=== PATIENT | female | born 1935 | race Caucasian/White ===

== ENCOUNTER 2016-08-05 14:11 | Outpatient (CLI) | payer MEDICARE, OTHER ==
--- NOTE | 2016-08-06 09:53 | Mammography Report ---
DIGITAL BILATERAL SCREENING MAMMOGRAPHY: 08/05/2016 CLINICAL HISTORY: A 81-year-old female in for routine screening mammogram. Patient has no family hi story of breast cancer. Patient has had no prior breast surgeries. COMPARISON: 04/13/2008, 06/16/2009, 01/24/2015 TECHNIQUE: Craniocaudad and oblique lateral views of each breast were obtained with Hologic Full Fie ld digital mammography. Axillary exaggerated craniocaudad views were obtained to compliment the pres ent study. FINDINGS: Breast parenchyma consists of heterogeneously dense breasts. No significant clusters of calcification are seen. No significant masses are noted. No significant change is seen. IMPRESSION: BREASTS APPEAR RADIOGRAPHICALLY BENIGN. BIRADS 1 - NEGATIVE. RECOMMENDATIONS: Annual bilateral screening mammography. STANDARD QUALIFYING STATEMENTS 1. This examination was reviewed with the aid of Computer-Aided Detection (CAD). 2. A negative or benign imaging report should not delay biopsy if clinically suspicious findings are present. Consider surgical consultation if warranted. More than 5% of cancers are not identified by i maging. 3. Dense breasts may obscure an underlying neoplasm. JOB #: [id number] EXT JOB #:[id number]
== END 2016-08-05 14:12 | disposition home or self-care (01) ==
LOC: DI 14:11
PROVIDERS: ATTEND Physician Assistant
DX: Z12.31 Encounter for screening mammogram for malignant neoplasm of breast (principal)
CPT/HCPCS: 77067

== ENCOUNTER 2016-08-05 14:13 | Outpatient (CLI) | payer MEDICARE, OTHER ==
--- NOTE | 2016-08-07 14:13 | DEXA Report ---
DEXA SCAN: 08/05/2016 HISTORY: @@(not dictated) TECHNIQUE: Dual energy x-ray absorptiometry (DXA) was performed on a [place] system. Regions measured are the AP spine, femoral neck, and, if needed, forearm. COMPARISON: None. In accordance with the International Society for Clinical Densitometry (ISCD) guidelines, data from previous exams may be reanalyzed using current recommendations and techniques. This is done to allow a more accurate basis for comparison with the current study. FINDINGS: The data for the lumbar spine is as follows: REGION BMD (g/cm/cm) T-SCORE Z-SCORE L1 0.747 -3.2 -1.1 L2 0.827 -3.1 -1.1 L3 0.978 -1.8 0.2 L4 1.138 -0.5 1.5 TOTAL 0.931 -2.1 0.0 NOTE: All evaluable vertebrae are used for classification. The data for the hip is as follows: REGION BMD (g/cm/cm) T-SCORE Z-SCORE Neck 0.680 -2.6 -0.3 TOTAL 0.700 -2.4 -0.3 NOTE: The femoral neck or total proximal femur, whichever is lowest, is used for classification. * Denotes significant change at the 95% confidence level. Denotes dissimilar scan types or analysis methods. IMPRESSION: THE WHO CLASSIFICATION BASED ON THE INTERNATIONAL REFERENCE STANDARD IS OSTEOPOROSIS. THE FRACTURE RISK IS SIGNIFICANTLY INCREASED. RECOMMENDATION: Patients with diagnosis of osteoporosis or osteopenia should have regular bone mineral density assessment. For those eligible for Medicare, routine testing is allowed once every 2 years. Testing frequency can be increased for patients who have rapidly progressing disease or for those who are receiving medical therapy to restore bone mass. COMMENT: World Health Organization (WHO) definitions for osteoporosis and osteopenia: NORMAL BMD: T-score at -1.0 or higher, fracture risk is low. OSTEOPENIA BMD: T-score between -1.0 and -2.5, fracture risk is increased. OSTEOPOROSIS BMD: T-score at -2.5 or lower, fracture risk high. National Osteoporosis Foundation recommends: 1. Obtain adequate dietary calcium (at least 1200 mg per day) and vitamin D (400 -800 international units per day). 2. Participate, as appropriate, in regular weightbearing and muscle- strengthening exercise. 3. Avoid tobacco use and reduce alcohol and caffeine intake. 4. For more detailed information see the website at www.NOF.org. MTDD
== END 2016-08-05 14:14 | disposition home or self-care (01) ==
LOC: DI 14:13
PROVIDERS: ATTEND Physician Assistant
DX: M81.0 Age-related osteoporosis without current pathological fracture (principal); Z78.0 Asymptomatic menopausal state
CPT/HCPCS: 77080

== ENCOUNTER 2018-03-12 15:39 | Outpatient (CLI) | payer MEDICARE, OTHER ==
[2018-03-12 16:03] LABS: BASOPHILS # (AUTO) 0.1 10^3/uL (0.0-0.1); BASOPHILS % (AUTO) 1.2 %; EOSINOPHILS # (AUTO) 0.2 10^3/uL (0.0-0.7); EOSINOPHILS % (AUTO) 3.7 %; HGB - HEMOGLOBIN 13.7 g/dL (12.0-16.0); LYMPHOCYTES # (AUTO) 1.7 10^3/uL (1.5-3.5); LYMPHOCYTES % (AUTO) 27.7 %; MEAN CORPUSCULAR HEMOGLOBIN 30.8 pg (27.0-31.0); MEAN CORPUSCULAR HGB CONC 34.4 g/dL (32.0-36.0); MEAN CORPUSCULAR VOLUME 89.6 fL (81.0-99.0); MEAN PLATELET VOLUME 6.5 fL (7.9-10.8); MONOCYTES # (AUTO) 0.7 10^3/uL (0.0-1.0); MONOCYTES % (AUTO) 10.6 %; NEUTROPHILS # (AUTO) 3.6 10^3/uL (1.5-6.6); NEUTROPHILS % (AUTO) 56.8 %; PLT - PLATELET COUNT 439 10^3/uL (130-450); RED BLOOD COUNT 4.45 10^6/uL (4.20-5.40); RED CELL DISTRIBUTION WIDTH 14.1 % (12.0-15.0); WHITE BLOOD COUNT 6.3 x10^3/uL (4.8-10.8)
[2018-03-12 16:20] LABS: ALBUMIN/GLOBULIN RATIO 1.3 (1.0-2.2); ALKALINE PHOSPHATASE 40 IU/L (42-121); ALT ALANINE AMINOTRANSFERASE 19 IU/L (10-60); AST ASPARTATE AMINOTRANSFERASE 20 IU/L (10-42); BILIRUBIN,TOTAL 0.6 mg/dL (0.2-1.0); BUN - BLOOD UREA NITROGEN 15 mg/dL (6-20); CALCIUM 9.1 mg/dL (8.5-10.3); CARBON DIOXIDE - CO2 30 mmol/L (21-32); CHLORIDE 94 mmol/L (101-111); CHOL/HDL RATIO 4.1 (<4.4); CHOLESTEROL 247 mg/dL; CREATININE 0.8 mg/dL (0.4-1.0); GFR - MDRD 69 (>89); GLUCOSE 107 mg/dL (70-100); HDL CHOLESTEROL 60 mg/dL; LDL CHOLESTEROL,CALCULATED 171 mg/dL; LDL/HDL RATIO 2.9 (<4.4); SODIUM 133 mmol/L (135-145); TOTAL PROTEIN 7.2 g/dL (6.7-8.2); VLDL CHOLESTEROL 16 mg/dL
[2018-03-12 16:32] LABS: THYROID STIMULATING HORMONE 7.15 uIU/mL (0.34-5.60)
[2018-03-12 16:34] LABS: FREE T4 (FREE THYROXINE) 0.59 ng/dL (0.58-1.64)
== END 2018-03-12 15:40 | disposition home or self-care (01) ==
LOC: LAB 15:39
PROVIDERS: ATTEND Physician Assistant
DX: E03.9 Hypothyroidism, unspecified (principal); I10 Essential (primary) hypertension; E78.5 Hyperlipidemia, unspecified
CPT/HCPCS: 36415; 80053; 80061; 83721; 84439; 84443; 84481; 85025

== ENCOUNTER 2018-10-28 10:02 | Outpatient (CLI) | payer MEDICARE, OTHER ==
[2018-10-28 10:39] LABS: ALBUMIN 3.7 g/dL (3.2-5.5); ALBUMIN/GLOBULIN RATIO 1.2 (1.0-2.2); ALKALINE PHOSPHATASE 30 IU/L (42-121); ALT ALANINE AMINOTRANSFERASE 21 IU/L (10-60); AST ASPARTATE AMINOTRANSFERASE 20 IU/L (10-42); BILIRUBIN,TOTAL 0.4 mg/dL (0.2-1.0); BUN - BLOOD UREA NITROGEN 18 mg/dL (6-20); CALCIUM 9.5 mg/dL (8.5-10.3); CARBON DIOXIDE - CO2 27 mmol/L (21-32); CHLORIDE 98 mmol/L (101-111); CHOL/HDL RATIO 3.7 (<4.4); CHOLESTEROL 206 mg/dL; CREATININE 0.8 mg/dL (0.4-1.0); GFR - MDRD 69 (>89); GLUCOSE 119 mg/dL (70-100); HDL CHOLESTEROL 55 mg/dL; LDL CHOLESTEROL,CALCULATED 140 mg/dL; LDL/HDL RATIO 2.5 (<4.4); SODIUM 136 mmol/L (135-145); TOTAL PROTEIN 6.8 g/dL (6.7-8.2); VLDL CHOLESTEROL 11 mg/dL
[2018-10-28 11:17] LABS: THYROID STIMULATING HORMONE 6.96 uIU/mL (0.34-5.60)
[2018-10-28 11:19] LABS: FREE T4 (FREE THYROXINE) 0.64 ng/dL (0.58-1.64)
== END 2018-10-28 10:03 | disposition home or self-care (01) ==
LOC: LAB 10:02
PROVIDERS: ATTEND Physician Assistant
DX: E78.2 Mixed hyperlipidemia (principal); E03.9 Hypothyroidism, unspecified
CPT/HCPCS: 36415; 80053; 80061; 83721; 84439; 84443; 84481

== ENCOUNTER 2019-02-23 18:24 | Emergency (ER) | payer MEDICARE, OTHER ==
[2019-02-23 19:52] LABS: BASOPHILS % (AUTO) 0.6 %; EOSINOPHILS # (AUTO) 0.3 10^3/uL (0.0-0.7); EOSINOPHILS % (AUTO) 5.2 %; HGB - HEMOGLOBIN 12.7 g/dL (12.0-16.0); LYMPHOCYTES # (AUTO) 1.7 10^3/uL (1.5-3.5); LYMPHOCYTES % (AUTO) 26.9 %; MEAN PLATELET VOLUME 8.5 fL (7.9-10.8); MONOCYTES # (AUTO) 0.7 10^3/uL (0.0-1.0); MONOCYTES % (AUTO) 10.9 %; NEUTROPHILS # (AUTO) 3.5 10^3/uL (1.5-6.6); NEUTROPHILS % (AUTO) 56.2 %; PLT - PLATELET COUNT 410 10^3/uL (130-450); RED BLOOD COUNT 4.23 10^6/uL (4.20-5.40); RED CELL DISTRIBUTION WIDTH 13.5 % (12.0-15.0); WHITE BLOOD COUNT 6.2 x10^3/uL (4.8-10.8)
--- NOTE | 2019-02-23 19:57 | ED Physician Documentation ---
History of Present Illness - Stated complaint Stated Complaint: HBP - Chief complaint Chief Complaint: Cardiac - Additonal information Additional information: This is an 83-year-old female with a history of hypertension, hyperlipidemia, who presents with elevated blood pressure and lightheadedness. Patient was having a dental cleaning today, and they had her in a Trendelenburg type position. When they sat her up she felt lightheaded, and they checked her blood pressure and found to be quite high, in the 190s/100s. She denied any chest pain or shortness of breath. They checked it several times over the course of an hour, and remained elevated, so she was sent here for further evaluation. She states that she currently feels fine, she denies any lightheadedness, weakness, numbness, chest pain, shortness of breath, abdominal pain, or other symptoms. She would like to go home at this time. Medications for blood pressure in the morning, she states that she has not missed the dose of these. She did recently cut down her dose after discussion with her primary care provider. 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 : None HEENT: None Psych: Depression, Anxiety Musculoskeletal: Osteoarthritis Derm: None - Past Surgical History Past Surgical History: Yes Ortho: Spine surgery - Present Medications Home Medications: Ambulatory Orders Medication Instructions Recorded Confirmed Ascorbic Acid [Vitamin C] 0 07/20/12 04/07/14 Atenolol/Chlorthalidone 1 ea ORAL DAILY 07/20/12 04/07/14 [Atenolol-Chlorthalidone 100-25] Buspirone HCl 10 mg ORAL BID 07/20/12 04/07/14 Calcium [Calcio [place]] 0 07/20/12 04/07/14 Cholecalciferol (Vitamin D3) 0 07/20/12 04/07/14 [Vitamin D] FLUoxetine [PROzac] 20 mg ORAL DAILY 07/20/12 04/07/14 Multivitamin [Multivitamins] 0 07/20/12 04/07/14 Thyroid,Pork [[place] Thyroid] 60 mg ORAL DAILY 07/20/12 04/07/14 lamoTRIgine [LaMICtal] 100 mg ORAL DAILY 07/20/12 04/07/14 risperiDONE [RisperDAL] 0.5 mg ORAL DAILY 07/20/12 04/07/14 Azithromycin [Zithromax] 250 mg PO DAILY #4 tablet 04/07/14 Gabapentin 300 mg PO DAILY 04/07/14 04/07/14 Potassium Chloride 10 meq PO DAILY 04/07/14 04/07/14 - Allergies Allergies/Adverse Reactions: Allergies Allergy/AdvReac Type Severity Reaction Status Date / Time No Known Drug Allergies Allergy Verified 02/23/19 18:33 - Social History Does the pt smoke?: No Smoking Status: Never smoker Does the pt drink ETOH?: No Does the pt have substance abuse?: No - Immunizations Immunizations are current?: Yes - POLST Patient has POLST: No PD ED PE NORMAL - Vitals Vital signs reviewed: Yes - General General: Alert and oriented X 3, No acute distress - HEENT HEENT: PERRL - Neck Neck: Supple, no meningeal sign - Cardiac Cardiac: RRR - Respiratory Respiratory: No respiratory distress, Clear bilaterally - Abdomen Abdomen: Soft, Non tender, Non distended - Derm Derm: Warm and dry - Extremities Extremities: No deformity - Neuro Neuro: Alert and oriented X 3, 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 There is a questionable less than 0.[address] de pression in V5.) - Labs Labs: Laboratory Tests 02/23/19 02/23/19 02/23/19 19:43 19:43 19:43 WBC 6.2 RBC 4.23 Hgb 12.7 Hct 38.5 MCV 91.0 MCH 30.0 MCHC 33.0 RDW 13.5 Plt Count 410 MPV 8.5 Neut # (Auto) 3.5 Lymph # (Auto) 1.7 [place] # (Auto) 0.7 Eos # (Auto) 0.3 Baso # (Auto) 0.0 Absolute Nucleated RBC 0.00 Nucleated RBC % 0.0 Sodium 138 Potassium 3.4 L Chloride 99 L Carbon Dioxide 31 Anion Gap 8.0 BUN 16 Creatinine 0.8 Estimated GFR (MDRD) 69 L Glucose 103 H Calcium 9.3 Magnesium 1.9 Total Bilirubin 0.5 AST 20 ALT 19 Alkaline Phosphatase 31 L Troponin I High Sens 3.6 B-Natriuretic Peptide Total Protein 6.8 Albumin 3.6 Globulin 3.2 Albumin/Globulin Ratio 1.1 Lipase 24 02/23/19 19:43 WBC RBC Hgb Hct MCV MCH MCHC RDW Plt Count MPV Neut # (Auto) Lymph # (Auto) [place] # (Auto) Eos # (Auto) Baso # (Auto) Absolute Nucleated RBC Nucleated RBC % Sodium Potassium Chloride Carbon Dioxide Anion Gap BUN Creatinine Estimated GFR (MDRD) Glucose Calcium Magnesium Total Bilirubin AST ALT Alkaline Phosphatase Troponin I High Sens B-Natriuretic Peptide 56 Total Protein Albumin Globulin Albumin/Globulin Ratio Lipase PD MEDICAL DECISION MAKING - ED course Complexity details: considered differential (Hypertension, hypertensive emergency, electrolyte abnormality, anemia, medication side effect, ACS, dysrhythmia) ED course: Patient is well-appearing and asymptomatic on arrival, she is hypertensive, but her blood pressure down trended without intervention during her stay here. Her CBC is unremarkable, her CMP shows only a very slight hypokalemia at 3.4, otherwise unremarkable. Troponin is within normal limits, and BNP is negative. Her EKG Does not show any convincing signs of ischemia. Her lungs are clear, and her oxygen saturation is normal. On repeat examination patient continues to feel well. She is able to ambulate independently to the bathroom and she is asymptomatic, she has no further lightheadedness. She is neurologically intact. I discussed that I do not know the exact cause of her lightheadedness, but her labs and resolution of her symptoms are reassuring. She is very eager to go home. I discussed that if she has any recurrence of her symptoms, particularly if she has any chest pain, trouble breathing, passing out, or other concerning symptoms she should return to the emergency department. I discussed primary care follow-up. I also discussed logging her blood pressure and discussing with her primary care provider if she needs a medication adjustment. Patient agrees with this plan and was discharged home Departure - Departure Disposition: 01 Home, Self Care Clinical Impression: Lightheaded Hypertension Qualifiers: Hypertension type: unspecified Qualified Code(s): I10 - Essential (primary) hypertension Condition: Good Instructions: ED Dizziness UKO Comments: You were seen today for dizziness as well as high blood pressure. I am glad that you are now feeling better. Your labs are reassuring. If you develop worsening symptoms such as lightheadedness, passing out, chest pain, or shortness of breath, please return to the emergency department. Please continue to log your blood pressure and to follow-up with your primary care provider to determine whether further changes to your medications are needed. Be careful when you are getting up from sitting, and avoid activities that could harm you if you pass out, such as driving, climbing at heights, or swimming until you are feeling completely better. Discharge Date/Time: 02/23/19 20:46
[2019-02-23 20:04] LABS: ALBUMIN 3.6 g/dL (3.2-5.5); ALBUMIN/GLOBULIN RATIO 1.1 (1.0-2.2); BILIRUBIN,TOTAL 0.5 mg/dL (0.2-1.0); CALCIUM 9.3 mg/dL (8.5-10.3); CREATININE 0.8 mg/dL (0.4-1.0); MAGNESIUM 1.9 mg/dL (1.7-2.8); TOTAL PROTEIN 6.8 g/dL (6.7-8.2)
[2019-02-23 20:40] VITALS: BP 192/81
== END 2019-02-23 20:46 | disposition home or self-care (01) ==
LOC: ED 18:24
DX: I10 Essential (primary) hypertension (principal); R42 Dizziness and giddiness; E87.6 Hypokalemia; E78.5 Hyperlipidemia, unspecified; E03.9 Hypothyroidism, unspecified
CPT/HCPCS: 36415; 80053; 83690; 83735; 83880; 84484; 85025; 93005; 99282; 99284

== ENCOUNTER 2019-06-30 11:27 | Outpatient (CLI) | payer MEDICARE, OTHER ==
--- NOTE | 2019-06-30 12:25 | XRAY Report ---
Reason: RIGHT HIP PAIN Procedure Date: 06/30/2019 Accession Number: [id number] / [id number] Procedure: XR - Hip w/Pelvis 2-3V RT CPT Code: Final Report FULL RESULT: EXAM: RIGHT HIP RADIOGRAPHY EXAM DATE: 06/30/2019 11:52 AM. CLINICAL HISTORY: Right hip pain. COMPARISON: XR PELVIS 1 OR 2 VIEWS 12/27/2009 4:23 PM. TECHNIQUE: 2 views. FINDINGS: Severe right hip joint space narrowing with subchondral cystic and sclerotic changes of the acetabulum and femoral head, showing progression versus remote comparison. No fracture or dislocation detected at the right hip. The bony pelvis appears intact. There is moderate to severe narrowing at the left hip joint space. Progression of disk space height loss and osteophytic spurring of the image portion of the lower lumbar spine. Sacroiliac joints appear intact. IMPRESSION: Advanced degenerative changes at the right hip. RADIA
== END 2019-06-30 11:28 | disposition home or self-care (01) ==
LOC: DI 11:27
PROVIDERS: ATTEND Registered Nurse
DX: M16.11 Unilateral primary osteoarthritis, right hip (principal)

== ENCOUNTER 2019-07-04 17:15 | Outpatient (CLI) | payer MEDICARE, OTHER | END 2019-07-04 17:16 | disposition critical access hospital (66) | LOC: EMS 17:15 | PROVIDERS: ATTEND Surgery | DX: M25.551 Pain in right hip (principal); W19.XXXA Unspecified fall, initial encounter; Y92.512 Supermarket, store or market as the place of occurrence of the external cause | CPT/HCPCS: A0425; A0429 ==

== ENCOUNTER 2019-07-04 17:22 | Emergency (ER) | payer MEDICARE, OTHER ==
[2019-07-04] MEDS ORDERED: oxyCODONE 5 MG TABLET PO STA ×2 (17:29→20:27)
--- NOTE | 2019-07-04 17:31 | ED Physician Documentation ---
PD HPI LOWER EXT INJURY - Stated complaint Stated Complaint: RT HIP PX - History obtained from History obtained from: Patient, EMS - History of Present Illness PD HPI LOW EXT INJURY LOCATION: Right (83-year-old woman who 6 days ago had a fall. She twisted her hip but did not land on it. Since then she has had terrible pain over the right hip. She had x-rays out done as an outpatient 2 days ago which were negative. She is been taking ibuprofen at home without relief. She was referred here from her primary care physician's office. 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 : None HEENT: None Psych: Depression, Anxiety Musculoskeletal: Osteoarthritis Derm: None - Past Surgical History Past Surgical History: Yes Ortho: Spine surgery - Present Medications Home Medications: Ambulatory Orders Medication Instructions Recorded Confirmed Ascorbic Acid [Vitamin C] 0 07/20/12 04/07/14 Atenolol/Chlorthalidone 1 ea ORAL DAILY 07/20/12 04/07/14 [Atenolol-Chlorthalidone 100-25] Buspirone HCl 10 mg ORAL BID 07/20/12 04/07/14 Calcium [Calcio [place]av[place]] 0 07/20/12 04/07/14 Cholecalciferol (Vitamin D3) 0 07/20/12 04/07/14 [Vitamin D] FLUoxetine [PROzac] 20 mg ORAL DAILY 07/20/12 04/07/14 Multivitamin [Multivitamins] 0 07/20/12 04/07/14 Thyroid,Pork [[place] Thyroid] 60 mg ORAL DAILY 07/20/12 04/07/14 lamoTRIgine [LaMICtal] 100 mg ORAL DAILY 07/20/12 04/07/14 risperiDONE [RisperDAL] 0.5 mg ORAL DAILY 07/20/12 04/07/14 Azithromycin [Zithromax] 250 mg PO DAILY #4 tablet 04/07/14 Gabapentin 300 mg PO DAILY 04/07/14 04/07/14 Potassium Chloride 10 meq PO DAILY 04/07/14 04/07/14 - Allergies Allergies/Adverse Reactions: Allergies Allergy/AdvReac Type Severity Reaction Status Date / Time No Known Drug Allergies Allergy Verified 02/23/19 18:33 - Social History Does the pt smoke?: No Smoking Status: Never smoker Does the pt drink ETOH?: No Does the pt have substance abuse?: No - Immunizations Immunizations are current?: Yes - POLST Patient has POLST: No PD ED PE NORMAL - Vitals Vital signs reviewed: Yes - General General: Alert and oriented X 3, No acute distress - HEENT HEENT: PERRL, EOMI - Neck Neck: Supple, no meningeal sign, No bony TTP - Cardiac Cardiac: RRR, No murmur - Respiratory Respiratory: No respiratory distress, Clear bilaterally - Abdomen Abdomen: Non tender - Back Back: Other (Tender over the right hip. Unable to internally or externally rotate. Unable to reach the leg off the bed. Knee and pelvic bones are nontender.) - Derm Derm: Normal color, Warm and dry - Extremities Extremities: No edema, No calf tenderness / cord - Neuro Neuro: Alert and oriented X 3, Normal speech Results - Vitals Vitals: Vital Signs - 24 hr 07/04/19 07/04/19 17:31 18:56 Temperature 36.9 C 37.1 C Heart Rate 59 L 60 Respiratory 16 16 Rate Blood Pressure 180/77 H 149/100 H O2 Saturation 96 99 Oxygen O2 Source Room air PD MEDICAL DECISION MAKING - ED course ED course: 83-year-old woman with a fall 6 days ago twisting her hip. Now unable to walk. Outpatient x-rays have been negative but his CT shows a nondisplaced subcapital femoral neck fracture on the right. We do not have orthopedics on-call today and [facility] was called a few minutes before 7 PM for potential transfer. She was accepted by [facility] at [facility] at approximately 7:10 PM. She also requested that I talk with the hospitalist there and they were paged. Dr. Shen did asked that we perform coronavirus testing as that is there routine for preoperative patients at [facility] now. Departure - Departure Disposition: 02 Transfer Acute Care Hosp Clinical Impression: Femoral neck fracture Qualifiers: Encounter type: initial encounter Fracture type: closed Laterality: right Qualified Code(s): S72.001A - Fracture of unspecified part of neck of right femur, initial encounter for closed fracture Condition: Good Record reviewed to determine appropriate education?: Yes
--- NOTE | 2019-07-04 18:44 | CT Report ---
Reason: hip pain fall Procedure Date: 07/04/2019 Accession Number: [id number] / [id number] Procedure: CT - PELVIS WO CPT Code: Final Report FULL RESULT: EXAM: CT BONY PELVIS WITHOUT CONTRAST EXAM DATE: 07/04/2019 05:55 PM. CLINICAL HISTORY: Hip pain following a fall. COMPARISON: Right hip radiographs 06/30/2019. TECHNIQUE: Thin-section axial images were acquired of the pelvis without contrast. Post-processing: Coronal and sagittal reformats. Other: None. In accordance with CT protocol optimization, one or more of the following dose reduction techniques were utilized for this exam: automated exposure control, adjustment of mA and/or KV based on patient size, or use of iterative reconstructive technique. FINDINGS: Bones: Nondisplaced, impacted subcapital femoral neck fracture. No additional fractures. 7 mm sclerotic osseous lesion within the right iliac wing (series 6 image 93), visible on prior radiographs from 2009. No additional osseous lesions. Sacroiliac Joints: Small marginal osteophytes. No erosions or joint space widening. Symphysis Pubis: Subchondral sclerosis and small marginal osteophytes. Right Hip: Severe posterior joint space loss with subchondral sclerosis and marginal osteophyte formation. Left Hip: Severe posterior joint space loss with small marginal osteophytes. Musculature: Normal. No fatty atrophy. Pelvic Cavity: The visualized bowel, bladder, and reproductive organs are unremarkable on this noncontrast exam. Other: No lymphadenopathy. No free air or free fluid. The other visualized soft tissues are unremarkable. IMPRESSION: 1. Nondisplaced, impacted subcapital right femoral neck fracture. RADIA
[2019-07-04 18:57] VITALS: BP 149/100
[2019-07-04 19:15] LABS: BASOPHILS % (AUTO) 0.6 %; EOSINOPHILS # (AUTO) 0.2 10^3/uL (0.0-0.7); HGB - HEMOGLOBIN 13.4 g/dL (12.0-16.0); LYMPHOCYTES # (AUTO) 1.2 10^3/uL (1.5-3.5); LYMPHOCYTES % (AUTO) 18.4 %; MEAN CORPUSCULAR HEMOGLOBIN 30.8 pg (27.0-31.0); MEAN CORPUSCULAR HGB CONC 34.6 g/dL (32.0-36.0); MEAN PLATELET VOLUME 8.4 fL (7.9-10.8); MONOCYTES # (AUTO) 0.9 10^3/uL (0.0-1.0); MONOCYTES % (AUTO) 13.2 %; NEUTROPHILS # (AUTO) 4.4 10^3/uL (1.5-6.6); NEUTROPHILS % (AUTO) 64.5 %; PLT - PLATELET COUNT 418 10^3/uL (130-450); RED BLOOD COUNT 4.35 10^6/uL (4.20-5.40); RED CELL DISTRIBUTION WIDTH 13.4 % (12.0-15.0); WHITE BLOOD COUNT 6.7 x10^3/uL (4.8-10.8)
[2019-07-04 19:19] LABS: INR 1.1 (0.8-1.2); PT - PROTHROMBIN TIME 12.6 secs (9.9-12.6)
[2019-07-04 19:26] LABS: ALBUMIN 3.6 g/dL (3.2-5.5); ALBUMIN/GLOBULIN RATIO 1.1 (1.0-2.2); BILIRUBIN,TOTAL 0.5 mg/dL (0.2-1.0); CALCIUM 9.4 mg/dL (8.5-10.3); CREATININE 0.7 mg/dL (0.4-1.0); TOTAL PROTEIN 6.9 g/dL (6.7-8.2)
[2019-07-04] MEDS ORDERED: HYDROmorphone 1 MG/ML CARPUJECT IVP STA (20:10)
== END 2019-07-04 20:45 | disposition short-term general hospital (02) ==
LOC: EDUNIT# → ED 17:22
DX: S72.011A Unspecified intracapsular fracture of right femur, initial encounter for closed fracture (principal); W19.XXXA Unspecified fall, initial encounter; X50.1XXA Overexertion from prolonged static or awkward postures, initial encounter; I10 Essential (primary) hypertension
CPT/HCPCS: 36415; 72192; 80053; 83690; 85025; 85610; 87635; 99284; 99285; A9270; 81599

== ENCOUNTER 2019-07-04 20:45 | Outpatient (CLI) | payer MEDICARE, OTHER | END 2019-07-04 20:46 | disposition short-term general hospital (02) | LOC: EMS 20:45 | PROVIDERS: ATTEND Surgery | DX: S72.001A Fracture of unspecified part of neck of right femur, initial encounter for closed fracture (principal); W01.0XXA Fall on same level from slipping, tripping and stumbling without subsequent striking against object, initial encounter; Y92.512 Supermarket, store or market as the place of occurrence of the external cause | CPT/HCPCS: A0425; A0428 ==

== ENCOUNTER 2019-11-03 14:22 | Outpatient (CLI) | payer MEDICARE, OTHER ==
--- NOTE | 2019-11-03 16:48 | DEXA Report ---
PROCEDURE: Dexa Spine and/or Hip INDICATIONS: AGE-RELATED OSTEOPOROSIS TECHNIQUE: Dual energy x-ray absorptiometry (DXA) was performed on a [place] System. Regions measur ed are the AP Spine, femoral neck, and if needed forearm. COMPARISON: 08/05/2016. FINDINGS: Lumbar Spine: Bone Mineral Density 0.983 g/cm/cm,T score -1.6. Left Hip: Bone Mineral Density 0.682 g/cm/cm,T score -2.6. Left Femoral Neck: Bone Mineral Density 0.681 g/cm/cm, T score -2.6. (T score greater or equal to -1.0: NORMAL) (T score from -1.1 to -2.4: OSTEOPENIA) (T score less than or equal to -2.5 to: OSTEOPOROSIS) Impression: Osteoporosis. Patients with diagnosis of osteoporosis or osteopenia should have regular bone mineral density assess ment. For those eligible for Medicare, routine testing is allowed once every 2 years. Testing frequ ency can be increased for patients who have rapidly progressing disease or for those who are receivin g medical therapy to restore bone mass. Reviewed by: Hunter Blue MD on 11/03/2019 4:46 PM PDT Approved by: Hunter Blue MD on 11/03/2019 4:46 PM PDT Station ID: [id number]
== END 2019-11-03 14:23 | disposition home or self-care (01) ==
LOC: DI 14:22
PROVIDERS: ATTEND Registered Nurse
DX: M81.0 Age-related osteoporosis without current pathological fracture (principal)
CPT/HCPCS: 77080

== ENCOUNTER 2020-02-12 19:16 | Emergency (ER) | payer MEDICARE, OTHER ==
[2020-02-12] MEDS ORDERED: AMOX/CLAV 875 MG/125 MG TABLET PO STA (20:28)
--- NOTE | 2020-02-12 20:29 | ED Physician Documentation ---
History of Present Illness - Stated complaint Stated Complaint: MOUTH PAIN, LEFT EAR PAIN - Chief complaint Chief Complaint: Heent - History obtained from History obtained from: Patient - History of Present Illness Timing: Today Pain level max: 0 Pain level now: 0 - Additonal information Additional information: 84-year-old female presents to the emergency department stating that she was diagnosed with cold sores from a herpes outbreak in her mouth. She states that today her left ear began to hurt, she then had blood come out of her ear canal. No fevers. No chills. Nothing makes it better or worse. 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 HEENT: None Psych: Depression, Anxiety Musculoskeletal: Osteoarthritis Derm: None - Past Surgical History Past Surgical History: Yes Ortho: Spine surgery - Present Medications Home Medications: Ambulatory Orders Medication Instructions Recorded Confirmed Ascorbic Acid [Vitamin C] 0 07/20/12 04/07/14 Atenolol/Chlorthalidone 1 ea ORAL DAILY 07/20/12 04/07/14 [Atenolol-Chlorthalidone 100-25] Buspirone HCl 10 mg ORAL BID 07/20/12 04/07/14 Calcium [Calcio [place]] 0 07/20/12 04/07/14 Cholecalciferol (Vitamin D3) 0 07/20/12 04/07/14 [Vitamin D] FLUoxetine [PROzac] 20 mg ORAL DAILY 07/20/12 04/07/14 Multivitamin [Multivitamins] 0 07/20/12 04/07/14 Thyroid,Pork [[place] Thyroid] 60 mg ORAL DAILY 07/20/12 04/07/14 lamoTRIgine [LaMICtal] 100 mg ORAL DAILY 07/20/12 04/07/14 risperiDONE [RisperDAL] 0.5 mg ORAL DAILY 07/20/12 04/07/14 Azithromycin [Zithromax] 250 mg PO DAILY #4 tablet 04/07/14 Gabapentin 300 mg PO DAILY 04/07/14 04/07/14 Potassium Chloride 10 meq PO DAILY 04/07/14 04/07/14 Amox/Clav 875/125 [Augmentin] 1 tab PO Q12H #20 tablet 02/12/20 - Allergies Allergies/Adverse Reactions: Allergies Allergy/AdvReac Type Severity Reaction Status Date / Time No Known Drug Allergies Allergy Verified 02/12/20 19:22 - Social History Does the pt smoke?: No Smoking Status: Never smoker Does the pt drink ETOH?: No Does the pt have substance abuse?: No - Immunizations Immunizations are current?: Yes - POLST Patient has POLST: No PD ED PE NORMAL - Vitals Vital signs reviewed: Yes - General General: Alert and oriented X 3, No acute distress - HEENT HEENT: PERRL, Ears normal (ruptured L TM, no active bleeding.), Moist mucous membranes, Pharynx benign, Other (mild swelling to L upper lip. normal phonation, no trismus.) - Neck Neck: Supple, no meningeal sign - Cardiac Cardiac: RRR - Respiratory Respiratory: No respiratory distress, Clear bilaterally - Derm Derm: Warm and dry - Neuro Neuro: Alert and oriented X 3 - Psych Psych: Normal mood, Normal affect Results - Vitals Vitals: Vital Signs - 24 hr 02/12/20 02/12/20 19:23 20:44 Temperature 36.6 C 37.1 C Heart Rate 101 H 70 Respiratory 16 14 Rate Blood Pressure 169/84 H 170/94 H O2 Saturation 94 93 Oxygen O2 Source Room air PD MEDICAL DECISION MAKING - ED course Complexity details: considered differential, d/w patient ED course: 84 year old female with a ruptured L TM. Patient to have a mild cellulitis of the left upper lip as well. Will place on antibiotics. Patient counseled regarding signs and symptoms for which I believe and urgent re-evaluation would be necessary. Patient with good understanding of and agreement to plan and is comfortable going home at this time This document was made in part using voice recognition software. While efforts are made to proofread this document, sound alike and grammatical errors may occur. Departure - Departure Disposition: 01 Home, Self Care Clinical Impression: Herpes simplex labialis Ruptured tympanic membrane Qualifiers: Laterality: left Qualified Code(s): H72.92 - Unspecified perforation of tympanic membrane, left ear Condition: Good Instructions: ED Rupture Eardrum Infec Follow-Up: Alison Philip ARNP [Primary Care Provider] - Within 1 week Prescriptions: Amox/Clav 875/125 [Augmentin] 1 tab PO Q12H #20 tablet Comments: Continue your current medications at home. Continue the acyclovir. Follow-up with your doctor for further care. Try to avoid getting any water in the ear. You should place a cotton ball in the ear when you are showering. You do need to be reevaluated within 1 week. Return if you worsen Discharge Date/Time: 02/12/20 20:46
[2020-02-12 20:45] VITALS: BP 170/94
== END 2020-02-12 20:46 | disposition home or self-care (01) ==
LOC: ED 19:16
DX: H72.92 Unspecified perforation of tympanic membrane, left ear (principal); B00.1 Herpesviral vesicular dermatitis; K13.0 Diseases of lips; I10 Essential (primary) hypertension
CPT/HCPCS: 99282; 99284; A9270

== ENCOUNTER 2020-05-30 13:23 | Outpatient (CLI) | payer MEDICARE, OTHER ==
[2020-05-30 13:46] LABS: BASOPHILS # (AUTO) 0.1 10^3/uL (0.0-0.1); EOSINOPHILS # (AUTO) 0.1 10^3/uL (0.0-0.7); EOSINOPHILS % (AUTO) 2.3 %; HCT - HEMATOCRIT 39.5 % (37.0-47.0); HGB - HEMOGLOBIN 13.2 g/dL (12.0-16.0); LYMPHOCYTES # (AUTO) 1.2 10^3/uL (1.5-3.5); LYMPHOCYTES % (AUTO) 20.1 %; MEAN CORPUSCULAR HEMOGLOBIN 30.8 pg (27.0-31.0); MEAN CORPUSCULAR HGB CONC 33.4 g/dL (32.0-36.0); MEAN CORPUSCULAR VOLUME 92.1 fL (81.0-99.0); MEAN PLATELET VOLUME 8.5 fL (7.9-10.8); MONOCYTES # (AUTO) 0.5 10^3/uL (0.0-1.0); MONOCYTES % (AUTO) 8.7 %; NEUTROPHILS # (AUTO) 4.1 10^3/uL (1.5-6.6); NEUTROPHILS % (AUTO) 67.6 %; PLT - PLATELET COUNT 520 10^3/uL (130-450); RED BLOOD COUNT 4.29 10^6/uL (4.20-5.40); RED CELL DISTRIBUTION WIDTH 13.7 % (12.0-15.0); WHITE BLOOD COUNT 6.1 x10^3/uL (4.8-10.8)
[2020-05-30 14:00] LABS: ALBUMIN 3.6 g/dL (3.2-5.5); ALBUMIN/GLOBULIN RATIO 1.1 (1.0-2.2); BILIRUBIN,TOTAL 0.5 mg/dL (0.2-1.0); CALCIUM 9.4 mg/dL (8.5-10.3); CREATININE 0.7 mg/dL (0.4-1.0); POTASSIUM 3.1 mmol/L (3.5-5.0); TOTAL PROTEIN 6.9 g/dL (6.7-8.2)
[2020-05-30 14:18] LABS: THYROID STIMULATING HORMONE 10.95 uIU/mL (0.34-5.60)
[2020-05-30 14:20] LABS: FREE T4 (FREE THYROXINE) 0.67 ng/dL (0.58-1.64)
== END 2020-05-30 13:24 | disposition home or self-care (01) ==
LOC: LAB 13:23
PROVIDERS: ATTEND Registered Nurse
DX: E03.9 Hypothyroidism, unspecified (principal); M81.0 Age-related osteoporosis without current pathological fracture; I10 Essential (primary) hypertension
CPT/HCPCS: 36415; 80053; 82306; 84439; 84443; 85025

== ENCOUNTER 2020-08-01 14:34 | Outpatient (CLI) | payer MEDICARE, OTHER | END 2020-08-01 14:35 | disposition home or self-care (01) | LOC: LAB 14:34 | PROVIDERS: ATTEND Registered Nurse | DX: E03.9 Hypothyroidism, unspecified (principal) | CPT/HCPCS: 36415; 84443 ==

== ENCOUNTER 2020-08-15 13:16 | Outpatient (CLI) | payer MEDICARE, OTHER ==
[2020-08-15 13:46] LABS: BASOPHILS % (AUTO) 0.7 %; EOSINOPHILS % (AUTO) 2.6 %; HCT - HEMATOCRIT 38.1 % (37.0-47.0); HGB - HEMOGLOBIN 12.6 g/dL (12.0-16.0); LYMPHOCYTES % (AUTO) 23.6 %; MEAN CORPUSCULAR HEMOGLOBIN 30.4 pg (27.0-31.0); MEAN CORPUSCULAR HGB CONC 33.1 g/dL (32.0-36.0); MEAN CORPUSCULAR VOLUME 91.8 fL (81.0-99.0); MEAN PLATELET VOLUME 8.7 fL (7.9-10.8); MONOCYTES % (AUTO) 8.2 %; NEUTROPHILS % (AUTO) 64.5 %; PLT - PLATELET COUNT 495 10^3/uL (130-450); RED BLOOD COUNT 4.15 10^6/uL (4.20-5.40); RED CELL DISTRIBUTION WIDTH 14.1 % (12.0-15.0); WHITE BLOOD COUNT 6.9 x10^3/uL (4.8-10.8)
[2020-08-15 13:52] LABS: ABNORMAL LYMPHS % (MANUAL) 0 %
[2020-08-15 14:06] LABS: % IRON SATURATION 19 % (20-50); BUN - BLOOD UREA NITROGEN 15 mg/dL (6-20); CALCIUM 9.1 mg/dL (8.5-10.3); CARBON DIOXIDE - CO2 29 mmol/L (21-32); CHLORIDE 100 mmol/L (101-111); CREATININE 0.7 mg/dL (0.4-1.0); GFR - MDRD 80 (>89); GLUCOSE 105 mg/dL (70-100); IRON 63 ug/dL (28-170); SODIUM 138 mmol/L (135-145); TOTAL IRON BINDING CAPACITY 337 ug/dL (250-450); TRANSFERRIN 241 mg/dL (192-382)
[2020-08-15 14:08] LABS: CRP - C-REACTIVE PROTEIN < 1.0 mg/dL (0-1.0)
[2020-08-15 14:09] LABS: BAND NEUTROPHILS % (MANUAL) 1 %; BASOPHILS # (MANUAL) 0.1 10^3/uL (0-0.1); BASOPHILS % (MANUAL) 1 %; DIFFERENTIAL COMMENT MANUAL DIFFERENTIAL; EOSINOPHILS # (MANUAL) 0.2 10^3/uL (0-0.7); LYMPHOCYTES # (MANUAL) 2.1 10^3/uL (1.5-3.5); LYMPHOCYTES % (MANUAL) 28 %; MONOCYTES # (MANUAL) 0.3 10^3/uL (0.0-1.0); NEUTROPHILS # (MANUAL) 4.2 10^3/uL (1.5-6.6); REACTIVE LYMPHS % (MANUAL) 3 %
[2020-08-15 14:10] LABS: PLATELET ESTIMATE, MANUAL INCREASED (>450,000) (NORMAL); PLATELET MORPHOLOGY NORMAL APPEARANCE (NORMAL); RBC MORPHOLOGY (MULTIPLE) NORMAL APPEARANCE (NORMAL); WBC MORPHOLOGY (MULTIPLE) 1+ REACTIVE LYMPHS (NORMAL)
== END 2020-08-15 13:17 | disposition home or self-care (01) ==
LOC: LAB 13:16
PROVIDERS: ATTEND Registered Nurse
DX: I10 Essential (primary) hypertension (principal); D47.3 Essential (hemorrhagic) thrombocythemia
CPT/HCPCS: 36415; 80048; 82728; 83540; 84466; 85025; 85651; 86140

== ENCOUNTER 2020-08-29 13:04 | Outpatient (CLI) | payer MEDICARE, OTHER ==
--- NOTE | 2020-08-29 17:37 | XRAY Report ---
PROCEDURE: Foot 3 View LT INDICATIONS: INJURY TO LEFT FOOT TECHNIQUE: 3 views of the foot were acquired. COMPARISON: None FINDINGS: Bones: No acute fractures or dislocations. Moderate degenerative changes of the left first metatarso phalangeal joint with bunion formation and overlying soft tissue prominence. There are also degenerat jose manuel changes of the left great toe interphalangeal joint. No suspicious bony lesions. Soft tissues: No tibiotalar joint effusion. Achilles tendon appears normal. IMPRESSION: Left foot without acute fracture or dislocation. Moderate osteoarthritic changes of the left first metatarsophalangeal joint with prominent overlying soft tissue. This may represent sequela of bunion formation. Consider further evaluation with weightb earing views of the left foot. Reviewed by: Wesley Morris MD on 08/29/2020 5:36 PM PDT Approved by: Wesley Morris MD on 08/29/2020 5:36 PM PDT Station ID: [id number]
== END 2020-08-29 13:05 | disposition home or self-care (01) ==
LOC: DI 13:04
PROVIDERS: ATTEND Podiatrist
DX: M19.072 Primary osteoarthritis, left ankle and foot (principal)

== ENCOUNTER 2021-01-17 13:11 | Outpatient (CLI) | payer MEDICARE, OTHER ==
[2021-01-17 13:26] LABS: BASOPHILS # (AUTO) 0.1 10^3/uL (0.0-0.1); BASOPHILS % (AUTO) 1.1 %; EOSINOPHILS # (AUTO) 0.3 10^3/uL (0.0-0.7); EOSINOPHILS % (AUTO) 4.3 %; HCT - HEMATOCRIT 39.9 % (37.0-47.0); HGB - HEMOGLOBIN 13.2 g/dL (12.0-16.0); LYMPHOCYTES % (AUTO) 27.7 %; MEAN CORPUSCULAR HEMOGLOBIN 30.3 pg (27.0-31.0); MEAN CORPUSCULAR HGB CONC 33.1 g/dL (32.0-36.0); MEAN CORPUSCULAR VOLUME 91.7 fL (81.0-99.0); MEAN PLATELET VOLUME 8.8 fL (7.9-10.8); MONOCYTES # (AUTO) 0.7 10^3/uL (0.0-1.0); NEUTROPHILS # (AUTO) 4.2 10^3/uL (1.5-6.6); NEUTROPHILS % (AUTO) 57.6 %; PLT - PLATELET COUNT 563 10^3/uL (130-450); RED BLOOD COUNT 4.35 10^6/uL (4.20-5.40); RED CELL DISTRIBUTION WIDTH 14.8 % (12.0-15.0); WHITE BLOOD COUNT 7.2 x10^3/uL (4.8-10.8)
[2021-01-17 13:45] LABS: ALBUMIN 3.6 g/dL (3.2-5.5); ALBUMIN/GLOBULIN RATIO 1.1 (1.0-2.2); BILIRUBIN,TOTAL 0.6 mg/dL (0.2-1.0); CALCIUM 8.9 mg/dL (8.5-10.3); CREATININE 0.7 mg/dL (0.4-1.0); POTASSIUM 4.1 mmol/L (3.5-5.0)
[2021-01-17 13:55] LABS: THYROID STIMULATING HORMONE 4.36 uIU/mL (0.34-5.60)
[2021-01-17 14:00] LABS: FERRITIN 28.7 ng/mL (11.0-306.8)
== END 2021-01-17 13:12 | disposition home or self-care (01) ==
LOC: LAB 13:11
PROVIDERS: ATTEND Registered Nurse
DX: R53.83 Other fatigue (principal); I10 Essential (primary) hypertension; D47.3 Essential (hemorrhagic) thrombocythemia
CPT/HCPCS: 36415; 80053; 82728; 83540; 84443; 84466; 85025

== ENCOUNTER 2021-03-07 14:30 | Outpatient (CLI) | payer MEDICARE, OTHER ==
[2021-03-07 14:49] LABS: BASOPHILS # (AUTO) 0.1 10^3/uL (0.0-0.1); EOSINOPHILS # (AUTO) 0.3 10^3/uL (0.0-0.7); EOSINOPHILS % (AUTO) 4.2 %; HCT - HEMATOCRIT 41.5 % (37.0-47.0); HGB - HEMOGLOBIN 13.7 g/dL (12.0-16.0); LYMPHOCYTES # (AUTO) 2.1 10^3/uL (1.5-3.5); LYMPHOCYTES % (AUTO) 26.9 %; MEAN CORPUSCULAR HEMOGLOBIN 30.4 pg (27.0-31.0); MEAN PLATELET VOLUME 8.8 fL (7.9-10.8); MONOCYTES # (AUTO) 0.7 10^3/uL (0.0-1.0); MONOCYTES % (AUTO) 9.5 %; NEUTROPHILS # (AUTO) 4.5 10^3/uL (1.5-6.6); NEUTROPHILS % (AUTO) 58.3 %; PLT - PLATELET COUNT 588 10^3/uL (130-450); RED BLOOD COUNT 4.51 10^6/uL (4.20-5.40); RED CELL DISTRIBUTION WIDTH 14.6 % (12.0-15.0); WHITE BLOOD COUNT 7.8 x10^3/uL (4.8-10.8)
[2021-03-07 15:06] LABS: ALBUMIN 3.9 g/dL (3.2-5.5); ALBUMIN/GLOBULIN RATIO 1.1 (1.0-2.2); BILIRUBIN,TOTAL 0.5 mg/dL (0.2-1.0); CALCIUM 9.1 mg/dL (8.5-10.3); CREATININE 0.8 mg/dL (0.4-1.0); POTASSIUM 4.1 mmol/L (3.5-5.0); TOTAL PROTEIN 7.3 g/dL (6.7-8.2)
[2021-03-07 15:16] LABS: THYROID STIMULATING HORMONE 4.73 uIU/mL (0.34-5.60)
[2021-03-07 15:21] LABS: FERRITIN 39.6 ng/mL (11.0-306.8)
== END 2021-03-07 14:31 | disposition home or self-care (01) ==
LOC: LAB 14:30
PROVIDERS: ATTEND Registered Nurse
DX: R53.83 Other fatigue (principal); I10 Essential (primary) hypertension; D75.839 Thrombocytosis, unspecified
CPT/HCPCS: 36415; 80053; 82728; 83540; 84443; 84466; 85025

== ENCOUNTER 2021-05-02 13:17 | Outpatient (CLI) | payer MEDICARE, OTHER ==
[2021-05-02 13:27] LABS: BASOPHILS # (AUTO) 0.1 10^3/uL (0.0-0.1); BASOPHILS % (AUTO) 0.7 %; EOSINOPHILS # (AUTO) 0.2 10^3/uL (0.0-0.7); EOSINOPHILS % (AUTO) 2.1 %; HCT - HEMATOCRIT 40.7 % (37.0-47.0); HGB - HEMOGLOBIN 13.8 g/dL (12.0-16.0); LYMPHOCYTES # (AUTO) 2.1 10^3/uL (1.5-3.5); LYMPHOCYTES % (AUTO) 24.6 %; MEAN CORPUSCULAR HEMOGLOBIN 30.9 pg (27.0-31.0); MEAN CORPUSCULAR HGB CONC 33.9 g/dL (32.0-36.0); MEAN CORPUSCULAR VOLUME 91.1 fL (81.0-99.0); MEAN PLATELET VOLUME 8.7 fL (7.9-10.8); MONOCYTES # (AUTO) 0.8 10^3/uL (0.0-1.0); MONOCYTES % (AUTO) 9.4 %; NEUTROPHILS # (AUTO) 5.3 10^3/uL (1.5-6.6); NEUTROPHILS % (AUTO) 62.8 %; PLT - PLATELET COUNT 581 10^3/uL (130-450); RED BLOOD COUNT 4.47 10^6/uL (4.20-5.40); RED CELL DISTRIBUTION WIDTH 14.8 % (12.0-15.0); WHITE BLOOD COUNT 8.4 x10^3/uL (4.8-10.8)
== END 2021-05-02 13:18 | disposition home or self-care (01) ==
LOC: LAB 13:17
PROVIDERS: ATTEND Registered Nurse
DX: D75.839 Thrombocytosis, unspecified (principal)
CPT/HCPCS: 36415; 85025

== ENCOUNTER 2021-11-13 08:00 | Outpatient (CLI) | payer MEDICARE, OTHER ==
[2021-11-13 17:40] LABS: HCT - HEMATOCRIT 42.1 % (37.0-47.0); MEAN CORPUSCULAR HEMOGLOBIN 30.7 pg (27.0-31.0); MEAN CORPUSCULAR HGB CONC 33.3 g/dL (32.0-36.0); MEAN CORPUSCULAR VOLUME 92.3 fL (81.0-99.0); MEAN PLATELET VOLUME 9.2 fL (7.9-10.8); RED BLOOD COUNT 4.56 10^6/uL (4.20-5.40); RED CELL DISTRIBUTION WIDTH 15.4 % (12.0-15.0); WHITE BLOOD COUNT 6.7 x10^3/uL (4.8-10.8)
[2021-11-13 17:48] LABS: CALCIUM 9.4 mg/dL (8.5-10.3); CREATININE 0.7 mg/dL (0.4-1.0); POTASSIUM 3.9 mmol/L (3.5-5.0)
== END 2021-11-13 23:59 | disposition home or self-care (01) ==
LOC: LAB.N 08:00
PROVIDERS: ATTEND Nurse Practitioner
DX: R06.09 Other forms of dyspnea (principal)
CPT/HCPCS: 36415; 80048; 83880; 85027

== ENCOUNTER 2021-11-13 08:00 | Outpatient (CLI) | payer MEDICARE, OTHER ==
--- NOTE | 2021-11-13 14:41 | XRAY Report ---
PROCEDURE: Chest 2 View X-Ray INDICATIONS: SOB ON EXERTION TECHNIQUE: 2 view(s) of the chest. COMPARISON: CT chest 06/11/2014. FINDINGS: Surgical changes and devices: None. Lungs and pleura: No pleural effusions or pneumothorax. Streaky opacity in the mid lung neil bilat erally. This was seen back in 2014. The small pulmonary nodule seen in 2015 are not well appreciated on plain film. No consolidative opacity identified. Prominent lung volumes. Mediastinum: Mediastinal contours are normal. Heart size is normal. Bones and chest wall: No suspicious bony abnormalities. Small left shoulder loose bodies or rice michel dies. Soft tissues appear unremarkable. IMPRESSION: Suspect bilateral scarring or interstitial lung disease. Consider further evaluation with CT of the chest to follow up the remotely seen pulmonary nodules. Reviewed by: Jorge Negrete MD on 11/13/2021 2:39 PM PDT Approved by: Jorge Negrete MD on 11/13/2021 2:39 PM PDT Station ID: [id number]
== END 2021-11-13 23:59 | disposition home or self-care (01) ==
LOC: DI.N 08:00
PROVIDERS: ATTEND Nurse Practitioner
DX: R06.09 Other forms of dyspnea (principal)

== ENCOUNTER 2021-11-20 15:51 | Outpatient (CLI) | payer MEDICARE, OTHER ==
--- NOTE | 2021-11-21 11:14 | CT Report ---
PROCEDURE: CHEST WO INDICATIONS: DYSPNEA ON EXERTION TECHNIQUE: Noncontrast 1mm axial images were acquired from the pulmonary apices to the posterior costophrenic an gles. Axial 5 mm soft tissue kernel reconstructions were performed as well as 8 mm axial MIP and cor onal and sagittal 5 mm reformations. For radiation dose reduction, the following was used: automate d exposure control, adjustment of mA and/or kV according to patient size. COMPARISON: Chest CT with, 08/02/2014. FINDINGS: Image quality: Excellent. Lungs and pleura: There are multiple lung nodules bilaterally, more numerous in the right lung than left lung. Many nodules are clustered. Compared to the prior examination on 08/11/2014, nodules are in creased in number. Some nodules are decreased in size. There are multiple calcified granulomas, predo minantly in the right lung. Reference nodules are listed in following: Nodule 1: 1.3 cm; right upper lobe perihilar; series 5 image 119. Multiple pulmonary nodules are pres ent Nodule 2: 0.8 cm; right upper lobe posterior; series 5 image 118. Nodule 3: 0.7 x 1.1 cm; right lower lobe; series 5 image 233. Nodule 4: 0.6 x 1.0 cm; left lower lobe posterior medial; series 5 image 202. There are bronchiectasis in right upper lobe, right lower lobe, left lower lobe. No pleural effusions or pneumothorax. Central and peripheral airways are patent and normal in calibe r. Mediastinum: Heart size is normal. No pericardial effusion. Borderline sized mediastinal lymph node s are most likely reactive. Thoracic aorta and central pulmonary arteries are normal in size. Esoph alberto is normal in caliber. No hiatal hernia. Bones and chest wall: No suspicious bony lesions. No vertebral body compression fractures. Degener ative changes in thoracic and upper lumbar spine. No axillary or supraclavicular adenopathy by size c riteria. The thyroid is normal in size and there are no incidental findings. Abdomen: There is a 4 mm cyst in the superior pole of the right kidney. Visualized upper abdominal s olid organs and bowel loops appear normal in the absence of contrast. Extensive atherosclerotic calc ifications. IMPRESSION: 1. Multiple pulmonary nodules are present bilaterally, increased in number when compared to last exam . Some nodules are, however, decreased in size. Differential diagnoses are infectious etiology, such as granulomatous infections, and inflammatory process, such as sarcoidosis. Superimposed neoplasm is felt less likely but not entirely excluded. 2. Bronchiectasis bilaterally, most pronounced in the right upper lobe and right lower lobe, but also involving the left lower lobe. Reviewed by: Nathan Christina MD on 11/21/2021 11:13 AM PDT Approved by: Nathan Christina MD on 11/21/2021 11:13 AM PDT Station ID: [id number]
== END 2021-11-20 15:52 | disposition home or self-care (01) ==
LOC: DI 15:51
PROVIDERS: ATTEND Nurse Practitioner Family
DX: R91.8 Other nonspecific abnormal finding of lung field (principal); J47.9 Bronchiectasis, uncomplicated

== ENCOUNTER 2022-01-24 12:48 | Outpatient (CLI) | payer MEDICARE, OTHER ==
[2022-01-24 13:37] LABS: BASOPHILS # (AUTO) 0.1 10^3/uL (0.0-0.1); BASOPHILS % (AUTO) 1.1 %; EOSINOPHILS # (AUTO) 0.1 10^3/uL (0.0-0.7); EOSINOPHILS % (AUTO) 2.1 %; HCT - HEMATOCRIT 39.7 % (37.0-47.0); HGB - HEMOGLOBIN 13.3 g/dL (12.0-16.0); LYMPHOCYTES # (AUTO) 1.6 10^3/uL (1.5-3.5); LYMPHOCYTES % (AUTO) 25.1 %; MEAN CORPUSCULAR HEMOGLOBIN 32.4 pg (27.0-31.0); MEAN CORPUSCULAR HGB CONC 33.5 g/dL (32.0-36.0); MEAN CORPUSCULAR VOLUME 96.6 fL (81.0-99.0); MEAN PLATELET VOLUME 8.7 fL (7.9-10.8); MONOCYTES # (AUTO) 0.6 10^3/uL (0.0-1.0); MONOCYTES % (AUTO) 9.3 %; NEUTROPHILS # (AUTO) 3.9 10^3/uL (1.5-6.6); NEUTROPHILS % (AUTO) 62.1 %; PLT - PLATELET COUNT 358 10^3/uL (130-450); RED BLOOD COUNT 4.11 10^6/uL (4.20-5.40); RED CELL DISTRIBUTION WIDTH 19.9 % (12.0-15.0); WHITE BLOOD COUNT 6.2 x10^3/uL (4.8-10.8)
[2022-01-24 13:49] LABS: ALBUMIN 3.7 g/dL (3.2-5.5); BILIRUBIN,TOTAL 0.3 mg/dL (0.2-1.0); CALCIUM 9.3 mg/dL (8.5-10.3); CREATININE 0.7 mg/dL (0.4-1.0); POTASSIUM 4.2 mmol/L (3.5-5.0); TOTAL PROTEIN 7.5 g/dL (6.7-8.2)
[2022-01-24 14:03] LABS: THYROID STIMULATING HORMONE 5.08 uIU/mL (0.34-5.60)
== END 2022-01-24 12:49 | disposition home or self-care (01) ==
LOC: LAB 12:48
PROVIDERS: ATTEND Registered Nurse
DX: R06.09 Other forms of dyspnea (principal); E03.9 Hypothyroidism, unspecified
CPT/HCPCS: 36415; 80053; 84443; 85025

== ENCOUNTER 2022-02-21 20:34 | Outpatient (CLI) | payer MEDICARE, OTHER | END 2022-02-21 23:59 | disposition critical access hospital (66) | LOC: EMS 20:34 | DX: S49.92XA Unspecified injury of left shoulder and upper arm, initial encounter (principal); W08.XXXA Fall from other furniture, initial encounter; Y92.009 Unspecified place in unspecified non-institutional (private) residence as the place of occurrence of the external cause | CPT/HCPCS: A0425; A0429 ==

== ENCOUNTER 2022-02-21 20:40 | Emergency (ER) | payer MEDICARE, OTHER ==
[2022-02-21] MEDS ORDERED: HYDROmorphone 1 MG/ML CARPUJECT IM STA (20:57)
[2022-02-21] MEDS ORDERED: TETANUS/DIPHTHERIA/PERTUSSIS 0.5 ML SYRINGE IM ONE (20:58)
--- NOTE | 2022-02-21 21:00 | ED Physician Documentation ---
History of Present Illness - Stated complaint Stated Complaint: FELL, RT SHOULDER PAIN - Additonal information Additional information: 86-year-old female presents emergency department for evaluation of acute left shoulder and elbow pain. She was reportedly sitting on a stool from a height of about 2 feet when she fell off of it onto her left shoulder. She presents with pain and swelling at the anterior shoulder joint as well as a laceration of her left elbow. Has difficulty moving the shoulder in any plane secondary to pain. She is left arm dominant. 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 : None HEENT: None Psych: Depression, Anxiety Musculoskeletal: Osteoarthritis Derm: None - Past Surgical History Past Surgical History: Yes Ortho: Hip replacement, Spine surgery - Present Medications Home Medications: Ambulatory Orders Medication Instructions Recorded Confirmed Ascorbic Acid [Vitamin C] 0 PO DAILY 07/20/12 04/07/14 Atenolol/Chlorthalidone 1 ea ORAL DAILY 07/20/12 02/21/22 [Atenolol-Chlorthalidone 100-25] Buspirone HCl 10 mg ORAL BID 07/20/12 02/21/22 FLUoxetine [PROzac] 20 mg ORAL DAILY 07/20/12 02/21/22 Thyroid,Pork [[place] Thyroid] 60 mg ORAL DAILY 07/20/12 02/21/22 lamoTRIgine [LaMICtal] 25 mg ORAL DAILY 07/20/12 02/21/22 risperiDONE [RisperDAL] 0.25 mg ORAL DAILY 07/20/12 02/21/22 Gabapentin 300 mg PO DAILY 04/07/14 02/21/22 Loperamide HCl [Loperamide] 1 mg PO DAILY 05/24/21 02/21/22 amLODIPine [Norvasc] 10 mg PO DAILY 05/24/21 02/21/22 clonazePAM [Clonazepam] 1 mg PO DAILY 05/24/21 02/21/22 Hydroxyurea [Hydrea] 500 mg PO DAILY 12/02/21 02/21/22 HYDROcod/ACETAM 5/325 [[place] 5/325] 1 tablet PO BID PRN #20 tablet 02/21/22 - Allergies Allergies/Adverse Reactions: Allergies Allergy/AdvReac Type Severity Reaction Status Date / Time No Known Drug Allergies Allergy Verified 02/21/22 21:02 - Social History Does the pt smoke?: No Smoking Status: Never smoker Does the pt drink ETOH?: No Does the pt have substance abuse?: No - Immunizations Immunizations are current?: Yes - POLST Patient has POLST: No PD ED PE EXPANDED - General General: Alert, No acute distress, Other (geriatric appearance) - Extremities Extremities: Left shoulder (Pain swelling and ecchymosis at the anterior joint. Limited range of motion secondary to pain. Distal radial pulse 2+), Left elbow (Ecchymosis of the left elbow. Patient is able to flex and extend but painful to pronate. 3 cm skin tear/laceration just over the olecranon) Results - Vitals Vitals: Vital Signs - 24 hr 02/21/22 21:06 Temperature 36.9 C Heart Rate 81 Respiratory 20 Rate Blood Pressure 187/93 H O2 Saturation 95 Oxygen O2 Source Room air - Rads (name of study) left shoulder Radiology: EMP read indepedently (Closed proximal left humeral fracture. No dislocation) left elbow Radiology: EMP read indepedently (No acute fracture) Procedures - Laceration (location) left elbow Length in cm: 4 Wound type: Curved, Superficial Wound preparation: Chlorhexadine, Irrigated copiously NS Other: Patient tolerated well, Neurovascular intact, Tetanus booster given, Other (Wound was closed with a combination of Steri-Strips and Mepilex dressing. I did offer the patient sutures but she declined.) PD MEDICAL DECISION MAKING - ED course Complexity details: reviewed results, re-evaluated patient, considered differential, d/w patient ED course: 86-year-old female presents emergency department for evaluation of acute left shoulder injury after falling off a stool when reaching for something at home. She presents with some swelling and ecchymosis to the anterior shoulder joint. X-ray reveals proximal humeral fracture and for this she was placed in a sling. She did have a laceration of her left elbow and a negative x-ray to suggest fracture. I did suggest suturing the elbow laceration but the patient preferred it to be closed with Steri-Strips and Mepilex which we acquiesced to. She was given a pretty limited prescription for hydrocodone for analgesia advised close follow-up with PCP. She will likely need referral to orthopedics as well as physical therapy. Otherwise emergent return precautions discussed. I am prescribing a short course of short-acting opioid pain medication for this patient. I have reviewed the patients [employer] and no concerning findings were noted. I have discussed that the opioids are for short term therapy only, and will not be refilled from the ED. Departure - Departure Disposition: 01 Home, Self Care Clinical Impression: Closed left humeral fracture Qualifiers: Encounter type: initial encounter Humerus Location: proximal Fracture alignment: nondisplaced Laceration of left elbow Qualifiers: Encounter type: initial encounter Qualified Code(s): S51.012A - Laceration without foreign body of left elbow, initial encounter Fall Qualifiers: Encounter type: initial encounter Qualified Code(s): W19.XXXA - Unspecified fall, initial encounter Condition: Stable Record reviewed to determine appropriate education?: Yes Instructions: ED Fx Upper Extr Ch Follow-Up: Carmine Curtis MD [Provider Admit Priv/Credential] - Prescriptions: HYDROcod/ACETAM 5/325 [[place] 5/325] 1 tablet PO BID PRN #20 tablet PRN Reason: Pain Comments: Samantha unfortunately after your fall today you did break the proximal humerus in your left arm. We have placed you in a sling for this. Please call your primary care doctor on Thursday to request an emergent referral to be seen by orthopedics. In general these types of fractures are not managed surgically and they are simply allowed to heal with time but you will most likely need a referral to physical therapy as you get better. In order to help with the pain I have sent a prescription for a limited amount of hydrocodone to the [facility] in [place]. You did have a laceration of your left elbow. We did place a dressing on this that should be removed in 1 week. Return to the ER if you have worsening pain fevers arm swelling or any difficulty breathing. I am prescribing a short course of narcotic pain medication for you. These are potentially dangerous and addictive medications that should be used carefully. These medications may constipate you. Take an jpua-yve-gcrxkql stool softener (docusate) twice daily with plenty of water while taking these medications. If you go 24 hours without a bowel movement, take ytks-geh-nhlhjyi miralax, per package instructions. Do not drink or drive while taking these medications. If you received narcotic or sedating medications while in the emergency department, do not drive for 24 hours. Store this medication in a safe, secure place and out of reach of children. It is a violation of federal law to give or sell this medication to another person or to use in a manner other than prescribed. The ED will not refill narcotic prescriptions, including prescriptions lost or stolen. To dispose of unwanted medications: 1. [facility] [address] in [place] has a medication drop box. They accept prescription medications (in pill form) Thursday through Thursday 9:00 a.m. to 5:00 p.m. 2. The [facility] [employer] accepts prescription medications (in pill form only) for disposal year round. Call for more information. 3. Contact the [facility] for the next [facility] sponsored prescription drug collection event. , [phone], or [phone]; Note that many narcotic pain relievers also contain Tylenol/acetaminophen. Please ensure that your total dose of acetaminophen from all sources does not exceed 3 g (3000 mg) per day.
[2022-02-21] MEDS ORDERED: HYDROcod/ACET 5/325 Prepack 4 PO STA (22:15)
--- NOTE | 2022-02-21 22:53 | XRAY Report ---
PROCEDURE: Elbow 3 View LT INDICATIONS: fall fromstool TECHNIQUE: 5 views of the elbow were acquired. COMPARISON: None. FINDINGS: Bones: No definite fractures or dislocations. No suspicious bony lesions. Soft tissues: No elbow joint effusion. No suspicious soft tissue calcifications. IMPRESSION: 1. No definite fracture or dislocation. Reviewed by: Cedric Redmond MD on 02/21/2022 10:51 PM [facility] [[email or web address]] Approved by: Cedric Redmond MD on 02/21/2022 10:51 PM [facility] [[email or web address]] Station ID: [id number]
--- NOTE | 2022-02-21 22:54 | XRAY Report ---
PROCEDURE: Shoulder 3 View LT INDICATIONS: fall from stool TECHNIQUE: 3 views of the shoulder were acquired. COMPARISON: None. FINDINGS: Bones: There is a mildly impacted fracture of the humeral neck. No suspicious bony lesions. Visualiz ed ribs appear intact. Soft tissues: There are a few calcifications in the region of the axillary pouch and subcoracoid rece ss compatible with joint bodies, with the largest measuring up to 1.7 cm. There are also a few small calcifications along the distal rotator cuff suggestive of calcific tendinitis. IMPRESSION: 1. Mildly impacted fracture of the humeral neck. 2. Multiple calcified joint bodies. 3. Probable calcific tendinitis of the distal rotator cuff. Reviewed by: Cedric Redmond MD on 02/21/2022 10:53 PM [facility] Approved by: Cedric Redmond MD on 02/21/2022 10:53 PM [facility] Station ID: [id number]
[2022-02-21] MEDS ORDERED: ONDANSETRON ODT 4 MG TABLET TL STA (23:32)
[2022-02-21 23:38] VITALS: BP 156/90
== END 2022-02-21 23:37 | disposition home or self-care (01) ==
LOC: EDUNIT# → ED 20:40
DX: S42.402A Unspecified fracture of lower end of left humerus, initial encounter for closed fracture (principal); S51.012A Laceration without foreign body of left elbow, initial encounter; W08.XXXA Fall from other furniture, initial encounter; Y93.89 Activity, other specified
CPT/HCPCS: 73030; 73080; 90471; 90715; 96372; 99282; 99284; J1170; Q0162

== ENCOUNTER 2022-04-21 14:46 | Outpatient (CLI) | payer OTHER, MEDICARE ==
--- NOTE | 2022-04-21 17:17 | CT Report ---
PROCEDURE: CHEST WO INDICATIONS: LUNG NODULE TECHNIQUE: Noncontrast 1mm axial images were acquired from the pulmonary apices to the posterior costophrenic an gles. Axial 5 mm soft tissue kernel reconstructions were performed as well as 8 mm axial MIP and cor onal and sagittal 5 mm reformations. For radiation dose reduction, the following was used: automate d exposure control, adjustment of mA and/or kV according to patient size. COMPARISON: CT chest 11/20/2021, 08/11/2014. FINDINGS: Image quality: Excellent. Lungs and pleura: There is new patchy airspace opacity bilaterally, right greater than left. There is cylindrical bronchiectasis most pronounced in the right lung. There is tree-in-bud nodular opacity. There is a distal mucus airway plugging. The central airways are clear. There are calcified granuloma s in the right lower lobe. There are several other pulmonary nodules or nodular opacities. For exampl e: -Right lower lobe 0.8 cm, (4/168), previously 0.8 cm. -Right lower lobes subpleural 0.7 cm, (4/196), not confirmed on prior exam. No pleural effusions or pneumothorax. Mediastinum: Heart size is prominent. Mild coronary artery calcifications. No pericardial effusion. No mediastinal adenopathy by size criteria. Thoracic aorta and central pulmonary arteries are norm al in size. Esophagus is normal in caliber. No hiatal hernia. Bones and chest wall: Prior sternal fracture, new in the interval compared to November 2021. No susp icious bony lesions. No vertebral body compression fractures. Multilevel DDD. No axillary or suprac lavicular adenopathy by size criteria. The thyroid is normal in size and there are no incidental fin dings. Abdomen: Visualized upper abdominal solid organs and bowel loops appear normal in the absence of con trast. Low-density right and left renal cysts. IMPRESSION: 1. New airspace opacity most pronounced in the right lung. Suspect infectious/inflammatory etiology. There is a tree-in-bud nodular opacity and distal mucus airway plugging which could be due to bronchi tis. 2. Similar moderate bronchiectasis. 3. Scattered nodular opacities or pulmonary nodules. These are difficult to evaluate given the new goldberg perimposed airspace opacity. However, there is at least one new nodule in the right lower lobe measur ing 0.7 cm. Recommend clinical correlation. Similar nodular opacities were present in 2015. Short-term follow-up CT would be helpful. PET/CT could also be considered for further evaluation. Reviewed by: Jorge Negrete MD on 04/21/2022 5:16 PM PST Approved by: Jorge Negrete MD on 04/21/2022 5:16 PM PST Station ID: [id number]
== END 2022-04-21 14:47 | disposition home or self-care (01) ==
LOC: DI 14:46
PROVIDERS: ATTEND Internal Medicine Critical Care Medicine
DX: R91.8 Other nonspecific abnormal finding of lung field (principal)

== ENCOUNTER 2022-05-16 13:46 | Outpatient (CLI) | payer MEDICARE, OTHER ==
--- NOTE | 2022-05-16 17:02 | CT Report ---
PROCEDURE: CHEST WO INDICATIONS: BRONCHIECTASIS WITHOUT ACUTE EXACERBATION TECHNIQUE: Noncontrast 1mm axial images were acquired from the pulmonary apices to the posterior costophrenic an gles. Axial 5 mm soft tissue kernel reconstructions were performed as well as 8 mm axial MIP and cor onal and sagittal 5 mm reformations. For radiation dose reduction, the following was used: automate d exposure control, adjustment of mA and/or kV according to patient size. COMPARISON: CT 04/21/2022, 11/20/2021 FINDINGS: Image quality: Excellent. Lungs and pleura: Bronchiectasis, right greater than left. Associated tree-in-bud nodules and centril obular nodules. Mosaic attenuation of the lungs. Largest pulmonary nodules as follows: -Stable 0.8 cm right lower lobe solid nodule (4/183). -Stable 0.8 cm right lower lobe solid nodule (4/158). -1.4 cm right upper lobe nodule with irregular margins, previously 1.7 cm (4/92). Mediastinum: Heart size is enlarged. No pericardial effusion. No mediastinal adenopathy by size cr iteria. Dilated pulmonary artery. Esophagus is normal in caliber. No hiatal hernia. Bones and chest wall: No suspicious bony lesions. No vertebral body compression fractures. No axil aidee or supraclavicular adenopathy by size criteria. The thyroid is normal in size and there are no incidental findings. Abdomen: Fluid attenuating right renal cyst. IMPRESSION: Similar pulmonary nodules compared with 04/21/2022, some of which were new since 2021. Stable findings of bronchiectasis and volume loss, with superimposed tree-in-bud nodules. Findings are favored to rep resent infection, specifically nontuberculosis mycobacteria infection. Additional short-term follow-u p in 3 months should be considered given the extensive nodularity. Alternatively, pulmonology referra l could be considered. Mosaic attenuation of the lungs, suggestive of air trapping in the setting of small airways disease. Dilated main pulmonary artery, suggestive of pulmonary hypertension. Reviewed by: Matthias Sheehan on 05/16/2022 5:00 PM PST Approved by: Matthias Sheehan on 05/16/2022 5:00 PM PST Station ID: [id number]
== END 2022-05-16 13:47 | disposition home or self-care (01) ==
LOC: DI 13:46
PROVIDERS: ATTEND Internal Medicine Critical Care Medicine
DX: J47.9 Bronchiectasis, uncomplicated (principal); J18.9 Pneumonia, unspecified organism; R91.8 Other nonspecific abnormal finding of lung field; I28.8 Other diseases of pulmonary vessels

== ENCOUNTER 2022-07-16 09:44 | Outpatient (CLI) | payer MEDICARE, OTHER ==
--- NOTE | 2022-07-16 16:30 | DEXA Report ---
PROCEDURE: Dexa Spine and/or Hip INDICATIONS: OSTEOPOROSIS TECHNIQUE: Dual energy x-ray absorptiometry (DXA) was performed on a [employer] System. Regions measur ed are the AP Spine, femoral neck, and if needed forearm. COMPARISON: None. FINDINGS: Lumbar Spine: Bone Mineral Density 1.0 g/cm/cm,T score -1.7, osteopenia Left Femoral Neck: Bone Mineral Density 0.7 g/cm/cm, T score -2.6, osteoporosis Impression: 1. Lumbar spine osteopenia. 2. Left femoral neck osteoporosis. Patients with diagnosis of osteoporosis or osteopenia should have regular bone mineral density assess ment. For those eligible for Medicare, routine testing is allowed once every 2 years. Testing frequ ency can be increased for patients who have rapidly progressing disease or for those who are receivin g medical therapy to restore bone mass. Reviewed by: Keshawn Juarez MD on 07/16/2022 4:29 PM PDT Approved by: Keshawn Juarez MD on 07/16/2022 4:29 PM PDT Station ID: [id number]
== END 2022-07-16 09:45 | disposition home or self-care (01) ==
LOC: DI 09:44
PROVIDERS: ATTEND Registered Nurse
DX: M81.0 Age-related osteoporosis without current pathological fracture (principal)

== ENCOUNTER 2022-08-20 11:38 | Outpatient (CLI) | payer MEDICARE, OTHER ==
--- NOTE | 2022-08-20 13:12 | XRAY Report ---
PROCEDURE: Chest 2 View X-Ray INDICATIONS: DYSPNEA TECHNIQUE: 2 views of the chest were acquired. COMPARISON: 11/13/2021 2 FINDINGS: Surgical changes and devices: None. Lungs and pleura: No pleural effusions or pneumothorax. Moderate diffuse chronic appearing reticulon odular pulmonary opacity is present, as before. There is superimposed increased, mild reticular nodul ar pulmonary opacity. Mediastinum: Mediastinal contours appear normal. Heart size is normal. Bones and chest wall: No suspicious bony lesions. Multiple well-corticated high density foci projec ting over the left glenohumeral joint. Overlying soft tissues appear unremarkable. IMPRESSION: 1. Chronic interstitial lung disease with superimposed atypical pneumonia. 2. Findings suggestive of left glenohumeral joint intra-articular loose bodies. Reviewed by: Keshawn Juarez MD on 08/20/2022 1:11 PM PDT Approved by: Keshawn Juarez MD on 08/20/2022 1:11 PM PDT Station ID: [id number]
== END 2022-08-20 11:39 | disposition home or self-care (01) ==
LOC: DI 11:38
PROVIDERS: ATTEND Internal Medicine Critical Care Medicine
DX: I27.20 Pulmonary hypertension, unspecified (principal); J18.9 Pneumonia, unspecified organism; E03.9 Hypothyroidism, unspecified; M81.0 Age-related osteoporosis without current pathological fracture
CPT/HCPCS: 36415; 80053; 82306; 84443

== ENCOUNTER 2022-08-20 11:39 | Outpatient (CLI) | payer MEDICARE, OTHER ==
[2022-08-20 12:14] LABS: ALBUMIN 3.6 g/dL (3.2-5.5); ALBUMIN/GLOBULIN RATIO 0.9 (1.0-2.2); BILIRUBIN,TOTAL 0.8 mg/dL (0.2-1.0); CALCIUM 8.9 mg/dL (8.5-10.3); CREATININE 0.8 mg/dL (0.4-1.0); TOTAL PROTEIN 7.7 g/dL (6.7-8.2)
[2022-08-20 12:31] LABS: THYROID STIMULATING HORMONE 2.51 uIU/mL (0.34-5.60)
== END 2022-08-20 11:40 | disposition home or self-care (01) ==
LOC: LAB 11:39
PROVIDERS: ATTEND Registered Nurse
DX: E03.9 Hypothyroidism, unspecified (principal); M81.0 Age-related osteoporosis without current pathological fracture
CPT/HCPCS: 36415; 80053; 82306; 84443

== ENCOUNTER 2022-11-18 10:39 | Outpatient (CLI) | payer MEDICARE, OTHER | END 2022-11-18 23:59 | disposition critical access hospital (66) | LOC: EMS 10:39 | DX: R53.1 Weakness (principal); R06.02 Shortness of breath; Z99.81 Dependence on supplemental oxygen | CPT/HCPCS: A0425; A0427 ==

== ENCOUNTER 2022-11-18 10:45 | Emergency (ER) | payer MEDICARE, OTHER ==
[2022-11-18 11:27] LABS: BASOPHILS % (AUTO) 0.5 %; EOSINOPHILS % (AUTO) 0.5 %; HCT - HEMATOCRIT 36.6 % (37.0-47.0); HGB - HEMOGLOBIN 12.6 g/dL (12.0-16.0); LYMPHOCYTES # (AUTO) 0.6 10^3/uL (1.5-3.5); LYMPHOCYTES % (AUTO) 7.1 %; MEAN CORPUSCULAR HEMOGLOBIN 36.3 pg (27.0-31.0); MEAN CORPUSCULAR HGB CONC 34.4 g/dL (32.0-36.0); MEAN CORPUSCULAR VOLUME 105.5 fL (81.0-99.0); MEAN PLATELET VOLUME 8.7 fL (7.9-10.8); MONOCYTES # (AUTO) 0.6 10^3/uL (0.0-1.0); MONOCYTES % (AUTO) 6.8 %; NEUTROPHILS # (AUTO) 7.2 10^3/uL (1.5-6.6); NEUTROPHILS % (AUTO) 84.5 %; PLT - PLATELET COUNT 240 10^3/uL (130-450); RED BLOOD COUNT 3.47 10^6/uL (4.20-5.40); RED CELL DISTRIBUTION WIDTH 14.5 % (12.0-15.0); WHITE BLOOD COUNT 8.5 x10^3/uL (4.8-10.8)
--- NOTE | 2022-11-18 11:39 | ED Physician Documentation ---
PD HPI DYSPNEA - Stated complaint Stated Complaint: FALL/GEN WEAKNESS - Chief complaint Chief Complaint: Resp - History obtained from History obtained from: Patient - Additional information Additional information: 87-year-old woman with history of ILD with MAC. She was treated with triple antibiotic therapy for a couple weeks starting approximately 6 weeks ago. She did not tolerate the antibiotics with side effect of depression and stopped after about 2 weeks, so has been off of antibiotics for approximately 4 weeks. She had been weak over the last few days and fell twice without injury including this morning and she could not get off the ground. She is on oxygen as needed at home. 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 : None HEENT: None Psych: Depression, Anxiety Musculoskeletal: Osteoarthritis Derm: None - Past Surgical History Past Surgical History: Yes Ortho: Hip replacement, Spine surgery - Present Medications Home Medications: Ambulatory Orders Medication Instructions Recorded Confirmed Ascorbic Acid [Vitamin C] 0 mg PO DAILY 07/20/12 11/07/22 Atenolol/Chlorthalidone 1 ea ORAL DAILY 07/20/12 11/07/22 [Atenolol-Chlorthalidone 100-25] Buspirone HCl 10 mg ORAL BID 07/20/12 11/07/22 FLUoxetine [PROzac] 20 mg ORAL DAILY 07/20/12 11/07/22 Thyroid,Pork [[place] Thyroid] 60 mg ORAL DAILY 07/20/12 11/07/22 lamoTRIgine [LaMICtal] 25 mg ORAL DAILY 07/20/12 11/07/22 risperiDONE [RisperDAL] 0.25 mg ORAL DAILY 07/20/12 11/07/22 Gabapentin 300 mg PO DAILY 04/07/14 11/07/22 Loperamide HCl [Loperamide] 1 mg PO DAILY 05/24/21 11/07/22 amLODIPine [Norvasc] 10 mg PO DAILY 05/24/21 11/07/22 clonazePAM [Clonazepam] 1 mg PO DAILY 05/24/21 11/07/22 Hydroxyurea [Hydrea] 500 mg PO DAILY 12/02/21 11/07/22 HYDROcod/ACETAM 5/325 [[place] 5/325] 1 tablet PO BID PRN #20 tablet 02/21/22 11/07/22 - Allergies Allergies/Adverse Reactions: Allergies Allergy/AdvReac Type Severity Reaction Status Date / Time No Known Drug Allergies Allergy Verified 11/18/22 11:03 - Social History Does the pt smoke?: No Smoking Status: Never smoker Does the pt drink ETOH?: No Does the pt have substance abuse?: No - Immunizations Immunizations are current?: Yes - POLST Patient has POLST: No PD ED PE NORMAL - Vitals Vital signs reviewed: Yes (Hypoxic in the high 80s at rest despite being on 3 L nasal cannula) - General General: Alert and oriented X 3, No acute distress - Neck Neck: Supple, no meningeal sign, No bony TTP - Cardiac Cardiac: RRR, No murmur - Respiratory Respiratory: Other (Rhonchorous especially at the right base; Mildly labored breathing, speaking in short sentences.) - Abdomen Abdomen: Non tender - Extremities Extremities: No edema, No calf tenderness / cord - Neuro Neuro: Alert and oriented X 3, Normal speech Results - Vitals Vitals: Vital Signs - 24 hr 11/18/22 11/18/22 11/18/22 10:59 11:03 13:45 Temperature 37.0 C Heart Rate 68 Respiratory 20 Rate Blood Pressure 131/73 H O2 Saturation 82 L 85 L 84 L If not protocol 2 4 : Oxygen Flow, liters/minute 11/18/22 11/18/22 11/18/22 13:53 16:00 20:56 Temperature Heart Rate 71 78 75 Respiratory 21 23 15 Rate Blood Pressure 111/95 H 143/90 H 165/90 H O2 Saturation 92 92 90 L If not protocol 6 6 6 : Oxygen Flow, liters/minute Oxygen O2 Source Nasal cannula Oxygen Flow Rate 4 - EKG (time done) 1119 EKG releavant findings:: EKG personally interpreted by author of this note. Relevant findings are: Rate: Rate (enter#) (66) Rhythm: NSR Hortense: LAD QRS: LVH Ischemia: Normal ST segments - Labs Labs: Laboratory Tests 11/18/22 11/18/22 11/18/22 11:23 11:23 11:56 WBC 8.5 RBC 3.47 L Hgb 12.6 Hct 36.6 L MCV 105.5 H MCH 36.3 H MCHC 34.4 RDW 14.5 Plt Count 240 MPV 8.7 Neut # (Auto) 7.2 H Lymph # (Auto) 0.6 L [place] # (Auto) 0.6 Eos # (Auto) 0.0 Baso # (Auto) 0.0 Absolute Nucleated RBC 0.00 Nucleated RBC % 0.0 Sodium 135 Potassium 3.7 Chloride 102 Carbon Dioxide 27 Anion Gap 6.0 BUN 24 H Creatinine 0.8 Estimated GFR (MDRD) 68 L Glucose 111 H Lactic Acid 1.0 Calcium 8.9 Total Bilirubin 1.0 AST 14 ALT 11 Alkaline Phosphatase 61 Troponin I High Sens 13.1 Total Protein 6.3 L Albumin 3.4 Globulin 2.9 Albumin/Globulin Ratio 1.2 Lipase < 10 L Nasal Adenovirus (PCR) Nasal B. parapertussis DNA (PCR) Nasal Coronavir 229E PCR Nasal Coronavir HKU1 PCR Nasal Coronavir NL63 PCR Nasal Coronavir OC43 PCR Nasal Enterovir/Rhinovir PCR Nasal Influenza B PCR Nasal Influenza A PCR Nasal Parainfluen 1 PCR Nasal Parainfluen 2 PCR Nasal Parainfluen 3 PCR Nasal Parainfluen 4 PCR Nasal RSV (PCR) Nasal B.pertussis DNA PCR Nasal C.pneumoniae (PCR) Keith Human Metapneumo PCR Nasal M.pneumoniae (PCR) Nasal SARS-CoV-2 (PCR) 11/18/22 13:44 WBC RBC Hgb Hct MCV MCH MCHC RDW Plt Count MPV Neut # (Auto) Lymph # (Auto) [place] # (Auto) Eos # (Auto) Baso # (Auto) Absolute Nucleated RBC Nucleated RBC % Sodium Potassium Chloride Carbon Dioxide Anion Gap BUN Creatinine Estimated GFR (MDRD) Glucose Lactic Acid Calcium Total Bilirubin AST ALT Alkaline Phosphatase Troponin I High Sens Total Protein Albumin Globulin Albumin/Globulin Ratio Lipase Nasal Adenovirus (PCR) NOT DETECTED Nasal B. parapertussis DNA (PCR) NOT DETECTED Nasal Coronavir 229E PCR NOT DETECTED Nasal Coronavir HKU1 PCR NOT DETECTED Nasal Coronavir NL63 PCR NOT DETECTED Nasal Coronavir OC43 PCR NOT DETECTED Nasal Enterovir/Rhinovir PCR NOT DETECTED Nasal Influenza B PCR NOT DETECTED Nasal Influenza A PCR NOT DETECTED Nasal Parainfluen 1 PCR NOT DETECTED Nasal Parainfluen 2 PCR NOT DETECTED Nasal Parainfluen 3 PCR NOT DETECTED Nasal Parainfluen 4 PCR NOT DETECTED Nasal RSV (PCR) NOT DETECTED Nasal B.pertussis DNA PCR NOT DETECTED Nasal C.pneumoniae (PCR) NOT DETECTED Keith Human Metapneumo PCR NOT DETECTED Nasal M.pneumoniae (PCR) NOT DETECTED Nasal SARS-CoV-2 (PCR) NOT DETECTED - Rads (name of study) CT chest showing unchanged scattered nodules, bronchiectasis, and findings consistent with MAC Relevant Findings:: Final report received, EMP independent interpretation of test PD Medical Decision Making - ED course ED course: 87-year-old woman with ILD and MAC presents with worsening weakness, oxygen requirement. She looks frail. CBC showing macrocytosis without significant an emia and normal white count, CMP with elevated BUN, viral respiratory panel negative. Spoke with Dr. Corral after some delays at 1448, her ID absence management consultant. She was aware of the treatment noncompliance, she had been on azithromycin, ethambutol, and rifampin. She does feel that the patient should go somewhere for admission that has ID and pulmonary. Patient did not want to go back to [facility] and see Dr. Corral and after much vacillating in conversation, and discussion with her son by phone, we are calling the [facility]. [facility] reviewed her chart and got back to me if you minutes before 5 PM and they do not have capacity for her and recommend calling around. She was subsequently graciously excepted to [facility] by Dr. Cabral and cobras are completed. She is stable for transport. Departure - Departure Disposition: 02 Transfer Acute Care Hosp Clinical Impression: Respiratory failure, Interstitial lung disease, Mycobacterium avium complex Condition: Serious Forms: PCP List
[2022-11-18 11:41] LABS: ALBUMIN 3.4 g/dL (3.2-5.5); ALBUMIN/GLOBULIN RATIO 1.2 (1.0-2.2); ALKALINE PHOSPHATASE 61 IU/L (42-121); ALT ALANINE AMINOTRANSFERASE 11 IU/L (10-60); AST ASPARTATE AMINOTRANSFERASE 14 IU/L (10-42); BUN - BLOOD UREA NITROGEN 24 mg/dL (6-20); CALCIUM 8.9 mg/dL (8.5-10.3); CARBON DIOXIDE - CO2 27 mmol/L (21-32); CHLORIDE 102 mmol/L (101-111); CREATININE 0.8 mg/dL (0.6-1.3); GFR - MDRD 68 (>89); GLUCOSE 111 mg/dL (74-104); LIPASE < 10 U/L (11-82); POTASSIUM 3.7 mmol/L (3.5-4.5); SODIUM 135 mmol/L (135-145); TOTAL PROTEIN 6.3 g/dL (6.4-8.9)
[2022-11-18 11:47] LABS: TROPONIN I HIGH SENSITIVITY 13.1 ng/L (2.3-14.8)
--- NOTE | 2022-11-18 12:07 | XRAY Report ---
PROCEDURE: Chest 1 View X-Ray INDICATIONS: Chest pain TECHNIQUE: One view of the chest was acquired. COMPARISON: None. FINDINGS: Surgical changes and devices: None. Lungs and pleura: No pleural effusions or pneumothorax. Diffuse chronic appearing reticulonodular pu lmonary opacities are present as before, unchanged. Bronchiectasis is seen. The aorta is tortuous. Mediastinum: Mediastinal contours appear normal. Heart size is normal. Bones and chest wall: No suspicious bony lesions. Overlying soft tissues appear unremarkable. IMPRESSION: 1. No acute abnormality. 2. Bronchiectasis. Reviewed by: Graham Colon on 11/18/2022 12:06 PM PDT Approved by: Graham Colon on 11/18/2022 12:06 PM PDT Station ID: [id number]
--- NOTE | 2022-11-18 13:29 | CT Report ---
PROCEDURE: CHEST WO INDICATIONS: ILD with MAC worse TECHNIQUE: Noncontrast 1mm axial images were acquired from the pulmonary apices to the posterior costophrenic an gles. Axial 5 mm soft tissue kernel reconstructions were performed as well as 8 mm axial MIP and cor onal and sagittal 5 mm reformations. For radiation dose reduction, the following was used: automate d exposure control, adjustment of mA and/or kV according to patient size. COMPARISON: 05/16/2022 FINDINGS: Image quality: Excellent. Lungs and pleura: Cylindrical bronchiectasis bilaterally, greater in the right middle lobe and upper right lower lobe. No pleural effusions. No pneumothorax. No suspicious pulmonary nodules which requi re follow up. Mediastinum: Heart size is normal. No pericardial effusion. No large vessel abnormality. No mediastin al adenopathy by size criteria. Chest wall and lower neck: Thyroid is unremarkable. No axillary or supraclavicular adenopathy by size . Bones: No aggressive osseous abnormality. Upper Abdomen: Unremarkable. IMPRESSION: 1. Scattered pulmonary nodules, the largest in the superior right lower lobe and right middle lobe ar e unchanged compared to 05/16/2022 2. Cylindrical bronchiectasis, unchanged. 3. Findings are compatible with patient history of MAC. 4. No significant interval change. Reviewed by: Graham Colon on 11/18/2022 1:28 PM PDT Approved by: Graham Colon on 11/18/2022 1:28 PM PDT Station ID: [id number]
[2022-11-18 14:41] LABS: B. PARAPERTUSSIS- RESP PCR PAN NOT DETECTED; B. PERTUSSIS- RESP PCR PANEL NOT DETECTED; C. PNEUMONIAE- RESP PCR PANEL NOT DETECTED; CORONAVIRUS 229E-RESP PCR NOT DETECTED; CORONAVIRUS HKU1-RESP PCR NOT DETECTED; CORONAVIRUS NL63-RESP PCR NOT DETECTED; CORONAVIRUS OC43-RESP PCR NOT DETECTED; HUMAN METAPNEUMOVIRUS NOT DETECTED; INFLUENZA A- RESP PCR PANEL NOT DETECTED; INFLUENZA B - RESP PCR PANEL NOT DETECTED; M. PNEUMONIAE- RESP PCR PANEL NOT DETECTED; PARAINFLUENZA VIRUS 1 NOT DETECTED; PARAINFLUENZA VIRUS 2 NOT DETECTED; PARAINFLUENZA VIRUS 3 NOT DETECTED; PARAINFLUENZA VIRUS 4 NOT DETECTED; RHINOVIRUS/ENTEROVIRUS NOT DETECTED; RSV- RESP PCR PANEL NOT DETECTED; SARS-CoV-2 -RESP PCR PANEL NOT DETECTED
[2022-11-18] MEDS ORDERED: ONDANSETRON 4 MG/2 ML VIAL IVP PRN (16:57)
[2022-11-18] MEDS ORDERED: ACETAMINOPHEN 500 MG TABLET PO PRN (16:57)
[2022-11-18] MEDS ORDERED: clonazePAM 0.5 MG TABLET PO STA (20:27)
[2022-11-18] MEDS ORDERED: busPIRone 5 MG TABLET PO SCH (21:00)
[2022-11-18] MEDS ORDERED: risperiDONE 0.25 MG TABLET PO SCH (21:00)
[2022-11-18 21:02] VITALS: BP 165/90; O2SAT 90
[2022-11-19] MEDS ORDERED: PANTOPRAZOLE 40 MG TABLET PO SCH (07:00)
[2022-11-19] MEDS ORDERED: amLODIPine 5 MG TABLET PO SCH (09:00)
[2022-11-19] MEDS ORDERED: ENOXAPARIN 40 MG/0.4 ML SYRINGE SUBQ SCH (09:00)
[2022-11-19] MEDS ORDERED: FLUoxetine 10 MG CAPSULE PO SCH (09:00)
[2022-11-19] MEDS ORDERED: GABAPENTIN 100 MG CAPSULE PO SCH (09:00)
[2022-11-19] MEDS ORDERED: atenoloL 25 MG TABLET PO SCH (09:00)
[2022-11-19] MEDS ORDERED: hydroCHLOROthiazide 25 MG TABLET PO SCH (09:00)
[2022-11-19] MEDS ORDERED: HYDROXYUREA 500 MG CAPSULE PO SCH (09:00)
[2022-11-19] MEDS ORDERED: lamoTRIgine 25 MG TABLET PO SCH (09:00)
== END 2022-11-18 21:49 | disposition short-term general hospital (02) ==
LOC: EDUNIT# → ED 10:45
DX: J96.90 Respiratory failure, unspecified, unspecified whether with hypoxia or hypercapnia (principal); A31.0 Pulmonary mycobacterial infection; Z20.822 Contact with and (suspected) exposure to COVID-19
CPT/HCPCS: 36415; 71045; 71250; 80053; 83605; 83690; 84484; 85025; 87040; 87633; 93005; 99285; A9270

== ENCOUNTER 2022-11-18 21:50 | Outpatient (CLI) | payer MEDICARE, OTHER | END 2022-11-18 23:59 | disposition short-term general hospital (02) | LOC: EMS 21:50 | PROVIDERS: ATTEND Emergency Medicine | DX: J84.9 Interstitial pulmonary disease, unspecified (principal); J96.90 Respiratory failure, unspecified, unspecified whether with hypoxia or hypercapnia; A31.0 Pulmonary mycobacterial infection | CPT/HCPCS: A0425; A0428 ==

== ENCOUNTER 2022-11-28 11:22 | Outpatient (CLI) | payer MEDICARE, OTHER ==
--- NOTE | 2022-11-28 15:39 | XRAY Report ---
PROCEDURE: Chest 2 View X-Ray INDICATIONS: RULE OUT PNEUMONIA TECHNIQUE: 2 views of the chest were acquired. COMPARISON: CT chest 11/18/2022. CXR 11/18/2022, 08/20/2022. FINDINGS: Surgical changes and devices: None. Lungs and pleura: No pleural effusions or pneumothorax. Bilateral patchy airspace opacity, increased . Prominent lung volumes. Bronchiectasis seen on prior CT. Mediastinum: Mediastinal contours appear unchanged. Heart size is normal. Bones and chest wall: No suspicious bony lesions. Left shoulder loose bodies. Overlying soft tissue s appear unremarkable. IMPRESSION: Bilateral patchy airspace opacity is increased. Concern for pneumonia. Superimposed pulmonary edema is possible. Bronchiectasis better seen on prior CT. Reviewed by: Jorge Negrete MD on 11/28/2022 3:38 PM PDT Approved by: Jorge Negrete MD on 11/28/2022 3:38 PM PDT Station ID: [id number]
== END 2022-11-28 11:23 | disposition home or self-care (01) ==
LOC: DI 11:22
PROVIDERS: ATTEND Registered Nurse
DX: R06.89 Other abnormalities of breathing (principal); R91.8 Other nonspecific abnormal finding of lung field

== ENCOUNTER 2022-12-01 15:50 | Outpatient (CLI) | payer MEDICARE, OTHER | END 2022-12-01 15:51 | disposition left against medical advice (07) | LOC: EMS 15:50 | DX: U07.1 COVID-19 (principal); R09.89 Other specified symptoms and signs involving the circulatory and respiratory systems ==

== ENCOUNTER 2022-12-01 18:33 | Outpatient (CLI) | payer MEDICARE, OTHER | END 2022-12-01 18:34 | disposition critical access hospital (66) | LOC: EMS 18:33 | DX: U07.1 COVID-19 (principal); R09.89 Other specified symptoms and signs involving the circulatory and respiratory systems; Z99.81 Dependence on supplemental oxygen | CPT/HCPCS: A0425; A0429 ==

== ENCOUNTER 2022-12-01 18:42 | Inpatient (IN) | payer MEDICARE, OTHER ==
[2022-12-01] MEDS ORDERED: PSEUDOEPHEDRINE 30 MG TABLET PO STA (18:46)
[2022-12-01] MEDS ORDERED: IPRATROPIUM/ALBUTEROL 3 ML NEB INH STA (18:46)
--- NOTE | 2022-12-01 18:55 | ED Physician Documentation ---
History of Present Illness - Stated complaint Stated Complaint: C+/SOA - Chief complaint Chief Complaint: Resp - History obtained from History obtained from: Patient, EMS - History of Present Illness Timing: Today Pain level max: 0 Pain level now: 0 - Additonal information Additional information: 87-year-old female, DNR, comfort care, chronic respiratory failure on 5 L of oxygen at home. She lives at [facility] in [place]. Tested positive for COVID 2 days ago. Noticed decreased oxygen saturations today. Patient has no complaints. No fevers. No chills. Has a dry cough per patient. She was recently admitted to [facility] for pneumonia. 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 HEENT: None Psych: Depression, Anxiety Musculoskeletal: Osteoarthritis Derm: None - Past Surgical History Past Surgical History: Yes Ortho: Hip replacement, Spine surgery - Present Medications Home Medications: Ambulatory Orders Medication Instructions Recorded Confirmed FLUoxetine [PROzac] 40 mg ORAL DAILY 07/20/12 12/01/22 lamoTRIgine [LaMICtal] 25 mg ORAL DAILY 07/20/12 12/01/22 risperiDONE [RisperDAL] 0.25 mg ORAL DAILY 07/20/12 12/01/22 Gabapentin 300 mg PO DAILY 04/07/14 12/01/22 amLODIPine [Norvasc] 10 mg PO DAILY 05/24/21 12/01/22 clonazePAM [Clonazepam] 1 mg PO DAILY PRN 05/24/21 12/01/22 Hydroxyurea [Hydrea] 500 mg PO DAILY 12/02/21 12/01/22 Acetaminophen [Tylenol] 650 mg PO Q4HR PRN 12/01/22 12/01/22 Albuterol Sulf [Ventolin Hfa 1 - 2 puffs INH Q4HR PRN 12/01/22 12/01/22 Inhaler] Atenolol [Tenormin] 50 mg PO DAILY 12/01/22 12/01/22 Bisacodyl Supp [Dulcolax Supp] 10 mg AK DAILY PRN 12/01/22 12/01/22 Buspirone HCl 20 mg PO DAILY 12/01/22 12/01/22 Levothyroxine [Synthroid] 100 mcg PO QDAC 12/01/22 12/01/22 Mineral Oil [Mineral Oil Enema] 1 ea RC DAILY PRN 12/01/22 12/01/22 Mirtazapine 7.5 mg PO HS 12/01/22 12/01/22 ONDANSETRON ODT Prepack 2 [ZOFRAN 4 mg TL Q8HR PRN 12/01/22 12/01/22 ODT Prepack 2] [place]-3/Dha/Epa/Fish Oil [Fish Oil 1 each PO DAILY 12/01/22 12/01/22 1,000 mg Softgel] Pantoprazole [Protonix] 40 mg PO DAILY 12/01/22 12/01/22 No122/Iron/Folic Acid 1 each PO DAILY 12/01/22 12/01/22 [ Multi Tablet] Senna [Senokot] 17.2 mg PO DAILY PRN 12/01/22 12/01/22 levoFLOXacin [Levofloxacin] 750 mg PO DAILY 12/01/22 12/01/22 polyethylene glycoL 3350 [Miralax] 17 gm PO DAILY PRN 12/01/22 12/01/22 - Allergies Allergies/Adverse Reactions: Allergies Allergy/AdvReac Type Severity Reaction Status Date / Time No Known Drug Allergies Allergy Verified 11/18/22 11:03 - Social History Does the pt smoke?: No Smoking Status: Never smoker Does the pt drink ETOH?: No Does the pt have substance abuse?: No - Immunizations Immunizations are current?: Yes - POLST Patient has POLST: No PD ED PE NORMAL - Vitals Vital signs reviewed: Yes - General General: Alert and oriented X 3, No acute distress - HEENT HEENT: Moist mucous membranes - Neck Neck: Supple, no meningeal sign - Cardiac Cardiac: RRR - Respiratory Respiratory: No respiratory distress, Other (Diminished breath sounds and wheezing bilaterally) - Abdomen Abdomen: Soft, Non tender, Non distended - Derm Derm: Warm and dry - Extremities Extremities: No edema - Neuro Neuro: Alert and oriented X 3 Results - Vitals Vitals: Vital Signs - 24 hr 12/01/22 12/01/22 12/01/22 18:46 19:10 21:07 Temperature 36 C L Heart Rate 86 84 89 Respiratory 30 H 28 H 22 Rate Blood Pressure 109/85 H 136/86 H O2 Saturation 83 L 91 L If not protocol 4 6 : Oxygen Flow, liters/minute Oxygen O2 Source Non-rebreather mask Oxygen Flow Rate 5 - Labs Labs: Laboratory Tests 12/01/22 12/01/22 12/01/22 19:01 19:01 19:01 WBC 7.9 RBC 3.36 L Hgb 11.9 L Hct 35.9 L MCV 106.8 H MCH 35.4 H MCHC 33.1 RDW 14.0 Plt Count 356 MPV 9.3 Neut # (Auto) 6.5 Lymph # (Auto) 0.7 L [place] # (Auto) 0.5 Eos # (Auto) 0.1 Baso # (Auto) 0.0 Absolute Nucleated RBC 0.00 Nucleated RBC % 0.0 Sodium 136 Potassium 4.3 Chloride 102 Carbon Dioxide 26 Anion Gap 8.0 BUN 22 H Creatinine 0.7 Estimated GFR (MDRD) 80 L Glucose 143 H Lactic Acid Calcium 8.5 Total Bilirubin 0.4 AST 29 ALT 47 Alkaline Phosphatase 85 B-Natriuretic Peptide Total Protein 6.8 Albumin 3.2 Globulin 3.6 Albumin/Globulin Ratio 0.9 L Lipase < 10 L Nasal Adenovirus (PCR) NOT DETECTED Nasal B. parapertussis DNA (PCR) NOT DETECTED Nasal Coronavir 229E PCR NOT DETECTED Nasal Coronavir HKU1 PCR NOT DETECTED Nasal Coronavir NL63 PCR NOT DETECTED Nasal Coronavir OC43 PCR NOT DETECTED Nasal Enterovir/Rhinovir PCR NOT DETECTED Nasal Influenza B PCR NOT DETECTED Nasal Influenza A PCR NOT DETECTED Nasal Parainfluen 1 PCR NOT DETECTED Nasal Parainfluen 2 PCR NOT DETECTED Nasal Parainfluen 3 PCR NOT DETECTED Nasal Parainfluen 4 PCR NOT DETECTED Nasal RSV (PCR) NOT DETECTED Nasal B.pertussis DNA PCR NOT DETECTED Nasal C.pneumoniae (PCR) NOT DETECTED Keith Human Metapneumo PCR NOT DETECTED Nasal M.pneumoniae (PCR) NOT DETECTED Nasal SARS-CoV-2 (PCR) DETECTED A 12/01/22 12/01/22 19:01 20:59 WBC RBC Hgb Hct MCV MCH MCHC RDW Plt Count MPV Neut # (Auto) Lymph # (Auto) [place] # (Auto) Eos # (Auto) Baso # (Auto) Absolute Nucleated RBC Nucleated RBC % Sodium Potassium Chloride Carbon Dioxide Anion Gap BUN Creatinine Estimated GFR (MDRD) Glucose Lactic Acid 1.7 Calcium Total Bilirubin AST ALT Alkaline Phosphatase B-Natriuretic Peptide 220 H Total Protein Albumin Globulin Albumin/Globulin Ratio Lipase Nasal Adenovirus (PCR) Nasal B. parapertussis DNA (PCR) Nasal Coronavir 229E PCR Nasal Coronavir HKU1 PCR Nasal Coronavir NL63 PCR Nasal Coronavir OC43 PCR Nasal Enterovir/Rhinovir PCR Nasal Influenza B PCR Nasal Influenza A PCR Nasal Parainfluen 1 PCR Nasal Parainfluen 2 PCR Nasal Parainfluen 3 PCR Nasal Parainfluen 4 PCR Nasal RSV (PCR) Nasal B.pertussis DNA PCR Nasal C.pneumoniae (PCR) Keith Human Metapneumo PCR Nasal M.pneumoniae (PCR) Nasal SARS-CoV-2 (PCR) - Rads (name of study) cxr Relevant Findings:: Final report received, See rad report PD Medical Decision Making - ED course Complexity details: reviewed results, re-evaluated patient, considered differential, d/w patient, d/w internal control consultant ED course: 87-year-old female, DNR, comfort care presents with increasing oxygen requirements at home. She is usually on 5 L of oxygen. Today she was found to be in the upper 70s/low 80s on 5 L of oxygen at her skilled nursing. She tested positive for COVID 2 days ago. She is positive here. Chest x-ray appears to be complicated by recurrent pneumonia as well. Patient does not want to be intubated, placed on pressors or have central lines. She is okay with supplemental oxygen, BiPAP "as long as it does not make me cold" and IV fluids. We will admit the patient for hypoxia, pneumonia and COVID. Discussed the case with the nighttime hospitalist who accepts. The patient's son did call the emergency department and stated that the patient wants to be full code and have CPR. I went back with the nurse and we had another conversation with the patient, she is alert and oriented x3, she is lucid and appropriate. She states she adamantly does not want CPR and does not want to be intubated or placed on a ventilator. She does not want to change her POLST form. IMPRESSION: 1. Increased pulmonary edema. 2. Confluent peripheral opacities in the left upper lung zone suggestive of consolidation. Departure - Departure Disposition: 66 [facility] DC/Xfer Clinical Impression: Hypoxia, Pneumonia, COVID Condition: Serious Forms: PCP List
[2022-12-01 19:07] LABS: BASOPHILS % (AUTO) 0.3 %; EOSINOPHILS # (AUTO) 0.1 10^3/uL (0.0-0.7); EOSINOPHILS % (AUTO) 1.1 %; HCT - HEMATOCRIT 35.9 % (37.0-47.0); HGB - HEMOGLOBIN 11.9 g/dL (12.0-16.0); LYMPHOCYTES # (AUTO) 0.7 10^3/uL (1.5-3.5); LYMPHOCYTES % (AUTO) 8.8 %; MEAN CORPUSCULAR HEMOGLOBIN 35.4 pg (27.0-31.0); MEAN CORPUSCULAR HGB CONC 33.1 g/dL (32.0-36.0); MEAN CORPUSCULAR VOLUME 106.8 fL (81.0-99.0); MEAN PLATELET VOLUME 9.3 fL (7.9-10.8); MONOCYTES # (AUTO) 0.5 10^3/uL (0.0-1.0); MONOCYTES % (AUTO) 6.5 %; NEUTROPHILS # (AUTO) 6.5 10^3/uL (1.5-6.6); NEUTROPHILS % (AUTO) 82.5 %; PLT - PLATELET COUNT 356 10^3/uL (130-450); RED BLOOD COUNT 3.36 10^6/uL (4.20-5.40); WHITE BLOOD COUNT 7.9 x10^3/uL (4.8-10.8)
[2022-12-01 19:45] LABS: ALBUMIN 3.2 g/dL (3.2-5.5); ALBUMIN/GLOBULIN RATIO 0.9 (1.0-2.2); ALKALINE PHOSPHATASE 85 IU/L (42-121); ALT ALANINE AMINOTRANSFERASE 47 IU/L (10-60); AST ASPARTATE AMINOTRANSFERASE 29 IU/L (10-42); BILIRUBIN,TOTAL 0.4 mg/dL (0.2-1.0); BUN - BLOOD UREA NITROGEN 22 mg/dL (6-20); CALCIUM 8.5 mg/dL (8.5-10.3); CARBON DIOXIDE - CO2 26 mmol/L (21-32); CHLORIDE 102 mmol/L (101-111); CREATININE 0.7 mg/dL (0.6-1.3); GFR - MDRD 80 (>89); GLUCOSE 143 mg/dL (74-104); LIPASE < 10 U/L (11-82); POTASSIUM 4.3 mmol/L (3.5-4.5); SODIUM 136 mmol/L (135-145); TOTAL PROTEIN 6.8 g/dL (6.4-8.9)
--- NOTE | 2022-12-01 20:06 | XRAY Report ---
PROCEDURE: Chest 1 View X-Ray INDICATIONS: cough, covid TECHNIQUE: One view of the chest was acquired. COMPARISON: 11/28/2022. FINDINGS: Surgical changes and devices: None. Lungs and pleura: There is hyperinflation of the lungs with flattening of the hemidiaphragms compati ble with COPD. There is increased pulmonary vascular prominence consistent with increased pulmonary e amaris. There are confluent peripheral opacities in the left upper lung zone. No pleural effusions or p neumothorax. Mediastinum: Mediastinal contours appear unchanged. Heart size is enlarged. Bones and chest wall: No suspicious bony lesions. Overlying soft tissues appear unremarkable. IMPRESSION: 1. Increased pulmonary edema. 2. Confluent peripheral opacities in the left upper lung zone suggestive of consolidation. Reviewed by: Cedric Redmond MD on 12/01/2022 8:04 PM PDT Approved by: Cedric Redmond MD on 12/01/2022 8:04 PM PDT Station ID: [id number]
[2022-12-01 20:08] LABS: CORONAVIRUS 229E-RESP PCR NOT DETECTED; CORONAVIRUS HKU1-RESP PCR NOT DETECTED; CORONAVIRUS NL63-RESP PCR NOT DETECTED; CORONAVIRUS OC43-RESP PCR NOT DETECTED
[2022-12-01 20:09] LABS: B. PARAPERTUSSIS- RESP PCR PAN NOT DETECTED; B. PERTUSSIS- RESP PCR PANEL NOT DETECTED; C. PNEUMONIAE- RESP PCR PANEL NOT DETECTED; HUMAN METAPNEUMOVIRUS NOT DETECTED; INFLUENZA A- RESP PCR PANEL NOT DETECTED; INFLUENZA B - RESP PCR PANEL NOT DETECTED; M. PNEUMONIAE- RESP PCR PANEL NOT DETECTED; PARAINFLUENZA VIRUS 1 NOT DETECTED; PARAINFLUENZA VIRUS 2 NOT DETECTED; PARAINFLUENZA VIRUS 3 NOT DETECTED; PARAINFLUENZA VIRUS 4 NOT DETECTED; RHINOVIRUS/ENTEROVIRUS NOT DETECTED; RSV- RESP PCR PANEL NOT DETECTED; SARS-CoV-2 -RESP PCR PANEL DETECTED
[2022-12-01] MEDS ORDERED: levoFLOXacin 500 MG/100 ML 500 MG/100 ML BAG IV STA (20:36)
[2022-12-01] MEDS ORDERED: SODIUM CHLORIDE 0.9% 1,000 ML IV STA (20:38)
[2022-12-01] MEDS ORDERED: FUROSEMIDE 20 MG/2 ML VIAL IVP STA (21:25)
[2022-12-01] MEDS ORDERED: BUMETANIDE 1 MG/4 ML VIAL IVP STA (21:26)
[2022-12-01] MEDS ORDERED: BISACODYL 10 MG SUPP PR PRN (21:26)
[2022-12-01] MEDS ORDERED: HYDROcod/ACETAM 10 MG/325 MG TABLET PO PRN (21:46)
[2022-12-01] MEDS ORDERED: ONDANSETRON 4 MG/2 ML VIAL IVP PRN (21:46)
[2022-12-01] MEDS ORDERED: ACETAMINOPHEN 325 MG TABLET PO PRN (21:46)
[2022-12-01] MEDS ORDERED: SODIUM CHLORIDE FLUSH 0.9% 10 ML SYRINGE IVP PRN (21:46)
[2022-12-01] MEDS ORDERED: CHERRY SYRUP 10 ML UDC PO ONE (21:49)
[2022-12-01] MEDS ORDERED: clonazePAM 0.5 MG TABLET PO STA (21:50)
--- NOTE | 2022-12-01 21:59 | HISTORY & PHYSICAL EXAMINATION ---
Chief Complaint - Chief Complaint Chief Complaint: SOB History of Present Illness - Admitted From Admitted From:: [facility] - History Obtained From Records Reviewed: Yes History obtained from: Pateint and ER MD Exam Limitations: None - History of Present Illness HPI Comment/Other: 87-year-old female, DNR, comfort care, chronic respiratory failure on 5 L of oxygen at home. She lives at [facility] in [place]. Tested positive for COVID 2 days ago. Noticed decreased oxygen saturations today. Patient has no complaints. No fevers. No chills. Has a dry cough per patient. She was recently admitted to [facility] for pneumonia. 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 : reports: None HEENT: reports: None Psych: reports: Depression, Anxiety Musculoskeletal: reports: Osteoarthritis Derm: reports: None MRSA Hx?: No - Past Surgical History Ortho: reports: Hip replacement, Spine surgery - POLST Patient has POLST: No Meds/Allgy - Home Medications Home Medications: Ambulatory Orders Medication Instructions Recorded Confirmed FLUoxetine [PROzac] 40 mg ORAL DAILY 07/20/12 12/01/22 lamoTRIgine [LaMICtal] 25 mg ORAL DAILY 07/20/12 12/01/22 risperiDONE [RisperDAL] 0.25 mg ORAL DAILY 07/20/12 12/01/22 Gabapentin 300 mg PO DAILY 04/07/14 12/01/22 amLODIPine [Norvasc] 10 mg PO DAILY 05/24/21 12/01/22 clonazePAM [Clonazepam] 1 mg PO DAILY PRN 05/24/21 12/01/22 Hydroxyurea [Hydrea] 500 mg PO DAILY 12/02/21 12/01/22 Acetaminophen [Tylenol] 650 mg PO Q4HR PRN 12/01/22 12/01/22 Albuterol Sulf [Ventolin Hfa 1 - 2 puffs INH Q4HR PRN 12/01/22 12/01/22 Inhaler] Atenolol [Tenormin] 50 mg PO DAILY 12/01/22 12/01/22 Bisacodyl Supp [Dulcolax Supp] 10 mg [place] DAILY PRN 12/01/22 12/01/22 Buspirone HCl 20 mg PO DAILY 12/01/22 12/01/22 Levothyroxine [Synthroid] 100 mcg PO QDAC 12/01/22 12/01/22 Mineral Oil [Mineral Oil Enema] 1 ea RC DAILY PRN 12/01/22 12/01/22 Mirtazapine 7.5 mg PO HS 12/01/22 12/01/22 ONDANSETRON ODT Prepack 2 [ZOFRAN 4 mg TL Q8HR PRN 12/01/22 12/01/22 ODT Prepack 2] [place]-3/Dha/Epa/Fish Oil [Fish Oil 1 each PO DAILY 12/01/22 12/01/22 1,000 mg Softgel] Pantoprazole [Protonix] 40 mg PO DAILY 12/01/22 12/01/22 No122/Iron/Folic Acid 1 each PO DAILY 12/01/22 12/01/22 [ Multi Tablet] Senna [Senokot] 17.2 mg PO DAILY PRN 12/01/22 12/01/22 levoFLOXacin [Levofloxacin] 750 mg PO DAILY 12/01/22 12/01/22 polyethylene glycoL 3350 [Miralax] 17 gm PO DAILY PRN 12/01/22 12/01/22 - Allergies Allergies/Adverse Reactions: Allergies Allergy/AdvReac Type Severity Reaction Status Date / Time No Known Drug Allergies Allergy Verified 11/18/22 11:03 Review of Systems - Respiratory Respiratory: reports: Cough, Sputum production, SOB at rest Prior Level of Functionality: Independent with ADL Exam - Vital Signs Vital Signs: Vital Signs x48h Temp Pulse Resp BP Pulse Ox O2 Flow Rate 12/01/22 21:07 89 22 136/86 H 91 L 6 12/01/22 19:10 84 28 H 4 12/01/22 18:46 36 C L 86 30 H 109/85 H 83 L - Physical Exam General Appearance: positive: No acute distress Eyes Bilateral: positive: Normal inspection, PERRL Neck: positive: Nml inspection Respiratory: positive: Rales Cardiovascular: positive: Regular rate & rhythm Abdomen: positive: Nml bowel sounds Back: positive: Nml inspection Skin: positive: Color nml Neurologic/Psychiatric: positive: Oriented x3, CN's nml (2-12) Sepsis Event Note (H) - Evaluation Current Stage of Sepsis: Ruled out Conclusion/Plan - Problem List (1) COVID Conclusion/Plan: Contact and droplet isolation Decadron 6 mg daily Remedesevir if available in am Empiric abx (2) Hypoxia Conclusion/Plan: Supplemental oxygen to be continjues Bumex 2 mg ivp x one dose given in ER Monitor Bipap/CPAP if needed (4) Hypertension Conclusion/Plan: Continue home meds Insomnia On kleonopen Also will need to confirm and resume home meds in am DNR.DNI DVT prophyalxis Empiric Levaquin for possible PNA dose will need to be adjusted based on creatinine clearance Qualifiers: Hypertension type: unspecified Qualified Code(s): I10 - Essential (primary) hypertension - Lab Results Fish Bones: 12/01/22 19:01 12/01/22 19:01
[2022-12-02] MEDS: SODIUM CHLORIDE FLUSH 0.9% 10 ML SYRINGE IVP SCH ×3 (05:15→16:15)
[2022-12-02] MEDS: LEVOTHYROXINE 100 MCG TABLET PO SCH (06:01)
[2022-12-02] MEDS ORDERED: DEXAMETHASONE 10 MG/ML VIAL PO SCH (09:00)
[2022-12-02] MEDS ORDERED: amLODIPine 5 MG TABLET PO SCH (09:00)
[2022-12-02] MEDS ORDERED: LEVOFLOXACIN 750 MG PO SCH (09:00)
[2022-12-02 09:47] LABS: BASOPHILS % (AUTO) 0.4 %; EOSINOPHILS # (AUTO) 0.1 10^3/uL (0.0-0.7); EOSINOPHILS % (AUTO) 1.2 %; HCT - HEMATOCRIT 32.2 % (37.0-47.0); HGB - HEMOGLOBIN 10.9 g/dL (12.0-16.0); LYMPHOCYTES # (AUTO) 0.6 10^3/uL (1.5-3.5); LYMPHOCYTES % (AUTO) 12.5 %; MEAN CORPUSCULAR HEMOGLOBIN 35.7 pg (27.0-31.0); MEAN CORPUSCULAR HGB CONC 33.9 g/dL (32.0-36.0); MEAN CORPUSCULAR VOLUME 105.6 fL (81.0-99.0); MEAN PLATELET VOLUME 9.1 fL (7.9-10.8); MONOCYTES # (AUTO) 0.4 10^3/uL (0.0-1.0); NEUTROPHILS # (AUTO) 3.8 10^3/uL (1.5-6.6); NEUTROPHILS % (AUTO) 77.3 %; PLT - PLATELET COUNT 319 10^3/uL (130-450); RED BLOOD COUNT 3.05 10^6/uL (4.20-5.40); RED CELL DISTRIBUTION WIDTH 13.8 % (12.0-15.0)
[2022-12-02 09:58] LABS: ALBUMIN 2.7 g/dL (3.2-5.5); ALBUMIN/GLOBULIN RATIO 0.8 (1.0-2.2); BILIRUBIN,TOTAL 0.5 mg/dL (0.2-1.0); CALCIUM 8.3 mg/dL (8.5-10.3); CREATININE 0.7 mg/dL (0.6-1.3); TOTAL PROTEIN 5.9 g/dL (6.4-8.9)
[2022-12-02] MEDS: PANTOPRAZOLE 40 MG TABLET PO SCH (11:13)
[2022-12-02] MEDS: atenoloL 25 MG TABLET PO SCH (11:17)
[2022-12-02] MEDS: busPIRone 5 MG TABLET PO SCH (11:18)
[2022-12-02] MEDS: guaiFENesin 600 MG TABLET PO SCH (11:25)
--- NOTE | 2022-12-02 12:09 | PHARMACY PROGRESS NOTE ---
- Best Possible Medication History Admit Date and Time: 12/02/22 0556 Processed by: Pharmacy Medication History completed: Yes Patient Interview: Pt unable to participate Secondary Source(s): Written medication list, Insurance records, Facility MAR as ONLY source As the person ultimately responsible for medication therapy, providers are able to order a medication from an existing home medication list in [facility] via the "Reconcile Routine" prior to Confirmation of that medication by community support professional. Such practice is discouraged except when the physician, in their clinical judgment, deems that a medical need exists for a medication without regard to previous use.
[2022-12-02] MEDS: dexAMETHasone 4 MG TABLET PO SCH (13:45)
--- NOTE | 2022-12-02 17:24 | PROVIDER PROGRESS NOTE ---
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 Unable to tolerate the full course of abx. Came to [facility] with fall at home and found to have pneumonia. Shipped to for treatment. From there she went to [facility] for rehab. She was Covid (+) on arrival to [facility] and received 5 days of Paxlovid. Recently saw Child And Adolescent Psychologist and diagnosed with pulmonary Hypertension from assisted pulmonary issues. She also sees a business operations specialist and ID at [facility]. 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 Today able to come down on Fi02 for Bipap. PS 12/18. maintaining 97% 02 sat. Current Medications - Current Medications Current Medications: Active Medications Acetaminophen (Acetaminophen 325 Mg Tablet) 650 mg PO Q4HR PRN PRN Reason: Pain 1 to 4, or Fever Last Admin: 12/02/22 11:41 Dose: 650 mg Hydrocodone Bitart/Acetaminophen (Hydrocod/Acetam 10 Mg/325 Mg Tablet) 1 tab PO Q4HR PRN PRN Reason: Pain 8 to 10 Amlodipine Besylate (Amlodipine 5 Mg Tablet) 10 mg PO DAILY [facility] Last Admin: 12/02/22 11:10 Dose: 10 mg Atenolol (Atenolol 25 Mg Tablet) 50 mg PO DAILY [facility] Last Admin: 12/02/22 11:17 Dose: 50 mg Bisacodyl (Bisacodyl 10 Mg Supp) 10 mg [place] DAILY PRN PRN Reason: Constipation Buspirone HCl (Buspirone 5 Mg Tablet) 20 mg PO DAILY [facility] Last Admin: 12/02/22 11:18 Dose: 20 mg Clonazepam (Clonazepam 0.5 Mg Tablet) 1 mg PO DAILY PRN PRN Reason: Insomnia Dexamethasone (Dexamethasone 4 Mg Tablet) 6 mg PO DAILY [facility] Last Admin: 12/02/22 13:45 Dose: 6 mg Guaifenesin (Guaifenesin 600 Mg Tablet) 600 mg PO DAILY [facility] Last Admin: 12/02/22 11:25 Dose: 600 mg Levofloxacin (Levaquin 500 Mg/100 Ml) 500 mg in 100 mls @ 100 mls/hr IV Q24H [facility] Levothyroxine Sodium (Levothyroxine 100 Mcg Tablet) 100 mcg PO QDAC [facility] Last Admin: 12/02/22 06:01 Dose: Not Given Mirtazapine (Mirtazapine 15 Mg Tablet) 7.5 mg PO HS [facility] Ondansetron HCl (Ondansetron 4 Mg/2 Ml Vial) 4 mg IVP Q6HR PRN PRN Reason: Nausea / Vomiting Pantoprazole Sodium (Pantoprazole 40 Mg Tablet) 40 mg PO DAILY [facility] Last Admin: 12/02/22 11:13 Dose: 40 mg Sodium Chloride (Sodium Chloride Flush 0.9% 10 Ml Syringe) 10 ml IVP PRN PRN PRN Reason: NEEDED PER PROVIDER ORDERS Sodium Chloride (Sodium Chloride Flush 0.9% 10 Ml Syringe) 10 ml IVP 0100,0900,1700 [facility] Last Admin: 12/02/22 16:15 Dose: 10 ml FLUoxetine [PROzac] 40 mg ORAL DAILY 07/20/12 lamoTRIgine [LaMICtal] 25 mg ORAL DAILY 07/20/12 risperiDONE [RisperDAL] 0.25 mg ORAL DAILY 07/20/12 Gabapentin 300 mg PO DAILY 04/07/14 amLODIPine [Norvasc] 10 mg PO DAILY 05/24/21 clonazePAM [Clonazepam] 1 mg PO DAILY PRN 05/24/21 Hydroxyurea [Hydrea] 500 mg PO DAILY 12/02/21 Acetaminophen [Tylenol] 650 mg PO Q4HR PRN 12/01/22 Albuterol Sulf [Ventolin Hfa Inhaler] 1 - 2 puffs INH Q4HR PRN 12/01/22 Atenolol [Tenormin] 50 mg PO DAILY 12/01/22 Bisacodyl Supp [Dulcolax Supp] 10 mg [place] DAILY PRN 12/01/22 Buspirone HCl 20 mg PO DAILY 12/01/22 Levothyroxine [Synthroid] 100 mcg PO QDAC 12/01/22 Mineral Oil [Mineral Oil Enema] 1 ea RC DAILY PRN 12/01/22 Mirtazapine 7.5 mg PO HS 12/01/22 ONDANSETRON ODT Prepack 2 [ZOFRAN ODT Prepack 2] 4 mg TL Q8HR PRN 12/01/22 Berkley-3/Dha/Epa/Fish Oil [Fish Oil 1,000 mg Softgel] 1 each PO DAILY 12/01/22 Pantoprazole [Protonix] 40 mg PO DAILY 12/01/22 No122/Iron/Folic Acid [ Multi Tablet] 1 each PO DAILY 12/01/22 Senna [Senokot] 17.2 mg PO DAILY PRN 12/01/22 levoFLOXacin [Levofloxacin] 750 mg PO DAILY 12/01/22 polyethylene glycoL 3350 [Miralax] 17 gm PO DAILY PRN 12/01/22 Albuterol Oral Soln [Ventolin] 2 mg PO Q6H 12/02/22 Objective - Vital Signs/Intake & Output Reviewed Vital Signs: Yes Vital Signs: Vital Signs Temp Pulse Resp BP Pulse Ox 12/02/22 17:00 66 19 97/65 95 12/02/22 16:00 69 19 101/58 L 94 12/02/22 15:00 37.1 C 83 20 97/66 96 12/02/22 14:00 80 23 109/70 96 Intake & Output: Intake & Output 11/29/22 11/30/22 12/01/22 12/02/22 23:59 23:59 23:59 23:59 Intake Total 500 475 Output Total 350 Balance 500 125 - Objective General Appearance: positive: No acute distress, Alert, Other (frail elderly female.) Eyes Bilateral: positive: PERRL, EOMI ENT: positive: No signs of dehydration Neck: positive: No JVD. negative: Stiff neck Respiratory: positive: No respiratory distress, Rales (diffusely, w short shallow respirations). negative: Wheezes, Rhonchi Cardiovascular: positive: Regular rate & rhythm Abdomen: positive: Non-tender, No organomegaly, Nml bowel sounds, No distention Skin: positive: Warm, Dry. negative: Pallor Extremities: positive: Full ROM. negative: No pedal edema Neurologic/Psychiatric: positive: Oriented x3, CN's nml (2-12), Motor nml - Lab Results Fish Bones: 12/02/22 09:20 12/02/22 09:20 Other Labs: Lab Results x24hrs 12/02/22 12/02/22 12/02/22 Range/Units 11:35 09:20 09:20 WBC (4.8-10.8) x10^3/uL RBC (4.20-5.40) 10^6/uL Hgb (12.0-16.0) g/dL Hct (37.0-47.0) % MCV (81.0-99.0) fL MCH (27.0-31.0) pg MCHC (32.0-36.0) g/dL RDW (12.0-15.0) % Plt Count (130-450) 10^3/uL MPV (7.9-10.8) fL Neut # (Auto) (1.5-6.6) 10^3/uL Lymph # (Auto) (1.5-3.5) 10^3/uL [place] # (Auto) (0.0-1.0) 10^3/uL Eos # (Auto) (0.0-0.7) 10^3/uL Baso # (Auto) (0.0-0.1) 10^3/uL Absolute Nucleated RBC x10^3/uL Nucleated RBC % /100WBC Sodium 136 (135-145) mmol/L Potassium 4.0 (3.5-4.5) mmol/L Chloride 101 (101-111) mmol/L Carbon Dioxide 30 (21-32) mmol/L Anion Gap 5.0 L (6-13) BUN 16 (6-20) mg/dL Creatinine 0.7 (0.6-1.3) mg/dL Estimated GFR (MDRD) 80 L (>89) Glucose 95 (74-104) mg/dL Lactic Acid (0.5-2.2) mmol/L Calcium 8.3 L (8.5-10.3) mg/dL Total Bilirubin 0.5 (0.2-1.0) mg/dL AST 18 (10-42) IU/L ALT 33 (10-60) IU/L Alkaline Phosphatase 68 (42-121) IU/L B-Natriuretic Peptide 347 H (5-100) pg/mL Total Protein 5.9 L (6.4-8.9) g/dL Albumin 2.7 L (3.2-5.5) g/dL Globulin 3.2 (2.1-4.2) g/dL Albumin/Globulin Ratio 0.8 L (1.0-2.2) Lipase (11-82) U/L Nasal Adenovirus (PCR) Nasal B. parapertussis DNA (PCR) Nasal Coronavir 229E PCR Nasal Coronavir HKU1 PCR Nasal Coronavir NL63 PCR Nasal Coronavir OC43 PCR Nasal Enterovir/Rhinovir PCR Nasal Influenza B PCR Nasal Influenza A PCR Nasal Parainfluen 1 PCR Nasal Parainfluen 2 PCR Nasal Parainfluen 3 PCR Nasal Parainfluen 4 PCR Nasal RSV (PCR) Nasal Screen MRSA (PCR) NEGATIVE (NEGATIVE) Nasal B.pertussis DNA PCR Nasal C.pneumoniae (PCR) Keith Human Metapneumo PCR Nasal M.pneumoniae (PCR) Nasal SARS-CoV-2 (PCR) 12/02/22 12/01/22 12/01/22 Range/Units 09:20 20:59 19:01 WBC 5.0 (4.8-10.8) x10^3/uL RBC 3.05 L (4.20-5.40) 10^6/uL Hgb 10.9 L (12.0-16.0) g/dL Hct 32.2 L (37.0-47.0) % MCV 105.6 H (81.0-99.0) fL MCH 35.7 H (27.0-31.0) pg MCHC 33.9 (32.0-36.0) g/dL RDW 13.8 (12.0-15.0) % Plt Count 319 (130-450) 10^3/uL MPV 9.1 (7.9-10.8) fL Neut # (Auto) 3.8 (1.5-6.6) 10^3/uL Lymph # (Auto) 0.6 L (1.5-3.5) 10^3/uL [place] # (Auto) 0.4 (0.0-1.0) 10^3/uL Eos # (Auto) 0.1 (0.0-0.7) 10^3/uL Baso # (Auto) 0.0 (0.0-0.1) 10^3/uL Absolute Nucleated RBC 0.00 x10^3/uL Nucleated RBC % 0.0 /100WBC Sodium (135-145) mmol/L Potassium (3.5-4.5) mmol/L Chloride (101-111) mmol/L Carbon Dioxide (21-32) mmol/L Anion Gap (6-13) BUN (6-20) mg/dL Creatinine (0.6-1.3) mg/dL Estimated GFR (MDRD) (>89) Glucose (74-104) mg/dL Lactic Acid 1.7 (0.5-2.2) mmol/L Calcium (8.5-10.3) mg/dL Total Bilirubin (0.2-1.0) mg/dL AST (10-42) IU/L ALT (10-60) IU/L Alkaline Phosphatase (42-121) IU/L B-Natriuretic Peptide 220 H (5-100) pg/mL Total Protein (6.4-8.9) g/dL Albumin (3.2-5.5) g/dL Globulin (2.1-4.2) g/dL Albumin/Globulin Ratio (1.0-2.2) Lipase (11-82) U/L Nasal Adenovirus (PCR) Nasal B. parapertussis DNA (PCR) Nasal Coronavir 229E PCR Nasal Coronavir HKU1 PCR Nasal Coronavir NL63 PCR Nasal Coronavir OC43 PCR Nasal Enterovir/Rhinovir PCR Nasal Influenza B PCR Nasal Influenza A PCR Nasal Parainfluen 1 PCR Nasal Parainfluen 2 PCR Nasal Parainfluen 3 PCR Nasal Parainfluen 4 PCR Nasal RSV (PCR) Nasal Screen MRSA (PCR) (NEGATIVE) Nasal B.pertussis DNA PCR Nasal C.pneumoniae (PCR) Keith Human Metapneumo PCR Nasal M.pneumoniae (PCR) Nasal SARS-CoV-2 (PCR) 12/01/22 12/01/22 12/01/22 Range/Units 19:01 19:01 19:01 WBC 7.9 (4.8-10.8) x10^3/uL RBC 3.36 L (4.20-5.40) 10^6/uL Hgb 11.9 L (12.0-16.0) g/dL Hct 35.9 L (37.0-47.0) % MCV 106.8 H (81.0-99.0) fL MCH 35.4 H (27.0-31.0) pg MCHC 33.1 (32.0-36.0) g/dL RDW 14.0 (12.0-15.0) % Plt Count 356 (130-450) 10^3/uL MPV 9.3 (7.9-10.8) fL Neut # (Auto) 6.5 (1.5-6.6) 10^3/uL Lymph # (Auto) 0.7 L (1.5-3.5) 10^3/uL [place] # (Auto) 0.5 (0.0-1.0) 10^3/uL Eos # (Auto) 0.1 (0.0-0.7) 10^3/uL Baso # (Auto) 0.0 (0.0-0.1) 10^3/uL Absolute Nucleated RBC 0.00 x10^3/uL Nucleated RBC % 0.0 /100WBC Sodium 136 (135-145) mmol/L Potassium 4.3 (3.5-4.5) mmol/L Chloride 102 (101-111) mmol/L Carbon Dioxide 26 (21-32) mmol/L Anion Gap 8.0 (6-13) BUN 22 H (6-20) mg/dL Creatinine 0.7 (0.6-1.3) mg/dL Estimated GFR (MDRD) 80 L (>89) Glucose 143 H (74-104) mg/dL Lactic Acid (0.5-2.2) mmol/L Calcium 8.5 (8.5-10.3) mg/dL Total Bilirubin 0.4 (0.2-1.0) mg/dL AST 29 (10-42) IU/L ALT 47 (10-60) IU/L Alkaline Phosphatase 85 (42-121) IU/L B-Natriuretic Peptide (5-100) pg/mL Total Protein 6.8 (6.4-8.9) g/dL Albumin 3.2 (3.2-5.5) g/dL Globulin 3.6 (2.1-4.2) g/dL Albumin/Globulin Ratio 0.9 L (1.0-2.2) Lipase < 10 L (11-82) U/L Nasal Adenovirus (PCR) NOT DETECTED Nasal B. parapertussis DNA (PCR) NOT DETECTED Nasal Coronavir 229E PCR NOT DETECTED Nasal Coronavir HKU1 PCR NOT DETECTED Nasal Coronavir NL63 PCR NOT DETECTED Nasal Coronavir OC43 PCR NOT DETECTED Nasal Enterovir/Rhinovir PCR NOT DETECTED Nasal Influenza B PCR NOT DETECTED Nasal Influenza A PCR NOT DETECTED Nasal Parainfluen 1 PCR NOT DETECTED Nasal Parainfluen 2 PCR NOT DETECTED Nasal Parainfluen 3 PCR NOT DETECTED Nasal Parainfluen 4 PCR NOT DETECTED Nasal RSV (PCR) NOT DETECTED Nasal Screen MRSA (PCR) (NEGATIVE) Nasal B.pertussis DNA PCR NOT DETECTED Nasal C.pneumoniae (PCR) NOT DETECTED Keith Human Metapneumo PCR NOT DETECTED Nasal M.pneumoniae (PCR) NOT DETECTED Nasal SARS-CoV-2 (PCR) DETECTED A Sepsis Event Note (H) - Evaluation Current Stage of Sepsis: Ruled out Assessment/Plan - Problem List (1) COVID Impression: Was already present before admission and had already received Paxlovid. At this time we are giving steroids. Giving her oxygen support. And empiric antibiotic therapy. Refocusing on pulmonary hygiene. Encouraging her to do incentive spirometry. (2) Hypoxia Impression: Due to COVID-pneumonia. Treatment consisted of the above plus as needed oxygen to get her O2 sats above 88% (3) Hypertension Impression: Selected Entries 12/02/22 12/02/22 12/02/22 15:00 16:00 17:00 Blood Pressure 97/66 101/58 L 97/65 [Right Brachial artery] currently not a problem. home meds amlodipine and atenolol. She is on both. Plan: I will stop norvasc for now. Qualifiers: Hypertension type: unspecified Qualified Code(s): I10 - Essential (primary) hypertension (4) Interstitial lung disease Impression: By history. At 87 it is remarkable that she is still with this considering she may have severe lung disease. I do not think there is any active intervention such as a Mab or phosphodiesterase inhibitor.
[2022-12-02] MEDS: clonazePAM 0.5 MG TABLET PO PRN (20:16)
[2022-12-02] MEDS: MIRTAZAPINE 15 MG TABLET PO SCH (20:16)
[2022-12-02] MEDS: levoFLOXacin 500 MG/100 ML 500 MG/100 ML BAG IV SCH (22:00)
[2022-12-03] MEDS: SODIUM CHLORIDE FLUSH 0.9% 10 ML SYRINGE IVP SCH ×4 (00:52→23:33)
[2022-12-03] MEDS: LEVOTHYROXINE 100 MCG TABLET PO SCH (06:02)
[2022-12-03] MEDS: PANTOPRAZOLE 40 MG TABLET PO SCH (08:07)
[2022-12-03] MEDS: busPIRone 5 MG TABLET PO SCH (08:08)
[2022-12-03] MEDS: atenoloL 25 MG TABLET PO SCH (08:08)
[2022-12-03] MEDS: dexAMETHasone 4 MG TABLET PO SCH (08:08)
[2022-12-03] MEDS: guaiFENesin 600 MG TABLET PO SCH (08:24)
--- NOTE | 2022-12-03 18:54 | PROVIDER PROGRESS NOTE ---
Progress Note December 03, 2022 6:30 PM She is markedly improved today. Even she says that she feels like she is almost normal today. Our plan was to discharge her to a long term facility. She was going back to [facility] where she is therefore rehab after already having an acute care stay at [facility]. But she surprises this aft flakito, after social work saw her, by stating she refuses to go back to that facility. She would prefer to go home. She uses a front wheel walker. Has a shower and bath chair. She lives on 1 level. But has 10 steps. She lives alone but has many friends, neighbors. Her twin sister lives nearby. Her baseline O2 is 5 L nasal cannula. She was evaluated by physical therapy and they found that she needed contact- guard assist. She is very easily fatigued and has safety concerns because of retropulsion. They are recommending discharge to long term facility for further strengthening, improve mobility. They also feel that she should have some grab bars and to do her shower chair and bath chair at home. Active Medications Acetaminophen (Acetaminophen 325 Mg Tablet) 650 mg PO Q4HR PRN PRN Reason: Pain 1 to 4, or Fever Last Admin: 12/02/22 11:41 Dose: 650 mg Hydrocodone Bitart/Acetaminophen (Hydrocod/Acetam 10 Mg/325 Mg Tablet) 1 tab PO Q4HR PRN PRN Reason: Pain 8 to 10 Last Admin: 12/03/22 02:07 Dose: 1 tab Atenolol (Atenolol 25 Mg Tablet) 50 mg PO DAILY [facility] Last Admin: 12/03/22 08:08 Dose: 50 mg Bisacodyl (Bisacodyl 10 Mg Supp) 10 mg [place] DAILY PRN PRN Reason: Constipation Buspirone HCl (Buspirone 5 Mg Tablet) 20 mg PO DAILY [facility] Last Admin: 12/03/22 08:08 Dose: 20 mg Clonazepam (Clonazepam 0.5 Mg Tablet) 1 mg PO DAILY PRN PRN Reason: Insomnia Last Admin: 12/02/22 20:16 Dose: 1 mg Dexamethasone (Dexamethasone 4 Mg Tablet) 6 mg PO DAILY [facility] Last Admin: 12/03/22 08:08 Dose: 6 mg Guaifenesin (Guaifenesin 600 Mg Tablet) 600 mg PO DAILY [facility] Last Admin: 12/03/22 08:24 Dose: 600 mg Levofloxacin (Levaquin 500 Mg/100 Ml) 500 mg in 100 mls @ 100 mls/hr IV Q24H [facility] Last Infusion: 12/03/22 00:52 Dose: Infused Levothyroxine Sodium (Levothyroxine 100 Mcg Tablet) 100 mcg PO QDAC [facility] Last Admin: 12/03/22 06:02 Dose: 100 mcg Mirtazapine (Mirtazapine 15 Mg Tablet) 7.5 mg PO HS [facility] Last Admin: 12/02/22 20:16 Dose: 7.5 mg Ondansetron HCl (Ondansetron 4 Mg/2 Ml Vial) 4 mg IVP Q6HR PRN PRN Reason: Nausea / Vomiting Pantoprazole Sodium (Pantoprazole 40 Mg Tablet) 40 mg PO DAILY [facility] Last Admin: 12/03/22 08:07 Dose: 40 mg Sodium Chloride (Sodium Chloride Flush 0.9% 10 Ml Syringe) 10 ml IVP PRN PRN PRN Reason: NEEDED PER PROVIDER ORDERS Sodium Chloride (Sodium Chloride Flush 0.9% 10 Ml Syringe) 10 ml IVP 0100,0900,1700 [facility] Last Admin: 12/03/22 17:25 Dose: 10 ml FLUoxetine [PROzac] 40 mg ORAL DAILY 07/20/12 lamoTRIgine [LaMICtal] 25 mg ORAL DAILY 07/20/12 risperiDONE [RisperDAL] 0.25 mg ORAL DAILY 07/20/12 Gabapentin 300 mg PO DAILY 04/07/14 amLODIPine [Norvasc] 10 mg PO DAILY 05/24/21 clonazePAM [Clonazepam] 1 mg PO DAILY PRN 05/24/21 Hydroxyurea [Hydrea] 500 mg PO DAILY 12/02/21 Acetaminophen [Tylenol] 650 mg PO Q4HR PRN 12/01/22 Albuterol Sulf [Ventolin Hfa Inhaler] 1 - 2 puffs INH Q4HR PRN 12/01/22 Atenolol [Tenormin] 50 mg PO DAILY 12/01/22 Bisacodyl Supp [Dulcolax Supp] 10 mg [place] DAILY PRN 12/01/22 Buspirone HCl 20 mg PO DAILY 12/01/22 Levothyroxine [Synthroid] 100 mcg PO QDAC 12/01/22 Mineral Oil [Mineral Oil Enema] 1 ea RC DAILY PRN 12/01/22 Mirtazapine 7.5 mg PO HS 12/01/22 ONDANSETRON ODT Prepack 2 [ZOFRAN ODT Prepack 2] 4 mg TL Q8HR PRN 12/01/22 [place]-3/Dha/Epa/Fish Oil [Fish Oil 1,000 mg Softgel] 1 each PO DAILY 12/01/22 Pantoprazole [Protonix] 40 mg PO DAILY 12/01/22 No122/Iron/Folic Acid [ Multi Tablet] 1 each PO DAILY 12/01/22 Senna [Senokot] 17.2 mg PO DAILY PRN 12/01/22 levoFLOXacin [Levofloxacin] 750 mg PO DAILY 12/01/22 polyethylene glycoL 3350 [Miralax] 17 gm PO DAILY PRN 12/01/22 Albuterol Oral Soln [Ventolin] 2 mg PO Q6H 12/02/22 Exam: Temperature is 36.8, heart rate 75, blood pressure 123/88, 19 respiratory rate. 95% saturated on 5-1/2 L. Baseline is 5 L. 5 foot 3 inch elderly female, 53.5 kg. Marked improvement in mentation and communication from yesterday to today. She is much more comfortable, able to have a full conversation without tachypnea. Lungs still have crackles and rhonchi but much less cough. Regular rate and rhythm without tachycardia. Abdomen is soft and nontender. Extremities are warm, and she and I are both pleased at how skinny her ankles are. Lab: There is no CBC or BMP done for today. I will be ordering that for tomorrow. Blood cultures are negative Assessment/Plan - Problem List (1) COVID Impression: Was already present before admission and had already received Paxlovid. At this time we are giving steroids. Giving her oxygen support. And empiric antibiotic therapy. Refocusing on pulmonary hygiene. Encouraging her to do incentive spirometry. She has improved. Today I think she would be ready to go back to the long term facility. However the patient is declining to go back to that facility and is now wanting to go home. She says that she was there for rehab but they never saw her for PT or OT. She is also not convinced that she should go to a rehab facility on the [facility]. I will have to have a conference between she and her son to make sure that they both are aware that she is still in a weakened condition. It is gratifying to know that she has that much help around her in her neighborhood, but I need a little bit more guarantee that she is a safe discharge if I am get a send her home (2) Hypoxia Impression: Due to COVID-pneumonia. Treatment consisted of the above plus as needed oxygen to get her O2 sats above 88%. She is on home oxygen 5 L/min. Almost at that level at 5-1/2 L today. I would think she be ready to go by tomorrow on the basis of her oxygen. But again I am waiting to speak to her son to see if family is on board with her going home. If she does go home I would do home health with PT and OT, bath aide, and nurse (3) Hypertension Impression: Selected Entries 12/02/22 12/02/22 12/02/22 15:00 16:00 17:00 Blood Pressure 97/66 101/58 L 97/65 [Right Brachial artery] currently not a problem. home meds amlodipine and atenolol. She is on both. I stopped the Norvasc yesterday because of the above low blood pressures. Today her blood pressure entries are as below. Selected Entries 12/03/22 12/03/22 12/03/22 15:00 16:00 18:00 Blood Pressure 128/80 122/68 123/88 H [Right Brachial artery] Plan:Continue only atenolol. Qualifiers: Hypertension type: unspecified Qualified Code(s): I10 - Essential (primary) hypertension (4) Interstitial lung disease Impression: By history. At 87 it is remarkable that she is still with this considering she may have severe lung disease. I do not think there is any active intervention such as a Mab or phosphodiesterase inhibitor.
[2022-12-03] MEDS: levoFLOXacin 500 MG/100 ML 500 MG/100 ML BAG IV SCH (21:35)
[2022-12-03] MEDS: MIRTAZAPINE 15 MG TABLET PO SCH (21:35)
[2022-12-03] MEDS: clonazePAM 0.5 MG TABLET PO PRN (23:31)
[2022-12-04 04:47] LABS: BASOPHILS % (AUTO) 0.1 %; HCT - HEMATOCRIT 33.4 % (37.0-47.0); HGB - HEMOGLOBIN 11.3 g/dL (12.0-16.0); LYMPHOCYTES # (AUTO) 0.4 10^3/uL (1.5-3.5); LYMPHOCYTES % (AUTO) 3.5 %; MEAN CORPUSCULAR HEMOGLOBIN 35.3 pg (27.0-31.0); MEAN CORPUSCULAR HGB CONC 33.8 g/dL (32.0-36.0); MEAN CORPUSCULAR VOLUME 104.4 fL (81.0-99.0); MONOCYTES # (AUTO) 0.3 10^3/uL (0.0-1.0); MONOCYTES % (AUTO) 2.3 %; NEUTROPHILS # (AUTO) 11.4 10^3/uL (1.5-6.6); NEUTROPHILS % (AUTO) 93.5 %; PLT - PLATELET COUNT 399 10^3/uL (130-450); RED CELL DISTRIBUTION WIDTH 13.1 % (12.0-15.0); WHITE BLOOD COUNT 12.2 x10^3/uL (4.8-10.8)
[2022-12-04 04:59] LABS: CALCIUM 8.6 mg/dL (8.5-10.3); CREATININE 0.7 mg/dL (0.6-1.3); POTASSIUM 4.3 mmol/L (3.5-4.5)
[2022-12-04] MEDS: LEVOTHYROXINE 100 MCG TABLET PO SCH (06:32)
[2022-12-04] MEDS: PANTOPRAZOLE 40 MG TABLET PO SCH (09:33)
[2022-12-04] MEDS: dexAMETHasone 4 MG TABLET PO SCH (09:33)
[2022-12-04] MEDS: atenoloL 25 MG TABLET PO SCH (09:34)
[2022-12-04] MEDS: guaiFENesin 600 MG TABLET PO SCH (09:34)
[2022-12-04] MEDS: busPIRone 5 MG TABLET PO SCH (09:34)
[2022-12-04] MEDS: SODIUM CHLORIDE FLUSH 0.9% 10 ML SYRINGE IVP SCH ×2 (09:35→16:59)
[2022-12-04] MEDS: MIRTAZAPINE 15 MG TABLET PO SCH (21:30)
[2022-12-04] MEDS: levoFLOXacin 500 MG/100 ML 500 MG/100 ML BAG IV SCH (21:30)
[2022-12-04] MEDS: clonazePAM 0.5 MG TABLET PO PRN (21:50)
--- NOTE | 2022-12-04 22:01 | PROVIDER PROGRESS NOTE ---
Progress Note December 04, 2022 5 PM Patient was seen this morning and this afternoon. She continues to improve from yesterday to today. She is decided that she does not want to go to a senior care facility again. Physical therapy does feel that she has easy fatigability, and is at risk for falls. But she is adamant that she just wants to go home with home health. Exam: Temperature is 37.2, heart rate 74, blood pressure 141/83, respirations 25. She is on 5-1/2 L and is saturating at 95%. She is an alert, oriented elderly female. Well-groomed. Well-nourished. Neck is supple Lungs continue to have coarse upper airway sounds but no rhonchi. No tachypnea no increased respiratory effort Regular rate and rhythm Abdomen is soft and nontender Extremities that are warm without edema Sodium 134. BUN 22, creatinine 0.7. Glucose 200. White cell count 12.2, hemoglobin 11.3, platelets 399 Assessment/Plan - Problem List (1) COVID Impression: Was already present before admission and had already received Paxlovid. At this time we are giving steroids. Giving her oxygen support. And empiric antibiotic therapy. Refocusing on pulmonary hygiene. She appears to have recovered from her viral syndrome. She declines transfer to senior care facility. Most li armando discharge tomorrow morning once have had a conversation with her son. (2) Hypoxia Impression: Due to COVID-pneumonia. Treatment consisted of the above plus as needed oxygen to get her O2 sats above 88%. She is on home oxygen 5 L/min. Almost at that level at 5-1/2 L . I have ordered home health with PT, OT, bath aide, and social media executive. (3) Hypertension Impression: Selected Entries 12/02/22 12/02/22 12/02/22 15:00 16:00 17:00 Blood Pressure 97/66 101/58 L 97/65 [Right Brachial artery] currently not a problem. home meds amlodipine and atenolol. She is on both. I stopped the Norvasc 12/02 because of the above low blood pressures. 12/03 her blood pressure entries are as below. Selected Entries 12/03/22 12/03/22 12/03/22 15:00 16:00 18:00 Blood Pressure 128/80 122/68 123/88 H [Right Brachial artery] Today BP even higher. Selected Entries 12/04/22 12/04/22 12/04/22 12:00 13:00 14:00 Blood Pressure 129/82 H 147/93 H 134/87 H [Right Brachial artery] 12/04/22 15:00 Blood Pressure 141/83 H [Right Brachial artery] Plan:Continue only atenolol. Qualifiers: Hypertension type: unspecified Qualified Code(s): I10 - Essential (primary) hypertension (4) Interstitial lung disease Impression: By history. At 87 it is remarkable that she is still with this considering she may have severe lung disease. I do not think there is any active intervention such as a Mab or phosphodiesterase inhibitor.
[2022-12-05] MEDS: SODIUM CHLORIDE FLUSH 0.9% 10 ML SYRINGE IVP SCH ×3 (04:13→17:58)
[2022-12-05] MEDS: LEVOTHYROXINE 100 MCG TABLET PO SCH (06:40)
[2022-12-05] MEDS: busPIRone 5 MG TABLET PO SCH (08:46)
[2022-12-05] MEDS: atenoloL 25 MG TABLET PO SCH (08:46)
[2022-12-05] MEDS: guaiFENesin 600 MG TABLET PO SCH (08:47)
[2022-12-05] MEDS: PANTOPRAZOLE 40 MG TABLET PO SCH (08:47)
[2022-12-05] MEDS: dexAMETHasone 4 MG TABLET PO SCH (08:47)
--- NOTE | 2022-12-05 18:40 | PROVIDER PROGRESS NOTE ---
Progress Note December 05, 2022 6:45 PM Long conversation with her son Lázaro. He called from [phone]. Patient has been refusing to go to a half-way facility because she does not like the rehab facility. But physical therapy and I both evaluated this patient and we do not feel that she is safe enough to go home by herself. Son concurs. He is adamant that mom is not able to go home by herself right now. He has noticed that she has had a slow deterioration since last April. She was increasingly short of breath, popping as she walked across the room but seemed to stabilize when she was on oxygen. She got no worse. But then with this most recent fall, hospitalization at [facility], then rehab, then hospitalization here she is much more frail than she has ever been. He is doubtful that she may sometimes make the month. Nevertheless, he strongly encourages us to get her to a half-way facility for rehab. He wants to get her strongest possible before she goes home because she will be living by herself. Exam: Temperature is 36.4. Heart rate 68. Blood pressure 151/99. Respirations 18. Her baseline oxygen at home was 5 L. She is 97% saturated. She is at 5- 1/2 L with this.Pressure 151/99 She is sitting up in bed, texting on her phone. Speech is intact. She is forgetful. She initially recognizes me, and even called me back my correct name. And then 5 or 7 minutes later she looks at me and says "who are you again". Neck is supple Regular rate and rhythm Lungs are clear. No tachypnea. But she is at rest in bed. Abdomen is soft, nontender Extremities are without edema Lab: No labs done today. Yesterday's BMP was acceptable. Yesterday's white cell count was slightly up at 12.12. Assessment/Plan - Problem List (1) COVID Impression: Was already present before admission and had already received Paxlovid. At this time we are giving steroids. Giving her oxygen support. And empiric antibiotic therapy. Refocusing on pulmonary hygiene. She appears to have recovered from her viral syndrome. She declines transfer to half-way facility. I did try and talk to her son earlier today. Unfortunately he was unable to call me till later in the evening. So we had to cancel her transfer to half-way facility. But he does endorse her going to a half-way facility. He does not feel she is safe to go home either. He will share with her that he is not going to come pick her up. And he is going to encourage her friends not to pick her up as well. (2) Hypoxia Impression: Due to COVID-pneumonia. Treatment consisted of the above plus as needed oxygen to get her O2 sats above 88%. She is on home oxygen 5 L/min. Almost at that level at 5-1/2 L . I have ordered home health with PT, OT, bath aide, and social worker palliative care. (3) Hypertension Impression: I have adjusted her medications over the last couple of days. Still slightly hypertensive at 151/99. Tenormin this 50 mg a day, and I will add Norvasc 2.5 mg today.
[2022-12-05] MEDS: clonazePAM 0.5 MG TABLET PO PRN (21:27)
[2022-12-05] MEDS: MIRTAZAPINE 15 MG TABLET PO SCH (21:27)
[2022-12-05] MEDS: levoFLOXacin 500 MG/100 ML 500 MG/100 ML BAG IV SCH (21:34)
[2022-12-06] MEDS: SODIUM CHLORIDE FLUSH 0.9% 10 ML SYRINGE IVP SCH ×2 (01:03→08:39)
[2022-12-06 05:08] LABS: HCT - HEMATOCRIT 38.2 % (37.0-47.0); HGB - HEMOGLOBIN 12.5 g/dL (12.0-16.0); LYMPHOCYTES # (AUTO) 0.8 10^3/uL (1.5-3.5); LYMPHOCYTES % (AUTO) 9.2 %; MEAN CORPUSCULAR HEMOGLOBIN 34.5 pg (27.0-31.0); MEAN CORPUSCULAR HGB CONC 32.7 g/dL (32.0-36.0); MEAN CORPUSCULAR VOLUME 105.5 fL (81.0-99.0); MEAN PLATELET VOLUME 8.8 fL (7.9-10.8); MONOCYTES # (AUTO) 0.6 10^3/uL (0.0-1.0); MONOCYTES % (AUTO) 6.9 %; NEUTROPHILS # (AUTO) 7.2 10^3/uL (1.5-6.6); NEUTROPHILS % (AUTO) 83.1 %; PLT - PLATELET COUNT 355 10^3/uL (130-450); RED BLOOD COUNT 3.62 10^6/uL (4.20-5.40); RED CELL DISTRIBUTION WIDTH 13.3 % (12.0-15.0); WHITE BLOOD COUNT 8.7 x10^3/uL (4.8-10.8)
[2022-12-06 05:27] LABS: CALCIUM 8.8 mg/dL (8.5-10.3); CREATININE 0.6 mg/dL (0.6-1.3); POTASSIUM 4.4 mmol/L (3.5-4.5)
[2022-12-06] MEDS: LEVOTHYROXINE 100 MCG TABLET PO SCH (05:36)
[2022-12-06] MEDS: guaiFENesin 600 MG TABLET PO SCH (08:34)
[2022-12-06] MEDS: PANTOPRAZOLE 40 MG TABLET PO SCH (08:35)
[2022-12-06] MEDS: dexAMETHasone 4 MG TABLET PO SCH (08:36)
[2022-12-06] MEDS: busPIRone 5 MG TABLET PO SCH (08:37)
[2022-12-06] MEDS: atenoloL 25 MG TABLET PO SCH (08:37)
[2022-12-06] MEDS ORDERED: amLODIPine 5 MG TABLET PO SCH (09:00)
--- NOTE | 2022-12-06 12:09 | Discharge Plan ---
"Discharge Plan for SNF / [facility] - Discharge Plan And Transition Orders Problem Reviewed?: Yes Disposition: SNF DC/Xfer Condition: Serious Allergies and Adverse Reactions: Allergies Allergy/AdvReac Type Severity Reaction Status Date / Time No Known Drug Allergies Allergy Verified 11/18/22 11:03 Health Concerns: Patient has a long history of bronchiectasis and was recently treated as mycoplasma bacterium avium complex. But I do not know who treated her and and what timeframe that happened. She was unable to tolerate the full course of treatment. In the most recent past she had come to our emergency room because she had fallen at home and was found to have pneumonia. We sent [facility] to [facility]. From [facility] she came to [facility] for rehab. She was COVID-positive 11/26/22 at [facility] and received 5 days of Paxlovid. While in rehab she continued to deteriorate with regards to pulmonary status and was found to have hypoxemia. Coughing. EMS was called and she was brought to the hospital 12/01. She was placed in isolation. Given oxygen. Steroids. She has findings of pulmonary edema with confluent peripheral opacities in the left upper lung suggestive of consolidation. So she was treated as mild CHF as well as pneumonia. Empiric antibiotic therapy was with Levaquin. She has received 5 days of Levaquin. She is on a baseline of 3 to 5 L nasal cannula oxygen. She is now at that baseline. She is afebrile, normotensive, and working with PT. They do feel that she needs to continue physical therapy at a SNF. The patient is very hostile to this idea. She feels that she received no care. We have pointed out to her that we have verification that she received physical therapy while there. But she is still angry at having to go back. Her son and DPOA states that he does support her going back to rehab because she cannot go home by herself because she lives alone and cannot take care of herself. She needs to get enough strength to be able to be independent again. However son is also making arrangements for her to go live in an assisted living facility when she leaves [facility]. Plan of Treatment: Rehabilitation until she is strong enough to be able to walk to her bathroom, walk to a chair, feed herself. Care Goals: To achieve physical therapy goals for strengthening and mobility. Once are achieved she will be discharged to an assisted living facility coordinated by her son. Her son is Lázaro at [phone]. Assessment: Patient most likely has dementia that has not been completely diagnosed or worked up. Slums score is 12 out of 30. - SNF / INTERMEDIATE Transition Orders Admit to (Facility): [facility] Under the care of (Name): Teresa Albright or [facility] Discharge Diagnosis: 1. Acute on chronic respiratory failure with hypoxemia 2. COVID 3. Secondary pneumonia 4. Hypertension 5. Hyperlipidemia 6. Hypothyroidism 7. Depression with anxiety 8. Moderate memory loss without behavioral disturbance 9. 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 Notify PCP of admission and forward orders to primary provider for signature. Weight on admission and: Weekly Other Notification Orders: Call PCP immediately if patient develops dyspnea, chest pain/tightness or edema. House Bowel Program: Yes Additional Bowel Program Orders: If no BM after 2 days, nurse may give M.O.M. 30ml PO PRN and/or ducolax Supp 1 VT and/or ANTONIO 250mg P.O., and/or senna 1-2 tabs PO. On day 3 nurse may give repeat above order until residents constipation is resolved. Annual Influenza Vaccine (between Nov 14 and June 13): Yes Two-step PPD per [facility] [phone] or approved exception documents: Yes Oxygen Orders: Nasal cannula oxygen at 5 L/min. Or maintain O2 sats greater than 88% Medication Orders: PLEASE REFER TO THE DISCHARGE MEDICATION LIST. Insulin Orders?: No - Medications New Prescriptions: dexAMETHasone [Decadron] 6 mg PO DAILY #4 tab - Diet Type: Geriatric Texture: Regular Liquids: Thin May have monthly special meal: Yes - Therapies | Activity Therapy: Evaluation | Treat if indicated: PT, OT Rehabilitation Potential: Maximize functional status, Return to independent living Activity: Activity as Tolerated Weight Bearing: Full Weight Assistance Devices: Walker"
[2022-12-06 14:13] VITALS: BP 140/83; O2SAT 98
--- NOTE | 2022-12-07 11:39 | DISCHARGE SUMMARY ---
"Discharge Summary Admit Date: 12/01/22 Discharge Date: 12/06/22 Discharging Provider: Ana Tello MD Primary Care Provider: Elke Albright Code Status: Do Not Attempt Resuscitation Condition at Discharge: Fair Discharge Disposition: SNF DC/Xfer - DIAGNOSES Discharge Diagnoses with Status of Each Condition: 1. COVID infection 2. Acute on chronic respiratory failure with hypoxia 3. Hypertension 4. Interstitial lung disease 5. Cognitive deficits, slums score 03/14 6. 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 She lives at [facility] in [place]. Tested positive for COVID 2 days ago. Noticed decreased oxygen saturations today. Patient has no complaints. No fevers. No chills. Has a dry cough per patient. She was recently admitted to [facility] for pneumonia. 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, confirms to be DNR/DNI, has 3 sons who are in [place], no pain or discomfort, requesting [place] Overall feels ok has been having some cough and congestion History - Past Medical History Cardiovascular: reports: Hypertension, High cholesterol Respiratory: reports: None Neuro: reports: None Endocrine/Autoimmune: reports: HyPOthyroidism GI: reports: None SURGICAL ASST: reports: None : reports: None HEENT: reports: None Psych: reports: Depression, Anxiety Musculoskeletal: reports: Osteoarthritis Derm: reports: None MRSA Hx?: No - Past Surgical History Ortho: reports: Hip replacement, Spine surgery - CONSULTS | PROCEDURES Procedures: Chest x-ray with increased pulmonary edema, confluent peripheral opacities in the left upper lung zone suggestive of consolidation Blood culture negative after 5 days - HOSPITAL COURSE Hospital Course: (1) COVID Impression: Was already present before admission and had already received Paxlovid. Treatment consisted of steroids in the form of Decadron, and nasal cannula oxygen to supplement her oxygen. And empiric antibiotic therapy In the face of a patient who has had previous lung infections and was most likely going to be getting a secondary pneumonia. We also focused on pulmonary hygiene. She appears to have recovered from her viral syndrome. She was evaluated by physical therapy and Occupational Therapy. They still felt that she would benefit for short-term rehab because of weakness and decreased mobility. [place] [facility]. In speaking to her son, he feels that mom is having some memory loss. Also just wants to go home. So she may be trying to get out of going anywhere to just go home. But he does endorse her going to a [place] [facility] [place]. He does not feel she is safe to go home . He will share with her that he is not going to come pick her up. And he is going to encourage her friends not to pick her up as well.As such the patient was discharged in stable condition to continue short-term physical rehab. Anticipation is then she will go to an assisted living facility. (2) Acute on chronic respiratory failure with hypoxia Impression: Due to COVID-pneumonia. She also has a history of interstitial lung disease. Treatment consisted of the above plus as needed oxygen to get her O2 sats above 88%. She is on home oxygen 5 L/min. Here she was at about 5-1/2 L. Here she was at about 5-1/2 L. I had ordered home health PT and OT when she was insistent on going home. I have canceled that order. She is going back to the retirement on 5 L nasal cannula. (3) Hypertension Impression: I have adjusted her medications over the last couple of days. In spite of resuming her Tenormin 50 mg a day. She was still hypertensive at 151/99. I added Norvasc 2.5 mg a day. (4) Cognitive deficits of aging. SLUM score 12/30 per SNF evaluation prior to admit. Long conversation with her son Lázaro. He called from [phone]. Patient has been refusing to go to a [place] [facility] because she does not like the rehab facility. But physical therapy and I both evaluated this patient and we do not feel that she is safe enough to go home by herself. Son concurs. He is adamant that mom is not able to go home by herself right now. He has noticed that she has had a slow deterioration since last April. She was increasingly short of breath, popping as she walked across the room but seemed to stabilize when she was on oxygen. She got no worse. But then with this most recent fall, hospitalization at [facility], then rehab, then hospitalization here she is much more frail than she has ever been. He is sometimes doubtful that she will last much longer. Nevertheless, he strongly encourages us to get her to a [place] [facility] for rehab. He wants to get her strongest possible before she goes home because she will be living by herself. He is making arrangement for her to go to [facility] upon discharge from the SNF. Discharge exam was that of a 5 foot 3 inch elderly female who is 52.5 kg. Temperature is 36.6. Heart rate 66. Blood pressure 140/83. Respirations 18. She is 98% on 5-1/2 L. Although it been encouraging nurses to bring her below 5 -1/2 L to maintain an O2 sat greater than 88% they have not done so. She is oriented to self. Oriented to the fact she is in the hospital. Not oriented to time. Poor insight into her situation. Lungs have coarse upper airway sounds, at times crackles. But no tachypnea, no tachycardia. Regular rate and rhythm. And abdomen that soft, nontender. She is eating 75 to 100% of her food. Last bowel movement December 05. Extremities without edema. Greater than 30 minutes was spent coordinating discharge This document was made in part using voice recognition software. While efforts are made to proofread this document, sound alike and grammatical errors may occur. - ALLERGIES Allergies/Adverse Reactions: Allergies Allergy/AdvReac Type Severity Reaction Status Date / Time No Known Drug Allergies Allergy Verified 11/18/22 11:03 - MEDICATIONS Home Medications: Ambulatory Orders Medication Instructions Recorded Confirmed FLUoxetine [PROzac] 40 mg ORAL DAILY 07/20/12 12/01/22 lamoTRIgine [LaMICtal] 25 mg ORAL DAILY 07/20/12 12/01/22 risperiDONE [RisperDAL] 0.25 mg ORAL DAILY 07/20/12 12/01/22 Gabapentin 300 mg PO DAILY 04/07/14 12/01/22 amLODIPine [Norvasc] 10 mg PO DAILY 05/24/21 12/01/22 clonazePAM [Clonazepam] 1 mg PO DAILY PRN 05/24/21 12/01/22 Hydroxyurea [Hydrea] 500 mg PO DAILY 12/02/21 12/01/22 Acetaminophen [Tylenol] 650 mg PO Q4HR PRN 12/01/22 12/01/22 Albuterol Sulf [Ventolin Hfa 1 - 2 puffs INH Q4HR PRN 12/01/22 12/01/22 Inhaler] Atenolol [Tenormin] 50 mg PO DAILY 12/01/22 12/01/22 Bisacodyl Supp [Dulcolax Supp] 10 mg [place] DAILY PRN 12/01/22 12/01/22 Buspirone HCl 20 mg PO DAILY 12/01/22 12/01/22 Levothyroxine [Synthroid] 100 mcg PO QDAC 12/01/22 12/01/22 Mineral Oil [Mineral Oil Enema] 1 ea RC DAILY PRN 12/01/22 12/01/22 Mirtazapine 7.5 mg PO HS 12/01/22 12/01/22 ONDANSETRON ODT Prepack 2 [ZOFRAN 4 mg TL Q8HR PRN 12/01/22 12/01/22 ODT] Bishop-3/Dha/Epa/Fish Oil [Fish Oil 1 each PO DAILY 12/01/22 12/01/22 1,000 mg Softgel] Pantoprazole [Protonix] 40 mg PO DAILY 12/01/22 12/01/22 No122/Iron/Folic Acid 1 each PO DAILY 12/01/22 12/01/22 [ Multi Tablet] Senna [Senokot] 17.2 mg PO DAILY PRN 12/01/22 12/01/22 polyethylene glycoL 3350 [Miralax] 17 gm PO DAILY PRN 12/01/22 12/01/22 Albuterol Oral Soln [Ventolin] 2 mg PO Q6H 12/02/22 12/02/22 dexAMETHasone [Decadron] 6 mg PO DAILY #4 tab 12/06/22 - LABS Result Diagrams: 12/06/22 04:27 12/06/22 04:27 - SEPSIS Current Stage of Sepsis: Ruled out"
== END 2022-12-06 15:25 | DRG 177 ==
LOC: ED 18:42 → MS2 21:46 → UNDOADMIN 21:46 → ICU 12-02 05:56
PROVIDERS: ADMIT Internal Medicine; ATTEND Specialist
DX: U07.1 COVID-19 (principal); J18.9 Pneumonia, unspecified organism; J96.11 Chronic respiratory failure with hypoxia; J96.21 Acute and chronic respiratory failure with hypoxia; J84.9 Interstitial pulmonary disease, unspecified; I10 Essential (primary) hypertension; R41.89 Other symptoms and signs involving cognitive functions and awareness; E78.00 Pure hypercholesterolemia, unspecified; E03.9 Hypothyroidism, unspecified; F32.A Depression, unspecified; F41.9 Anxiety disorder, unspecified; M19.90 Unspecified osteoarthritis, unspecified site; I27.20 Pulmonary hypertension, unspecified; Z51.5 Encounter for palliative care; Z66 Do not resuscitate; Z79.890 Hormone replacement therapy; Z79.899 Other long term (current) drug therapy
CPT/HCPCS: 36415; 71045; 80048; 80053; 83605; 83690; 83880; 85025; 87040; 87633; 87640; 94640; 94660; 96365; 96366; 96375; 97163; 97167; 97530; 97535; 99284; 99285; A9270; J8540

== ENCOUNTER 2022-12-19 08:00 | Outpatient (CLI) | payer MEDICARE, OTHER ==
[2022-12-19 20:10] LABS: BASOPHILS % (AUTO) 0.2 %; HCT - HEMATOCRIT 37.9 % (37.0-47.0); HGB - HEMOGLOBIN 12.6 g/dL (12.0-16.0); LYMPHOCYTES % (AUTO) 5.7 %; MEAN CORPUSCULAR HEMOGLOBIN 35.4 pg (27.0-31.0); MEAN CORPUSCULAR HGB CONC 33.2 g/dL (32.0-36.0); MEAN CORPUSCULAR VOLUME 106.5 fL (81.0-99.0); MEAN PLATELET VOLUME 9.2 fL (7.9-10.8); MONOCYTES % (AUTO) 3.4 %; NEUTROPHILS % (AUTO) 86.7 %; PLT - PLATELET COUNT 346 10^3/uL (130-450); RED BLOOD COUNT 3.56 10^6/uL (4.20-5.40); RED CELL DISTRIBUTION WIDTH 14.6 % (12.0-15.0); WHITE BLOOD COUNT 13.1 x10^3/uL (4.8-10.8)
[2022-12-19 20:14] LABS: ABNORMAL LYMPHS % (MANUAL) 0 %
[2022-12-19 20:28] LABS: CALCIUM 8.8 mg/dL (8.5-10.3); CREATININE 0.7 mg/dL (0.6-1.3); POTASSIUM 4.5 mmol/L (3.5-4.5)
[2022-12-19 20:35] LABS: BAND NEUTROPHILS % (MANUAL) 2 %; LYMPHOCYTES # (MANUAL) 1.2 10^3/uL (1.5-3.5); LYMPHOCYTES % (MANUAL) 7 %; METAMYELOCYTES % (MANUAL) 1 %; MONOCYTES # (MANUAL) 0.3 10^3/uL (0.0-1.0); MYELOCYTES % (MANUAL) 1 %; NEUTROPHILS # (MANUAL) 11.4 10^3/uL (1.5-6.6); PLATELET ESTIMATE, MANUAL NORMAL (130-450,000) (NORMAL); PLATELET MORPHOLOGY NORMAL APPEARANCE (NORMAL); RBC MORPHOLOGY (MULTIPLE) 1+ MACROCYTOSIS (NORMAL); REACTIVE LYMPHS % (MANUAL) 2 %
[2022-12-19 20:36] LABS: DIFFERENTIAL COMMENT MANUAL DIFFERENTIAL
== END 2022-12-19 23:59 | disposition home or self-care (01) ==
LOC: LAB 08:00
PROVIDERS: ATTEND Registered Nurse
DX: I10 Essential (primary) hypertension (principal); J96.21 Acute and chronic respiratory failure with hypoxia
CPT/HCPCS: 36415; 80048; 85025

== ENCOUNTER 2023-01-07 15:40 | Outpatient (CLI) | payer MEDICARE, OTHER | END 2023-01-07 15:41 | disposition critical access hospital (66) | LOC: EMS 15:40 | DX: M25.551 Pain in right hip (principal); W19.XXXA Unspecified fall, initial encounter; Y92.009 Unspecified place in unspecified non-institutional (private) residence as the place of occurrence of the external cause; R53.1 Weakness; Z99.81 Dependence on supplemental oxygen | CPT/HCPCS: A0425; A0429 ==

== ENCOUNTER 2023-01-07 15:47 | Emergency (ER) | payer MEDICARE, OTHER ==
--- NOTE | 2023-01-07 16:40 | ED Physician Documentation ---
PD HPI LOWER EXT INJURY - Stated complaint Stated Complaint: GLF/HIP PX - Chief complaint Chief Complaint: Trauma Ext - History obtained from History obtained from: Patient - History of Present Illness PD HPI LOW EXT INJURY LOCATION: Right, Hip Type of injury: Fall Where injury occurred: Home - Additional information Additional information: This is an 87-year-old female who has a history of interstitial lung disease on home oxygen, recently hospitalized at [facility] for lung infection and then discharged to [facility]. She then developed COVID and spent a couple of days here in the hospital and then was discharged. The patient recently returned home from [facility]. Today as she was getting out of the shower she slipped and fell and landed onto her buttocks. Since then she has had right hip pain and difficulty with ambulation. She is able to bear weight but it is uncomfortable. She states she did not hit her head, denies any neck or back pain. There was no loss of consciousness. She otherwise feels at baseline, has not had any increasing oxygen requirements no fever or chills, no chest pain or difficulty breathing beyond her baseline shortness of breath. She denies any abdominal pain nausea vomiting diarrhea, no urinary symptoms. 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 : None HEENT: None Psych: Depression, Anxiety Musculoskeletal: Osteoarthritis Derm: None - Past Surgical History Past Surgical History: Yes Ortho: Hip replacement, Spine surgery - Present Medications Home Medications: Ambulatory Orders Medication Instructions Recorded Confirmed FLUoxetine [PROzac] 40 mg ORAL DAILY 07/20/12 01/07/23 lamoTRIgine [LaMICtal] 25 mg ORAL DAILY 07/20/12 01/07/23 risperiDONE [RisperDAL] 0.25 mg ORAL DAILY 07/20/12 01/07/23 Gabapentin 300 mg PO HS 04/07/14 01/07/23 amLODIPine [Norvasc] 10 mg PO DAILY 05/24/21 01/07/23 clonazePAM [Clonazepam] 1 mg PO DAILY PRN 05/24/21 12/01/22 Hydroxyurea [Hydrea] 500 mg PO DAILY 12/02/21 01/07/23 Acetaminophen [Tylenol] 650 mg PO Q4HR PRN 12/01/22 12/01/22 Albuterol Sulf [Ventolin Hfa 1 - 2 puffs INH Q4HR PRN 12/01/22 12/01/22 Inhaler] Atenolol [Tenormin] 50 mg PO DAILY 12/01/22 01/07/23 Bisacodyl Supp [Dulcolax Supp] 10 mg LA DAILY PRN 12/01/22 12/01/22 Buspirone HCl 20 mg PO DAILY 12/01/22 12/01/22 Levothyroxine [Synthroid] 100 mcg PO QDAC 12/01/22 01/07/23 Mineral Oil [Mineral Oil Enema] 1 ea RC DAILY PRN 12/01/22 12/01/22 Mirtazapine 7.5 mg PO HS 12/01/22 12/01/22 [place]-3/Dha/Epa/Fish Oil [Fish Oil 1 each PO DAILY 12/01/22 01/07/23 1,000 mg Softgel] Pantoprazole [Protonix] 40 mg PO DAILY 12/01/22 12/01/22 No122/Iron/Folic Acid 1 each PO DAILY 12/01/22 12/01/22 [ Multi Tablet] Senna [Senokot] 17.2 mg PO DAILY PRN 12/01/22 12/01/22 polyethylene glycoL 3350 [Miralax] 17 gm PO DAILY PRN 12/01/22 12/01/22 Albuterol Oral Soln [Ventolin] 2 mg PO Q6H 12/02/22 12/02/22 Aspirin EC [Ecotrin] 81 mg PO DAILY 01/07/23 01/07/23 clonazePAM [Clonazepam] 1 mg PO DAILY PRN 01/07/23 01/07/23 - Allergies Allergies/Adverse Reactions: Allergies Allergy/AdvReac Type Severity Reaction Status Date / Time No Known Drug Allergies Allergy Verified 11/18/22 11:03 - Social History Does the pt smoke?: No Smoking Status: Never smoker Does the pt drink ETOH?: No Does the pt have substance abuse?: No - Immunizations Immunizations are current?: Yes - POLST Patient has POLST: No PD ED PE NORMAL - Vitals Vital signs reviewed: Yes - General General: Alert and oriented X 3, No acute distress, Other (Appears frail, chronically ill but in no acute distress) - HEENT HEENT: Atraumatic, Moist mucous membranes - Neck Neck: Supple, no meningeal sign, No bony TTP, C-Spine cleared by NEXUS criteria - Cardiac Cardiac: RRR, No murmur - Respiratory Respiratory: Other (Bilateral scattered crackles, on 5 L nasal cannula and yoandy athing comfortably) - Abdomen Abdomen: Normal bowel sounds, Soft, Non tender, Non distended - Back Back: No CVA TTP, No spinal TTP - Derm Derm: Normal color, Warm and dry, No rash - Extremities Extremities: No deformity, Other (No obvious deformity of the right hip or leg. Mild tenderness to palpation of the buttocks but no bony tenderness. No other extremity injuries.) - Neuro Neuro: Alert and oriented X 3 Eye Opening: Spontaneous Motor: Localizes to Pain - Psych Psych: Normal mood, Normal affect Results - Vitals Vitals: Vital Signs - 24 hr 01/07/23 01/07/23 15:57 16:18 Temperature 36.3 C L Heart Rate 68 66 Respiratory 18 18 Rate Blood Pressure 136/78 H 141/87 H O2 Saturation 96 97 If not protocol 4 : Oxygen Flow, liters/minute Oxygen O2 Source Nasal cannula PD Medical Decision Making - ED course Complexity details: reviewed results, re-evaluated patient, considered differential, d/w patient ED course: 87-year-old female with past medical history assist did above presented after a fall at home in which she sustained right hip pain. On arrival here, she is well-appearing, no acute distress stable vital signs. She is on chronic oxygen. She does have right hip pain but no obvious shortening or deformity. We did obtain an x-ray of this area to evaluate for possible fracture and there are no signs of acute fracture. After discussion with patient, it sounds like she has fallen several times since she has returned home from [facility] and she feels as though they sent her home too soon. She would like to see about returning to [facility] and does not feel safe to return home. She is currently living alone though has multiple family members that spend quite a bit of time with her, she does not have 24-hour assistance. She is concerned that she will continue to fall and would like to return to [facility] if that is an option. Therefore I will obtain labs but I do not believe the patient will have any reason for admission to the hospital today and I will ask that social work see the patient in the morning for possible placement. Per review of records, it does appear that patient is a DNR and there is mention of comfort measures the patient is not on hospice as far as I can tell. Departure - Departure Clinical Impression: Recurrent falls, Interstitial lung disease Hip pain Qualifiers: Laterality: right Qualified Code(s): M25.551 - Pain in right hip Condition: Good Instructions: ED Contusion Lower Ext Forms: PCP List
--- NOTE | 2023-01-07 17:33 | XRAY Report ---
PROCEDURE: Hip w/Pelvis 2-3V RT INDICATIONS: fall, right hip pain TECHNIQUE: AP pelvis with lateral view(s) of the right hip(s). COMPARISON: None. FINDINGS: Bones: No fractures or dislocations. No suspicious bony lesions. Right hip arthroplasty. Hardware is intact without evidence of hardware fracture or periprosthetic lucency to suggest loosening. Mode rate to severe left hip arthritic change. Soft tissues: No suspicious soft tissue calcifications or masses. IMPRESSION: No visualized acute fracture or dislocation. However, occult injury cannot be excluded. Recommend ruth rt interval imaging follow-up in 7-10 days as clinically indicated for additional evaluation. Reviewed by: Kika Manzanares MD on 01/07/2023 5:32 PM PDT Approved by: Kika Manzanares MD on 01/07/2023 5:32 PM PDT Station ID: [id number]
[2023-01-07 18:00] LABS: BASOPHILS % (AUTO) 0.3 %; EOSINOPHILS # (AUTO) 0.1 10^3/uL (0.0-0.7); EOSINOPHILS % (AUTO) 1.2 %; HCT - HEMATOCRIT 36.6 % (37.0-47.0); HGB - HEMOGLOBIN 12.9 g/dL (12.0-16.0); LYMPHOCYTES % (AUTO) 10.7 %; MEAN CORPUSCULAR HEMOGLOBIN 35.5 pg (27.0-31.0); MEAN CORPUSCULAR HGB CONC 35.2 g/dL (32.0-36.0); MEAN CORPUSCULAR VOLUME 100.8 fL (81.0-99.0); MEAN PLATELET VOLUME 8.5 fL (7.9-10.8); MONOCYTES # (AUTO) 0.7 10^3/uL (0.0-1.0); MONOCYTES % (AUTO) 7.3 %; NEUTROPHILS # (AUTO) 7.4 10^3/uL (1.5-6.6); NEUTROPHILS % (AUTO) 79.3 %; PLT - PLATELET COUNT 289 10^3/uL (130-450); RED BLOOD COUNT 3.63 10^6/uL (4.20-5.40); RED CELL DISTRIBUTION WIDTH 14.4 % (12.0-15.0); WHITE BLOOD COUNT 9.3 x10^3/uL (4.8-10.8)
[2023-01-07 18:13] LABS: ALBUMIN 3.4 g/dL (3.2-5.5); ALBUMIN/GLOBULIN RATIO 1.3 (1.0-2.2); ALKALINE PHOSPHATASE 68 IU/L (42-121); ALT ALANINE AMINOTRANSFERASE 37 IU/L (10-60); AST ASPARTATE AMINOTRANSFERASE 18 IU/L (10-42); BILIRUBIN,TOTAL 0.5 mg/dL (0.2-1.0); BUN - BLOOD UREA NITROGEN 19 mg/dL (6-20); CALCIUM 8.5 mg/dL (8.5-10.3); CARBON DIOXIDE - CO2 28 mmol/L (21-32); CHLORIDE 96 mmol/L (101-111); CREATININE 0.7 mg/dL (0.6-1.3); GFR - MDRD 80 (>89); GLUCOSE 105 mg/dL (74-104); POTASSIUM 4.3 mmol/L (3.5-4.5); SODIUM 128 mmol/L (135-145); TOTAL PROTEIN 6.1 g/dL (6.4-8.9)
[2023-01-07 18:20] LABS: LIPASE < 10 U/L (11-82)
[2023-01-07] MEDS ORDERED: SODIUM CHLORIDE 0.9% 1,000 ML IV STA (18:28)
[2023-01-07] MEDS ORDERED: ONDANSETRON 4 MG/2 ML VIAL IVP PRN (18:32)
[2023-01-07] MEDS ORDERED: ACETAMINOPHEN 500 MG TABLET PO PRN (18:32)
[2023-01-07] MEDS ORDERED: clonazePAM 0.5 MG TABLET PO PRN (23:34)
[2023-01-07] MEDS ORDERED: LOPERAMIDE 2 MG CAPSULE PO STA (23:35)
[2023-01-08] MEDS: SODIUM CHLORIDE 0.9% 1,000 ML IV SCH ×3 (01:39→19:54)
[2023-01-08 05:36] LABS: BASOPHILS % (AUTO) 0.5 %; EOSINOPHILS # (AUTO) 0.1 10^3/uL (0.0-0.7); EOSINOPHILS % (AUTO) 1.7 %; HCT - HEMATOCRIT 35.3 % (37.0-47.0); HGB - HEMOGLOBIN 12.1 g/dL (12.0-16.0); LYMPHOCYTES % (AUTO) 17.1 %; MEAN CORPUSCULAR HEMOGLOBIN 35.5 pg (27.0-31.0); MEAN CORPUSCULAR HGB CONC 34.3 g/dL (32.0-36.0); MEAN CORPUSCULAR VOLUME 103.5 fL (81.0-99.0); MONOCYTES # (AUTO) 0.5 10^3/uL (0.0-1.0); MONOCYTES % (AUTO) 8.6 %; NEUTROPHILS # (AUTO) 4.2 10^3/uL (1.5-6.6); NEUTROPHILS % (AUTO) 70.9 %; PLT - PLATELET COUNT 255 10^3/uL (130-450); RED BLOOD COUNT 3.41 10^6/uL (4.20-5.40); RED CELL DISTRIBUTION WIDTH 14.4 % (12.0-15.0); WHITE BLOOD COUNT 5.9 x10^3/uL (4.8-10.8)
[2023-01-08 05:46] LABS: CALCIUM 7.7 mg/dL (8.5-10.3); CREATININE 0.5 mg/dL (0.6-1.3); POTASSIUM 3.7 mmol/L (3.5-4.5)
[2023-01-08] MEDS: PANTOPRAZOLE 40 MG TABLET PO SCH (08:19)
[2023-01-08 08:53] LABS: BILIRUBIN,URINE NEGATIVE (NEGATIVE); GLUCOSE, URINE (UA) NEGATIVE (NEGATIVE); KETONES,URINE (UA) NEGATIVE (NEGATIVE); LEUKOCYTE ESTERASE, URINE NEGATIVE (NEGATIVE); NITRITE,URINE NEGATIVE (NEGATIVE); OCCULT BLOOD,URINE NEGATIVE (NEGATIVE); PH,URINE 6.5 PH (5.0-7.5); PROTEIN,URINE NEGATIVE (NEGATIVE); UROBILINOGEN,URINE 0.2 (NORMAL) E.U./dL (NORMAL)
[2023-01-08 08:55] LABS: CLARITY,URINE CLEAR (CLEAR)
--- NOTE | 2023-01-08 10:28 | ED Physician Documentation ---
ED Addendum - Addendum Addendum: Patient signed out to me by overnight physician, awaiting social work evaluation for placement back to [facility] or other skilled facility. No complaints this morning. Patient was seen by social work. [facility] is able to accept the patient back tomorrow at 11 AM.
[2023-01-08] MEDS ORDERED: clonazePAM 0.5 MG TABLET PO STA (21:33)
[2023-01-09] MEDS: PANTOPRAZOLE 40 MG TABLET PO SCH (06:57)
[2023-01-09 13:36] VITALS: BP 166/96; O2SAT 100
== END 2023-01-09 13:49 | disposition home or self-care (01) ==
LOC: EDUNIT# → ED 15:47
DX: M25.551 Pain in right hip (principal); W18.2XXA Fall in (into) shower or empty bathtub, initial encounter; Z91.81 History of falling; Y93.E1 Activity, personal bathing and showering; Y92.002 Bathroom of unspecified non-institutional (private) residence as the place of occurrence of the external cause; J84.9 Interstitial pulmonary disease, unspecified; E87.1 Hypo-osmolality and hyponatremia; I10 Essential (primary) hypertension; E78.00 Pure hypercholesterolemia, unspecified; E03.9 Hypothyroidism, unspecified; R29.6 Repeated falls; Z99.81 Dependence on supplemental oxygen; Z79.899 Other long term (current) drug therapy; Z79.82 Long term (current) use of aspirin
CPT/HCPCS: 36415; 73502; 80048; 80053; 81003; 83690; 85025; 97165; 99283; 99284; A9270; 81001; 87086

== ENCOUNTER 2023-01-16 08:00 | Outpatient (CLI) | payer MEDICARE, OTHER ==
[2023-01-17 01:57] LABS: THYROID STIMULATING HORMONE 1.96 uIU/mL (0.34-5.60)
== END 2023-01-16 23:59 | disposition home or self-care (01) ==
LOC: LAB.R 08:00
PROVIDERS: ATTEND Registered Nurse
DX: E03.9 Hypothyroidism, unspecified (principal)
CPT/HCPCS: 84439; 84443

== ENCOUNTER 2023-01-23 14:24 | Outpatient (CLI) | payer MEDICARE, OTHER ==
[2023-01-23 14:43] LABS: BASOPHILS % (AUTO) 0.7 %; EOSINOPHILS % (AUTO) 0.7 %; HCT - HEMATOCRIT 37.3 % (37.0-47.0); HGB - HEMOGLOBIN 12.8 g/dL (12.0-16.0); LYMPHOCYTES # (AUTO) 1.1 10^3/uL (1.5-3.5); LYMPHOCYTES % (AUTO) 18.9 %; MEAN CORPUSCULAR HGB CONC 34.3 g/dL (32.0-36.0); MEAN CORPUSCULAR VOLUME 104.8 fL (81.0-99.0); MEAN PLATELET VOLUME 8.7 fL (7.9-10.8); MONOCYTES # (AUTO) 0.4 10^3/uL (0.0-1.0); NEUTROPHILS # (AUTO) 4.4 10^3/uL (1.5-6.6); PLT - PLATELET COUNT 337 10^3/uL (130-450); RED BLOOD COUNT 3.56 10^6/uL (4.20-5.40); RED CELL DISTRIBUTION WIDTH 15.3 % (12.0-15.0)
[2023-01-23 14:52] LABS: BILIRUBIN,URINE NEGATIVE (NEGATIVE); GLUCOSE, URINE (UA) NEGATIVE (NEGATIVE); KETONES,URINE (UA) NEGATIVE (NEGATIVE); LEUKOCYTE ESTERASE, URINE NEGATIVE (NEGATIVE); NITRITE,URINE NEGATIVE (NEGATIVE); OCCULT BLOOD,URINE NEGATIVE (NEGATIVE); PROTEIN,URINE NEGATIVE (NEGATIVE); UROBILINOGEN,URINE 0.2 (NORMAL) E.U./dL (NORMAL)
[2023-01-23 15:08] LABS: CLARITY,URINE CLEAR (CLEAR); RBC,URINE 0-5 /HPF (0-5); WBC,URINE 0-3 /HPF (0-5)
[2023-01-23 15:09] LABS: BACTERIA,URINE None Seen /HPF (None Seen); MUCUS,URINE Few Strands; SQUAMOUS EPITHELIAL CELL,UR FEW Squamous (<= Few)
[2023-01-23 15:50] LABS: ALBUMIN 3.4 g/dL (3.2-5.5); ALBUMIN/GLOBULIN RATIO 1.5 (1.0-2.2); BILIRUBIN,TOTAL 0.7 mg/dL (0.2-1.0); CALCIUM 8.6 mg/dL (8.5-10.3); CREATININE 0.6 mg/dL (0.6-1.3); POTASSIUM 4.3 mmol/L (3.5-4.5); TOTAL PROTEIN 5.6 g/dL (6.4-8.9)
== END 2023-01-23 14:25 | disposition home or self-care (01) ==
LOC: LAB.R 14:24
PROVIDERS: ATTEND Registered Nurse
DX: I10 Essential (primary) hypertension (principal); J96.11 Chronic respiratory failure with hypoxia; N39.0 Urinary tract infection, site not specified
CPT/HCPCS: 80053; 81001; 85025; 87086

== ENCOUNTER 2023-02-11 08:00 | Outpatient (CLI) | payer MEDICARE, OTHER ==
[2023-02-11 16:54] LABS: BASOPHILS % (AUTO) 0.6 %; EOSINOPHILS # (AUTO) 0.2 10^3/uL (0.0-0.7); EOSINOPHILS % (AUTO) 2.4 %; HCT - HEMATOCRIT 40.5 % (37.0-47.0); HGB - HEMOGLOBIN 13.7 g/dL (12.0-16.0); LYMPHOCYTES # (AUTO) 1.4 10^3/uL (1.5-3.5); LYMPHOCYTES % (AUTO) 21.3 %; MEAN CORPUSCULAR HEMOGLOBIN 36.3 pg (27.0-31.0); MEAN CORPUSCULAR HGB CONC 33.8 g/dL (32.0-36.0); MEAN CORPUSCULAR VOLUME 107.4 fL (81.0-99.0); MEAN PLATELET VOLUME 8.7 fL (7.9-10.8); MONOCYTES # (AUTO) 0.6 10^3/uL (0.0-1.0); MONOCYTES % (AUTO) 9.6 %; NEUTROPHILS # (AUTO) 4.3 10^3/uL (1.5-6.6); NEUTROPHILS % (AUTO) 65.5 %; PLT - PLATELET COUNT 291 10^3/uL (130-450); RED BLOOD COUNT 3.77 10^6/uL (4.20-5.40); RED CELL DISTRIBUTION WIDTH 16.8 % (12.0-15.0); WHITE BLOOD COUNT 6.6 x10^3/uL (4.8-10.8)
[2023-02-11 16:55] LABS: BILIRUBIN,URINE NEGATIVE (NEGATIVE); GLUCOSE, URINE (UA) NEGATIVE (NEGATIVE); KETONES,URINE (UA) NEGATIVE (NEGATIVE); LEUKOCYTE ESTERASE, URINE NEGATIVE (NEGATIVE); NITRITE,URINE NEGATIVE (NEGATIVE); OCCULT BLOOD,URINE NEGATIVE (NEGATIVE); PROTEIN,URINE NEGATIVE (NEGATIVE); UROBILINOGEN,URINE 0.2 (NORMAL) E.U./dL (NORMAL)
[2023-02-11 16:57] LABS: CLARITY,URINE CLEAR (CLEAR)
[2023-02-11 17:08] LABS: ALBUMIN 3.6 g/dL (3.2-5.5); ALBUMIN/GLOBULIN RATIO 1.3 (1.0-2.2); BILIRUBIN,TOTAL 0.7 mg/dL (0.2-1.0); CALCIUM 9.1 mg/dL (8.5-10.3); CREATININE 0.6 mg/dL (0.6-1.3); POTASSIUM 3.5 mmol/L (3.5-4.5); TOTAL PROTEIN 6.4 g/dL (6.4-8.9)
== END 2023-02-11 23:59 | disposition home or self-care (01) ==
LOC: LAB.R 08:00
PROVIDERS: ATTEND Registered Nurse
DX: A31.0 Pulmonary mycobacterial infection (principal); N39.0 Urinary tract infection, site not specified
CPT/HCPCS: 80053; 81001; 81003; 85025; 87086

== ENCOUNTER 2023-02-19 09:24 | Outpatient (CLI) | payer MEDICARE, OTHER | END 2023-02-19 09:25 | disposition critical access hospital (66) | LOC: EMS 09:24 | DX: R41.82 Altered mental status, unspecified (principal); R50.9 Fever, unspecified; Z99.81 Dependence on supplemental oxygen | CPT/HCPCS: A0425; A0429 ==

== ENCOUNTER 2023-02-19 09:29 | Emergency (ER) | payer MEDICARE, OTHER ==
[2023-02-19 10:25] LABS: BASOPHILS # (AUTO) 0.1 10^3/uL (0.0-0.1); BASOPHILS % (AUTO) 0.7 %; EOSINOPHILS # (AUTO) 0.1 10^3/uL (0.0-0.7); EOSINOPHILS % (AUTO) 1.1 %; HCT - HEMATOCRIT 39.6 % (37.0-47.0); HGB - HEMOGLOBIN 13.8 g/dL (12.0-16.0); LYMPHOCYTES % (AUTO) 12.8 %; MEAN CORPUSCULAR HEMOGLOBIN 37.3 pg (27.0-31.0); MEAN CORPUSCULAR HGB CONC 34.8 g/dL (32.0-36.0); MEAN PLATELET VOLUME 8.7 fL (7.9-10.8); MONOCYTES # (AUTO) 0.7 10^3/uL (0.0-1.0); NEUTROPHILS # (AUTO) 5.5 10^3/uL (1.5-6.6); NEUTROPHILS % (AUTO) 74.9 %; PLT - PLATELET COUNT 268 10^3/uL (130-450); RED CELL DISTRIBUTION WIDTH 17.2 % (12.0-15.0); WHITE BLOOD COUNT 7.4 x10^3/uL (4.8-10.8)
[2023-02-19] MEDS ORDERED: SODIUM CHLORIDE 0.9% 1,000 ML IV STA (10:26)
--- NOTE | 2023-02-19 10:26 | ED Physician Documentation ---
PD HPI ALTERED MENTAL STATUS - Stated complaint Stated Complaint: ALOC - Chief complaint Chief Complaint: General - History obtained from History obtained from: Patient, Caregiver - History of Present Illness Timing - onset: How many weeks ago (several weeks of progressive weakness much worse the past week. Now needing help out of bed. Prior was using walker. restarted MAC antibiotics 01/10/23, which had been held since September due to depressive symptoms side effect of interacting with her SSRI. MAR shows Prozac increased 20 to 40 mg 3 wk ago) Review of Systems Constitutional: denies: Fever, Chills Nose: denies: Congestion Cardiac: denies: Chest pain / pressure Respiratory: denies: Dyspnea, Cough GI: denies: Abdominal Pain, Vomiting, Diarrhea Neurologic: reports: Generalized weakness. denies: Focal weakness, Altered mental status, Headache PD PAST MEDICAL HISTORY - Past Medical History Past Medical History: Yes Cardiovascular: Hypertension, High cholesterol Respiratory: None Neuro: None Endocrine/Autoimmune: HyPOthyroidism GI: None PHYSICAL THERAPIST: None : None HEENT: None Psych: Depression, Anxiety Musculoskeletal: Osteoarthritis Derm: None - Past Surgical History Past Surgical History: Yes Ortho: Hip replacement, Spine surgery - Present Medications Home Medications: Ambulatory Orders Medication Instructions Recorded Confirmed FLUoxetine [PROzac] 40 mg ORAL DAILY 07/20/12 02/19/23 lamoTRIgine [LaMICtal] 25 mg ORAL DAILY 07/20/12 02/19/23 risperiDONE [RisperDAL] 0.25 mg ORAL DAILY 07/20/12 02/19/23 Gabapentin 300 mg PO HS 04/07/14 02/19/23 amLODIPine [Norvasc] 10 mg PO DAILY 05/24/21 02/19/23 Hydroxyurea [Hydrea] 500 mg PO DAILY 12/02/21 02/19/23 Atenolol [Tenormin] 50 mg PO DAILY 12/01/22 02/19/23 Levothyroxine [Synthroid] 100 mcg PO QDAC 12/01/22 02/19/23 [place]-3/Dha/Epa/Fish Oil [Fish Oil 1 each PO DAILY 12/01/22 02/19/23 1,000 mg Softgel] Aspirin EC [Ecotrin] 81 mg PO DAILY 01/07/23 02/19/23 clonazePAM [Clonazepam] 1 mg PO DAILY PRN 01/07/23 02/19/23 - Allergies Allergies/Adverse Reactions: Allergies Allergy/AdvReac Type Severity Reaction Status Date / Time No Known Drug Allergies Allergy Verified 02/19/23 09:54 - Social History Does the pt smoke?: No Smoking Status: Never smoker Does the pt drink ETOH?: No Does the pt have substance abuse?: No - Immunizations Immunizations are current?: Yes - POLST Patient has POLST: No PD ED PE NORMAL - Vitals Vital signs reviewed: Yes - General General: Alert and oriented X 3, No acute distress, Well developed/nourished, Other (She has a weak voice but is communicating well. I did have to have her repeat a couple of times just to hear the volume.) - HEENT HEENT: Pharynx benign - Neck Neck: Supple, no meningeal sign, No adenopathy - Cardiac Cardiac: RRR, No murmur - Respiratory Respiratory: No respiratory distress, Clear bilaterally - Abdomen Abdomen: Soft, Non tender - Derm Derm: Normal color, Warm and dry - Extremities Extremities: No tenderness to palpate, No edema, No calf tenderness / cord, Other (She does appear to have atrophy of the muscles in the left leg compared to the right. She states she is normally able to use a walker.) - Neuro Neuro: Alert and oriented X 3, Other (Symmetric movement and strength that is weak in all extremities more in the legs than the arms. She is able to take a good breath when asked. Normal color and capillary refill. Normal sensation.) Results - Vitals Vitals: Vital Signs - 24 hr 02/19/23 02/19/23 02/19/23 09:47 11:53 13:24 Temperature 37 C Heart Rate 73 73 75 Respiratory 24 25 H 20 Rate Blood Pressure 177/101 H 169/107 H 144/107 H O2 Saturation 95 90 L 94 If not protocol 5 5 : Oxygen Flow, liters/minute Oxygen O2 Source Nasal cannula - Labs Labs: Laboratory Tests 02/19/23 02/19/23 02/19/23 10:10 10:20 10:20 WBC 7.4 RBC 3.70 L Hgb 13.8 Hct 39.6 MCV 107.0 H MCH 37.3 H MCHC 34.8 RDW 17.2 H Plt Count 268 MPV 8.7 Neut # (Auto) 5.5 Lymph # (Auto) 1.0 L [place]ink # (Auto) 0.7 Eos # (Auto) 0.1 Baso # (Auto) 0.1 Absolute Nucleated RBC 0.00 Nucleated RBC % 0.0 VBG pH VBG pCO2 VBG pO2 VBG HCO3 VBG Total CO2 VBG O2 Saturation VBG Base Excess Sodium 134 L Potassium 3.6 Chloride 96 L Carbon Dioxide 32 Anion Gap 6.0 BUN 8 Creatinine 0.5 L Estimated GFR (MDRD) 117 Glucose 119 H Calcium 9.2 Magnesium 1.7 Total Bilirubin 0.8 AST 15 ALT 16 Alkaline Phosphatase 63 Total Protein 6.6 Albumin 3.5 Globulin 3.1 Albumin/Globulin Ratio 1.1 Lipase < 10 L Urine Color Urine Clarity Urine pH Ur Specific [place] Urine Protein Urine Glucose (UA) Urine Ketones Urine Occult Blood Urine Nitrite Urine Bilirubin Urine Urobilinogen Ur Leukocyte Esterase Ur Microscopic Review Urine Culture Comments 02/19/23 02/19/23 10:35 11:00 WBC RBC Hgb Hct MCV MCH MCHC RDW Plt Count MPV Neut # (Auto) Lymph # (Auto) [place] # (Auto) Eos # (Auto) Baso # (Auto) Absolute Nucleated RBC Nucleated RBC % VBG pH 7.466 H VBG pCO2 45.1 VBG pO2 56.3 H VBG HCO3 31.8 H VBG Total CO2 33.2 H VBG O2 Saturation 90.9 H VBG Base Excess 7.0 H Sodium Potassium Chloride Carbon Dioxide Anion Gap BUN Creatinine Estimated GFR (MDRD) Glucose Calcium Magnesium Total Bilirubin AST ALT Alkaline Phosphatase Total Protein Albumin Globulin Albumin/Globulin Ratio Lipase Urine Color YELLOW Urine Clarity CLEAR Urine pH 7.5 Ur Specific [place] 1.015 Urine Protein NEGATIVE Urine Glucose (UA) NEGATIVE Urine Ketones NEGATIVE Urine Occult Blood NEGATIVE Urine Nitrite NEGATIVE Urine Bilirubin NEGATIVE Urine Urobilinogen 0.2 (NORMAL) Ur Leukocyte Esterase NEGATIVE Ur Microscopic Review NOT INDICATED Urine Culture Comments NOT INDICATED - Rads (name of study) head CT Relevant Findings:: Prelim report reviewed (no acute process. age related volume loss. ), EMP independent interpretation of test chest xray Relevant Findings:: Prelim report reviewed (Some vascular congestion. No infiltrates.), EMP independent interpretation of test PD Medical Decision Making - ED course Complexity details: considered differential (general weakness. Consider electrolytes, myositis, autimmune, med side effects, sugar, etc. ), d/w patient, d/w family, d/w home energy consultant (Infectious Disease [facility], who felt the 3 abx are likely culprit of symptoms. ) ED course: Report from medics and caregivers from [facility] is the patient has had a declining level of ability with general weakness over the last several weeks and over the last several days to week has been unable to get out of bed without assistance. Previously had been with a walker. Seemed more generally weak the last couple of days. Referred to the ER for evaluation. No focal deficits noted. I talked with the patient's son by phone subsequently and he described a similar pattern of steady decline over the last 3 weeks or so from more ambulatory with a walker and self-sufficient on her ADLs to needing increasingly more help. She has been at [facility] since the end of December for rehab. She had been resumed on 3 antibiotics for a lung infection MAC and had been off of those since September due to side effects from them. The son was not aware of these being resumed per se when it did occur and then just assumed it had been discussed through the [facility] physician and other specialists. There had been some notice of some increasing depression and the Prozac dose was increased from 20 to 40 mg as well. I talked with the infectious disease specialist from [facility] who felt the medications were likely causing the worsening depression as it had on previous dosings but also could be contributing to the generalized symptoms. No blood test measures per se. Recommendation was to stop the medications and decrease the Prozac back to the prior dose and see how she does over several days to week. The patient here does exhibit general weakness. She is able to manipulate a cup of water up and drink and she is conversant. She is saturating adequately on her normal oxygen level. Needs help up to commode/etc, which can be done at SNF. I feel the patient can be cared for sufficiently back at [facility] with the short-term outlook of improvement over the next days to a week once off medications. Departure - Departure Disposition: 01 Home, Self Care Clinical Impression: Generalized weakness, Medication side effects Condition: Stable Record reviewed to determine appropriate education?: Yes Comments: Basic testing here of chemistry panel, electrolytes, blood sugar, blood count as well as a evaluation of chest x-ray and urine and head CT were done. No acute obvious abnormalities noted. I did talk with the infectious disease specialist from [facility] and presumption is your symptoms are related to side effects or interactions of the 3 antibiotics with your current medications. Recommendation was to stop the antibiotics for the MAC. Would also have you decrease the fluoxetine down from the increased 40 mg back down to 20 mg. Stay well-hydrated. Continue your other medications. Assuming the stopping of the above medications will improve your symptoms, it will be a gradual improvement over several days to week or so. Follow-up with your primary care during that time. To see how much improvement you are having and if other assessments or testing is needed. Bullet points interventions: 1. Stop the rifampin 2. Stop the azithromycin 3. Stop the ethambutol 4. Decrease the fluoxetine from 40 mg to 20 mg Forms: PCP List Discharge Date/Time: 02/19/23 14:49
[2023-02-19 10:38] LABS: ALBUMIN 3.5 g/dL (3.2-5.5); ALBUMIN/GLOBULIN RATIO 1.1 (1.0-2.2); ALKALINE PHOSPHATASE 63 IU/L (42-121); ALT ALANINE AMINOTRANSFERASE 16 IU/L (10-60); AST ASPARTATE AMINOTRANSFERASE 15 IU/L (10-42); BILIRUBIN,TOTAL 0.8 mg/dL (0.2-1.0); BUN - BLOOD UREA NITROGEN 8 mg/dL (6-20); CALCIUM 9.2 mg/dL (8.5-10.3); CARBON DIOXIDE - CO2 32 mmol/L (21-32); CHLORIDE 96 mmol/L (101-111); CREATININE 0.5 mg/dL (0.6-1.3); GFR - MDRD 117 (>89); GLUCOSE 119 mg/dL (74-104); LIPASE < 10 U/L (11-82); POTASSIUM 3.6 mmol/L (3.5-4.5); SODIUM 134 mmol/L (135-145); TOTAL PROTEIN 6.6 g/dL (6.4-8.9)
--- NOTE | 2023-02-19 10:41 | XRAY Report ---
PROCEDURE: Chest 1 View X-Ray INDICATIONS: dyspnea TECHNIQUE: One view of the chest was acquired. COMPARISON: 12/01/2022. FINDINGS: Surgical changes and devices: None. Lungs and pleura: No pleural effusions or pneumothorax. Pulmonary edema is worse than on the previou s study. Mediastinum: Mediastinal contours appear normal. Cardiomegaly. Bones and chest wall: No suspicious bony lesions. Overlying soft tissues appear unremarkable. IMPRESSION: Congestive heart failure exacerbation. Reviewed by: Lucien Dunn MD on 02/19/2023 10:40 AM [facility] Approved by: Lucien Dunn MD on 02/19/2023 10:40 AM [facility] Station ID: [id number]
[2023-02-19 10:43] LABS: VBG HCO3 31.8 mmol/L (23-28); VBG OXYGEN SATURATION 90.9 % (60-80); VBG PCO2 45.1 mmHg (41-51); VBG PH 7.466 (7.31-7.41); VBG PO2 56.3 mmHg (25-47); VBG TOTAL CO2 33.2 mmol/L (24-29)
[2023-02-19 11:10] LABS: BILIRUBIN,URINE NEGATIVE (NEGATIVE); GLUCOSE, URINE (UA) NEGATIVE (NEGATIVE); KETONES,URINE (UA) NEGATIVE (NEGATIVE); LEUKOCYTE ESTERASE, URINE NEGATIVE (NEGATIVE); NITRITE,URINE NEGATIVE (NEGATIVE); OCCULT BLOOD,URINE NEGATIVE (NEGATIVE); PH,URINE 7.5 PH (5.0-7.5); PROTEIN,URINE NEGATIVE (NEGATIVE); UROBILINOGEN,URINE 0.2 (NORMAL) E.U./dL (NORMAL)
[2023-02-19 11:12] LABS: CLARITY,URINE CLEAR (CLEAR)
--- NOTE | 2023-02-19 12:52 | CT Report ---
PROCEDURE: HEAD WO INDICATIONS: altered MS TECHNIQUE: Noncontrast 4.5 mm thick angled axial sections acquired from the foramen magnum to the vertex. For r adiation dose reduction, the following was used: automated exposure control, adjustment of mA and/or kV according to patient size. COMPARISON: None. FINDINGS: Image quality: Excellent. CSF spaces: Basal cisterns are patent. No extra-axial fluid collections. Ventricles are normal in size and shape. Brain: No midline shift. No intracranial masses or hemorrhage. [place] Luna-white matter interface is norm al. Severe periventricular small vessel ischemic change. Skull and face: Calvarium and visualized facial bones are intact, without suspicious lesions. Sinuses: Visualized sinuses and mastoids are clear. IMPRESSION: 1. Age-related volume loss, severe small vessel ischemic change. 2. No acute intracranial abnormality noted. Reviewed by: Lucien Dunn MD on 02/19/2023 12:51 PM PST Approved by: Lucien Dunn MD on 02/19/2023 12:51 PM PST Station ID: [id number]
[2023-02-19 13:32] VITALS: BP 144/107; O2SAT 94
== END 2023-02-19 14:49 | disposition home or self-care (01) ==
LOC: ED 09:29
DX: T50.905A Adverse effect of unspecified drugs, medicaments and biological substances, initial encounter (principal); R53.1 Weakness; I10 Essential (primary) hypertension
CPT/HCPCS: 36415; 80053; 81001; 81003; 82803; 83690; 83735; 85025; 87086; 96360; 96361; 99284

== ENCOUNTER 2023-02-19 14:49 | Outpatient (CLI) | payer MEDICARE, OTHER | END 2023-02-19 14:50 | LOC: EMS 14:49 | PROVIDERS: ATTEND Emergency Medicine | DX: R46.4 Slowness and poor responsiveness (principal); Z74.01 Bed confinement status | CPT/HCPCS: A0425; A0428 ==

== ENCOUNTER 2023-02-21 00:20 | Outpatient (CLI) | payer MEDICARE, OTHER | END 2023-02-21 00:21 | disposition critical access hospital (66) | LOC: EMS 00:20 | DX: R06.03 Acute respiratory distress (principal); R41.89 Other symptoms and signs involving cognitive functions and awareness; Z99.81 Dependence on supplemental oxygen; I10 Essential (primary) hypertension; R05.9 Cough, unspecified | CPT/HCPCS: A0425; A0427 ==

== ENCOUNTER 2023-02-21 00:25 | Inpatient (IN) | payer MEDICARE, OTHER ==
[2023-02-21] MEDS ORDERED: AZITHROMYCIN INJ 500 MG in SODIUM CHLORIDE 0.9% 250 ML IV STA (00:29)
[2023-02-21] MEDS ORDERED: cefTRIAXone 1 GM VIAL IVP STA (00:29)
[2023-02-21] MEDS ORDERED: ETOMIDATE 40 MG/20 ML VIAL IVP STA (00:42)
[2023-02-21] MEDS ORDERED: SUCCINYLCHOLINE 200 MG/10 ML VIAL IVP STA (00:43)
[2023-02-21] MEDS ORDERED: MIDAZOLAM 2 MG/2 ML VIAL ONE (00:48)
[2023-02-21] MEDS ORDERED: KETAMINE 500 MG/10 ML VIAL ONE (00:48)
[2023-02-21] MEDS ORDERED: ROCURONIUM 50 MG/5 ML VIAL ONE (00:49)
[2023-02-21] MEDS ORDERED: PROPOFOL 200 MG/20 ML VIAL IVP ONE (00:49)
[2023-02-21 00:54] LABS: BASOPHILS % (AUTO) 0.2 %; HGB - HEMOGLOBIN 14.5 g/dL (12.0-16.0); LYMPHOCYTES # (AUTO) 1.4 10^3/uL (1.5-3.5); LYMPHOCYTES % (AUTO) 10.8 %; MEAN CORPUSCULAR HEMOGLOBIN 38.1 pg (27.0-31.0); MEAN CORPUSCULAR HGB CONC 35.4 g/dL (32.0-36.0); MEAN CORPUSCULAR VOLUME 107.6 fL (81.0-99.0); MEAN PLATELET VOLUME 9.1 fL (7.9-10.8); MONOCYTES # (AUTO) 1.2 10^3/uL (0.0-1.0); NEUTROPHILS # (AUTO) 10.2 10^3/uL (1.5-6.6); NEUTROPHILS % (AUTO) 79.2 %; PLT - PLATELET COUNT 289 10^3/uL (130-450); RED BLOOD COUNT 3.81 10^6/uL (4.20-5.40); RED CELL DISTRIBUTION WIDTH 16.6 % (12.0-15.0); WHITE BLOOD COUNT 12.8 x10^3/uL (4.8-10.8)
[2023-02-21 00:55] LABS: INR 1.4 (0.8-1.2); PT - PROTHROMBIN TIME 15.3 secs (9.9-12.6)
[2023-02-21] MEDS ORDERED: PROPOFOL 1000 MG/100 ML 1,000 MG/100 ML BOTTLE IV SCH (01:00)
--- NOTE | 2023-02-21 01:05 | XRAY Report ---
PROCEDURE: Chest 1 View X-Ray INDICATIONS: dyspnea, hypoxia TECHNIQUE: One view of the chest was acquired. COMPARISON: Chest radiograph 02/19/2023, 12/01/2022. FINDINGS: Surgical changes and devices: None. Lungs and pleura: Patient is rotated towards the right. Bilateral chronic bronchiectasis and bronchi al wall thickening again noted. No pleural effusion or pneumothorax. Mediastinum: Cardiomediastinal contours are obscured related to patient rotation. Bones and chest wall: No suspicious bony lesions. Overlying soft tissues appear unremarkable. Sma ll calcifications are seen adjacent to the glenohumeral joint. IMPRESSION: Bilateral chronic reticulations do not appear significantly changed. Superimposed acute infectious or inflammatory process is difficult to exclude. Reviewed by: Jhon Oconnor MD on 02/21/2023 1:04 AM PST Approved by: Jhon Oconnor MD on 02/21/2023 1:04 AM [facility] Station ID: [id number]
[2023-02-21 01:28] LABS: ALBUMIN 3.5 g/dL (3.2-5.5); BILIRUBIN,TOTAL 0.8 mg/dL (0.2-1.0); CALCIUM 9.3 mg/dL (8.5-10.3); CREATININE 0.5 mg/dL (0.6-1.3); MAGNESIUM 1.7 mg/dL (1.7-2.3); PHOSPHORUS 2.9 mg/dL (2.5-5.0); POTASSIUM 3.4 mmol/L (3.5-4.5); TOTAL PROTEIN 6.9 g/dL (6.4-8.9)
[2023-02-21 01:44] LABS: B. PARAPERTUSSIS- RESP PCR PAN NOT DETECTED; B. PERTUSSIS- RESP PCR PANEL NOT DETECTED; C. PNEUMONIAE- RESP PCR PANEL NOT DETECTED; CORONAVIRUS 229E-RESP PCR NOT DETECTED; CORONAVIRUS HKU1-RESP PCR NOT DETECTED; CORONAVIRUS NL63-RESP PCR NOT DETECTED; CORONAVIRUS OC43-RESP PCR NOT DETECTED; HUMAN METAPNEUMOVIRUS DETECTED; INFLUENZA A- RESP PCR PANEL NOT DETECTED; INFLUENZA B - RESP PCR PANEL NOT DETECTED; M. PNEUMONIAE- RESP PCR PANEL NOT DETECTED; PARAINFLUENZA VIRUS 1 NOT DETECTED; PARAINFLUENZA VIRUS 2 NOT DETECTED; PARAINFLUENZA VIRUS 3 NOT DETECTED; PARAINFLUENZA VIRUS 4 NOT DETECTED; RHINOVIRUS/ENTEROVIRUS NOT DETECTED; RSV- RESP PCR PANEL NOT DETECTED; SARS-CoV-2 -RESP PCR PANEL NOT DETECTED
[2023-02-21] MEDS ORDERED: NOREPINEPHRINE/0.9 % NS 8 MG/250 ML BAG IV SCH (02:00)
[2023-02-21 02:01] LABS: ABG BASE EXCESS 0.5 mmol/L (-2.0-3.0); ABG HCO3 24.7 mmol/L (22.0-26.0); ABG OXYGEN SATURATION 98 % (94-98); ABG PCO2 38 mmHg (34-45); ABG PH 7.43 (7.35-7.45); ABG PO2 128 mmHg (80-100); ABG TCO2 25.9 MMOL/L (21.0-29.0)
[2023-02-21 02:02] LABS: ABG MODE OF VENTILATION ASSIST/CONTROL; ABG RESPIRATORY RATE 16 b/min; ALLEN TEST POSITIVE
[2023-02-21 02:06] LABS: BILIRUBIN,URINE NEGATIVE (NEGATIVE); GLUCOSE, URINE (UA) NEGATIVE (NEGATIVE); KETONES,URINE (UA) TRACE mg/dL (NEGATIVE); LEUKOCYTE ESTERASE, URINE NEGATIVE (NEGATIVE); NITRITE,URINE NEGATIVE (NEGATIVE); OCCULT BLOOD,URINE MODERATE (NEGATIVE); PROTEIN,URINE >=300 mg/dL (NEGATIVE); UROBILINOGEN,URINE 0.2 (NORMAL) E.U./dL (NORMAL)
--- NOTE | 2023-02-21 02:22 | ED Physician Documentation ---
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 Patient is chronically on 5 L of oxygen but was experiencing difficulty breathing at her nursing facility. They attempted to do breathing treatments but her oxygen was in the 80s and her mental status began to decline, so they called 911. EMS reports that patient was saturating 85% on her usual 5 L of oxygen. They placed her on a nonrebreather, administered a DuoNeb, and transported her to the emergency department. On arrival the patient was tachypneic, lethargic, obviously fatigued. Patient listed as "full code" on [facility] paperwork and there was no POLST form present. The decision was made to intubate the patient for airway protection and improved oxygenation. Review of Systems Unable to obtain: AMS PD PAST MEDICAL HISTORY - Past Medical History Past Medical History: Yes Cardiovascular: Hypertension, High cholesterol Respiratory: COPD, Pneumonia Neuro: None Endocrine/Autoimmune: HyPOthyroidism GI: None SECRETARY BOOKKEEPER: None : None HEENT: None Psych: Depression, Anxiety Musculoskeletal: Osteoarthritis Derm: None - Past Surgical History Past Surgical History: Yes Ortho: Hip replacement, Spine surgery - Present Medications Home Medications: Ambulatory Orders Medication Instructions Recorded Confirmed FLUoxetine [PROzac] 20 mg ORAL BID 07/20/12 02/21/23 lamoTRIgine [LaMICtal] 25 mg ORAL DAILY 07/20/12 02/21/23 risperiDONE [RisperDAL] 0.25 mg ORAL DAILY 07/20/12 02/21/23 Gabapentin 300 mg PO HS 04/07/14 02/21/23 Hydroxyurea [Hydrea] 500 mg PO BID 12/02/21 02/21/23 Atenolol [Tenormin] 50 mg PO DAILY 12/01/22 02/21/23 Levothyroxine [Synthroid] 100 mcg PO QDAC 12/01/22 02/21/23 Aspirin EC [Ecotrin] 81 mg PO DAILY 01/07/23 02/21/23 clonazePAM [Clonazepam] 1 mg PO DAILY PRN 01/07/23 02/21/23 hydrALAZINE [Apresoline] 10 mg PO DAILY PRN 02/21/23 02/21/23 - Allergies Allergies/Adverse Reactions: Allergies Allergy/AdvReac Type Severity Reaction Status Date / Time No Known Drug Allergies Allergy Verified 02/19/23 09:54 - Social History Does the pt smoke?: No Smoking Status: Never smoker Does the pt drink ETOH?: No Does the pt have substance abuse?: No - Immunizations Immunizations are current?: Yes - POLST Patient has POLST: No PD ED PE NORMAL - Vitals Vital signs reviewed: Yes - General General: Other (toxic appearing, lethargic, marked respiratory distress) - HEENT HEENT: Atraumatic, Other (dry mucous membranes) - Cardiac Cardiac: Other (tachypnea) - Respiratory Respiratory: Other (coarse rhonchi all lung neil) - Abdomen Abdomen: Soft, Non distended - Derm Derm: Warm and dry, Other (POOR TURGOR) - Neuro Neuro: Other (AO x 1) Results - Vitals Vitals: Oxygen O2 Source Mechanical ventilator - Labs Labs: Microbiology 02/21/23 01:07 Blood Culture - Preliminary Blood Staphylococcus Epidermidis 02/21/23 00:34 Blood Culture - Preliminary Blood NO GROWTH AFTER 1 DAY Laboratory Tests 02/21/23 02/21/23 02/21/23 00:33 00:34 00:34 WBC 12.8 H RBC 3.81 L Hgb 14.5 Hct 41.0 MCV 107.6 H MCH 38.1 H MCHC 35.4 RDW 16.6 H Plt Count 289 MPV 9.1 Neut # (Auto) 10.2 H Lymph # (Auto) 1.4 L [place] # (Auto) 1.2 H Eos # (Auto) 0.0 Baso # (Auto) 0.0 Absolute Nucleated RBC 0.00 Nucleated RBC % 0.0 PT 15.3 H INR 1.4 H Bld Gas Analysis Time Sample Site ABG pH ABG pCO2 ABG pO2 ABG HCO3 ABG Total CO2 ABG O2 Saturation ABG Base Excess [place] Test Respiration Rate O2 Delivery Device Vent Mode FiO2 Tidal Volume PEEP Sodium Potassium Chloride Carbon Dioxide Anion Gap BUN Creatinine Estimated GFR (MDRD) Glucose Lactic Acid Calcium Phosphorus Magnesium Total Bilirubin AST ALT Alkaline Phosphatase Troponin I High Sens B-Natriuretic Peptide Total Protein Albumin Globulin Albumin/Globulin Ratio Urine Color Urine Clarity Urine pH Ur Specific [place] Urine Protein Urine Glucose (UA) Urine Ketones Urine Occult Blood Urine Nitrite Urine Bilirubin Urine Urobilinogen Ur Leukocyte Esterase Urine RBC Urine WBC Ur Squamous Epith Cells Urine Bacteria Urine Casts Urine Mucus Ur Microscopic Review Urine Culture Comments Nasal Adenovirus (PCR) NOT DETECTED Nasal B. parapertussis DNA (PCR) NOT DETECTED Nasal Coronavir 229E PCR NOT DETECTED Nasal Coronavir HKU1 PCR NOT DETECTED Nasal Coronavir NL63 PCR NOT DETECTED Nasal Coronavir OC43 PCR NOT DETECTED Nasal Enterovir/Rhinovir PCR NOT DETECTED Nasal Influenza B PCR NOT DETECTED Nasal Influenza A PCR NOT DETECTED Nasal Parainfluen 1 PCR NOT DETECTED Nasal Parainfluen 2 PCR NOT DETECTED Nasal Parainfluen 3 PCR NOT DETECTED Nasal Parainfluen 4 PCR NOT DETECTED Nasal RSV (PCR) NOT DETECTED Nasal B.pertussis DNA PCR NOT DETECTED Nasal C.pneumoniae (PCR) NOT DETECTED Keith Human Metapneumo PCR DETECTED A Nasal M.pneumoniae (PCR) NOT DETECTED Nasal SARS-CoV-2 (PCR) NOT DETECTED 02/21/23 02/21/23 02/21/23 00:34 00:34 00:34 WBC RBC Hgb Hct MCV MCH MCHC RDW Plt Count MPV Neut # (Auto) Lymph # (Auto) [place] # (Auto) Eos # (Auto) Baso # (Auto) Absolute Nucleated RBC Nucleated RBC % PT INR Bld Gas Analysis Time Sample Site ABG pH ABG pCO2 ABG pO2 ABG HCO3 ABG Total CO2 ABG O2 Saturation ABG Base Excess [place] Test Respiration Rate O2 Delivery Device Vent Mode FiO2 Tidal Volume PEEP Sodium 131 L Potassium 3.4 L Chloride 94 L Carbon Dioxide 27 Anion Gap 10.0 BUN 18 Creatinine 0.5 L Estimated GFR (MDRD) 117 Glucose 148 H Lactic Acid Calcium 9.3 Phosphorus 2.9 Magnesium 1.7 Total Bilirubin 0.8 AST 20 ALT 16 Alkaline Phosphatase 75 Troponin I High Sens 24.0 H* B-Natriuretic Peptide 351 H Total Protein 6.9 Albumin 3.5 Globulin 3.4 Albumin/Globulin Ratio 1.0 Urine Color Urine Clarity Urine pH Ur Specific [place] Urine Protein Urine Glucose (UA) Urine Ketones Urine Occult Blood Urine Nitrite Urine Bilirubin Urine Urobilinogen Ur Leukocyte Esterase Urine RBC Urine WBC Ur Squamous Epith Cells Urine Bacteria Urine Casts Urine Mucus Ur Microscopic Review Urine Culture Comments Nasal Adenovirus (PCR) Nasal B. parapertussis DNA (PCR) Nasal Coronavir 229E PCR Nasal Coronavir HKU1 PCR Nasal Coronavir NL63 PCR Nasal Coronavir OC43 PCR Nasal Enterovir/Rhinovir PCR Nasal Influenza B PCR Nasal Influenza A PCR Nasal Parainfluen 1 PCR Nasal Parainfluen 2 PCR Nasal Parainfluen 3 PCR Nasal Parainfluen 4 PCR Nasal RSV (PCR) Nasal B.pertussis DNA PCR Nasal C.pneumoniae (PCR) Keith Human Metapneumo PCR Nasal M.pneumoniae (PCR) Nasal SARS-CoV-2 (PCR) 02/21/23 02/21/23 02/21/23 01:11 01:45 01:54 WBC RBC Hgb Hct MCV MCH MCHC RDW Plt Count MPV Neut # (Auto) Lymph # (Auto) [place] # (Auto) Eos # (Auto) Baso # (Auto) Absolute Nucleated RBC Nucleated RBC % PT INR Bld Gas Analysis Time 0158 Sample Site RIGHT RADIAL ABG pH 7.43 ABG pCO2 38 ABG pO2 128 H ABG HCO3 24.7 ABG Total CO2 25.9 ABG O2 Saturation 98 ABG Base Excess 0.5 [place] Test POSITIVE Respiration Rate 16 O2 Delivery Device VENTILATOR Vent Mode ASSIST/CONTROL FiO2 500.00 Tidal Volume 400 PEEP 5 Sodium Potassium Chloride Carbon Dioxide Anion Gap BUN Creatinine Estimated GFR (MDRD) Glucose Lactic Acid 1.3 Calcium Phosphorus Magnesium Total Bilirubin AST ALT Alkaline Phosphatase Troponin I High Sens B-Natriuretic Peptide Total Protein Albumin Globulin Albumin/Globulin Ratio Urine Color YELLOW Urine Clarity CLEAR Urine pH 6.0 Ur Specific [place] 1.025 Urine Protein >=300 H Urine Glucose (UA) NEGATIVE Urine Ketones TRACE Urine Occult Blood MODERATE H Urine Nitrite NEGATIVE Urine Bilirubin NEGATIVE Urine Urobilinogen 0.2 (NORMAL) Ur Leukocyte Esterase NEGATIVE Urine RBC 6-10 H Urine WBC 0-3 Ur Squamous Epith Cells MANY Squamous H Urine Bacteria Rare Urine Casts 3-5 Hyaline Casts Urine Mucus Moderate Strands Ur Microscopic Review INDICATED Urine Culture Comments NOT INDICATED Nasal Adenovirus (PCR) Nasal B. parapertussis DNA (PCR) Nasal Coronavir 229E PCR Nasal Coronavir HKU1 PCR Nasal Coronavir NL63 PCR Nasal Coronavir OC43 PCR Nasal Enterovir/Rhinovir PCR Nasal Influenza B PCR Nasal Influenza A PCR Nasal Parainfluen 1 PCR Nasal Parainfluen 2 PCR Nasal Parainfluen 3 PCR Nasal Parainfluen 4 PCR Nasal RSV (PCR) Nasal B.pertussis DNA PCR Nasal C.pneumoniae (PCR) Keith Human Metapneumo PCR Nasal M.pneumoniae (PCR) Nasal SARS-CoV-2 (PCR) Procedures - Intubation - Major Provider: Emergency physician Medications: Etomidate (20), Succinylcholine (70) Blade: Fannie Tube: Size-enter number (7.5), Cuffed, Marked at lips-enter cm (23) Route: Oral Confirmation: Direct visualization, Bilateral breath sounds, No abdominal breath sound, End tidal CO2, Pulse ox, Chest xray Complications: No compications PD Medical Decision Making - ED course Complexity details: reviewed old records, reviewed results, re-evaluated patient, considered differential, d/w family ED course: Tox appearing patient with difficulty breathing, when patient arrived she was lethargic and very tachypneic. Paperwork from [facility] states that patient is full code. Decision made to intubate patient for improved oxygenation and airway protection. Patient was intubated with 7 5 ET tube per procedure notes. Will empirically treat for infection with Rocephin and azithromycin. Due to history of chronic lung disease will also give dose of steroids.Patient also noted to be febrile, rectal Tylenol ordered. ABG reviewed and vent adjusted accordingly. Patient is well sedated on minimal propofol and blood pressures are stable, no need for pressors at this time, however Levophed has been ordered as a precaution. Patient's chart review shows that previously patient was listed as DNR DNI, however paperwork from the [facility] states full code. Is able to speak with the patient's nurse at [facility] in [place], who stated that the patient has been [id number] on C ODE STATUS, however most recently decided that she did want to be full code. I discussed patient's situation with her son Nathaniel, listed as person to notify. He states that several years ago the patient signed a paper with him and his other brother with her expressed wishes for care, however this paper has been is placed and he is not quite sure what her wishes would be at this time. He states that he does want full aggressive measures at this time, but will speak with his other brother about moving forward. Laboratory work is reviewed, patient has very mild elevation in troponins, this is likely demand from hypoxia and increased work of breathing. Chest x-ray shows chronic interstitial changes. Respiratory panel is positive for human metapneumovirus.This does appear to be an exacerbation of patient's lung disease, possibly from viral illness. - Critical Care Time(min): 52 Time Includes: Direct patient care, Review records, Reassess patient, Document care, Coordinate care, Medical consult, Family consult for tx dec, See progress note Data interpretation: Labs, Pulse ox, ABG, CXR, Prior EKG, Cardiac output, See progress note Procedures excluded from critical care time: EKG Departure - Departure Disposition: 66 [facility] DC/Xfer Clinical Impression: Acute hypoxemic respiratory failure, Human metapneumovirus (hMPV) pneumonia Condition: Serious Discharge Date/Time: 02/21/23 13:48
[2023-02-21] MEDS ORDERED: ACETAMINOPHEN 650 MG SUPP PR STA (02:31)
[2023-02-21 02:49] LABS: CLARITY,URINE CLEAR (CLEAR); WBC,URINE 0-3 /HPF (0-5)
[2023-02-21 02:50] LABS: BACTERIA,URINE Rare /HPF (None Seen); CASTS, URINE 3-5 Hyaline Casts /LPF; MUCUS,URINE Moderate Strands; SQUAMOUS EPITHELIAL CELL,UR MANY Squamous (<= Few)
[2023-02-21] MEDS ORDERED: methylPREDNISolone SUCCINATE 125 MG/2 ML VIAL IVP STA (03:27)
[2023-02-21] MEDS ORDERED: iohexoL-300 100 ML VIAL IVP ONE (05:27)
[2023-02-21] MEDS ORDERED: ACETAMINOPHEN 1,000 MG/100 ML 1,000 MG/100 ML BAG IV ONE (05:44)
--- NOTE | 2023-02-21 07:15 | XRAY Report ---
PROCEDURE: Chest for Line Placement INDICATIONS: post intubation/NG placement TECHNIQUE: One view of the chest was acquired. COMPARISON: Chest x-ray, 03/01/2023, 02/21/2023. FINDINGS: Surgical changes and devices: There is an endotracheal tube 4.5 cm above irais. A nasogastric tube is seen looped in the area of the in the distal esophagus. Lungs and pleura: Increased vascularity suggesting CHF. Patchy infiltrates bilaterally suspicious fo r pneumonia. Lungs are hyperexpanded suggesting COPD. No pleural effusions or pneumothorax. Mediastinum: Mediastinal contours appear normal. Heart size is moderately increased. Bones and chest wall: No suspicious bony lesions. Overlying soft tissues appear unremarkable. IMPRESSION: 1. Endotracheal tube 4.5 cm above irais. 2. Nasogastric tube within the distal esophagus. 3. CHF. Bilaterally superimposed bilateral pneumonia. 4. COPD. Findings are concordant with preliminary interpretation provided by [facility]. Reviewed by: Nathan Christina MD on 02/21/2023 7:13 AM PST Approved by: Nathan Christina MD on 02/21/2023 7:13 AM PST Station ID: [id number]
--- NOTE | 2023-02-21 07:33 | CT Report ---
PROCEDURE: CHEST W INDICATIONS: RESPIRATORY FAILURE/CHRONIC ILD CONTRAST: 100 ML OMNI 300 TECHNIQUE: After the administration of intravenous contrast, 1 mm axial images were acquired from the pulmonary apices through the posterior costophrenic angles. Axial 5 mm soft tissue kernel reconstructions were performed as well as 8 mm axial MIP and coronal and sagittal 5 mm reformations. For radiation dose reduction, the following was used: automated exposure control, adjustment of mA and/or kV according to patient size. COMPARISON: Chest x-ray, 02/21/2023. CT chest, 11/18/2022. FINDINGS: Image quality: Excellent. Lungs and pleura: Bilateral chronic nodular, interstitial and airspace infiltrate involving both uppe r and lower lobes. There is bronchiectasis in right upper lobe, right middle lobe, lingula and both l ower lobes. Right middle lobe and lower lobe consolidation or atelectasis, increased compared to last exam dated 11/18/2022. No pleural effusions. No pneumothorax. No suspicious pulmonary nodules which r equire follow up. Mediastinum: There is an endotracheal tube 4 cm above irais. A nasogastric tube is noted with the ti p looped within the distal esophagus. Heart size is mildly increased. There is mild coronary calcification. No pericardial effusion. Borderline sized mediastinal and hilar lymph nodes are likely reactive. No large vessel abnormality. Chest wall and lower neck: Thyroid is unremarkable. No axillary or supraclavicular adenopathy by size . Bones: Moderate compression fracture of L1. Upper Abdomen: There is a 4.4 cm simple cyst in the superior pole of the right kidney. Partial visual ization of a 1.3 cm cyst in the superior pole of left kidney. The lateral adrenal thickening. IMPRESSION: 1. Bilateral chronic nodular, interstitial and airspace infiltrates involving both upper and lower lo bes with bronchiectasis in right upper lobe, right middle lobe, lingula and both lower lobes. Chronic inflammatory or infectious process is suspected. There is increased consolidation or atelectasis in both lower lobes. Cannot rule out superimposed acute pneumonic process. 2. The endotracheal tube is 4 cm above irais. 3. The nasogastric tube is looped within the distal esophagus. 3. Moderate L1 compression fracture of uncertain chronicity. Reviewed by: Nathan Christina MD on 02/21/2023 7:31 AM PST Approved by: Nathan Christina MD on 02/21/2023 7:31 AM [facility] Station ID: [id number]
[2023-02-21] MEDS ORDERED: ONDANSETRON 4 MG/2 ML VIAL IVP PRN (11:41)
[2023-02-21] MEDS ORDERED: MORPHINE 2 MG/ML CARPUJECT IVP PRN (11:41)
[2023-02-21] MEDS ORDERED: ONDANSETRON ODT 4 MG TABLET TL PRN (11:41)
[2023-02-21] MEDS ORDERED: PIPERACILLIN/TAZOBACTAM 3.375 GM in SODIUM CHLORIDE 0.9% MINIBAG 100 ML IV STA (11:46)
[2023-02-21] MEDS ORDERED: IPRATROPIUM/ALBUTEROL 3 ML NEB INH PRN (12:19)
[2023-02-21] MEDS: SODIUM CHLORIDE 0.9% 1,000 ML IV SCH ×2 (12:56→23:56)
[2023-02-21] MEDS: PANTOPRAZOLE 40 MG VIAL IVP SCH (13:05)
[2023-02-21] MEDS: ENOXAPARIN 40 MG/0.4 ML SYRINGE SUBQ SCH (13:05)
[2023-02-21] MEDS: PIPERACILLIN/TAZOBACTAM 3.375 GM in SODIUM CHLORIDE 0.9% MINIBAG 100 ML IV SCH ×2 (17:01→23:57)
[2023-02-21] MEDS: PROPOFOL 1000 MG/100 ML 1,000 MG/100 ML BOTTLE IV SCH (17:02)
[2023-02-21] MEDS: SODIUM CHLORIDE FLUSH 0.9% 10 ML SYRINGE IVP SCH (17:03)
[2023-02-21 20:23] LABS: CALCIUM, IONIZED 1.09 mmol/L (1.15-1.33); VBG PH 7.431 (7.31-7.41)
[2023-02-21 20:27] LABS: MAGNESIUM 1.8 mg/dL (1.7-2.3); PHOSPHORUS 3.2 mg/dL (2.5-5.0); POTASSIUM 3.3 mmol/L (3.5-4.5)
[2023-02-21] MEDS ORDERED: CALCIUM GLUC 1,000MG/50ML-NACL 1,000 MG/50 ML BAG IV ONE (20:28)
[2023-02-21] MEDS ORDERED: VANCOMYCIN INJ 0.75 GM in SODIUM CHLORIDE 0.9% 250 ML IV SCH (21:00)
[2023-02-21] MEDS: ACETAMINOPHEN 1,000 MG/100 ML 1,000 MG/100 ML BAG IV PRN (21:03)
[2023-02-21] MEDS: POTASSIUM CHLOR 10 MEQ/100 ML 10 MEQ/100 ML BAG IV SCH ×3 (21:31→23:56)
[2023-02-21] MEDS ORDERED: MAGNESIUM SULFATE 2 GRAM 2 GM/50 ML BAG IV ONE (23:33)
[2023-02-22] MEDS: SODIUM CHLORIDE FLUSH 0.9% 10 ML SYRINGE IVP SCH ×4 (00:03→21:07)
[2023-02-22] MEDS: SODIUM CHLORIDE FLUSH 0.9% 10 ML SYRINGE IVP PRN ×2 (00:03→22:41)
[2023-02-22] MEDS: POTASSIUM CHLOR 10 MEQ/100 ML 10 MEQ/100 ML BAG IV SCH ×5 (00:59→23:44)
[2023-02-22] MEDS: PROPOFOL 1000 MG/100 ML 1,000 MG/100 ML BOTTLE IV SCH (01:16)
[2023-02-22] MEDS: ZINC OXIDE 20% OINT 30 GM TUBE TOP PRN ×2 (05:57→21:23)
[2023-02-22] MEDS: ACETAMINOPHEN 1,000 MG/100 ML 1,000 MG/100 ML BAG IV PRN ×3 (05:58→23:08)
[2023-02-22] MEDS: PANTOPRAZOLE 40 MG VIAL IVP SCH (06:00)
[2023-02-22 06:08] LABS: BASOPHILS % (AUTO) 0.3 %; EOSINOPHILS % (AUTO) 0.1 %; HCT - HEMATOCRIT 32.2 % (37.0-47.0); HGB - HEMOGLOBIN 10.7 g/dL (12.0-16.0); LYMPHOCYTES # (AUTO) 0.8 10^3/uL (1.5-3.5); LYMPHOCYTES % (AUTO) 9.5 %; MEAN CORPUSCULAR HEMOGLOBIN 37.3 pg (27.0-31.0); MEAN CORPUSCULAR HGB CONC 33.2 g/dL (32.0-36.0); MEAN CORPUSCULAR VOLUME 112.2 fL (81.0-99.0); MEAN PLATELET VOLUME 9.6 fL (7.9-10.8); MONOCYTES # (AUTO) 0.6 10^3/uL (0.0-1.0); MONOCYTES % (AUTO) 7.4 %; NEUTROPHILS # (AUTO) 6.5 10^3/uL (1.5-6.6); NEUTROPHILS % (AUTO) 82.1 %; PLT - PLATELET COUNT 203 10^3/uL (130-450); RED BLOOD COUNT 2.87 10^6/uL (4.20-5.40); RED CELL DISTRIBUTION WIDTH 17.2 % (12.0-15.0); WHITE BLOOD COUNT 7.9 x10^3/uL (4.8-10.8)
[2023-02-22 06:20] LABS: CALCIUM 8.7 mg/dL (8.5-10.3); CREATININE 0.5 mg/dL (0.6-1.3); MAGNESIUM 2.3 mg/dL (1.7-2.3); PHOSPHORUS 2.6 mg/dL (2.5-5.0); POTASSIUM 3.7 mmol/L (3.5-4.5)
[2023-02-22 06:48] LABS: VBG PH 7.351 (7.31-7.41)
[2023-02-22 06:49] LABS: CALCIUM, IONIZED 1.18 mmol/L (1.15-1.33)
[2023-02-22 07:16] LABS: ABG HCO3 23.4 mmol/L (22.0-26.0); ABG PCO2 37 mmHg (34-45); ABG PH 7.42 (7.35-7.45); ABG PO2 84 mmHg (80-100)
[2023-02-22 07:17] LABS: ABG BASE EXCESS -0.8 mmol/L (-2.0-3.0); ABG OXYGEN SATURATION 96 % (94-98); ABG RESPIRATORY RATE 12 b/min; ABG TCO2 24.6 MMOL/L (21.0-29.0); ALLEN TEST POSITIVE
[2023-02-22 07:21] LABS: DIFFERENTIAL COMMENT MANUAL=AUTO DIFF; PLATELET ESTIMATE, MANUAL NORMAL (130-450,000) (NORMAL)
[2023-02-22] MEDS: PIPERACILLIN/TAZOBACTAM 3.375 GM in SODIUM CHLORIDE 0.9% MINIBAG 100 ML IV SCH ×3 (07:49→23:49)
[2023-02-22] MEDS: SODIUM CHLORIDE 0.9% 1,000 ML IV SCH ×2 (07:49→18:18)
[2023-02-22] MEDS ORDERED: SODIUM CHLORIDE 0.9% 500 ML IV ONE (08:44)
[2023-02-22] MEDS: ENOXAPARIN 40 MG/0.4 ML SYRINGE SUBQ SCH (08:55)
[2023-02-22] MEDS: VANCOMYCIN INJ 0.75 GM in SODIUM CHLORIDE 0.9% 250 ML IV SCH ×2 (09:20→21:06)
[2023-02-22 10:13] LABS: CALCIUM, IONIZED 1.12 mmol/L (1.15-1.33); VBG PH 7.344 (7.31-7.41)
[2023-02-22 10:27] LABS: PHOSPHORUS 2.4 mg/dL (2.5-5.0)
[2023-02-22] MEDS ORDERED: SODIUM PHOSPHATE 15 MMOL in SODIUM CHLORIDE 0.9% 250 ML IV ONE (10:38)
[2023-02-22] MEDS ORDERED: hydrALAZINE 10 MG TABLET PO PRN (13:19)
--- NOTE | 2023-02-22 13:50 | PROVIDER PROGRESS NOTE ---
Progress Note February 22, 2023 1:45 PM This morning I evaluated her pulm function on the ventilator and she was on an FiO2 of 30%, tidal volume 400, pressure support of 5, assist-control. I had reduced to a rate of 12 after her rate of 16 from yesterday. Her ABG had a pH of 7.42, pCO2 37, pO2 84, bicarb 23. Base excess -0.8. I then had propofol discontinued. Eyes opened. She was alert, able to follow commands. Did not have any tachycardia or tachypnea. Her nif was -20. Her vital capacity was 1.4. This was all on pressure support 0 on the ET tube. She was generating tidal volumes of approximately 300. rsbi score was borderline. Again, however, she was following commands very nicely and in no respiratory distress so I had her extubated. Since extubation she has done well. However, there is a definite neurological deficit. She has a slight left facial droop. She has a pronator drift. But she is speaking, I can hear her completely clearly. She says that she can swallow okay and the NG is not bothering her too much. She has 3 of her girlfriends visiting her and she is appropriate, smiling, verbalizing well.This is all in the context of a history of a person who was losing their ability to swallow or speak last week. Exam: Temperature is 37.1, heart rate 73, blood pressure 171/94, respirations 21 and she is saturating 92% on 4 L nasal cannula. Neck has shotty adenopathy but no JVD and she is sitting upright in her chair She is without any respiratory distress, no tachypnea or use of accessory muscles and when she laugh spontaneously there is a phlegmy cough. But no respiratory distress. Lung sounds are diffusely coarse and wet. Regular rate and rhythm Abdomen is soft, nontender with normal bowel sounds Extremities without edema Neurologically oriented to person, place but not time or situation. She does not remember how she got here and she does not remember the events of last week. A slight left facial droop is present. But speech is normal and I can hear well. The aphonia or dysphonia is not present right now. She can swallow around the ET tube but I have not challenged her with water or ice yet. Left pronator drift. Lab: BMP is normal with a BUN of 25, creatinine 0.5. Fasting glucose 106. Calcium 8.7, phosphorus 2.6, magnesium 2.3. CBC has improved and that her white cell count is now 7.9 and was 12.8. Her hemoglobin is 10.7 and is dropped from the 14.5 on admission. MCV is 112, platelets are 203. Blood culture was done at 1 in the morning yesterday. It became positive at 7 in the evening last night. And I started her on vancomycin. It is Staph epidermidis in both bottles. This is an organism that I would most associate with venipuncture or collection associated skin to contaminants. But this grew in fairly quickly within 24 hours. And is growing in both bottles. Conclusion/Plan - Problem List (1) Acute hypoxemic respiratory failure Conclusion/Plan: Has chronic lung disease with chronic hypoxic respiratory failure on 5 to 6 L on a regular basis. This is secondary to interstitial lung disease and previous infection with MAC. Current episode that seems to be a slow insidious downhill course over the last 2 weeks may or may not be associated with aspiration. She seemed to be losing her voice and could no longer speak last week. Her friends noted a change on February 17. By February 18 she was aphonic.. I need to track down the swallow eval from speech pathology. She then was brought to our emergency room from [facility] with shortness of breath and altered mental status for 2 hours. Nebulizers were attempted in the custodial but in spite of that her oxygen saturations on increased nasal cannula was still in the mid 80s. 911 was called. In our emergency room she was intubated for respiratory failure and to protect her airway. CT scan shows bilateral chronic nodular, interstitial, airspace infiltrates involving both upper and lower lobes with bronchiectasis in the right upper lobe, right middle lobe, lingula and both lobes. She has increased consolidation or atelectasis in both lower lobes in comparison to the previous CT. She has a moderate L1 compression fracture. Yesterday was her first day of stay after being in the ER overnight. Today I have extubated her on her second hospital day. She seems to be doing well postextubation other than course, course airway sounds. She is usually on 5 L in her outpatient setting. Right now she is on 4 L. Assessment/plan Continue supportive care for viral pneumonia and continue antibiotics for possible secondary infection considering that she has bronchiectasis and structural lung abnormalities. NG tube is still in place. Once I can verify that she is able to swallow and eat, I will remove it. I have given her some Ensure this morning. Proton pump inhibitor and other medications are IV. Will switch to p.o. once I can verify she is swallowing normally. Verification will occur after I get the CT scan of the head. (2) Left facial droop and left pronator drift CT of the head will be ordered stat (3) Human metapneumovirus (hMPV) pneumonia Conclusion/Plan: This unfortunate armando female already has chronic lung disease with interstitial lung disease and previous MAC infection. Although I do think that the virus certainly cause severe decompensation, there is always the possibility of secondary bacterial infection. She is not a community-acquired pneumonia patient in that she [facility] in a [facility] facility and has lung structural damage. Antibiotic coverage should be broadened. I did consider Levaquin, but she may have aspirations as most elderly people do and have offered to put her on Zosyn. I put her on Zosyn And added vancomycin last night. White cell count is coming down. Oxygen is actually better than it usually is. Blood cultures now are positive for staph epidermidis. I do not know how to interpret those. Plan: Continue Zosyn I may reach out to ID that is on-call at any outside facility Continue supportive care with bronchodilators I need to warn her [place] friends that this patient does have a contagious viral infection (4) Staph epidermidis bacteremia Blood cultures became positive at less than 24 hours from blood draw. Both sets. Usually I would interpret this is contamination if he grew more than 24 hours and only 1 bottle. While she does have a structural lung disease, I do not understand how she would be going staff epidermidis as opposed to staff aureus. She is on vancomycin day 2. I will reach out to outside infectious disease to see if anyone will be able to speak to me on the phone Repeat blood cultures Echocardiogram on February 24 the patient is still here. Our ophthalmic technician does not show up until February 24 (5) Dementia Conclusion/Plan: With her previous stay at a jail facility her slums score was calculated at 12 out of 30. With her last day with this judgment was impaired, memory loss was evident, and anxiety was manifested.She is on Risperdal, Klonezepam and Prozac at the jail facility. I have reordered all of these medications via her NG tube. Once I verify she is swallowing appropriately after the CT scan of the head, I will order those p.o. Extubated today. No PT and OT on Sundays. I will ask for evaluation tomorrow. Qualifiers: Dementia type: unspecified type (6) Essential thrombocytosis Conclusion/Plan: Well-controlled with hydroxyurea 500 mg p.o. twice daily. Again I will see if we can get that through the NG tube (7) Hypertension At her residential facility blood pressure medicine is hydralazine 10 mg daily as needed, and atenolol 50 mg daily. She is gotten 1 dose of hydralazine because her blood pressure is in the 150s over 80s. I will also resume her atenolol 50 mg daily.
--- NOTE | 2023-02-22 14:56 | CT Report ---
PROCEDURE: HEAD WO INDICATIONS: resp failure intubated, now w L facial droop weak TECHNIQUE: Noncontrast 4.5 mm thick angled axial sections acquired from the foramen magnum to the vertex. For r adiation dose reduction, the following was used: automated exposure control, adjustment of mA and/or kV according to patient size. COMPARISON: CT February 19, 2023 FINDINGS: Image quality: Excellent. CSF spaces: Basal cisterns are patent. No extra-axial fluid collections. Ventricles are normal in size and shape. Brain: Mild diffuse parenchymal volume loss with periventricular white matter hypodensities consiste nt for chronic vascular ischemic disease. Senescent calcifications of the basal ganglia No midline sh ift. No intracranial masses or hemorrhage. De Luna-white matter interface is normal. Skull and face: Calvarium and visualized facial bones are intact, without suspicious lesions. Sinuses: Visualized sinuses and mastoids are clear. IMPRESSION: No acute intracranial pathology. Sequela of chronic microvascular ischemic disease. Reviewed by: Pascual Mendez MD on 02/22/2023 1:55 PM [facility] Approved by: Pascual Mendez MD on 02/22/2023 1:55 PM [facility] Station ID: [id number]
[2023-02-22] MEDS: atenoloL 25 MG TABLET PO SCH (15:17)
--- NOTE | 2023-02-22 15:29 | PHARMACY PROGRESS NOTE ---
- Best Possible Medication History Admit Date and Time: 02/21/23 1141 Processed by: Nursing As the person ultimately responsible for medication therapy, providers are able to order a medication from an existing home medication list in [facility] via the "Reconcile Routine" prior to Confirmation of that medication by client support consultant. Such practice is discouraged except when the physician, in their clinical judgment, deems that a medical need exists for a medication without regard to previous use.
[2023-02-22] MEDS: hydrALAZINE INJ 20 MG/ML VIAL IVP PRN (16:15)
[2023-02-22] MEDS: FLUoxetine 10 MG CAPSULE PO SCH (21:06)
[2023-02-22] MEDS: GABAPENTIN 300 MG CAPSULE PO SCH (21:06)
[2023-02-22] MEDS: clonazePAM 0.5 MG TABLET PO PRN (21:07)
[2023-02-22 21:37] LABS: MAGNESIUM 1.6 mg/dL (1.7-2.3); PHOSPHORUS 2.6 mg/dL (2.5-5.0)
[2023-02-22 21:38] LABS: CALCIUM, IONIZED 1.07 mmol/L (1.15-1.33); VBG PH 7.445 (7.31-7.41)
[2023-02-22] MEDS ORDERED: MAGNESIUM SULFATE 2 GRAM 2 GM/50 ML BAG IV ONE (22:00)
[2023-02-22] MEDS ORDERED: CALCIUM GLUC 1,000MG/50ML-NACL 1,000 MG/50 ML BAG IV ONE (22:00)
[2023-02-23] MEDS: POTASSIUM CHLOR 10 MEQ/100 ML 10 MEQ/100 ML BAG IV SCH ×6 (00:47→09:51)
[2023-02-23 04:32] LABS: BASOPHILS % (AUTO) 0.3 %; EOSINOPHILS % (AUTO) 0.2 %; HCT - HEMATOCRIT 33.5 % (37.0-47.0); HGB - HEMOGLOBIN 11.5 g/dL (12.0-16.0); LYMPHOCYTES # (AUTO) 0.7 10^3/uL (1.5-3.5); LYMPHOCYTES % (AUTO) 7.1 %; MEAN CORPUSCULAR HGB CONC 34.3 g/dL (32.0-36.0); MEAN CORPUSCULAR VOLUME 107.7 fL (81.0-99.0); MEAN PLATELET VOLUME 8.8 fL (7.9-10.8); MONOCYTES # (AUTO) 0.6 10^3/uL (0.0-1.0); MONOCYTES % (AUTO) 5.8 %; NEUTROPHILS # (AUTO) 8.9 10^3/uL (1.5-6.6); NEUTROPHILS % (AUTO) 85.7 %; PLT - PLATELET COUNT 244 10^3/uL (130-450); RED BLOOD COUNT 3.11 10^6/uL (4.20-5.40); WHITE BLOOD COUNT 10.4 x10^3/uL (4.8-10.8)
[2023-02-23 04:58] LABS: CALCIUM 8.1 mg/dL (8.5-10.3); CREATININE 0.3 mg/dL (0.6-1.3); MAGNESIUM 1.8 mg/dL (1.7-2.3); PHOSPHORUS 2.3 mg/dL (2.5-5.0); POTASSIUM 3.1 mmol/L (3.5-4.5)
[2023-02-23] MEDS ORDERED: MAGNESIUM SULFATE 2 GRAM 2 GM/50 ML BAG IV ONE (05:03)
[2023-02-23] MEDS: ZINC OXIDE 20% OINT 30 GM TUBE TOP PRN ×2 (05:10→21:06)
[2023-02-23] MEDS: hydrALAZINE INJ 20 MG/ML VIAL IVP PRN (05:11)
[2023-02-23 05:15] LABS: CALCIUM, IONIZED 1.05 mmol/L (1.15-1.33); VBG PH 7.452 (7.31-7.41)
[2023-02-23] MEDS ORDERED: CALCIUM GLUC 1,000MG/50ML-NACL 1,000 MG/50 ML BAG IV ONE ×3 (05:27→17:09)
[2023-02-23] MEDS: ACETAMINOPHEN 1,000 MG/100 ML 1,000 MG/100 ML BAG IV PRN ×2 (05:36→15:44)
[2023-02-23] MEDS: PANTOPRAZOLE 40 MG VIAL IVP SCH (06:21)
[2023-02-23] MEDS: SODIUM CHLORIDE FLUSH 0.9% 10 ML SYRINGE IVP PRN ×2 (06:24→21:06)
[2023-02-23 06:29] LABS: ABG BASE EXCESS -1.1 mmol/L (-2.0-3.0); ABG HCO3 22.2 mmol/L (22.0-26.0); ABG OXYGEN SATURATION 96 % (94-98); ABG PCO2 33 mmHg (34-45); ABG PH 7.45 (7.35-7.45); ABG PO2 80 mmHg (80-100); ABG TCO2 23.2 MMOL/L (21.0-29.0)
[2023-02-23 06:30] LABS: ALLEN TEST POSITIVE
--- NOTE | 2023-02-23 07:21 | PROVIDER PROGRESS NOTE ---
Subjective - Prog Note Date Prog Note Date: 02/23/23 Prog Note Time: 07:21 - Subjective Subjective: February 23, 2023 7:18 AM She did very well yesterday. I checked on her 3 times. She was sitting up in her chair, eating, Chatting and smiling as she spoke to her friends, speaking to nursing. Voice was normal. The aphonia or dysphonia was not present and her friends who saw her last week were amazed at how much improved she was. In the late evening around 10 PM she needed to go up on her nasal cannula to saturate. Then by 11 PM she was on oxy mask again at 15 L. She stated on oxy mask through the night with respiratory therapy working diligently to clear her secretions. As the turbine technician has progressed, her respiratory rate is now in the 30s. She is 93% saturated on 15 oxime mask. She is only satting at 85% with this. She is now spiking a temp of 38 3. Overnight nursing reports that she had quite a bit of diuresis. Potassium is 3 this morning. I have attempted to call both of her sons at 7:15 am. I would like to clarify if they really wanted us to reintubate her since she is technically still a full code. Neither was able to answer and messages left on voicemail. As such I feel I am going to have to intubate this lady. I have contacted ER discussed the case with Dr. Rodriguez and he is coming to intubate her expeditiously. At 7:45 AM she is now intubated. I reviewed the chest x-ray and ET tube looks like it is in good placement. She was alert and oriented before intubation. I have started propofol, ordered restraints. NG tube Had been removed yesterday, and has now been put back in again. She is tachycardic to over 200. Hypertensive at 210/110. I do not think she is in flash edema because lung exam is clear. She does have crackles and rub in the right midlung field. But she does not sound wet. Bilateral symmetrical breath sounds. Good chest excursion. She is on DVT prophylaxis so risk of PE lower. I am giving her Lopressor 5 mg IV push, amiodarone will be started. If this continues for much longer I may cardiovert. 8:05 AM, Amiodarone step 1 bolus plus Lopressor IV push slowed her down to 110. Blood pressure is now 150s over 70s. As her heart rates came down, her blood pressure came down. Stat EKG and troponins are ordered by me. I will have the troponin added to the already drawn morning labs. REcheck again at 10:15. Current Medications - Current Medications Current Medications: Active Medications Albuterol/Ipratropium (Ipratropium/Albuterol 3 Ml Neb) 3 ml INH RTQID PRN PRN Reason: Shortness of Air/Wheezing Aspirin (Aspirin Ec 81 Mg Tablet) 81 mg PO DAILY YANNI Atenolol (Atenolol 25 Mg Tablet) 50 mg PO DAILY [facility] Last Admin: 02/22/23 15:17 Dose: 50 mg Clonazepam (Clonazepam 0.5 Mg Tablet) 1 mg PO DAILY PRN PRN Reason: Anxiety Last Admin: 02/22/23 21:07 Dose: 1 mg Enoxaparin Sodium (Enoxaparin 40 Mg/0.4 Ml Syringe) 40 mg SUBQ DAILY [facility] Last Admin: 02/22/23 08:55 Dose: 40 mg Fluoxetine HCl (Fluoxetine 10 Mg Capsule) 20 mg PO BID [facility] Last Admin: 02/22/23 21:06 Dose: 20 mg Gabapentin (Gabapentin 300 Mg Capsule) 300 mg PO HS [facility] Last Admin: 02/22/23 21:06 Dose: 300 mg Hydralazine HCl (Hydralazine Inj 20 Mg/Ml Vial) 10 mg IVP TID PRN PRN Reason: systolic >180, diastolic >100 Last Admin: 02/23/23 05:11 Dose: 10 mg Sodium Chloride (Normal Saline 0.9%) 1,000 mls @ 100 mls/hr IV .Q10H [facility] Last Admin: 02/22/23 18:18 Dose: 100 mls/hr Propofol (Diprivan) 1,000 mg in 100 mls @ 3.198 mls/hr IV .[id number] [facility]; Protocol Last Titration: 02/22/23 08:45 Dose: 0 mcg/kg/min, 0 mls/hr Piperacillin Sod/Tazobactam (Sod 3.375 gm/ Sodium Chloride) 100 mls @ 25 mls/hr IV Q8H [facility] Last Infusion: 02/23/23 04:01 Dose: Infused Acetaminophen (Acetaminophen) 1,000 mg in 100 mls @ 400 mls/hr IV Q6HR PRN PRN Reason: FEVER > 100.5 F Last Infusion: 02/23/23 06:25 Dose: Infused Vancomycin HCl 0.75 gm/ Sodium (Chloride) 250 mls @ 166.667 mls/hr IV Q12H [facility] Last Infusion: 02/22/23 23:00 Dose: Infused Potassium Chloride (Potassium Chloride) 10 meq in 100 mls @ 100 mls/hr IV Q1H [facility]; Protocol Stop: 02/23/23 09:59 Last Admin: 02/23/23 06:43 Dose: 100 mls/hr Potassium Phosphate 15 mmol/ (Sodium Chloride) 255 mls @ 63 mls/hr IV ONCE ONE; Protocol Stop: 02/23/23 12:02 Lamotrigine (Lamotrigine 25 Mg Tablet) 25 mg PO DAILY [facility] Levothyroxine Sodium (Levothyroxine 100 Mcg Tablet) 100 mcg PO QDAC [facility] Morphine Sulfate (Morphine 2 Mg/Ml Carpuject) 2 mg IVP Q2HR PRN PRN Reason: Pain 8 to 10 Multi-Ingredient Ointment (Zinc Oxide 20% Oint 30 Gm Tube) 1 applic TOP PRN PRN PRN Reason: Skin Care Last Admin: 02/23/23 05:10 Dose: 1 applic Ondansetron HCl (Ondansetron Odt 4 Mg Tablet) 4 mg TL Q6HR PRN PRN Reason: Nausea / Vomiting Ondansetron HCl (Ondansetron 4 Mg/2 Ml Vial) 4 mg IVP Q6HR PRN PRN Reason: Nausea / Vomiting Pantoprazole Sodium (Pantoprazole 40 Mg Vial) 40 mg IVP QDAC [facility] Last Admin: 02/23/23 06:21 Dose: 40 mg Risperidone (Risperidone 0.25 Mg Tablet) 0.25 mg PO DAILY [facility] Sodium Chloride (Sodium Chloride Flush 0.9% 10 Ml Syringe) 10 ml IVP 0100,0900,1700 [facility] Last Admin: 02/22/23 21:07 Dose: 10 ml Sodium Chloride (Sodium Chloride Flush 0.9% 10 Ml Syringe) 10 ml IVP PRN PRN PRN Reason: NEEDED PER PROVIDER ORDERS Last Admin: 02/23/23 06:24 Dose: 10 ml FLUoxetine [PROzac] 20 mg ORAL BID 07/20/12 lamoTRIgine [LaMICtal] 25 mg ORAL DAILY 07/20/12 risperiDONE [RisperDAL] 0.25 mg ORAL DAILY 07/20/12 Gabapentin 300 mg PO HS 04/07/14 Hydroxyurea [Hydrea] 500 mg PO BID 12/02/21 Atenolol [Tenormin] 50 mg PO DAILY 12/01/22 Levothyroxine [Synthroid] 100 mcg PO QDAC 12/01/22 Aspirin EC [Ecotrin] 81 mg PO DAILY 01/07/23 clonazePAM [Clonazepam] 1 mg PO DAILY PRN 01/07/23 hydrALAZINE [Apresoline] 10 mg PO DAILY PRN 02/21/23 Objective - Vital Signs/Intake & Output Reviewed Vital Signs: Yes Vital Signs: Vital Signs Temp Pulse Pulse Resp BP BP Pulse Ox 02/23/23 07:02 37.2 C 96 27 H 152/82 H 98 02/23/23 06:41 97 02/23/23 06:05 92 31 H 150/63 H 93 02/23/23 05:41 150/63 H 02/23/23 05:11 198/101 H 02/23/23 05:00 38.6 C H 94 29 H 192/100 H 97 02/23/23 04:30 02/23/23 04:05 38.3 C H 94 32 H 164/92 H 85 L O2 Flow Rate 02/23/23 07:02 02/23/23 06:41 02/23/23 06:05 02/23/23 05:41 02/23/23 05:11 02/23/23 05:00 40 02/23/23 04:30 35 02/23/23 04:05 15 Intake & Output: Intake & Output 02/20/23 02/21/23 02/22/23 02/23/23 23:59 23:59 23:59 23:59 Intake Total 2592.892 0420.233 700 Output Total 382 1292 1415 Balance 3596.435 0623.023 -637 - Objective General Appearance: positive: Severe distress (Before intubation. After i ntubation/lopressor no labored respiration, respirations and blood pressure stable) Eyes Bilateral: positive: PERRL, EOMI ENT: positive: No signs of dehydration Neck: positive: No JVD Respiratory: positive: No respiratory distress, Rhonchi, Other (Progression of extensive bilateral pulmonary infiltrates on cxr). negative: Wheezes Cardiovascular: positive: Regular rate & rhythm, Tachycardia (resolved) Abdomen: positive: Non-tender, No organomegaly, Nml bowel sounds, No distention Skin: positive: Warm, Dry Extremities: positive: Non-tender, Full ROM, No pedal edema Neurologic/Psychiatric: positive: CN's nml (2-12), Motor nml (except for generalized weakness) - Lab Results Fish Bones: 02/23/23 04:25 02/23/23 12:02 Other Labs: Lab Results x24hrs 02/23/23 02/23/23 02/23/23 Range/Units 06:20 04:25 04:25 WBC (4.8-10.8) x10^3/uL RBC (4.20-5.40) 10^6/uL Hgb (12.0-16.0) g/dL Hct (37.0-47.0) % MCV (81.0-99.0) fL MCH (27.0-31.0) pg MCHC (32.0-36.0) g/dL RDW (12.0-15.0) % Plt Count (130-450) 10^3/uL MPV (7.9-10.8) fL Neut # (Auto) (1.5-6.6) 10^3/uL Lymph # (Auto) (1.5-3.5) 10^3/uL [place] # (Auto) (0.0-1.0) 10^3/uL Eos # (Auto) (0.0-0.7) 10^3/uL Baso # (Auto) (0.0-0.1) 10^3/uL Absolute Nucleated RBC x10^3/uL Band Neuts % (Manual) Abnorm Lymph % (Manual) Nucleated RBC % /100WBC Neutrophils # (Manual) Lymphocytes # (Manual) Monocytes # (Manual) Eosinophils # (Manual) Basophils # (Manual) Differential Comment Platelet Estimate (NORMAL) Bld Gas Analysis Time 0626 Sample Site LEFT RADIAL ABG pH 7.45 (7.35-7.45) ABG pCO2 33 L (34-45) mmHg ABG pO2 80 (80-100) mmHg ABG HCO3 22.2 (22.0-26.0) mmol/L ABG Total CO2 23.2 (21.0-29.0) MMOL/L ABG O2 Saturation 96 (94-98) % ABG Base Excess -1.1 (-2.0-3.0) mmol/L [place] Test POSITIVE VBG pH 7.452 H (7.31-7.41) Ionized Calcium 1.05 L (1.15-1.33) mmol/L O2 Liters/Min 35.00 LPM FiO2 100.00 Sodium 135 (135-145) mmol/L Potassium 3.1 L (3.5-4.5) mmol/L Chloride 104 (101-111) mmol/L Carbon Dioxide 23 (21-32) mmol/L Anion Gap 8.0 (6-13) BUN 8 (6-20) mg/dL Creatinine 0.3 L (0.6-1.3) mg/dL Estimated GFR (MDRD) 211 (>89) Glucose 104 (74-104) mg/dL Calcium 8.1 L (8.5-10.3) mg/dL Phosphorus 2.3 L (2.5-5.0) mg/dL Magnesium 1.8 (1.7-2.3) mg/dL 02/23/23 02/22/23 02/22/23 Range/Units 04:25 21:16 21:16 WBC 10.4 (4.8-10.8) x10^3/uL RBC 3.11 L (4.20-5.40) 10^6/uL Hgb 11.5 L (12.0-16.0) g/dL Hct 33.5 L (37.0-47.0) % MCV 107.7 H (81.0-99.0) fL MCH 37.0 H (27.0-31.0) pg MCHC 34.3 (32.0-36.0) g/dL RDW 17.0 H (12.0-15.0) % Plt Count 244 (130-450) 10^3/uL MPV 8.8 (7.9-10.8) fL Neut # (Auto) 8.9 H (1.5-6.6) 10^3/uL Lymph # (Auto) 0.7 L (1.5-3.5) 10^3/uL [place] # (Auto) 0.6 (0.0-1.0) 10^3/uL Eos # (Auto) 0.0 (0.0-0.7) 10^3/uL Baso # (Auto) 0.0 (0.0-0.1) 10^3/uL Absolute Nucleated RBC 0.00 x10^3/uL Band Neuts % (Manual) Abnorm Lymph % (Manual) Nucleated RBC % 0.0 /100WBC Neutrophils # (Manual) Lymphocytes # (Manual) Monocytes # (Manual) Eosinophils # (Manual) Basophils # (Manual) Differential Comment Platelet Estimate (NORMAL) Bld Gas Analysis Time Sample Site ABG pH (7.35-7.45) ABG pCO2 (34-45) mmHg ABG pO2 (80-100) mmHg ABG HCO3 (22.0-26.0) mmol/L ABG Total CO2 (21.0-29.0) MMOL/L ABG O2 Saturation (94-98) % ABG Base Excess (-2.0-3.0) mmol/L [place] Test VBG pH 7.445 H (7.31-7.41) Ionized Calcium 1.07 L (1.15-1.33) mmol/L O2 Liters/Min LPM FiO2 Sodium (135-145) mmol/L Potassium 3.0 L (3.5-4.5) mmol/L Chloride (101-111) mmol/L Carbon Dioxide (21-32) mmol/L Anion Gap (6-13) BUN (6-20) mg/dL Creatinine (0.6-1.3) mg/dL Estimated GFR (MDRD) (>89) Glucose (74-104) mg/dL Calcium (8.5-10.3) mg/dL Phosphorus 2.6 (2.5-5.0) mg/dL Magnesium 1.6 L (1.7-2.3) mg/dL 02/22/23 02/22/23 02/22/23 Range/Units 09:59 09:59 04:31 WBC (4.8-10.8) x10^3/uL RBC (4.20-5.40) 10^6/uL Hgb (12.0-16.0) g/dL Hct (37.0-47.0) % MCV (81.0-99.0) fL MCH (27.0-31.0) pg MCHC (32.0-36.0) g/dL RDW (12.0-15.0) % Plt Count (130-450) 10^3/uL MPV (7.9-10.8) fL Neut # (Auto) 6.5 (1.5-6.6) 10^3/uL Lymph # (Auto) 0.8 L (1.5-3.5) 10^3/uL [place] # (Auto) 0.6 (0.0-1.0) 10^3/uL Eos # (Auto) 0.0 (0.0-0.7) 10^3/uL Baso # (Auto) 0.0 (0.0-0.1) 10^3/uL Absolute Nucleated RBC 0.00 x10^3/uL Band Neuts % (Manual) Not Reportable Abnorm Lymph % (Manual) Not Reportable Nucleated RBC % 0.0 /100WBC Neutrophils # (Manual) Not Reportable Lymphocytes # (Manual) Not Reportable Monocytes # (Manual) Not Reportable Eosinophils # (Manual) Not Reportable Basophils # (Manual) Not Reportable Differential Comment MANUAL=AUTO DIFF Platelet Estimate NORMAL (130-450,000) (NORMAL) Bld Gas Analysis Time Sample Site ABG pH (7.35-7.45) ABG pCO2 (34-45) mmHg ABG pO2 (80-100) mmHg ABG HCO3 (22.0-26.0) mmol/L ABG Total CO2 (21.0-29.0) MMOL/L ABG O2 Saturation (94-98) % ABG Base Excess (-2.0-3.0) mmol/L [place] Test VBG pH 7.344 (7.31-7.41) Ionized Calcium 1.12 L (1.15-1.33) mmol/L O2 Liters/Min LPM FiO2 Sodium (135-145) mmol/L Potassium 4.0 (3.5-4.5) mmol/L Chloride (101-111) mmol/L Carbon Dioxide (21-32) mmol/L Anion Gap (6-13) BUN (6-20) mg/dL Creatinine (0.6-1.3) mg/dL Estimated GFR (MDRD) (>89) Glucose (74-104) mg/dL Calcium (8.5-10.3) mg/dL Phosphorus 2.4 L (2.5-5.0) mg/dL Magnesium 2.0 (1.7-2.3) mg/dL Assessment/Plan - Problem List (1) Acute hypoxemic respiratory failure Impression: Has chronic lung disease with chronic hypoxic respiratory failure on 5 to 6 L on a regular basis. This is secondary to interstitial lung disease and previous infection with MAC. Current episode that seems to be a slow insidious downhill course over the last 2 weeks may or may not be associated with aspiration. She seemed to be losing her voice and could no longer speak last week. Her friends noted a change on February 17. By February 18 she was aphonic.. I need to track down the swallow eval from speech pathology.But this is from the history of the friends. I am now wondering if she was seen by speech pathology and the baby mistaking her ER visit on February 19 for that. She then was brought to our emergency room from [facility] 02/21 with shortness of breath and altered mental status for 2 hours. Nebulizers were attempted in the long term but in spite of that her oxygen saturations on increased nasal cannula was still in the mid 80s. 911 was called. In our emergency room she was intubated for respiratory failure and to protect her air way. CT scan shows bilateral chronic nodular, interstitial, airspace infiltrates involving both upper and lower lobes with bronchiectasis in the right upper lobe, right middle lobe, lingula and both lobes. She has increased consolidation or atelectasis in both lower lobes in comparison to the previous CT. She has a moderate L1 compression fracture. I transferred to the ICU from the ER and she remained intubated overnight. I extubated her on her second hospital day 02/22 and she did well. Was upright in bed, eating after she passed a bedside swallow eval, and was phonating well. Cheerful but telling me she "was a bit tired". We were worried about a stroke because of a left pronator drift, and a very slight left facial droop. Had gotten up to bedside commode with best lift for . And yesterday afternoon I thought of transferring her to MedSurg status. On the evening of February 22, she deteriorated again. Blood gas shows a pH of 7.45, pCO2 33, pO2 80 on an FiO2 of 100% and 35 L. She is breathing over 30 breaths a minute and will not be able to sustain this. Intubation again. Plan: This lady has human metapneumovirus as the cause of respiratory decompensation in a patient who already has chronic hypoxemia due to bronchiectasis and previous lung infection. Treatment is mainly supportive. Which would mean oxygen, IV fluids, antibiotics, nutrition. I will reluctantly intubate her again. I worry that with her age, and with a chronic lung condition that we are not addressing the high mortality and high morbidity in association with this current episode. But unfortunately her sons and not available to do advance care planning. (2) Left facial droop and left pronator drift CT of the head was negative for acute stroke. (3) Human metapneumovirus (hMPV) pneumonia Conclusion/Plan: This unfortunate armando female already has chronic lung disease with interstitial lung disease and previous MAC infection. Although I do think that the virus certainly cause severe decompensation, there is always the possibility of secondary bacterial infection. She is not a community-acquired pneumonia patient in that she lives in a prison facility and has lung structural damage. Antibiotic coverage should be broadened. I did consider Levaquin, but she may have aspirations as most elderly people do and have offered to put her on Zosyn. I put her on Zosyn And added vancomycin 02/21 due to the (+) blood cultures.. White cell count was high on admission. But normal on the and today. . . Plan: Continue Zosyn And vancomycin Infectious disease that takes care of her was called and I left a message (4) Staph epidermidis bacteremia Blood cultures became positive at less than 24 hours from blood draw. Both sets. Usually I would interpret this is contamination if he grew more than 24 hours and only 1 bottle. While she does have a structural lung disease, I do not understand how she would be going staff epidermidis as opposed to staff aureus. She is on vancomycin day 3.Repeat blood cultures have been done on February 22. I have called her infectious disease attending, Dr. Corral. On her phone to have her give me a call. Echocardiogram ordered for tomorrow since she will still be here. (5) Dementia Conclusion/Plan: With her previous stay at a prison facility her slums score was calculated at 12 out of 30. With her last day with this judgment was impaired, memory loss was evident, and anxiety was manifested.She is on Risperdal, Klonezepam and Prozac at the prison facility. I reordered all of these medications via her NG tube and then p.o. on February 22 when she was extubated. Nursing verified with a bedside swallow that she was doing very well. As such her pills were resumed p.o. yesterday and she was put on a regular diet. Now intubated again. She has an NG tube in place. Will put her medicines through the NG tube, and will also start tube feeds. Qualifiers: Dementia type: unspecified type (6) Essential thrombocytosis Conclusion/Plan: Well-controlled with hydroxyurea 500 mg p.o. twice daily. Again I will see if we can get that through the NG tube (7) Hypertension At her residential facility blood pressure medicine is hydralazine 10 mg daily as needed, and atenolol 50 mg daily. She had received 1 dose of hydralazine because her blood pressure is in the 150s over 80s immediately after extubation 02/22. Currently she is on atenolol 50 mg via the NG. Hydralazine 10 mg IV push every 6 hours as needed for systolic greater than 180 and diastolic greater than 100 Today, after repeat intubation she was hypertensive at 200/100. Tachycardic at 200. She received 1 dose of Lopressor 5 mg IV push and I loaded her with amiodarone. Within 15 minutes blood pressure was normal, heart rate was normal. (8) Narrow complex tachycardia to 200. Unable to get an EKG when it was happening. I presume this is SVT. Responded well to Lopressor and amiodarone. Currently on amiodarone drip. Will switch over to p.o. amiodarone when she is fully loaded.
[2023-02-23] MEDS ORDERED: PROPOFOL 200 MG/20 ML VIAL IVP ONE ×2 (07:27→08:39)
[2023-02-23] MEDS ORDERED: ROCURONIUM 50 MG/5 ML VIAL ONE (07:27)
[2023-02-23] MEDS ORDERED: PROPOFOL 1000 MG/100 ML 1,000 MG/100 ML BOTTLE IV ONE (07:27)
[2023-02-23] MEDS: PROPOFOL 1000 MG/100 ML 1,000 MG/100 ML BOTTLE IV SCH ×2 (07:40→23:25)
[2023-02-23] MEDS ORDERED: AMIODARONE 150 MG/100 ML 100 ML IV ONE (07:45)
[2023-02-23] MEDS ORDERED: AMIODARONE 360 MG/200 ML 200 ML IV ONE ×2 (07:49→08:00)
[2023-02-23] MEDS ORDERED: POTASSIUM CHLOR 10 MEQ/100 ML 10 MEQ/100 ML BAG IV ONE (07:50)
[2023-02-23] MEDS ORDERED: METOPROLOL 5 MG/5 ML VIAL IVP STA (07:53)
[2023-02-23] MEDS ORDERED: DEXMEDETOMIDINE 400 MCG/100 ML 100 ML IV SCH (08:00)
[2023-02-23] MEDS ORDERED: POTASSIUM PHOSPHATE 15 MMOL in SODIUM CHLORIDE 0.9% 250 ML IV ONE (08:00)
--- NOTE | 2023-02-23 08:14 | XRAY Report ---
PROCEDURE: Post ET Tube 1V CXR INDICATIONS: ETT placement TECHNIQUE: One view of the chest was acquired. COMPARISON: 02/21/2023. FINDINGS: Surgical changes and devices: ET tube, NG tube Lungs and pleura: No pleural effusions or pneumothorax. Interval progression of diffuse bilateral pu lmonary infiltrates. Mediastinum: Mediastinal contours appear normal. Heart size is normal. Bones and chest wall: No suspicious bony lesions. Overlying soft tissues appear unremarkable. IMPRESSION: 1. Lines and tubes in satisfactory position. 2. Progression of extensive bilateral pulmonary infiltrates. Reviewed by: Lucien Dunn MD on 02/23/2023 8:13 AM PST Approved by: Lucien Dunn MD on 02/23/2023 8:13 AM PST Station ID: [id number]
[2023-02-23] MEDS ORDERED: ROCURONIUM 50 MG/5 ML VIAL IVP ONE (08:40)
[2023-02-23 08:41] LABS: ABG PCO2 41 mmHg (34-45); ABG PH 7.35 (7.35-7.45)
[2023-02-23 08:42] LABS: ABG BASE EXCESS -3.1 mmol/L (-2.0-3.0); ABG HCO3 22.2 mmol/L (22.0-26.0); ABG OXYGEN SATURATION 98 % (94-98); ABG PO2 106 mmHg (80-100); ABG TCO2 23.5 MMOL/L (21.0-29.0)
[2023-02-23 08:45] LABS: ABG MODE OF VENTILATION ASSIST/CONTROL; ABG RESPIRATORY RATE 12 b/min; ALLEN TEST POSITIVE
--- NOTE | 2023-02-23 08:45 | ED Physician Documentation ---
ED Addendum - Addendum Addendum: 02/23/23 08:41 I was called to the ICU by the hospitalist to assist with intubation of the patient. She was not doing well on BiPAP. On arrival the patient was saturating adequately. She was able to interact and squeeze my hand. BiPAP was in place. This provided appropriate time to be able to get medications and appropriate personnel. Over just a few minutes we did get bolus dosing of propofol and rocuronium to assist with the rapid sequence intubation. Respiratory therapy was present as was the ICU nurse. The patient was laying flatter as she was in a 45 degree head of bed. She was tolerating this for a few moments that we needed to position her. Her oxygenation remained okay with this. We then gave an rapid sequence the propofol 50 mg which provided prompt sedation. She is then given the rocuronium with good effect. We initiated [id number] breathing with the propofol and continue that through the intubation initiation. The patient was intubated using a glide scope with direct visualization with a 7.5 endotracheal tube seen visually going through the cords. She was placed at 23 cm at the teeth. Ventilation was verified using end-tidal CO2 as well as symmetric lung sounds and again visualization of the tube through the cords on the glide scope. It was secured in place by respiratory therapy. She had a desaturation to just 88 to 89% during the intubation attesting to her poor oxygen reserve. They promptly came back up once intubated and bag -valve-mask again. Duration was perhaps 15 or 20 seconds of it that low. The patient seems stable at this point and was replaced back on the ventilator by respiratory therapy. Chest x-ray was ordered. I turn the care back over to the hospitalist. Procedure: Endotracheal intubation
[2023-02-23] MEDS: SODIUM CHLORIDE 0.9% 1,000 ML IV SCH (08:55)
[2023-02-23] MEDS ORDERED: atenoloL 25 MG TABLET PO SCH (09:00)
[2023-02-23] MEDS: LEVOTHYROXINE 100 MCG TABLET PO SCH (09:06)
[2023-02-23] MEDS: PIPERACILLIN/TAZOBACTAM 3.375 GM in SODIUM CHLORIDE 0.9% MINIBAG 100 ML IV SCH ×3 (09:07→23:52)
[2023-02-23] MEDS: lamoTRIgine 25 MG TABLET PO SCH (09:50)
[2023-02-23] MEDS: FLUoxetine 10 MG CAPSULE PO SCH ×2 (09:50→20:44)
[2023-02-23] MEDS: ENOXAPARIN 40 MG/0.4 ML SYRINGE SUBQ SCH (09:50)
[2023-02-23] MEDS: atenoloL 25 MG TABLET PO SCH (09:50)
[2023-02-23] MEDS: SODIUM CHLORIDE FLUSH 0.9% 10 ML SYRINGE IVP SCH ×2 (09:51→17:39)
[2023-02-23] MEDS: ASPIRIN EC 81 MG TABLET PO SCH (09:54)
[2023-02-23] MEDS: risperiDONE 0.25 MG TABLET PO SCH (09:56)
[2023-02-23] MEDS: VANCOMYCIN INJ 0.75 GM in SODIUM CHLORIDE 0.9% 250 ML IV SCH ×2 (10:38→20:44)
[2023-02-23 12:23] LABS: CALCIUM, IONIZED 1.06 mmol/L (1.15-1.33); VBG PH 7.372 (7.31-7.41)
[2023-02-23] MEDS ORDERED: POTASSIUM CHLORIDE 20 MEQ/15 ML UDC PO ONE (12:58)
--- NOTE | 2023-02-23 13:40 | ADVANCE CARE PLANNING NOTE ---
Advance Care Planning - Planning Encounter Date: 02/23/23 Time: 13:37 Purpose: Established CODE STATUS and care goals Parties in Attendance: Over the phone I spoke to both of her sons Lázaro and Nathaniel who are DPOA Decisional Capacity of the Patient: Patient is currently intubated. They said that they have been deferring to her wishes. The only thing they have disagreed with her with is returning to home to live independently. She currently lives in a longterm facility - Diagnosis for Encounter (1) Acute hypoxemic respiratory failure Summary: This armando patient is a long history of interstitial lung disease, pulmonary hypertension, and MAC infection with chronic respiratory failure on home O2. She takes anywhere from 4 to 5 L of nasal cannula to maintain O2 sats. She also has essential thrombocythemia. She was treated for MAC by Dr. Corral at [facility] infectious disease. She was admitted to [facility] for lung infection in late summer 2022. She had an admission for COVID-pneumonia in November of this year. She has been living at a longterm facility since December 2022. - Encounter Subjective/Patient's Story: I asked both sons to speak to me over the phone since they are both Co. DPOA according to their paperwork. She had been admitted to [facility] for pn eumonia. Went to a longterm facility. This was approximately September or October of this year. She had a past medical history of MAC that was treated by infectious disease at [facility] for most of 2021 into 2022. She was then admitted to our facility in November 2022 for COVID-pneumonia. She was supported through her increased hypoxemia. Received antibiotics for secondary pneumonia. Sons acknowledged that she had been failing since April 2022 was increasingly short of breath and unable to walk across room without having to sit down. The hope was that she could go to a longterm facility to increase her strength. From there she can go to an assisted living facility but not return home.She did return home. She did not go to the assisted living facility because she just refused to go. She was discharged from the longterm facility To home and then was seen in our emergency room January 07 with a ground-level fall in her shower. She had fallen several times that week. It was clear that she cannot Stay safely at home so she spent the night in our emergency room. She was evaluated for to her disposition and she was sent back to a longterm facility on January 09 where she has been living. Both her sons and her friends describe her as not happy with living at [facility] but doing well. She was using her walker and able to walk short distances down the hallway. Or to a bathroom. She was able to feed herself. Need a little bit of help with dressing and bathing. Chronic dyspnea on exertion. Last week she had a sudden deterioration in status. Various people describe her as slowly losing her voice. Becoming more more lethargic and "not herself". By the end of the week she could no longer ambulate. She then pre sented to our emergency room with acute shortness of breath and altered mental status for 2 hours. Her CODE STATUS is full code according to her November 2022 POLST form filled out at the assisted. Because of respiratory failure, she was intubated in the ER. Her sons have been struggling with her overall status. They acknowledge that she has been deteriorating for over a year but she seems to reach a new plateau where she is still herself and present in her life. They feel that she may be doing poorly physically but she is alert otherwise. They have been allowing her to make the overall decisions about her health care. Including CODE STATUS. But they put the foot down about allowing her to return to home. They also acknowledge that they have never really had a conversation with her about end-of-life issues. They have never discussed what quality of life indicator she has. That if those quality of life indicators were no longer present, did she want to keep everything going or did she want us to let her go? When she went to the longterm facility, everything settled into a new normal. The antibiotics for MAC were resumed in December 2022. They felt that she was "doing well" until 2 or 3 weeks ago. She been tolerating the antibiotics that were given to her for MAC. But she started going downhill abruptly over the course of the week. She was then seen in the emergency room February 19 as part of this acute deterioration and the antibiotics were stopped. For MAC. This did not help. And then she returned to the emergency room February 21 They feel that there is no evidence of imminent in the next month or so. So they are wanting some evidence of what I feel is a gradual failure to thrive in this lady. I gently reminded them that they themselves as stated that she has been going downhill for over a year. That in and of itself is evidence of an eventual deterioration toward . The timeline can be as short as 1 month, or as long as 2 years. But the downward course is still the same. It is just fast or slow depending on the acute events that lead to the eventual . They seem to understand that. I could not give them an exact timeframe that it was going to be in the next few weeks, but in my understanding of an elderly person who has chronic comorbidities and is continuing to fail, amidst several acute episodes of hospital care, that the end was going to come probably this next year. If not the next few months. As such, they would like to talk to their other 2 siblings. There is 4 total children. They also hope that she can be extubated and want to be able to have a conversation with her. They realize they have never had this kind of conversation where they acknowledge her deterioration nor have they ever understood what a good quality of life indicator was for her. They said that at this point they would not be able to state what that is. Objective/Medical Story: 87-year-old female with chronic interstitial lung disease, pulmonary hypertension, MAC, essential thrombocythemia that stopped living alone independently in approximately November 2022 after an admission for pneumonia. Went to a longterm facility. From there she went home. Readmitted in November 2022 with COVID-pneumonia. Discharged to a longterm facility. Again return to home. Unable to live at home because of safety issues and transition to a longterm facility. This was December 2022. Has been in a longterm facility since December. Her antibiotics for MAC were resumed in December. She now returns with an abrupt worsening of a chronic disability. Unclear what the event was but she has been slowly not able to speak. Coughing. More lethargic. She is human metapneumovirus positive. We are treating her as a probable viral infection inducing an acute deterioration in her chronic respiratory failure patient. She is now been intubated twice and is on a ventilator. Goals of Care: At this time those are not clear. The sons have never really spoken to mom about goals of care. They are going to have a conversation amongst each other to let me know what those goals are Plan: Due to lack of clarity, I explained to the son that I will just move forward in doing everything possible for their mom. Which will continue to be ventilator support, cardioversion when necessary, blood transfusions, antibiotics, pressors, tube feeds, etc. until they tell me otherwise. Code Status: Attempt Resuscitation Time spent on advance care plannin minutes
[2023-02-23] MEDS: AMIODARONE 360 MG/200 ML 200 ML IV SCH (13:55)
[2023-02-23 16:03] LABS: CALCIUM, IONIZED 1.09 mmol/L (1.15-1.33); VBG PH 7.468 (7.31-7.41)
[2023-02-23 16:16] LABS: MAGNESIUM 1.9 mg/dL (1.7-2.3); PHOSPHORUS 3.1 mg/dL (2.5-5.0); POTASSIUM 4.2 mmol/L (3.5-4.5)
[2023-02-23] MEDS: GABAPENTIN 300 MG CAPSULE PO SCH (20:44)
[2023-02-23] MEDS: CHLORHEXIDINE GLUCONATE 15 ML UDC PO SCH (20:44)
[2023-02-23 21:43] LABS: CALCIUM, IONIZED 1.12 mmol/L (1.15-1.33); VBG PH 7.455 (7.31-7.41)
[2023-02-24] MEDS: SODIUM CHLORIDE FLUSH 0.9% 10 ML SYRINGE IVP SCH ×3 (00:50→17:18)
[2023-02-24] MEDS: AMIODARONE 360 MG/200 ML 200 ML IV SCH (03:12)
[2023-02-24 04:41] LABS: CALCIUM, IONIZED 1.1 mmol/L (1.15-1.33); VBG PH 7.492 (7.31-7.41)
[2023-02-24 04:43] LABS: BASOPHILS % (AUTO) 0.4 %; EOSINOPHILS % (AUTO) 0.4 %; HCT - HEMATOCRIT 29.3 % (37.0-47.0); HGB - HEMOGLOBIN 9.9 g/dL (12.0-16.0); LYMPHOCYTES # (AUTO) 0.9 10^3/uL (1.5-3.5); LYMPHOCYTES % (AUTO) 9.1 %; MEAN CORPUSCULAR HEMOGLOBIN 37.5 pg (27.0-31.0); MEAN CORPUSCULAR HGB CONC 33.8 g/dL (32.0-36.0); MEAN PLATELET VOLUME 9.4 fL (7.9-10.8); MONOCYTES # (AUTO) 0.6 10^3/uL (0.0-1.0); NEUTROPHILS # (AUTO) 8.2 10^3/uL (1.5-6.6); NEUTROPHILS % (AUTO) 83.5 %; PLT - PLATELET COUNT 217 10^3/uL (130-450); RED BLOOD COUNT 2.64 10^6/uL (4.20-5.40); RED CELL DISTRIBUTION WIDTH 17.2 % (12.0-15.0); WHITE BLOOD COUNT 9.8 x10^3/uL (4.8-10.8)
[2023-02-24 04:46] LABS: SLIDE REVIEW? Indicated
[2023-02-24] MEDS ORDERED: CALCIUM GLUC 1,000MG/50ML-NACL 1,000 MG/50 ML BAG IV ONE (05:10)
[2023-02-24 05:13] LABS: MAGNESIUM 1.8 mg/dL (1.7-2.3); PHOSPHORUS 2.6 mg/dL (2.5-5.0)
[2023-02-24 05:15] LABS: ALBUMIN 2.3 g/dL (3.2-5.5); ALBUMIN/GLOBULIN RATIO 0.9 (1.0-2.2); BILIRUBIN,TOTAL 0.3 mg/dL (0.2-1.0); CALCIUM 8.1 mg/dL (8.5-10.3); CREATININE 0.5 mg/dL (0.6-1.3); TOTAL PROTEIN 4.8 g/dL (6.4-8.9)
[2023-02-24] MEDS ORDERED: MAGNESIUM SULFATE 2 GRAM 2 GM/50 ML BAG IV ONE (05:40)
[2023-02-24 05:44] LABS: PLATELET ESTIMATE, MANUAL NORMAL (130-450,000) (NORMAL); RBC MORPHOLOGY (MULTIPLE) 2+ MACROCYTOSIS (NORMAL)
[2023-02-24 05:50] LABS: ABG BASE EXCESS -0.2 mmol/L (-2.0-3.0); ABG HCO3 23.2 mmol/L (22.0-26.0); ABG OXYGEN SATURATION 97 % (94-98); ABG PCO2 34 mmHg (34-45); ABG PH 7.46 (7.35-7.45); ABG PO2 83 mmHg (80-100); ABG TCO2 24.2 MMOL/L (21.0-29.0)
[2023-02-24 05:52] LABS: ALLEN TEST POSITIVE
[2023-02-24 05:53] LABS: ABG MODE OF VENTILATION ASSIST/CONTROL; ABG RESPIRATORY RATE 12 b/min
[2023-02-24] MEDS: PANTOPRAZOLE 40 MG VIAL IVP SCH (06:15)
[2023-02-24] MEDS: LEVOTHYROXINE 100 MCG TABLET PO SCH (06:15)
[2023-02-24] MEDS: FLUoxetine 10 MG CAPSULE PO SCH ×2 (08:16→20:59)
[2023-02-24] MEDS: lamoTRIgine 25 MG TABLET PO SCH (08:16)
[2023-02-24] MEDS: CHLORHEXIDINE GLUCONATE 15 ML UDC PO SCH ×2 (08:17→20:59)
[2023-02-24] MEDS: ENOXAPARIN 40 MG/0.4 ML SYRINGE SUBQ SCH (08:17)
[2023-02-24] MEDS: atenoloL 25 MG TABLET PO SCH (08:17)
[2023-02-24] MEDS: ASPIRIN EC 81 MG TABLET PO SCH (08:17)
[2023-02-24] MEDS: PIPERACILLIN/TAZOBACTAM 3.375 GM in SODIUM CHLORIDE 0.9% MINIBAG 100 ML IV SCH ×3 (08:18→23:49)
[2023-02-24] MEDS: VANCOMYCIN INJ 0.75 GM in SODIUM CHLORIDE 0.9% 250 ML IV SCH ×2 (08:20→21:00)
[2023-02-24] MEDS: risperiDONE 0.25 MG TABLET PO SCH (08:33)
--- NOTE | 2023-02-24 10:27 | PROVIDER PROGRESS NOTE ---
Subjective - Subjective Pt reports feeling: No change (sedated on the vent) Objective - Vital Signs/Intake & Output Vital Signs: Vital Signs Temp Pulse Pulse Resp BP Pulse Ox 02/24/23 10:20 89 02/24/23 09:00 37.4 C 76 18 127/79 95 02/24/23 08:00 37.5 C 79 21 133/80 H 96 02/24/23 07:03 87 02/24/23 07:00 37.4 C 78 21 136/82 H 96 Intake & Output: Intake & Output 02/21/23 02/22/23 02/23/23 02/24/23 23:59 23:59 23:59 23:59 Intake Total 0889.183 4610.233 4459.027 1848.667 Output Total 382 1292 2062 292 Balance 3189.465 3813.233 2397.027 1556.667 - Objective General Appearance: positive: Other (sedated on the vent) ENT: positive: No signs of dehydration Neck: positive: Nml inspection Respiratory: positive: Rales, Rhonchi Cardiovascular: positive: Regular rate & rhythm, No murmur (distant heart sounds due to lung disease) Rectal: positive: Other (soft) Extremities: positive: No pedal edema Neurologic/Psychiatric: positive: Other (sedated on tghe vent) - Lab Results Fish Bones: 02/28/23 04:38 02/28/23 09:00 Other Labs: Lab Results x24hrs 02/24/23 02/24/23 02/24/23 Range/Units 05:41 04:34 04:34 WBC (4.8-10.8) x10^3/uL RBC (4.20-5.40) 10^6/uL Hgb (12.0-16.0) g/dL Hct (37.0-47.0) % MCV (81.0-99.0) fL MCH (27.0-31.0) pg MCHC (32.0-36.0) g/dL RDW (12.0-15.0) % Plt Count (130-450) 10^3/uL MPV (7.9-10.8) fL Neut # (Auto) (1.5-6.6) 10^3/uL Lymph # (Auto) (1.5-3.5) 10^3/uL Will[place] # (Auto) (0.0-1.0) 10^3/uL Eos # (Auto) (0.0-0.7) 10^3/uL Baso # (Auto) (0.0-0.1) 10^3/uL Absolute Nucleated RBC x10^3/uL Nucleated RBC % /100WBC Manual Slide Review Platelet Estimate (NORMAL) RBC Morph Micro Appear (NORMAL) Bld Gas Analysis Time 0547 Sample Site RIGHT RADIAL ABG pH 7.46 H (7.35-7.45) ABG pCO2 34 (34-45) mmHg ABG pO2 83 (80-100) mmHg ABG HCO3 23.2 (22.0-26.0) mmol/L ABG Total CO2 24.2 (21.0-29.0) MMOL/L ABG O2 Saturation 97 (94-98) % ABG Base Excess -0.2 (-2.0-3.0) mmol/L [place] Test POSITIVE VBG pH 7.492 H (7.31-7.41) Ionized Calcium 1.10 L (1.15-1.33) mmol/L Respiration Rate 12 b/min O2 Delivery Device VENTILATOR Vent Mode ASSIST/CONTROL FiO2 40.00 Tidal Volume 400 mL PEEP 7 cmH2O Sodium 131 L (135-145) mmol/L Potassium 4.0 (3.5-4.5) mmol/L Chloride 104 (101-111) mmol/L Carbon Dioxide 23 (21-32) mmol/L Anion Gap 4.0 L (6-13) BUN 12 (6-20) mg/dL Creatinine 0.5 L (0.6-1.3) mg/dL Estimated GFR (MDRD) 117 (>89) Glucose 157 H (74-104) mg/dL Calcium 8.1 L (8.5-10.3) mg/dL Phosphorus (2.5-5.0) mg/dL Magnesium (1.7-2.3) mg/dL Total Bilirubin 0.3 (0.2-1.0) mg/dL AST 21 (10-42) IU/L ALT 16 (10-60) IU/L Alkaline Phosphatase 74 (42-121) IU/L Total Protein 4.8 L (6.4-8.9) g/dL Albumin 2.3 L (3.2-5.5) g/dL Globulin 2.5 (2.1-4.2) g/dL Albumin/Globulin Ratio 0.9 L (1.0-2.2) Prealbumin 6 L (17-34) mg/dL 02/24/23 02/24/23 02/23/23 Range/Units 04:34 04:34 21:34 WBC 9.8 (4.8-10.8) x10^3/uL RBC 2.64 L (4.20-5.40) 10^6/uL Hgb 9.9 L (12.0-16.0) g/dL Hct 29.3 L (37.0-47.0) % MCV 111.0 H (81.0-99.0) fL MCH 37.5 H (27.0-31.0) pg MCHC 33.8 (32.0-36.0) g/dL RDW 17.2 H (12.0-15.0) % Plt Count 217 (130-450) 10^3/uL MPV 9.4 (7.9-10.8) fL Neut # (Auto) 8.2 H (1.5-6.6) 10^3/uL Lymph # (Auto) 0.9 L (1.5-3.5) 10^3/uL [place] # (Auto) 0.6 (0.0-1.0) 10^3/uL Eos # (Auto) 0.0 (0.0-0.7) 10^3/uL Baso # (Auto) 0.0 (0.0-0.1) 10^3/uL Absolute Nucleated RBC 0.00 x10^3/uL Nucleated RBC % 0.0 /100WBC Manual Slide Review Indicated Platelet Estimate NORMAL (130-450,000) (NORMAL) RBC Morph Micro Appear 2+ MACROCYTOSIS (NORMAL) Bld Gas Analysis Time Sample Site ABG pH (7.35-7.45) ABG pCO2 (34-45) mmHg ABG pO2 (80-100) mmHg ABG HCO3 (22.0-26.0) mmol/L ABG Total CO2 (21.0-29.0) MMOL/L ABG O2 Saturation (94-98) % ABG Base Excess (-2.0-3.0) mmol/L [place] Test VBG pH 7.455 H (7.31-7.41) Ionized Calcium 1.12 L (1.15-1.33) mmol/L Respiration Rate b/min O2 Delivery Device Vent Mode FiO2 Tidal Volume mL PEEP cmH2O Sodium (135-145) mmol/L Potassium (3.5-4.5) mmol/L Chloride (101-111) mmol/L Carbon Dioxide (21-32) mmol/L Anion Gap (6-13) BUN (6-20) mg/dL Creatinine (0.6-1.3) mg/dL Estimated GFR (MDRD) (>89) Glucose (74-104) mg/dL Calcium (8.5-10.3) mg/dL Phosphorus 2.6 (2.5-5.0) mg/dL Magnesium 1.8 (1.7-2.3) mg/dL Total Bilirubin (0.2-1.0) mg/dL AST (10-42) IU/L ALT (10-60) IU/L Alkaline Phosphatase (42-121) IU/L Total Protein (6.4-8.9) g/dL Albumin (3.2-5.5) g/dL Globulin (2.1-4.2) g/dL Albumin/Globulin Ratio (1.0-2.2) Prealbumin (17-34) mg/dL 02/23/23 02/23/23 02/23/23 Range/Units 15:57 15:57 12:02 WBC (4.8-10.8) x10^3/uL RBC (4.20-5.40) 10^6/uL Hgb (12.0-16.0) g/dL Hct (37.0-47.0) % MCV (81.0-99.0) fL MCH (27.0-31.0) pg MCHC (32.0-36.0) g/dL RDW (12.0-15.0) % Plt Count (130-450) 10^3/uL MPV (7.9-10.8) fL Neut # (Auto) (1.5-6.6) 10^3/uL Lymph # (Auto) (1.5-3.5) 10^3/uL [place] # (Auto) (0.0-1.0) 10^3/uL Eos # (Auto) (0.0-0.7) 10^3/uL Baso # (Auto) (0.0-0.1) 10^3/uL Absolute Nucleated RBC x10^3/uL Nucleated RBC % /100WBC Manual Slide Review Platelet Estimate (NORMAL) RBC Morph Micro Appear (NORMAL) Bld Gas Analysis Time Sample Site ABG pH (7.35-7.45) ABG pCO2 (34-45) mmHg ABG pO2 (80-100) mmHg ABG HCO3 (22.0-26.0) mmol/L ABG Total CO2 (21.0-29.0) MMOL/L ABG O2 Saturation (94-98) % ABG Base Excess (-2.0-3.0) mmol/L [place] Test VBG pH 7.468 H 7.372 (7.31-7.41) Ionized Calcium 1.09 L 1.06 L (1.15-1.33) mmol/L Respiration Rate b/min O2 Delivery Device Vent Mode FiO2 Tidal Volume mL PEEP cmH2O Sodium (135-145) mmol/L Potassium 4.2 (3.5-4.5) mmol/L Chloride (101-111) mmol/L Carbon Dioxide (21-32) mmol/L Anion Gap (6-13) BUN (6-20) mg/dL Creatinine (0.6-1.3) mg/dL Estimated GFR (MDRD) (>89) Glucose (74-104) mg/dL Calcium (8.5-10.3) mg/dL Phosphorus 3.1 (2.5-5.0) mg/dL Magnesium 1.9 (1.7-2.3) mg/dL Total Bilirubin (0.2-1.0) mg/dL AST (10-42) IU/L ALT (10-60) IU/L Alkaline Phosphatase (42-121) IU/L Total Protein (6.4-8.9) g/dL Albumin (3.2-5.5) g/dL Globulin (2.1-4.2) g/dL Albumin/Globulin Ratio (1.0-2.2) Prealbumin (17-34) mg/dL 02/23/23 02/23/23 Range/Units 12:02 12:02 WBC (4.8-10.8) x10^3/uL RBC (4.20-5.40) 10^6/uL Hgb (12.0-16.0) g/dL Hct (37.0-47.0) % MCV (81.0-99.0) fL MCH (27.0-31.0) pg MCHC (32.0-36.0) g/dL RDW (12.0-15.0) % Plt Count (130-450) 10^3/uL MPV (7.9-10.8) fL Neut # (Auto) (1.5-6.6) 10^3/uL Lymph # (Auto) (1.5-3.5) 10^3/uL [place] # (Auto) (0.0-1.0) 10^3/uL Eos # (Auto) (0.0-0.7) 10^3/uL Baso # (Auto) (0.0-0.1) 10^3/uL Absolute Nucleated RBC x10^3/uL Nucleated RBC % /100WBC Manual Slide Review Platelet Estimate (NORMAL) RBC Morph Micro Appear (NORMAL) Bld Gas Analysis Time Sample Site ABG pH (7.35-7.45) ABG pCO2 (34-45) mmHg ABG pO2 (80-100) mmHg ABG HCO3 (22.0-26.0) mmol/L ABG Total CO2 (21.0-29.0) MMOL/L ABG O2 Saturation (94-98) % ABG Base Excess (-2.0-3.0) mmol/L [place] Test VBG pH (7.31-7.41) Ionized Calcium (1.15-1.33) mmol/L Respiration Rate b/min O2 Delivery Device Vent Mode FiO2 Tidal Volume mL PEEP cmH2O Sodium (135-145) mmol/L Potassium 3.9 (3.5-4.5) mmol/L Chloride (101-111) mmol/L Carbon Dioxide (21-32) mmol/L Anion Gap (6-13) BUN (6-20) mg/dL Creatinine (0.6-1.3) mg/dL Estimated GFR (MDRD) (>89) Glucose (74-104) mg/dL Calcium (8.5-10.3) mg/dL Phosphorus (2.5-5.0) mg/dL Magnesium 1.9 (1.7-2.3) mg/dL Total Bilirubin (0.2-1.0) mg/dL AST (10-42) IU/L ALT (10-60) IU/L Alkaline Phosphatase (42-121) IU/L Total Protein (6.4-8.9) g/dL Albumin (3.2-5.5) g/dL Globulin (2.1-4.2) g/dL Albumin/Globulin Ratio (1.0-2.2) Prealbumin (17-34) mg/dL Assessment/Plan - Problem List (1) Acute hypoxemic respiratory failure Impression: Has chronic lung disease with chronic hypoxic respiratory failure on 5 to 6 L on a regular basis. This is secondary to interstitial lung disease and previous infection with Mycobacterium Avium Complex infection. Current episode that seems to be a slow insidious downhill course over the last 2 weeks may or may not be associated with aspiration. She was losing her voice and could no longer speak last week. Her friends noted a change on February 17. By February 18 she was aphonic. Nebulizers were attempted in the [facility] but in spite of that her oxygen saturations on increased nasal cannula was still in the mid 80s. 911 was called. She then was brought to our emergency room from [facility] 02/21 with shortness of breath and altered mental status. In our ER she was intubated for respiratory failure and to protect her airway. CT scan shows bilateral chronic nodular, interstitial, airspace infiltrates involving both upper and lower lobes with bronchiectasis in the right upper lobe, right middle lobe, lingula and both lobes. She has increased con solidation or atelectasis in both lower lobes in comparison to the previous CT. She also has a moderate L1 compression fracture. She remained intubated overnight and we extubated her on her second hospital day 02/22 and she did well: was upright in bed, eating after she passed a bedside swallow eval, and was phonating well. Cheerful but telling me she "was a bit tired". (We were worried about a stroke because of a left pronator drift, and a very slight left facial droop. But CT of the head was negative for acute stroke). On the evening of February 22, she deteriorated again. Blood gas show ed a pH of 7.45, pCO2 33, pO2 80 on an FiO2 of 100% and 35 L. She was breathing >30 breaths a minute and she was intubated again. Thus, she has human metapneumovirus as the cause of respiratory decompensation in a patient who already has chronic hypoxemia due to bronchiectasis and previous lung infection. Plan: Now she is re-intubated again. With her advanced age, and with a chronic lung condition her prognosis is poor (2) On mechanical vent Conclusion/Plan: As per #1 (3) Human metapneumovirus (hMPV) pneumonia Conclusion/Plan: She has chronic lung disease with interstitial lung disease and previous Mycobacterium Avium Complex infection. There is always the possibility of secondary bacterial infection. She lives in a [facility] facility and has lung structural damage. Therefore antibiotic coverage was broadened with Zosyn and vancomycin added 02/21 due to the (+) blood cultures. White cell count was high on admission. Infectious Disease MD that takes care of her was called and left a message, no retur call yet. Plan: Continue Zosyn and Vancomycin (4) Staph epidermidis bacteremia Conclusion/Plan: Blood cultures became positive at less than 24 hours from blood draw. Both sets. Usually I would interpret this is contamination if he grew more than 24 hours and only 1 bottle. She is on vancomycin. Repeat blood cultures have been done on February 22 and are neg to date. Plan: Cont empiric antibx Echocardiogram to be done today (5) Left facial droop and left pronator drift Conclusion/Plan: This was noted when she was extubated and was interacting. CT of the head was negative for acute stroke. Plan: Now she is on iv sedative drip while inubated on the vent, so cannot do neuro checks (6) Essential thrombocytosis Conclusion/Plan: Well-controlled with hydroxyurea 500 mg p.o. twice daily. Plan: Will give through the NG tube (7) Hypertension At her residential facility blood pressure medicine was hydralazine 10 mg daily as needed, and atenolol 50 mg daily. After re-intubation she was hypertensive at 200/100, and tachycardic at 200. She received 1 dose of Lopressor 5 mg IV push andthen amiodarone. Within 15 minutes blood pressure was normal, heart rate was normal. (8) Atrial tachycardia Unable to get an EKG when it was happening. It was presumed to be SVT at rate of 200. Responded well to Lopressor and Amiodarone push then drip. The Amiodarone drip gave her full loading. Plan: Since the EKG showed right axis deviation, consistent with Pulm disease, and Amio has also of pulm toxicity, I will not continue her on Amiodarone Cont B-kelli dosing (9) Dementia Conclusion/Plan: With her previous stay at a [facility] facility her slums score was calculated at 12 out of 30, with this judgment was impaired, memory loss was evident, and anxiety was manifested. She was on Risperdal, Klonezepam and Prozac at the [facility] facility. Plan: Now intubated again, with an NG tube in place. We have restarted her medicines through the NG tube
[2023-02-24 11:22] LABS: CALCIUM, IONIZED 1.13 mmol/L (1.15-1.33); VBG PH 7.44 (7.31-7.41)
[2023-02-24 11:34] LABS: POTASSIUM 4.2 mmol/L (3.5-4.5)
[2023-02-24] MEDS: PROPOFOL 1000 MG/100 ML 1,000 MG/100 ML BOTTLE IV SCH ×2 (12:33→12:35)
[2023-02-24] MEDS: ACETAMINOPHEN 325 MG TABLET PO PRN (14:06)
[2023-02-24] MEDS: ZINC OXIDE 20% OINT 30 GM TUBE TOP PRN (20:00)
[2023-02-24] MEDS: GABAPENTIN 300 MG CAPSULE PO SCH (20:59)
[2023-02-24] MEDS: SODIUM CHLORIDE FLUSH 0.9% 10 ML SYRINGE IVP PRN (20:59)
[2023-02-25] MEDS: SODIUM CHLORIDE FLUSH 0.9% 10 ML SYRINGE IVP SCH ×4 (00:08→23:05)
[2023-02-25] MEDS: ACETAMINOPHEN 325 MG TABLET PO PRN ×2 (02:30→17:25)
[2023-02-25 04:42] LABS: CALCIUM, IONIZED 1.12 mmol/L (1.15-1.33); VBG PH 7.429 (7.31-7.41)
[2023-02-25 04:43] LABS: BASOPHILS % (AUTO) 0.4 %; EOSINOPHILS % (AUTO) 1.5 %; HCT - HEMATOCRIT 27.5 % (37.0-47.0); LYMPHOCYTES % (AUTO) 15.7 %; MEAN CORPUSCULAR HEMOGLOBIN 37.3 pg (27.0-31.0); MEAN CORPUSCULAR HGB CONC 32.7 g/dL (32.0-36.0); MEAN CORPUSCULAR VOLUME 114.1 fL (81.0-99.0); MEAN PLATELET VOLUME 9.6 fL (7.9-10.8); MONOCYTES % (AUTO) 8.8 %; NEUTROPHILS % (AUTO) 72.6 %; PLT - PLATELET COUNT 232 10^3/uL (130-450); RED BLOOD COUNT 2.41 10^6/uL (4.20-5.40); RED CELL DISTRIBUTION WIDTH 17.4 % (12.0-15.0); WHITE BLOOD COUNT 7.3 x10^3/uL (4.8-10.8)
[2023-02-25 04:51] LABS: ABNORMAL LYMPHS % (MANUAL) 0 %; BAND NEUTROPHILS % (MANUAL) 0 %
[2023-02-25 04:55] LABS: CALCIUM 7.9 mg/dL (8.5-10.3); CREATININE 0.5 mg/dL (0.6-1.3); MAGNESIUM 1.7 mg/dL (1.7-2.3); PHOSPHORUS 2.8 mg/dL (2.5-5.0); POTASSIUM 4.1 mmol/L (3.5-4.5)
[2023-02-25] MEDS ORDERED: MAGNESIUM SULFATE 2 GRAM 2 GM/50 ML BAG IV ONE (05:06)
[2023-02-25 05:11] LABS: DIFFERENTIAL COMMENT MANUAL DIFFERENTIAL; EOSINOPHILS # (MANUAL) 0.1 10^3/uL (0-0.7); LYMPHOCYTES # (MANUAL) 1.2 10^3/uL (1.5-3.5); LYMPHOCYTES % (MANUAL) 16 %; METAMYELOCYTES % (MANUAL) 1 %; MONOCYTES # (MANUAL) 0.6 10^3/uL (0.0-1.0); MYELOCYTES % (MANUAL) 1 %; NEUTROPHILS # (MANUAL) 5.3 10^3/uL (1.5-6.6); PLATELET ESTIMATE, MANUAL NORMAL (130-450,000) (NORMAL); RBC MORPHOLOGY (MULTIPLE) NORMAL APPEARANCE (NORMAL)
[2023-02-25] MEDS: PANTOPRAZOLE 40 MG VIAL IVP SCH (06:54)
[2023-02-25] MEDS: LEVOTHYROXINE 100 MCG TABLET PO SCH (06:54)
[2023-02-25] MEDS: SODIUM CHLORIDE FLUSH 0.9% 10 ML SYRINGE IVP PRN (06:55)
[2023-02-25] MEDS: PROPOFOL 1000 MG/100 ML 1,000 MG/100 ML BOTTLE IV SCH ×2 (07:22→18:35)
[2023-02-25] MEDS: VANCOMYCIN INJ 0.75 GM in SODIUM CHLORIDE 0.9% 250 ML IV SCH ×2 (08:33→20:15)
[2023-02-25] MEDS: PIPERACILLIN/TAZOBACTAM 3.375 GM in SODIUM CHLORIDE 0.9% MINIBAG 100 ML IV SCH ×3 (08:33→23:05)
[2023-02-25] MEDS: atenoloL 25 MG TABLET PO SCH (08:34)
[2023-02-25] MEDS: CHLORHEXIDINE GLUCONATE 15 ML UDC PO SCH ×2 (08:34→20:15)
[2023-02-25] MEDS: ASPIRIN EC 81 MG TABLET PO SCH (08:34)
[2023-02-25] MEDS: lamoTRIgine 25 MG TABLET PO SCH (08:34)
[2023-02-25] MEDS: ENOXAPARIN 40 MG/0.4 ML SYRINGE SUBQ SCH (08:35)
[2023-02-25] MEDS: risperiDONE 0.25 MG TABLET PO SCH (08:36)
[2023-02-25] MEDS: FLUoxetine 10 MG CAPSULE PO SCH ×2 (08:39→20:15)
[2023-02-25] MEDS: ZINC OXIDE 20% OINT 30 GM TUBE TOP PRN (12:00)
--- NOTE | 2023-02-25 18:20 | PROVIDER PROGRESS NOTE ---
Subjective - Subjective Pt reports feeling: No change (sedated on the vent) Objective - Vital Signs/Intake & Output Vital Signs: Vital Signs Temp Pulse Pulse Resp BP Pulse Ox 02/25/23 18:02 38.0 C H 70 20 109/64 94 02/25/23 17:40 38.0 C H 73 20 132/80 H 94 02/25/23 17:18 70 02/25/23 17:00 38.0 C H 72 22 132/89 H 92 02/25/23 16:17 38.0 C H 71 21 122/73 96 02/25/23 15:05 37.9 C 68 19 122/71 93 Intake & Output: Intake & Output 02/22/23 02/23/23 02/24/23 02/25/23 23:59 23:59 23:59 23:59 Intake Total 5128.233 4459.027 2791.058 2323.856 Output Total 1292 2062 1802 1324 Balance 3836.233 2397.027 989.058 999.856 - Objective General Appearance: positive: Other (sedated on the vent) Eyes Bilateral: positive: No lid inflammation ENT: positive: No signs of dehydration Neck: positive: Nml inspection Respiratory: positive: Rhonchi Cardiovascular: positive: Regular rate & rhythm, No murmur (distant heart sounds due to lung dis) Abdomen: positive: Other (soft) Skin: positive: Warm, Dry Extremities: positive: No pedal edema Neurologic/Psychiatric: positive: Other (sedated on the vent) - Lab Results Fish Bones: 02/28/23 04:38 02/28/23 09:00 Other Labs: Lab Results x24hrs 02/25/23 02/25/23 02/25/23 Range/Units 10:19 10:05 04:25 WBC (4.8-10.8) x10^3/uL RBC (4.20-5.40) 10^6/uL Hgb (12.0-16.0) g/dL Hct (37.0-47.0) % MCV (81.0-99.0) fL MCH (27.0-31.0) pg MCHC (32.0-36.0) g/dL RDW (12.0-15.0) % Plt Count (130-450) 10^3/uL MPV (7.9-10.8) fL Neut # (Auto) Lymph # (Auto) [place] # (Auto) Eos # (Auto) Baso # (Auto) Absolute Nucleated RBC Total Counted Band Neuts % (Manual) (0 - 10) % Abnorm Lymph % (Manual) % Metamyelocytes % ( - 0) % Myelocytes % ( - 0) % Nucleated RBC % Neutrophils # (Manual) (1.5-6.6) 10^3/uL Lymphocytes # (Manual) (1.5-3.5) 10^3/uL Monocytes # (Manual) (0.0-1.0) 10^3/uL Eosinophils # (Manual) (0-0.7) 10^3/uL Basophils # (Manual) (0-0.1) 10^3/uL Differential Comment Platelet Estimate (NORMAL) RBC Morph Micro Appear (NORMAL) VBG pH 7.429 H (7.31-7.41) Ionized Calcium 1.12 L (1.15-1.33) mmol/L Sodium (135-145) mmol/L Potassium (3.5-4.5) mmol/L Chloride (101-111) mmol/L Carbon Dioxide (21-32) mmol/L Anion Gap (6-13) BUN (6-20) mg/dL Creatinine (0.6-1.3) mg/dL Estimated GFR (MDRD) (>89) Glucose (74-104) mg/dL POC Whole Bld Glucose 123 H (70 - 100) mg/dL Calcium (8.5-10.3) mg/dL Phosphorus (2.5-5.0) mg/dL Magnesium 2.1 (1.7-2.3) mg/dL 02/25/23 02/25/23 Range/Units 04:25 04:25 WBC 7.3 (4.8-10.8) x10^3/uL RBC 2.41 L (4.20-5.40) 10^6/uL Hgb 9.0 L (12.0-16.0) g/dL Hct 27.5 L (37.0-47.0) % MCV 114.1 H (81.0-99.0) fL MCH 37.3 H (27.0-31.0) pg MCHC 32.7 (32.0-36.0) g/dL RDW 17.4 H (12.0-15.0) % Plt Count 232 (130-450) 10^3/uL MPV 9.6 (7.9-10.8) fL Neut # (Auto) Not Reportable Lymph # (Auto) Not Reportable [place] # (Auto) Not Reportable Eos # (Auto) Not Reportable Baso # (Auto) Not Reportable Absolute Nucleated RBC Not Reportable Total Counted 100 Band Neuts % (Manual) 0 (0 - 10) % Abnorm Lymph % (Manual) 0 % Metamyelocytes % 1 H ( - 0) % Myelocytes % 1 H ( - 0) % Nucleated RBC % Not Reportable Neutrophils # (Manual) 5.3 (1.5-6.6) 10^3/uL Lymphocytes # (Manual) 1.2 L (1.5-3.5) 10^3/uL Monocytes # (Manual) 0.6 (0.0-1.0) 10^3/uL Eosinophils # (Manual) 0.1 (0-0.7) 10^3/uL Basophils # (Manual) 0.0 (0-0.1) 10^3/uL Differential Comment MANUAL DIFFERENTIAL Platelet Estimate NORMAL (130-450,000) (NORMAL) RBC Morph Micro Appear NORMAL APPEARANCE (NORMAL) VBG pH (7.31-7.41) Ionized Calcium (1.15-1.33) mmol/L Sodium 135 (135-145) mmol/L Potassium 4.1 (3.5-4.5) mmol/L Chloride 106 (101-111) mmol/L Carbon Dioxide 27 (21-32) mmol/L Anion Gap 2.0 L (6-13) BUN 13 (6-20) mg/dL Creatinine 0.5 L (0.6-1.3) mg/dL Estimated GFR (MDRD) 117 (>89) Glucose 128 H (74-104) mg/dL POC Whole Bld Glucose (70 - 100) mg/dL Calcium 7.9 L (8.5-10.3) mg/dL Phosphorus 2.8 (2.5-5.0) mg/dL Magnesium 1.7 (1.7-2.3) mg/dL Assessment/Plan - Problem List (1) Acute hypoxemic respiratory failure Impression: Has chronic lung disease with chronic hypoxic respiratory failure on 5 to 6 L on a regular basis. This is secondary to interstitial lung disease and previous infection with Mycobacterium Avium Complex infection. Current episode that seems to be a slow insidious downhill course over the last 2 weeks may or may not be associated with aspiration. She was losing her voice and could no longer speak last week. Her friends noted a change on February 17. By February 18 she was aphonic. Nebulizers were attempted in the skilled nursing but in spite of that her oxygen saturations on increased nasal cannula was still in the mid 80s. 911 was called. She then was brought to our emergency room from [facility] 02/21 with shortness of breath and altered mental status. In our ER she was intubated for respiratory failure and to protect her airway. CT scan shows bilateral chronic nodular, interstitial, airspace infiltrates involving both upper and lower lobes with bronchiectasis in the right upper lobe, right middle lobe, lingula and both lobes. She has increased consolidation or atelectasis in both lower lobes in comparison to the previous CT. She also has a moderate L1 compression fracture. She remained intubated overnight and we extubated her on her second hospital day 02/22 and she did well: was upright in bed, eating after she passed a bedside swallow eval, and was phonating well. Cheerful but telling me she "was a bit tired". (We were worried about a stroke because of a left pronator drift, and a very slight left facial droop. But CT of the head was negative for acute stroke). On the evening of February 22, she deteriorated again. Blood gas showed a pH of 7.45, pCO2 33, pO2 80 on an FiO2 of 100% and 35 L. She was breathing >30 breaths a minute and she was intubated again. Thus, she has human metapneumovirus as the cause of respiratory decompensation in a patient who already has chronic hypoxemia due to bronchiectasis and previous lung infection. Plan: Now she is re-intubated again. Will start ng feeds for nutrition With her advanced age, and with a chronic lung condition her prognosis is poor I will send off sputum sample, was not done yet (2) On mechanical vent Conclusion/Plan: As per #1 (3) Human metapneumovirus (hMPV) pneumonia Conclusion/Plan: She has chronic lung disease with interstitial lung disease and previous Mycobacterium Avium Complex infection. There is always the possibility of secondary bacterial infection. She lives in a senior care facility and has lung structural damage. Therefore antibiotic coverage was broadened with Zosyn and vancomycin added 02/21 due to the (+) blood cultures. White cell count was high on admission. Infectious Disease MD that takes care of her was called and left a message Plan: Continue Zosyn and Vancomycin (4) Staph epidermidis bacteremia Conclusion/Plan: Blood cultures became positive at less than 24 hours from blood draw. Both sets. Usually I would interpret this is contamination if he grew more than 24 hours and only 1 bottle. She is on vancomycin. Repeat blood cultures have been done on February 22 and are neg to date. Plan: Cont empiric antibx Echocardiogram reprt awaited (5) Left facial droop and left pronator drift Conclusion/Plan: This was noted when she was extubated and was interacting. CT of the head was negative for acute stroke. Plan: Now she is on iv sedative drip while inubated on the vent, so cannot do neuro ch ecks (6) Essential thrombocytosis Conclusion/Plan: Well-controlled with hydroxyurea 500 mg p.o. twice daily. Plan: Will give meds through the NG tube (7) Hypertension At her residential facility blood pressure medicine was hydralazine 10 mg daily as needed, and atenolol 50 mg daily. After re-intubation she was hypertensive at 200/100, and tachycardic at 200. She received 1 dose of Lopressor 5 mg IV push andthen amiodarone. Within 15 minutes blood pressure was normal, heart rate was normal. (8) Atrial tachycardia Unable to get an EKG when it was happening. It was presumed to be SVT at rate of 200. Responded well to Lopressor and Amiodarone push then drip. The Amiodarone drip gave her full loading. Plan: Since the EKG showed right axis deviation, consistent with Pulm disease, and Amio has also of pulm toxicity, I did not continue her on Amiodarone Cont B-kelli dosing (9) Dementia Conclusion/Plan: With her previous stay at a senior care facility her slums score was calculated at 12 out of 30, with this judgment was impaired, memory loss was evident, and anxiety was manifested. She was on Risperdal, Klonezepam and Prozac at the senior care facility. Plan: Now intubated again, with an NG tube in place. We have restarted her medicines through the NG tube
[2023-02-25] MEDS: GABAPENTIN 300 MG CAPSULE PO SCH (20:15)
[2023-02-26 00:27] LABS: CALCIUM, IONIZED 1.07 mmol/L (1.15-1.33); VBG PH 7.484 (7.31-7.41)
[2023-02-26 00:37] LABS: MAGNESIUM 1.8 mg/dL (1.7-2.3); PHOSPHORUS 3.3 mg/dL (2.5-5.0); POTASSIUM 3.9 mmol/L (3.5-4.5)
[2023-02-26] MEDS ORDERED: CALCIUM GLUC 1,000MG/50ML-NACL 1,000 MG/50 ML BAG IV ONE (01:27)
[2023-02-26] MEDS ORDERED: MAGNESIUM SULFATE 2 GRAM 2 GM/50 ML BAG IV ONE (01:27)
[2023-02-26] MEDS: POTASSIUM CHLOR 10 MEQ/100 ML 10 MEQ/100 ML BAG IV SCH ×4 (01:39→08:33)
[2023-02-26] MEDS: ZINC OXIDE 20% OINT 30 GM TUBE TOP PRN ×2 (02:22→11:59)
[2023-02-26 05:11] LABS: BASOPHILS % (AUTO) 0.6 %; EOSINOPHILS # (AUTO) 0.3 10^3/uL (0.0-0.7); EOSINOPHILS % (AUTO) 4.8 %; HCT - HEMATOCRIT 28.7 % (37.0-47.0); HGB - HEMOGLOBIN 9.2 g/dL (12.0-16.0); LYMPHOCYTES % (AUTO) 17.6 %; MEAN CORPUSCULAR HEMOGLOBIN 36.4 pg (27.0-31.0); MEAN CORPUSCULAR HGB CONC 32.1 g/dL (32.0-36.0); MEAN CORPUSCULAR VOLUME 113.4 fL (81.0-99.0); MEAN PLATELET VOLUME 9.8 fL (7.9-10.8); MONOCYTES # (AUTO) 0.5 10^3/uL (0.0-1.0); NEUTROPHILS # (AUTO) 3.6 10^3/uL (1.5-6.6); NEUTROPHILS % (AUTO) 66.3 %; PLT - PLATELET COUNT 245 10^3/uL (130-450); RED BLOOD COUNT 2.53 10^6/uL (4.20-5.40); RED CELL DISTRIBUTION WIDTH 17.3 % (12.0-15.0); WHITE BLOOD COUNT 5.5 x10^3/uL (4.8-10.8)
[2023-02-26 05:13] LABS: CALCIUM, IONIZED 1.29 mmol/L (1.15-1.33); VBG PH 7.469 (7.31-7.41)
[2023-02-26 05:15] LABS: SLIDE REVIEW? Indicated
[2023-02-26 05:37] LABS: MAGNESIUM 2.1 mg/dL (1.7-2.3); PHOSPHORUS 3.1 mg/dL (2.5-5.0)
[2023-02-26 05:41] LABS: CREATININE 0.4 mg/dL (0.6-1.3); POTASSIUM 3.9 mmol/L (3.5-4.5)
[2023-02-26] MEDS: PROPOFOL 1000 MG/100 ML 1,000 MG/100 ML BOTTLE IV SCH ×2 (06:12→18:14)
[2023-02-26] MEDS: PANTOPRAZOLE 40 MG VIAL IVP SCH (06:14)
[2023-02-26] MEDS: LEVOTHYROXINE 100 MCG TABLET PO SCH (06:15)
[2023-02-26 06:26] LABS: PLATELET ESTIMATE, MANUAL NORMAL (130-450,000) (NORMAL); RBC MORPHOLOGY (MULTIPLE) 2+ MACROCYTOSIS (NORMAL)
[2023-02-26 06:35] LABS: CALCIUM, IONIZED 1.11 mmol/L (1.15-1.33); VBG PH 7.424 (7.31-7.41)
[2023-02-26] MEDS: atenoloL 25 MG TABLET PO SCH (08:16)
[2023-02-26] MEDS: FLUoxetine 10 MG CAPSULE PO SCH ×2 (08:16→20:32)
[2023-02-26] MEDS: ENOXAPARIN 40 MG/0.4 ML SYRINGE SUBQ SCH (08:16)
[2023-02-26] MEDS: CHLORHEXIDINE GLUCONATE 15 ML UDC PO SCH ×2 (08:16→20:31)
[2023-02-26] MEDS: risperiDONE 0.25 MG TABLET PO SCH (08:16)
[2023-02-26] MEDS: SODIUM CHLORIDE FLUSH 0.9% 10 ML SYRINGE IVP SCH ×3 (08:17→23:45)
[2023-02-26] MEDS: lamoTRIgine 25 MG TABLET PO SCH (08:17)
[2023-02-26] MEDS: VANCOMYCIN INJ 0.75 GM in SODIUM CHLORIDE 0.9% 250 ML IV SCH ×2 (08:17→20:32)
[2023-02-26] MEDS: ASPIRIN EC 81 MG TABLET PO SCH (08:17)
[2023-02-26] MEDS: PIPERACILLIN/TAZOBACTAM 3.375 GM in SODIUM CHLORIDE 0.9% MINIBAG 100 ML IV SCH ×3 (08:48→23:45)
[2023-02-26] MEDS ORDERED: CALCIUM CHLORIDE 1,000 MG in SODIUM CHLORIDE 0.9% 50 ML IV ONE (09:00)
[2023-02-26] MEDS ORDERED: FUROSEMIDE 20 MG/2 ML VIAL IVP STA (11:25)
[2023-02-26] MEDS: PSYLLIUM PACKET PO SCH (11:52)
--- NOTE | 2023-02-26 12:18 | XRAY Report ---
PROCEDURE: Abdomen 1 View X-Ray INDICATIONS: KUB film for firm abdomen and 6 BMs per day TECHNIQUE: One view of the abdomen acquired. COMPARISON: None. FINDINGS: Surgical changes and devices: Patient is status post right hip arthroplasty. Enteric tube tip is seen in left lower quadrant. Bowel: No abnormally distended small bowel loops are seen. Air is seen in distal descending colon, si gmoid colon and rectum. No gross peritoneal free air is seen. Soft tissues: No suspicious abdominal calcifications. Visualized solid organ contours appear normal in size. Hazy opacities are noted in visualized bilateral lower lung neil. Bones: No suspicious bony lesions. IMPRESSION: No abnormally distended bowel loops. No gross peritoneal free air. NG tube tip is projecting in left lower quadrant, suggest clinical correlation. Hazy opacities in visualized bilateral lower lung neil. Reviewed by: Hunter Blue MD on 02/26/2023 12:17 PM PST Approved by: Hunter Blue MD on 02/26/2023 12:17 PM PST Station ID: [id number]
[2023-02-26 12:51] LABS: MAGNESIUM 1.9 mg/dL (1.7-2.3); POTASSIUM 4.1 mmol/L (3.5-4.5)
[2023-02-26] MEDS ORDERED: FUROSEMIDE 20 MG/2 ML VIAL IVP ONE (17:00)
--- NOTE | 2023-02-26 17:42 | ANESTHESIA PROCEDURE NOTE ---
Anesth Central Line Template - Central Line Central Line Preparation: Consent Obtained, Time out completed, Ultrasound used, Sterile prep and drape Central line location: Right IJ Central line type: Triple lumen Central line catheter tip site resides: Superior vena cava (SVC) Central line aftercare: Chlorhexidine disc placed, Secured, Placement confirmed, No pneumothorax, No complications, Bundle checklist complete, Pt tolerated well
--- NOTE | 2023-02-26 17:55 | CONSULTATION NOTE ---
Consultation Report: consulted by Hospitalist for CVL placement. Unable to obtain consent from pt due to sedation on vent. Telephone consent obtained from son, Lázaro Vickers. U/S guided RIJ CVL placed under sterile technique. Pt tolerated well. No complications noted. VS remain stable throughout procedure. Port CXR for line placement. All ports aspirate and flush easily. NAC. Procedure performed by Win Looney CRNA
--- NOTE | 2023-02-26 18:04 | PROVIDER PROGRESS NOTE ---
Objective - Vital Signs/Intake & Output Reviewed Vital Signs: Yes Vital Signs: Vital Signs Temp Pulse Pulse Resp BP Pulse Ox 02/26/23 17:00 69 17 134/74 H 97 02/26/23 16:33 68 02/26/23 16:00 37.7 C 64 17 148/75 H 100 02/26/23 15:00 59 L 18 122/68 98 02/26/23 14:55 68 Intake & Output: Intake & Output 02/23/23 02/24/23 02/25/23 02/26/23 23:59 23:59 23:59 23:59 Intake Total 4459.027 2791.058 2772.800 2947.006 Output Total 2062 1802 1629 4103 Balance 2397.027 002.161 9522.800 -1155.994 - Objective General Appearance: positive: Other (Sedated on the vent) Eyes Bilateral: positive: No lid inflammation ENT: positive: No signs of dehydration Neck: positive: Nml inspection Respiratory: positive: Rales Cardiovascular: positive: Regular rate & rhythm (distant heart sounds due to sil g disease), No murmur Abdomen: positive: Other (soft) Skin: positive: Warm, Dry Extremities: positive: Non-tender, No pedal edema Neurologic/Psychiatric: positive: Other (sedated while on the vent) - Lab Results Fish Bones: 02/28/23 04:38 02/28/23 09:00 Other Labs: Lab Results x24hrs 02/26/23 02/26/23 02/26/23 Range/Units 12:33 08:02 06:11 WBC (4.8-10.8) x10^3/uL RBC (4.20-5.40) 10^6/uL Hgb (12.0-16.0) g/dL Hct (37.0-47.0) % MCV (81.0-99.0) fL MCH (27.0-31.0) pg MCHC (32.0-36.0) g/dL RDW (12.0-15.0) % Plt Count (130-450) 10^3/uL MPV (7.9-10.8) fL Neut # (Auto) (1.5-6.6) 10^3/uL Lymph # (Auto) (1.5-3.5) 10^3/uL [place] # (Auto) (0.0-1.0) 10^3/uL Eos # (Auto) (0.0-0.7) 10^3/uL Baso # (Auto) (0.0-0.1) 10^3/uL Absolute Nucleated RBC x10^3/uL Nucleated RBC % /100WBC Manual Slide Review Platelet Estimate (NORMAL) RBC Morph Micro Appear (NORMAL) VBG pH (7.31-7.41) Ionized Calcium (1.15-1.33) mmol/L Sodium (135-145) mmol/L Potassium 4.1 (3.5-4.5) mmol/L Chloride (101-111) mmol/L Carbon Dioxide (21-32) mmol/L Anion Gap (6-13) BUN (6-20) mg/dL Creatinine (0.6-1.3) mg/dL Estimated GFR (MDRD) (>89) Glucose (74-104) mg/dL Calcium (8.5-10.3) mg/dL Phosphorus (2.5-5.0) mg/dL Magnesium 1.9 (1.7-2.3) mg/dL Prealbumin (17-34) mg/dL Triglycerides 111 (48-352) mg/dL Last Dose Date UNK Last Dose Time UNK Vancomycin Trough 14.0 ug/mL 02/26/23 02/26/23 02/26/23 Range/Units 06:11 06:11 04:34 WBC (4.8-10.8) x10^3/uL RBC (4.20-5.40) 10^6/uL Hgb (12.0-16.0) g/dL Hct (37.0-47.0) % MCV (81.0-99.0) fL MCH (27.0-31.0) pg MCHC (32.0-36.0) g/dL RDW (12.0-15.0) % Plt Count (130-450) 10^3/uL MPV (7.9-10.8) fL Neut # (Auto) (1.5-6.6) 10^3/uL Lymph # (Auto) (1.5-3.5) 10^3/uL [place] # (Auto) (0.0-1.0) 10^3/uL Eos # (Auto) (0.0-0.7) 10^3/uL Baso # (Auto) (0.0-0.1) 10^3/uL Absolute Nucleated RBC x10^3/uL Nucleated RBC % /100WBC Manual Slide Review Platelet Estimate (NORMAL) RBC Morph Micro Appear (NORMAL) VBG pH 7.424 H 7.469 H (7.31-7.41) Ionized Calcium 1.11 L 1.29 (1.15-1.33) mmol/L Sodium (135-145) mmol/L Potassium (3.5-4.5) mmol/L Chloride (101-111) mmol/L Carbon Dioxide (21-32) mmol/L Anion Gap (6-13) BUN (6-20) mg/dL Creatinine (0.6-1.3) mg/dL Estimated GFR (MDRD) (>89) Glucose (74-104) mg/dL Calcium 8.1 L (8.5-10.3) mg/dL Phosphorus (2.5-5.0) mg/dL Magnesium (1.7-2.3) mg/dL Prealbumin (17-34) mg/dL Triglycerides (48-352) mg/dL Last Dose Date Last Dose Time Vancomycin Trough ug/mL 02/26/23 02/26/23 02/26/23 Range/Units 04:34 04:34 04:34 WBC 5.5 (4.8-10.8) x10^3/uL RBC 2.53 L (4.20-5.40) 10^6/uL Hgb 9.2 L (12.0-16.0) g/dL Hct 28.7 L (37.0-47.0) % MCV 113.4 H (81.0-99.0) fL MCH 36.4 H (27.0-31.0) pg MCHC 32.1 (32.0-36.0) g/dL RDW 17.3 H (12.0-15.0) % Plt Count 245 (130-450) 10^3/uL MPV 9.8 (7.9-10.8) fL Neut # (Auto) 3.6 (1.5-6.6) 10^3/uL Lymph # (Auto) 1.0 L (1.5-3.5) 10^3/uL [place] # (Auto) 0.5 (0.0-1.0) 10^3/uL Eos # (Auto) 0.3 (0.0-0.7) 10^3/uL Baso # (Auto) 0.0 (0.0-0.1) 10^3/uL Absolute Nucleated RBC 0.00 x10^3/uL Nucleated RBC % 0.0 /100WBC Manual Slide Review Indicated Platelet Estimate NORMAL (130-450,000) (NORMAL) RBC Morph Micro Appear 2+ MACROCYTOSIS (NORMAL) VBG pH (7.31-7.41) Ionized Calcium (1.15-1.33) mmol/L Sodium 138 (135-145) mmol/L Potassium 3.9 (3.5-4.5) mmol/L Chloride 109 (101-111) mmol/L Carbon Dioxide 25 (21-32) mmol/L Anion Gap 4.0 L (6-13) BUN 11 (6-20) mg/dL Creatinine 0.4 L (0.6-1.3) mg/dL Estimated GFR (MDRD) 152 (>89) Glucose 120 H (74-104) mg/dL Calcium 12.0 H* (8.5-10.3) mg/dL Phosphorus 3.1 (2.5-5.0) mg/dL Magnesium 2.1 (1.7-2.3) mg/dL Prealbumin 9 L (17-34) mg/dL Triglycerides (48-352) mg/dL Last Dose Date Last Dose Time Vancomycin Trough ug/mL 02/25/23 02/25/23 Range/Units 23:59 23:59 WBC (4.8-10.8) x10^3/uL RBC (4.20-5.40) 10^6/uL Hgb (12.0-16.0) g/dL Hct (37.0-47.0) % MCV (81.0-99.0) fL MCH (27.0-31.0) pg MCHC (32.0-36.0) g/dL RDW (12.0-15.0) % Plt Count (130-450) 10^3/uL MPV (7.9-10.8) fL Neut # (Auto) (1.5-6.6) 10^3/uL Lymph # (Auto) (1.5-3.5) 10^3/uL [place] # (Auto) (0.0-1.0) 10^3/uL Eos # (Auto) (0.0-0.7) 10^3/uL Baso # (Auto) (0.0-0.1) 10^3/uL Absolute Nucleated RBC x10^3/uL Nucleated RBC % /100WBC Manual Slide Review Platelet Estimate (NORMAL) RBC Morph Micro Appear (NORMAL) VBG pH 7.484 H (7.31-7.41) Ionized Calcium 1.07 L (1.15-1.33) mmol/L Sodium (135-145) mmol/L Potassium 3.9 (3.5-4.5) mmol/L Chloride (101-111) mmol/L Carbon Dioxide (21-32) mmol/L Anion Gap (6-13) BUN (6-20) mg/dL Creatinine (0.6-1.3) mg/dL Estimated GFR (MDRD) (>89) Glucose (74-104) mg/dL Calcium (8.5-10.3) mg/dL Phosphorus 3.3 (2.5-5.0) mg/dL Magnesium 1.8 (1.7-2.3) mg/dL Prealbumin (17-34) mg/dL Triglycerides (48-352) mg/dL Last Dose Date Last Dose Time Vancomycin Trough ug/mL Assessment/Plan - Problem List (1) Acute hypoxemic respiratory failure Impression: She has chronic lung disease with chronic hypoxic respiratory failure on 5 to 6 L on a regular basis. She has interstitial lung disease and previous infection with Mycobacterium Avium Complex infection. Current episode that seems to be a slow insidious downhill course over the last 2 weeks may or may not be associated with aspiration. She seemed to be losing her voice and could no longer speak last week. Her friends noted a change on February 17. By February 18 she was aphonic. We could track down a possible swallow eval from speech pathology at [facility](?) She then was brought to our emergency room from [facility] 02/21 with shortness of breath and altered mental status for 2 hours. In our emergency room she was intubated for respiratory failure and to protect her airway. CT scan shows bilateral chronic nodular, interstitial, airspace infiltrates involving both upper and lower lobes with bronchiectasis in the right upper lobe, right middle lobe, lingula and both lobes. She has increased consolidation or atelectasis in both lower lobes in comparison to the previous CT. She has a moderate L1 compression fracture. In the ICU she remained intubated overnight, was extubated her on her second hospital day 02/22 and she did well: was upright in bed, eating after she passed a bedside swallow eval, and was phonating well, but was "a bit tired". (We were worried about a stroke because of a left pronator drift, and a very slight left facial droop. But CT of the head was negative for acute stroke). On the evening of February 22, she deteriorated again. Blood gas showed a pH of 7.45, pCO2 33, pO2 80 on an FiO2 of 100% and 35 L. She was breathing >30 breaths a minute and she was intubated again. She is (+) for human metapneumovirus and spt cx grew Pseudomonas Plan: Now she is re-intubated again. With her advanced age, and with a chronic lung condition she has poor prognosis with this current episode. (2) Pseudomonas pneumonia Impression: Sputum cx obtained yesterday has come back growing Pseudomonas aeruginosa Plan: Continue with empiric broad-spectrum antibiotic Zosyn (and Vancomycin, see #4) Will tailor antibiotics based on sensitivities (3) Human metapneumovirus (hMPV) pneumonia Conclusion/Plan: She has chronic lung disease with interstitial lung disease and previous Mycobacterium Avium Complex infection. There is always the possibility of secondary bacterial infection. She lives in a retirement facility and has lung structural damage. Therefore antibiotic coverage was broadened with Zosyn and vancomycin added 02/21 due to the (+) blood cultures. White cell count was high on admission. Infectious Disease MD that takes care of her was called and left a message, no retur call yet. Plan: Continue Zosyn (and Vancomycin, see #4) (4) Staph epidermidis bacteremia Conclusion/Plan: Blood cultures became positive at less than 24 hours from blood draw. Both sets. She is on vancomycin Repeat blood cultures have been done on February 22 and are neg to date. Echocardiogram was done and did not report vegetations Plan: Cont vanco, a 10 day course is planned (5) Cor pulmonale Conclusion/Plan: Very dilated right heart seen on Echo with severely depressed RV function. Flattened septum consistent with pressure overload from the right heart as well. This is from her underlying lung disease which has been longstanding and must be severe Plan: As above in #1 (6) VTach Conclusion/Plan: IMPROVED On classroom monitor the patient had multifocal V. tach, 5 beats, rate 150. Her Cor Pulmonale may be the cause of this Plan: Continue to follow her electrolytes and ensure they are normal (7) Essential thrombocytosis Conclusion/Plan: Well-controlled with hydroxyurea 500 mg p.o. twice daily. Plan: Will give through the NG tube (8) Hypertension At her residential facility blood pressure medicine was hydralazine 10 mg daily as needed, and atenolol 50 mg daily. After re-intubation she was hypertensive at 200/100, and tachycardic at 200. She received 1 dose of Lopressor 5 mg IV push andthen amiodarone. Within 15 minutes blood pressure was normal, heart rate was normal. (9) Atrial tachycardia Unable to get an EKG when it was happening. It was presumed to be SVT at rate of 200. Responded well to Lopressor and Amiodarone push then drip. The Amiodarone drip gave her full loading. Plan: Since the EKG showed right axis deviation, consistent with Pulm disease, and Amio has also of pulm toxicity, I will not continue her on Amio Cont B-kelli dosing (10) Dementia Conclusion/Plan: With her previous stay at a retirement facility her slums score was calculated at 12 out of 30, with this judgment was impaired, memory loss was evident, and anxiety was manifested. She was on Risperdal, Klonezepam and Prozac at the retirement facility. Plan: Now intubated again, with an NG tube in place. We have restarted her medicines through the NG tube (11) Left facial droop and left pronator drift Conclusion/Plan: This was noted when she was extubated and was interacting. CT of the head was negative for acute stroke. Plan: Now she is on iv sedative drip while inubated on the vent, so cannot do neuro checks
--- NOTE | 2023-02-26 18:05 | XRAY Report ---
PROCEDURE: Chest for Line Placement INDICATIONS: CVL: R IJ TECHNIQUE: One view of the chest was acquired. COMPARISON: Chest x-ray 02/21/2023. FINDINGS: Surgical changes and devices: Endotracheal tube with tip 4 cm above the irais. Right central venous catheter with tip in the right atrium. Nasogastric tube with tip and side-port below the esophagus.. Lungs and pleura: Diffuse bilateral pulmonary opacities appear increased compared to prior. Mediastinum: Mediastinal contours appear normal. Heart size is normal. Bones and chest wall: No suspicious bony lesions. Overlying soft tissues appear unremarkable. IMPRESSION: 1.Diffuse pulmonary opacities bilaterally appear increased compared to prior, infection versus edema. 2.Endotracheal tube with tip 4 cm above the irais. 3.Right central venous catheter with tip in the right atrium. Reviewed by: Neftaly Koenig MD on 02/26/2023 6:03 PM PST Approved by: Neftaly Koenig MD on 02/26/2023 6:03 PM PST Station ID: [id number]
[2023-02-26] MEDS: GABAPENTIN 300 MG CAPSULE PO SCH (20:32)
[2023-02-27] MEDS: PROPOFOL 1000 MG/100 ML 1,000 MG/100 ML BOTTLE IV SCH ×2 (02:32→13:28)
[2023-02-27 05:20] LABS: MAGNESIUM 1.7 mg/dL (1.7-2.3); PHOSPHORUS 4.4 mg/dL (2.5-5.0); POTASSIUM 3.6 mmol/L (3.5-4.5)
[2023-02-27] MEDS ORDERED: POTASSIUM CHLOR 20 MEQ/100 ML 20 MEQ/100 ML BAG IV ONE ×3 (05:29→21:40)
[2023-02-27] MEDS ORDERED: MAGNESIUM SULFATE 2 GRAM 2 GM/50 ML BAG IV ONE (05:29)
[2023-02-27] MEDS: FUROSEMIDE 20 MG/2 ML VIAL IVP SCH ×2 (05:49→13:31)
[2023-02-27] MEDS: PANTOPRAZOLE 40 MG VIAL IVP SCH (06:01)
[2023-02-27] MEDS: LEVOTHYROXINE 100 MCG TABLET PO SCH (06:01)
[2023-02-27 07:19] LABS: CALCIUM, IONIZED 1.11 mmol/L (1.15-1.33); VBG PH 7.408 (7.31-7.41)
[2023-02-27 08:15] LABS: BASOPHILS # (AUTO) 0.1 10^3/uL (0.0-0.1); BASOPHILS % (AUTO) 1.1 %; EOSINOPHILS # (AUTO) 0.2 10^3/uL (0.0-0.7); EOSINOPHILS % (AUTO) 4.7 %; HCT - HEMATOCRIT 27.5 % (37.0-47.0); LYMPHOCYTES # (AUTO) 0.9 10^3/uL (1.5-3.5); LYMPHOCYTES % (AUTO) 19.2 %; MEAN CORPUSCULAR HEMOGLOBIN 37.2 pg (27.0-31.0); MEAN CORPUSCULAR HGB CONC 32.7 g/dL (32.0-36.0); MEAN CORPUSCULAR VOLUME 113.6 fL (81.0-99.0); MONOCYTES # (AUTO) 0.7 10^3/uL (0.0-1.0); NEUTROPHILS # (AUTO) 2.7 10^3/uL (1.5-6.6); NEUTROPHILS % (AUTO) 56.4 %; PLT - PLATELET COUNT 289 10^3/uL (130-450); RED BLOOD COUNT 2.42 10^6/uL (4.20-5.40); RED CELL DISTRIBUTION WIDTH 17.2 % (12.0-15.0); WHITE BLOOD COUNT 4.7 x10^3/uL (4.8-10.8)
[2023-02-27 08:23] LABS: CALCIUM 8.2 mg/dL (8.5-10.3); CREATININE 0.4 mg/dL (0.6-1.3); POTASSIUM 3.6 mmol/L (3.5-4.5)
[2023-02-27] MEDS: PIPERACILLIN/TAZOBACTAM 3.375 GM in SODIUM CHLORIDE 0.9% MINIBAG 100 ML IV SCH ×3 (08:29→23:55)
[2023-02-27 08:37] LABS: PLATELET ESTIMATE, MANUAL NORMAL (130-450,000) (NORMAL); PLATELET MORPHOLOGY NORMAL APPEARANCE (NORMAL); RBC MORPHOLOGY (MULTIPLE) 2+ MACROCYTOSIS (NORMAL); SLIDE REVIEW? Indicated
[2023-02-27] MEDS: VANCOMYCIN INJ 0.75 GM in SODIUM CHLORIDE 0.9% 250 ML IV SCH (09:22)
[2023-02-27] MEDS: SODIUM CHLORIDE FLUSH 0.9% 10 ML SYRINGE IVP PRN ×4 (09:30→20:41)
[2023-02-27] MEDS: CHLORHEXIDINE GLUCONATE 15 ML UDC PO SCH ×2 (10:19→20:13)
[2023-02-27] MEDS: ENOXAPARIN 40 MG/0.4 ML SYRINGE SUBQ SCH (10:19)
[2023-02-27] MEDS: risperiDONE 0.25 MG TABLET PO SCH (10:19)
[2023-02-27] MEDS: FLUoxetine 10 MG CAPSULE PO SCH ×2 (10:19→22:27)
[2023-02-27] MEDS: lamoTRIgine 25 MG TABLET PO SCH (10:19)
[2023-02-27] MEDS: ASPIRIN EC 81 MG TABLET PO SCH (10:20)
[2023-02-27] MEDS: atenoloL 25 MG TABLET PO SCH (10:20)
[2023-02-27] MEDS: ACETAMINOPHEN 325 MG TABLET PO PRN (10:22)
[2023-02-27] MEDS: PSYLLIUM PACKET PO SCH (10:22)
[2023-02-27] MEDS: SODIUM CHLORIDE FLUSH 0.9% 10 ML SYRINGE IVP SCH ×2 (10:30→18:26)
[2023-02-27] MEDS: ZINC OXIDE 20% OINT 30 GM TUBE TOP PRN ×2 (11:00→13:51)
[2023-02-27] MEDS ORDERED: CALCIUM GLUC 1,000MG/50ML-NACL 1,000 MG/50 ML BAG IV ONE (12:03)
[2023-02-27] MEDS: ACETAMINOPHEN 1,000 MG/100 ML 1,000 MG/100 ML BAG IV PRN (15:37)
[2023-02-27 15:44] LABS: CALCIUM, IONIZED 1.12 mmol/L (1.15-1.33); VBG PH 7.463 (7.31-7.41)
--- NOTE | 2023-02-27 15:47 | CONSULTATION NOTE ---
Consultation Report: It was reported to me that central line tip was in right atrium per radiologist read. Pulled back 5cm and resutured and redressed.
[2023-02-27 16:07] LABS: MAGNESIUM 1.9 mg/dL (1.7-2.3); POTASSIUM 3.6 mmol/L (3.5-4.5)
--- NOTE | 2023-02-27 19:12 | PROVIDER PROGRESS NOTE ---
Subjective - Subjective Pt reports feeling: No change (sedated on the vent) Objective - Vital Signs/Intake & Output Vital Signs: Vital Signs Temp Pulse Pulse Resp BP Pulse Ox 02/27/23 19:00 37.4 C 66 15 115/74 95 02/27/23 18:00 37.5 C 68 12 129/69 94 02/27/23 17:00 37.4 C 62 13 141/70 H 95 02/27/23 16:43 66 02/27/23 16:24 66 02/27/23 16:00 37.3 C 65 18 139/72 H 97 02/27/23 15:38 62 Intake & Output: Intake & Output 02/24/23 02/25/23 02/26/23 02/27/23 23:59 23:59 23:59 23:59 Intake Total 2791.058 2772.800 3034.224 2402.081 Output Total 1802 1629 4886 2996 Balance 226.692 2844.800 -8851.776 -593.919 - Objective General Appearance: positive: Other (sedated on the vent) Eyes Bilateral: positive: No lid inflammation ENT: positive: No signs of dehydration Neck: positive: Nml inspection Respiratory: positive: No respiratory distress, Breath sounds nml Cardiovascular: positive: Regular rate & rhythm, No murmur (distant heart sounds due to lung disease) Abdomen: positive: No distention, Other (soft) Skin: positive: Warm, Dry Extremities: positive: Non-tender, No pedal edema Neurologic/Psychiatric: positive: Other (sedated on the vent) - Lab Results Fish Bones: 02/28/23 04:38 02/28/23 09:00 Other Labs: Lab Results x24hrs 02/27/23 02/27/23 02/27/23 Range/Units 15:28 15:28 04:23 WBC (4.8-10.8) x10^3/uL RBC (4.20-5.40) 10^6/uL Hgb (12.0-16.0) g/dL Hct (37.0-47.0) % MCV (81.0-99.0) fL MCH (27.0-31.0) pg MCHC (32.0-36.0) g/dL RDW (12.0-15.0) % Plt Count (130-450) 10^3/uL MPV (7.9-10.8) fL Neut # (Auto) (1.5-6.6) 10^3/uL Lymph # (Auto) (1.5-3.5) 10^3/uL [place] # (Auto) (0.0-1.0) 10^3/uL Eos # (Auto) (0.0-0.7) 10^3/uL Baso # (Auto) (0.0-0.1) 10^3/uL Absolute Nucleated RBC x10^3/uL Nucleated RBC % /100WBC Manual Slide Review Platelet Estimate (NORMAL) Platelet Morphology (NORMAL) RBC Morph Micro Appear (NORMAL) VBG pH 7.463 H (7.31-7.41) Ionized Calcium 1.12 L (1.15-1.33) mmol/L Sodium 140 (135-145) mmol/L Potassium 3.6 3.6 (3.5-4.5) mmol/L Chloride 103 (101-111) mmol/L Carbon Dioxide 31 (21-32) mmol/L Anion Gap 6.0 (6-13) BUN 12 (6-20) mg/dL Creatinine 0.4 L (0.6-1.3) mg/dL Estimated GFR (MDRD) 152 (>89) Glucose 122 H (74-104) mg/dL Calcium 8.2 L (8.5-10.3) mg/dL Phosphorus (2.5-5.0) mg/dL Magnesium 1.9 (1.7-2.3) mg/dL 02/27/23 02/27/23 02/27/23 Range/Units 04:23 04:23 04:23 WBC 4.7 L (4.8-10.8) x10^3/uL RBC 2.42 L (4.20-5.40) 10^6/uL Hgb 9.0 L (12.0-16.0) g/dL Hct 27.5 L (37.0-47.0) % MCV 113.6 H (81.0-99.0) fL MCH 37.2 H (27.0-31.0) pg MCHC 32.7 (32.0-36.0) g/dL RDW 17.2 H (12.0-15.0) % Plt Count 289 (130-450) 10^3/uL MPV 10.0 (7.9-10.8) fL Neut # (Auto) 2.7 (1.5-6.6) 10^3/uL Lymph # (Auto) 0.9 L (1.5-3.5) 10^3/uL [place] # (Auto) 0.7 (0.0-1.0) 10^3/uL Eos # (Auto) 0.2 (0.0-0.7) 10^3/uL Baso # (Auto) 0.1 (0.0-0.1) 10^3/uL Absolute Nucleated RBC 0.00 x10^3/uL Nucleated RBC % 0.0 /100WBC Manual Slide Review Indicated Platelet Estimate NORMAL (130-450,000) (NORMAL) Platelet Morphology NORMAL APPEARANCE (NORMAL) RBC Morph Micro Appear 2+ MACROCYTOSIS (NORMAL) VBG pH 7.408 (7.31-7.41) Ionized Calcium 1.11 L (1.15-1.33) mmol/L Sodium (135-145) mmol/L Potassium 3.6 (3.5-4.5) mmol/L Chloride (101-111) mmol/L Carbon Dioxide (21-32) mmol/L Anion Gap (6-13) BUN (6-20) mg/dL Creatinine (0.6-1.3) mg/dL Estimated GFR (MDRD) (>89) Glucose (74-104) mg/dL Calcium (8.5-10.3) mg/dL Phosphorus 4.4 (2.5-5.0) mg/dL Magnesium 1.7 (1.7-2.3) mg/dL - Diagnostic Imaging Diagnostic Imaging Results: positive: Final report reviewed Assessment/Plan - Problem List (1) Acute hypoxemic respiratory failure Impression: She has chronic lung disease with chronic hypoxic respiratory failure on 5 to 6 L on a regular basis. 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 Current episode that seems to be a slow insidious downhill course over the last 2 weeks may or may not be associated with aspiration. She seemed to be losing her voice and could no longer speak last week. Her friends noted a change on February 17. By February 18 she was aphonic. We could track down a possible swallow eval from speech pathology at [facility](?) She then was brought to our emergency room from [facility] 02/21 with shortness of breath and altered mental status for 2 hours. In our emergency room she was intubated for respiratory failure and to protect her airway. CT scan shows bilateral chronic nodular, interstitial, airspace infiltrates involving both upper and lower lobes with bronchiectasis in the right upper lobe, right middle lobe, lingula and both lobes. She has increased consolidation or atelectasis in both lower lobes in comparison to the previous CT. She has a moderate L1 compression fracture. In the ICU she remained intubated overnight, was extubated her on her second hospital day 02/22 and she did well: was upright in bed, eating after she passed a bedside swallow eval, and was phonating well, but was "a bit tired". (We were worried about a stroke because of a left pronator drift, and a very slight left facial droop. But CT of the head was negative for acute stroke). On the evening of February 22, she deteriorated again. Blood gas showed a pH of 7.45, pCO2 33, pO2 80 on an FiO2 of 100% and 35 L. She was breathing >30 breaths a minute and she was intubated again. She is (+) for human metapneumovirus and spt cx grew Pseudomonas Plan: Now she is re-intubated again. She is getting nutrition via ng tube (the tube got plugged frim Metamucil, will replace) With her advanced age, and with a chronic lung condition she has poor prognosis with this current episode. (2) On mechanically assisted ventilation Impression: She was reintubated and this is Day #4 back on the vent Today she got an a.m. CPAP trial then put back on sedation and the vent, then with an afternoon weaning trial her resp parameters were done and she was not ready for extubation: she could not follow directions to take deep breath for VC and for NIF readings Plan: Will let her rest overnite another night and try weaning and extubation tomorrow (3) Pseudomonas pneumonia Impression: Sputum cx obtained has come back growing Pseudomonas aeruginosa Sens show that it is resistant to Cefazolin but sens to everything else tested Plan: Continue with iv antibiotic Zosyn (and Vancomycin, see #5) (4) Human metapneumovirus (hMPV) pneumonia Conclusion/Plan: She has chronic lung disease with interstitial lung disease and previous Mycobacterium Avium Complex infection. There is always the possibility of secondary bacterial infection. She lives in a correction facility and has lung structural damage. Therefore antibiotic coverage was broadened with Zosyn and vancomycin added 02/21 due to the (+) blood cultures. White cell count was high on admission. Infectious Disease MD that takes care of her was called and left a message, no retur call yet. Plan: Continue Zosyn (and Vancomycin, see #5) (5) Staph epidermidis bacteremia Conclusion/Plan: Blood cultures became positive at less than 24 hours from blood draw. Both sets. She is on vancomycin with several antibx resistances but sens to VAnco Repeat blood cultures have been done on February 22 and are neg to date. Echocardiogram was done and did not report vegetations Plan: Cont vanco, a 10 day course is planned (6) Cor pulmonale Conclusion/Plan: Very dilated right heart seen on Echo with severely depressed RV function. Flattened septum consistent with pressure overload from the right heart as well. This is from her underlying lung disease which has been longstanding and must be severe Plan: As above in #1 (7) VTach Conclusion/Plan: IMPROVED On quality assurance monitor chassis the patient had multifocal V. tach, 5 beats, rate 150. Her Cor Pulmonale may be the cause of this Plan: Continue to follow her electrolytes and ensure they are normal (8) Essential thrombocytosis Conclusion/Plan: Well-controlled with hydroxyurea 500 mg p.o. twice daily. Plan: Will give through the NG tube (9) Hypertension At her residential facility blood pressure medicine was hydralazine 10 mg daily as needed, and atenolol 50 mg daily. After re-intubation she was hypertensive at 200/100, and tachycardic at 200. She received 1 dose of Lopressor 5 mg IV push andthen amiodarone. Within 15 minutes blood pressure was normal, heart rate was normal. (10) Atrial tachycardia Unable to get an EKG when it was happening. It was presumed to be SVT at rate of 200. Responded well to Lopressor and Amiodarone push then drip. The Amiod arone drip gave her full loading. Plan: Since the EKG showed right axis deviation, consistent with Pulm disease, and Amio has also of pulm toxicity, I did not continue her on Amiodarone Cont B-kelli dosing (11) Dementia Conclusion/Plan: With her previous stay at a correction facility her slums score was calculated at 12 out of 30, with this judgment was impaired, memory loss was evident, and anxiety was manifested. She was on Risperdal, Klonezepam and Prozac at the correction facility. Plan: Now intubated again, with an NG tube in place. We have restarted her medicines through the NG tube (12) Left facial droop and left pronator drift Conclusion/Plan: This was noted when she was extubated and was interacting. CT of the head was negative for acute stroke. Plan: Now she is on iv sedative drip while inubated on the vent, so cannot do neuro checks
--- NOTE | 2023-02-27 20:47 | XRAY Report ---
PROCEDURE: Chest for Line Placement INDICATIONS: NG tube placement verification TECHNIQUE: One view of the chest was acquired. COMPARISON: 02/26/2023. FINDINGS: Surgical changes and devices: Endotracheal tube tip projects approximately 4.4 cm above the irais. Nasogastric tube extends below the level of diaphragm with distal tip off the [id number]. Right ce ntral venous catheter tip projects over the lower SVC. Lungs and pleura: No pneumothorax. Bilateral pleural effusion. Persistent diffuse interstitial promi nence and patchy airspace opacities most pronounced in the bilateral lower lung zones. No new focal c onsolidation. Mediastinum: Mediastinal contours appear stable. Heart size is normal. Bones and chest wall: No suspicious bony lesions. Overlying soft tissues appear unremarkable. IMPRESSION: Endotracheal tube tip projects approximately 4.4 cm above the irais. Right central venous catheter t ip projects over the lower SVC. Otherwise, stable cardiopulmonary evaluation with findings suggestive of multifocal pneumonia versus edema. Reviewed by: Wesley Dill MD on 02/27/2023 8:45 PM PST Approved by: Wesley Dill MD on 02/27/2023 8:45 PM PST Station ID: [id number]
[2023-02-27] MEDS: GABAPENTIN 300 MG CAPSULE PO SCH (22:28)
[2023-02-28] MEDS: SODIUM CHLORIDE FLUSH 0.9% 10 ML SYRINGE IVP SCH ×3 (01:23→17:33)
[2023-02-28] MEDS: SODIUM CHLORIDE FLUSH 0.9% 10 ML SYRINGE IVP PRN ×5 (04:35→09:00)
[2023-02-28 04:49] LABS: BASOPHILS % (AUTO) 0.8 %; EOSINOPHILS # (AUTO) 0.2 10^3/uL (0.0-0.7); EOSINOPHILS % (AUTO) 3.7 %; HCT - HEMATOCRIT 27.5 % (37.0-47.0); HGB - HEMOGLOBIN 8.9 g/dL (12.0-16.0); LYMPHOCYTES # (AUTO) 0.8 10^3/uL (1.5-3.5); LYMPHOCYTES % (AUTO) 14.5 %; MEAN CORPUSCULAR HEMOGLOBIN 36.6 pg (27.0-31.0); MEAN CORPUSCULAR HGB CONC 32.4 g/dL (32.0-36.0); MEAN CORPUSCULAR VOLUME 113.2 fL (81.0-99.0); MEAN PLATELET VOLUME 9.4 fL (7.9-10.8); MONOCYTES # (AUTO) 0.8 10^3/uL (0.0-1.0); MONOCYTES % (AUTO) 15.4 %; NEUTROPHILS # (AUTO) 3.2 10^3/uL (1.5-6.6); NEUTROPHILS % (AUTO) 61.9 %; PLT - PLATELET COUNT 302 10^3/uL (130-450); RED BLOOD COUNT 2.43 10^6/uL (4.20-5.40); RED CELL DISTRIBUTION WIDTH 17.2 % (12.0-15.0); WHITE BLOOD COUNT 5.2 x10^3/uL (4.8-10.8)
[2023-02-28 04:57] LABS: VBG PH 7.463 (7.31-7.41)
[2023-02-28 04:58] LABS: CALCIUM, IONIZED 1.1 mmol/L (1.15-1.33)
[2023-02-28] MEDS: PROPOFOL 1000 MG/100 ML 1,000 MG/100 ML BOTTLE IV SCH (05:15)
[2023-02-28 05:16] LABS: CALCIUM 8.3 mg/dL (8.5-10.3); CREATININE 0.6 mg/dL (0.6-1.3); MAGNESIUM 1.7 mg/dL (1.7-2.3); POTASSIUM 3.9 mmol/L (3.5-4.5)
[2023-02-28] MEDS ORDERED: CALCIUM GLUC 1,000MG/50ML-NACL 1,000 MG/50 ML BAG IV ONE (05:22)
[2023-02-28] MEDS: FUROSEMIDE 20 MG/2 ML VIAL IVP SCH ×2 (05:27→13:49)
[2023-02-28] MEDS ORDERED: POTASSIUM CHLOR 20 MEQ/100 ML 20 MEQ/100 ML BAG IV ONE (06:00)
[2023-02-28] MEDS ORDERED: MAGNESIUM SULFATE 2 GRAM 2 GM/50 ML BAG IV ONE (06:00)
[2023-02-28] MEDS: PANTOPRAZOLE 40 MG VIAL IVP SCH (06:57)
[2023-02-28] MEDS: LEVOTHYROXINE 100 MCG TABLET PO SCH (06:57)
[2023-02-28] MEDS: ZINC OXIDE 20% OINT 30 GM TUBE TOP PRN ×2 (08:00→20:23)
[2023-02-28] MEDS: PIPERACILLIN/TAZOBACTAM 3.375 GM in SODIUM CHLORIDE 0.9% MINIBAG 100 ML IV SCH ×3 (08:12→23:33)
[2023-02-28] MEDS: lamoTRIgine 25 MG TABLET PO SCH (08:26)
[2023-02-28] MEDS: FLUoxetine 10 MG CAPSULE PO SCH ×2 (08:26→20:22)
[2023-02-28] MEDS: atenoloL 25 MG TABLET PO SCH (08:26)
[2023-02-28] MEDS: ASPIRIN EC 81 MG TABLET PO SCH (08:26)
[2023-02-28] MEDS: ENOXAPARIN 40 MG/0.4 ML SYRINGE SUBQ SCH (08:26)
[2023-02-28] MEDS: CHLORHEXIDINE GLUCONATE 15 ML UDC PO SCH (08:26)
[2023-02-28] MEDS: risperiDONE 0.25 MG TABLET PO SCH (08:29)
[2023-02-28 09:12] LABS: CALCIUM, IONIZED 1.12 mmol/L (1.15-1.33); VBG PH 7.477 (7.31-7.41)
[2023-02-28 09:24] LABS: MAGNESIUM 2.3 mg/dL (1.7-2.3); POTASSIUM 4.1 mmol/L (3.5-4.5)
--- NOTE | 2023-02-28 15:06 | PROVIDER PROGRESS NOTE ---
Subjective - Subjective Pt reports feeling: Improved Objective - Vital Signs/Intake & Output Reviewed Vital Signs: Yes Vital Signs: Vital Signs Temp Pulse Resp BP Pulse Ox O2 Flow Rate 02/28/23 14:00 37.8 C 76 22 162/89 H 95 25 02/28/23 13:00 76 23 165/89 H 96 25 02/28/23 12:00 37.6 C 77 25 H 164/90 H 97 25 Intake & Output: Intake & Output 02/25/23 02/26/23 02/27/23 02/28/23 23:59 23:59 23:59 23:59 Intake Total 2772.800 3034.224 2757.989 1859.971 Output Total 1620 4886 3111 1581 Balance 1143.800 -1851.776 -353.011 278.971 - Objective General Appearance: positive: Lethargic (Awake, follows directions, is very weak) Eyes Bilateral: positive: No lid inflammation ENT: positive: No signs of dehydration Neck: positive: Nml inspection, No JVD Respiratory: positive: No respiratory distress, Breath sounds nml Cardiovascular: positive: Regular rate & rhythm, No murmur (distant heart sounds due to lung disease) Abdomen: positive: Non-tender, No distention Skin: positive: Warm, Dry Extremities: positive: Non-tender, No pedal edema Neurologic/Psychiatric: positive: Other (Awake, follows directions, speaking 3- word sentences, very bradykinetic mvms) - Lab Results Fish Bones: 02/28/23 04:38 02/28/23 09:00 Other Labs: Lab Results x24hrs 02/28/23 02/28/23 02/28/23 Range/Units 09:00 09:00 04:38 WBC (4.8-10.8) x10^3/uL RBC (4.20-5.40) 10^6/uL Hgb (12.0-16.0) g/dL Hct (37.0-47.0) % MCV (81.0-99.0) fL MCH (27.0-31.0) pg MCHC (32.0-36.0) g/dL RDW (12.0-15.0) % Plt Count (130-450) 10^3/uL MPV (7.9-10.8) fL Neut # (Auto) (1.5-6.6) 10^3/uL Lymph # (Auto) (1.5-3.5) 10^3/uL [place] # (Auto) (0.0-1.0) 10^3/uL Eos # (Auto) (0.0-0.7) 10^3/uL Baso # (Auto) (0.0-0.1) 10^3/uL Absolute Nucleated RBC x10^3/uL Nucleated RBC % /100WBC VBG pH 7.477 H 7.463 H (7.31-7.41) Ionized Calcium 1.12 L 1.10 L (1.15-1.33) mmol/L Sodium (135-145) mmol/L Potassium 4.1 (3.5-4.5) mmol/L Chloride (101-111) mmol/L Carbon Dioxide (21-32) mmol/L Anion Gap (6-13) BUN (6-20) mg/dL Creatinine (0.6-1.3) mg/dL Estimated GFR (MDRD) (>89) Glucose (74-104) mg/dL Calcium (8.5-10.3) mg/dL Phosphorus (2.5-5.0) mg/dL Magnesium 2.3 (1.7-2.3) mg/dL 02/28/23 02/28/23 02/28/23 Range/Units 04:38 04:38 00:43 WBC 5.2 (4.8-10.8) x10^3/uL RBC 2.43 L (4.20-5.40) 10^6/uL Hgb 8.9 L (12.0-16.0) g/dL Hct 27.5 L (37.0-47.0) % MCV 113.2 H (81.0-99.0) fL MCH 36.6 H (27.0-31.0) pg MCHC 32.4 (32.0-36.0) g/dL RDW 17.2 H (12.0-15.0) % Plt Count 302 (130-450) 10^3/uL MPV 9.4 (7.9-10.8) fL Neut # (Auto) 3.2 (1.5-6.6) 10^3/uL Lymph # (Auto) 0.8 L (1.5-3.5) 10^3/uL [place] # (Auto) 0.8 (0.0-1.0) 10^3/uL Eos # (Auto) 0.2 (0.0-0.7) 10^3/uL Baso # (Auto) 0.0 (0.0-0.1) 10^3/uL Absolute Nucleated RBC 0.00 x10^3/uL Nucleated RBC % 0.0 /100WBC VBG pH (7.31-7.41) Ionized Calcium (1.15-1.33) mmol/L Sodium 139 (135-145) mmol/L Potassium 3.9 4.2 (3.5-4.5) mmol/L Chloride 101 (101-111) mmol/L Carbon Dioxide 35 H (21-32) mmol/L Anion Gap 3.0 L (6-13) BUN 13 (6-20) mg/dL Creatinine 0.6 (0.6-1.3) mg/dL Estimated GFR (MDRD) 95 (>89) Glucose 118 H (74-104) mg/dL Calcium 8.3 L (8.5-10.3) mg/dL Phosphorus 4.0 (2.5-5.0) mg/dL Magnesium 1.7 (1.7-2.3) mg/dL 02/27/23 02/27/23 02/27/23 Range/Units 20:37 15:28 15:28 WBC (4.8-10.8) x10^3/uL RBC (4.20-5.40) 10^6/uL Hgb (12.0-16.0) g/dL Hct (37.0-47.0) % MCV (81.0-99.0) fL MCH (27.0-31.0) pg MCHC (32.0-36.0) g/dL RDW (12.0-15.0) % Plt Count (130-450) 10^3/uL MPV (7.9-10.8) fL Neut # (Auto) (1.5-6.6) 10^3/uL Lymph # (Auto) (1.5-3.5) 10^3/uL [place] # (Auto) (0.0-1.0) 10^3/uL Eos # (Auto) (0.0-0.7) 10^3/uL Baso # (Auto) (0.0-0.1) 10^3/uL Absolute Nucleated RBC x10^3/uL Nucleated RBC % /100WBC VBG pH 7.463 H (7.31-7.41) Ionized Calcium 1.12 L (1.15-1.33) mmol/L Sodium (135-145) mmol/L Potassium 3.8 3.6 (3.5-4.5) mmol/L Chloride (101-111) mmol/L Carbon Dioxide (21-32) mmol/L Anion Gap (6-13) BUN (6-20) mg/dL Creatinine (0.6-1.3) mg/dL Estimated GFR (MDRD) (>89) Glucose (74-104) mg/dL Calcium (8.5-10.3) mg/dL Phosphorus (2.5-5.0) mg/dL Magnesium 1.9 (1.7-2.3) mg/dL Assessment/Plan - Problem List (1) Acute hypoxemic respiratory failure Impression: She has chronic interstitial lung disease and previous infection with Mycobacterium Avium Complex infection, with chronic hypoxic respiratory failure on 5 to 6 L of O2 constantly. This current resp episode started 2 weeks ago at [facility]. She then was brought to our emergency room from [facility] 02/21 with shortness of breath and altered mental status and was intubated for respiratory failure. CT scan shows bilateral chronic nodular, interstitial, airspace infiltrates involving both upper and lower lobes with bronchiectasis in the right upper lobe, right middle lobe, lingula and both lobes. She has increased consolidation or atelectasis in both lower lobes in comparison to the previous CT. She was (+) for human meta pneumovirus and spt cx grew Pseudomonas She remained intubated 02/21, was extubated on 02/22 and she did well until that evening of 02/22 when she deteriorated again and she was re-intubated. Today she was extubated Plan: She is now on heated high flow O2, at 40% FIO2, and maintaining O2 sat of 90-92% With her advanced age, and with a chronic lung condition she has poor prognosis with this current hospitalization. (2) On mechanically assisted ventilation Impression: She was reintubated and this was her fifth back on the vent Today she got an a.m. CPAP trial then resp parameters were done and were adequate, she was more awake and following directions better than yesterday, and she was extubated Plan: Cont suppl O2 (3) Pseudomonas pneumonia Impression: Sputum cx obtained has come back growing Pseudomonas aeruginosa Sens show that it is resistant to Cefazolin but sens to everything else tested Plan: Continue with iv antibiotic Zosyn (and Vancomycin, see #5) (4) Human metapneumovirus (hMPV) pneumonia Conclusion/Plan: She has chronic lung disease with interstitial lung disease and previous Mycobacterium Avium Complex infection. There is always the possibility of sec ondary bacterial infection. She lives in a custodial facility and has lung structural damage. Therefore antibiotic coverage was broadened with Zosyn and vancomycin added 02/21 due to the (+) blood cultures. White cell count was high on admission. Infectious Disease MD that takes care of her was called and left a message, no retur call yet. Plan: Continue Zosyn (and Vancomycin, see #5) (5) Staph epidermidis bacteremia Conclusion/Plan: Blood cultures became positive at less than 24 hours from blood draw. Both sets. She is on vancomycin with several antibx resistances but sens to Vanco Repeat blood cultures have been done on February 22 and are neg to date. Echocardiogram was done and did not report vegetations Plan: Cont vanco, a 10 day course is planned (6) Cor pulmonale Conclusion/Plan: Very dilated right heart seen on Echo with severely depressed RV function. Flattened septum consistent with pressure overload from the right heart as well. This is from her underlying lung disease which has been longstanding and must be severe Plan: As above in #1 (7) Essential thrombocytosis Conclusion/Plan: Well-controlled with hydroxyurea 500 mg p.o. twice daily. Plan: Will give through the NG tube (8) Hypertension At her residential facility blood pressure medicine was hydralazine 10 mg daily as needed, and atenolol 50 mg daily. After re-intubation she was hypertensive at 200/100, and tachycardic at 200. She received 1 dose of Lopressor 5 mg IV push andthen amiodarone. Within 15 minutes blood pressure was normal, heart rate was normal. (9) Dementia Conclusion/Plan: With her previous stay at a custodial facility her slums score was calculated at 12 out of 30, with this judgment was impaired, memory loss was evident, and anxiety was manifested. She was on Risperdal, Klonezepam and Prozac at the custodial facility. Plan: The son is planning to visit tomorrow and I will speak with him about goals (10) Generalized weakness Conclusion/Plan: This was noted when she was first extubated and was interacting. CT of the head was negative for acute stroke. Today the ST from [facility] saw her and spome to me about her poor recent nutrition as she got weaker. Plan: Will start PT and OT Will order a swallow eval by RN, and pt may need a ST consult, now that she is extubated and has no ng tube feeds (11) VTach Conclusion/Plan: RESOLVED On monitoring analyst the patient had multifocal V. tach, 5 beats, rate 150. Her Cor Pulmonale may be the cause of this Plan: Continue to follow her electrolytes and ensure they are normal (12) Atrial tachycardia Unable to get an EKG when it was happening. It was presumed to be SVT at rate of 200. Responded well to Lopressor and Amiodarone push then drip. The Amiodarone drip gave her full loading. RESOLVED Plan: Since the EKG showed right axis deviation, consistent with Pulm disease, and Amio has also of pulm toxicity, I did not continue her on Amiodarone Cont B-kelli dosing
[2023-02-28] MEDS: NYSTATIN POWDER 15 GM TOP SCH ×2 (15:53→20:23)
[2023-02-28] MEDS: ACETAMINOPHEN 1,000 MG/100 ML 1,000 MG/100 ML BAG IV PRN (15:54)
[2023-02-28] MEDS: IPRATROPIUM/ALBUTEROL 3 ML NEB INH SCH (18:11)
[2023-02-28] MEDS: HYDROXYUREA 500 MG CAPSULE PO SCH (20:22)
[2023-02-28] MEDS: GABAPENTIN 300 MG CAPSULE PO SCH (20:22)
[2023-03-01] MEDS: SODIUM CHLORIDE FLUSH 0.9% 10 ML SYRINGE IVP SCH ×4 (01:47→17:41)
[2023-03-01] MEDS: SODIUM CHLORIDE FLUSH 0.9% 10 ML SYRINGE IVP PRN ×2 (04:20→06:11)
[2023-03-01 04:44] LABS: VBG PH 7.417 (7.31-7.41)
[2023-03-01 04:45] LABS: CALCIUM, IONIZED 1.11 mmol/L (1.15-1.33)
[2023-03-01 05:20] LABS: MAGNESIUM 1.8 mg/dL (1.7-2.3); PHOSPHORUS 3.8 mg/dL (2.5-5.0); POTASSIUM 3.4 mmol/L (3.5-4.5)
[2023-03-01] MEDS ORDERED: CALCIUM GLUC 1,000MG/50ML-NACL 1,000 MG/50 ML BAG IV ONE (05:31)
[2023-03-01] MEDS: POTASSIUM CHLOR 20 MEQ/100 ML 20 MEQ/100 ML BAG IV SCH ×4 (06:03→23:10)
[2023-03-01] MEDS: PANTOPRAZOLE 40 MG VIAL IVP SCH (06:10)
[2023-03-01] MEDS: FUROSEMIDE 20 MG/2 ML VIAL IVP SCH (06:10)
[2023-03-01] MEDS: LEVOTHYROXINE 100 MCG TABLET PO SCH (06:16)
[2023-03-01] MEDS: IPRATROPIUM/ALBUTEROL 3 ML NEB INH SCH ×3 (06:30→19:00)
[2023-03-01] MEDS ORDERED: MAGNESIUM SULFATE 2 GRAM 2 GM/50 ML BAG IV ONE (07:00)
[2023-03-01 08:12] LABS: BASOPHILS # (AUTO) 0.1 10^3/uL (0.0-0.1); BASOPHILS % (AUTO) 0.7 %; EOSINOPHILS # (AUTO) 0.2 10^3/uL (0.0-0.7); EOSINOPHILS % (AUTO) 2.5 %; HGB - HEMOGLOBIN 10.3 g/dL (12.0-16.0); LYMPHOCYTES # (AUTO) 0.6 10^3/uL (1.5-3.5); LYMPHOCYTES % (AUTO) 8.7 %; MEAN CORPUSCULAR HEMOGLOBIN 37.2 pg (27.0-31.0); MEAN CORPUSCULAR HGB CONC 33.2 g/dL (32.0-36.0); MEAN CORPUSCULAR VOLUME 111.9 fL (81.0-99.0); MONOCYTES # (AUTO) 0.7 10^3/uL (0.0-1.0); MONOCYTES % (AUTO) 9.7 %; NEUTROPHILS # (AUTO) 5.5 10^3/uL (1.5-6.6); NEUTROPHILS % (AUTO) 75.9 %; PLT - PLATELET COUNT 338 10^3/uL (130-450); RED BLOOD COUNT 2.77 10^6/uL (4.20-5.40); RED CELL DISTRIBUTION WIDTH 16.8 % (12.0-15.0); WHITE BLOOD COUNT 7.3 x10^3/uL (4.8-10.8)
[2023-03-01 08:16] LABS: SLIDE REVIEW? Indicated
[2023-03-01 08:31] LABS: PLATELET ESTIMATE, MANUAL NORMAL (130-450,000) (NORMAL); PLATELET MORPHOLOGY NORMAL APPEARANCE (NORMAL)
[2023-03-01 08:32] LABS: RBC MORPHOLOGY (MULTIPLE) 2+ MACROCYTOSIS (NORMAL)
[2023-03-01] MEDS: ASPIRIN EC 81 MG TABLET PO SCH (08:38)
[2023-03-01] MEDS: lamoTRIgine 25 MG TABLET PO SCH (08:38)
[2023-03-01] MEDS: FLUoxetine 10 MG CAPSULE PO SCH ×2 (08:38→20:29)
[2023-03-01] MEDS: PIPERACILLIN/TAZOBACTAM 3.375 GM in SODIUM CHLORIDE 0.9% MINIBAG 100 ML IV SCH ×2 (08:38→16:09)
[2023-03-01] MEDS: atenoloL 25 MG TABLET PO SCH (08:39)
[2023-03-01] MEDS: NYSTATIN POWDER 15 GM TOP SCH ×2 (08:39→20:30)
[2023-03-01] MEDS: ENOXAPARIN 40 MG/0.4 ML SYRINGE SUBQ SCH (08:39)
[2023-03-01 08:41] LABS: CALCIUM 9.1 mg/dL (8.5-10.3); CREATININE 0.6 mg/dL (0.6-1.3); POTASSIUM 4.1 mmol/L (3.5-4.5)
[2023-03-01] MEDS: risperiDONE 0.25 MG TABLET PO SCH (08:43)
[2023-03-01] MEDS: HYDROXYUREA 500 MG CAPSULE PO SCH ×2 (08:43→20:29)
[2023-03-01 10:50] LABS: VBG PH 7.447 (7.31-7.41)
[2023-03-01 10:51] LABS: CALCIUM, IONIZED 1.13 mmol/L (1.15-1.33)
[2023-03-01 11:03] LABS: MAGNESIUM 2.1 mg/dL (1.7-2.3); PHOSPHORUS 2.9 mg/dL (2.5-5.0); POTASSIUM 3.6 mmol/L (3.5-4.5)
[2023-03-01] MEDS: ZINC OXIDE 20% OINT 30 GM TUBE TOP PRN ×2 (11:30→20:30)
[2023-03-01] MEDS ORDERED: POTASSIUM CHLOR 20 MEQ/100 ML 20 MEQ/100 ML BAG IV ONE (13:00)
[2023-03-01] MEDS: ACETAMINOPHEN 1,000 MG/100 ML 1,000 MG/100 ML BAG IV PRN (16:09)
--- NOTE | 2023-03-01 16:13 | PROVIDER PROGRESS NOTE ---
Subjective - Subjective Pt reports feeling: Improved Objective - Vital Signs/Intake & Output Vital Signs: Vital Signs Temp Pulse Resp BP Pulse Ox O2 Flow Rate 03/01/23 15:00 38 C H 69 21 168/91 H 98 5 03/01/23 14:00 38.0 C H 71 20 149/93 H 97 5 03/01/23 13:00 37.9 C 70 24 148/82 H 99 5 Intake & Output: Intake & Output 02/26/23 02/27/23 02/28/23 03/01/23 23:59 23:59 23:59 23:59 Intake Total 3034.224 2757.989 2104.971 900 Output Total 4886 3111 2941 1544 Balance -1851.776 -353.011 -836.029 -644 - Objective General Appearance: positive: No acute distress, Other (appears weak) Eyes Bilateral: positive: No lid inflammation ENT: positive: No signs of dehydration Neck: positive: Nml inspection, No JVD Respiratory: positive: No respiratory distress, Other (poor air mvm) Cardiovascular: positive: Regular rate & rhythm, No murmur Abdomen: positive: Non-tender, No distention Skin: positive: Warm, Dry Extremities: positive: Non-tender, No pedal edema Neurologic/Psychiatric: positive: CN's nml (2-12), Motor nml, Other (Poor memory. generalized weakness) - Lab Results Fish Bones: 03/02/23 04:15 03/02/23 10:10 Other Labs: Lab Results x24hrs 03/01/23 03/01/23 03/01/23 Range/Units 10:45 10:45 08:06 WBC (4.8-10.8) x10^3/uL RBC (4.20-5.40) 10^6/uL Hgb (12.0-16.0) g/dL Hct (37.0-47.0) % MCV (81.0-99.0) fL MCH (27.0-31.0) pg MCHC (32.0-36.0) g/dL RDW (12.0-15.0) % Plt Count (130-450) 10^3/uL MPV (7.9-10.8) fL Neut # (Auto) (1.5-6.6) 10^3/uL Lymph # (Auto) (1.5-3.5) 10^3/uL [place] # (Auto) (0.0-1.0) 10^3/uL Eos # (Auto) (0.0-0.7) 10^3/uL Baso # (Auto) (0.0-0.1) 10^3/uL Absolute Nucleated RBC x10^3/uL Nucleated RBC % /100WBC Manual Slide Review Platelet Estimate (NORMAL) Platelet Morphology (NORMAL) RBC Morph Micro Appear (NORMAL) VBG pH 7.447 H (7.31-7.41) Ionized Calcium 1.13 L (1.15-1.33) mmol/L Sodium 137 (135-145) mmol/L Potassium 3.6 4.1 (3.5-4.5) mmol/L Chloride 99 L (101-111) mmol/L Carbon Dioxide 33 H (21-32) mmol/L Anion Gap 5.0 L (6-13) BUN 12 (6-20) mg/dL Creatinine 0.6 (0.6-1.3) mg/dL Estimated GFR (MDRD) 95 (>89) Glucose 149 H (74-104) mg/dL POC Whole Bld Glucose (70 - 100) mg/dL Calcium 9.1 (8.5-10.3) mg/dL Phosphorus 2.9 (2.5-5.0) mg/dL Magnesium 2.1 (1.7-2.3) mg/dL 03/01/23 03/01/23 03/01/23 Range/Units 08:06 08:01 04:19 WBC 7.3 (4.8-10.8) x10^3/uL RBC 2.77 L (4.20-5.40) 10^6/uL Hgb 10.3 L (12.0-16.0) g/dL Hct 31.0 L (37.0-47.0) % MCV 111.9 H (81.0-99.0) fL MCH 37.2 H (27.0-31.0) pg MCHC 33.2 (32.0-36.0) g/dL RDW 16.8 H (12.0-15.0) % Plt Count 338 (130-450) 10^3/uL MPV 9.0 (7.9-10.8) fL Neut # (Auto) 5.5 (1.5-6.6) 10^3/uL Lymph # (Auto) 0.6 L (1.5-3.5) 10^3/uL [place] # (Auto) 0.7 (0.0-1.0) 10^3/uL Eos # (Auto) 0.2 (0.0-0.7) 10^3/uL Baso # (Auto) 0.1 (0.0-0.1) 10^3/uL Absolute Nucleated RBC 0.00 x10^3/uL Nucleated RBC % 0.0 /100WBC Manual Slide Review Indicated Platelet Estimate NORMAL (130-450,000) (NORMAL) Platelet Morphology NORMAL APPEARANCE (NORMAL) RBC Morph Micro Appear 2+ MACROCYTOSIS (NORMAL) VBG pH (7.31-7.41) Ionized Calcium (1.15-1.33) mmol/L Sodium (135-145) mmol/L Potassium 3.4 L (3.5-4.5) mmol/L Chloride (101-111) mmol/L Carbon Dioxide (21-32) mmol/L Anion Gap (6-13) BUN (6-20) mg/dL Creatinine (0.6-1.3) mg/dL Estimated GFR (MDRD) (>89) Glucose (74-104) mg/dL POC Whole Bld Glucose 155 H (70 - 100) mg/dL Calcium (8.5-10.3) mg/dL Phosphorus 3.8 (2.5-5.0) mg/dL Magnesium 1.8 (1.7-2.3) mg/dL 03/01/23 Range/Units 04:19 WBC (4.8-10.8) x10^3/uL RBC (4.20-5.40) 10^6/uL Hgb (12.0-16.0) g/dL Hct (37.0-47.0) % MCV (81.0-99.0) fL MCH (27.0-31.0) pg MCHC (32.0-36.0) g/dL RDW (12.0-15.0) % Plt Count (130-450) 10^3/uL MPV (7.9-10.8) fL Neut # (Auto) (1.5-6.6) 10^3/uL Lymph # (Auto) (1.5-3.5) 10^3/uL [place] # (Auto) (0.0-1.0) 10^3/uL Eos # (Auto) (0.0-0.7) 10^3/uL Baso # (Auto) (0.0-0.1) 10^3/uL Absolute Nucleated RBC x10^3/uL Nucleated RBC % /100WBC Manual Slide Review Platelet Estimate (NORMAL) Platelet Morphology (NORMAL) RBC Morph Micro Appear (NORMAL) VBG pH 7.417 H (7.31-7.41) Ionized Calcium 1.11 L (1.15-1.33) mmol/L Sodium (135-145) mmol/L Potassium (3.5-4.5) mmol/L Chloride (101-111) mmol/L Carbon Dioxide (21-32) mmol/L Anion Gap (6-13) BUN (6-20) mg/dL Creatinine (0.6-1.3) mg/dL Estimated GFR (MDRD) (>89) Glucose (74-104) mg/dL POC Whole Bld Glucose (70 - 100) mg/dL Calcium (8.5-10.3) mg/dL Phosphorus (2.5-5.0) mg/dL Magnesium (1.7-2.3) mg/dL Assessment/Plan - Problem List (1) Acute on chronic hypoxic respiratory failure Impression: She has chronic interstitial lung disease and previous infection with Mycobacterium Avium Complex infection, with chronic hypoxic respiratory failure on 5 to 6 L of O2 constantly. This current resp episode started 2 weeks ago at [facility]. She then was brought to our emergency room from [facility] 02/21 with shortness of breath and altered mental status and was intubated for respiratory failure. CT scan shows bilateral chronic nodular, interstitial, airspace infiltrates involving both upper and lower lobes with bronchiectasis in the right upper lobe, right middle lobe, lingula and both lobes. She has increased consolidation or atelectasis in both lower lobes in comparison to the previous CT. She was (+) for human metapneumovirus and spt cx grew Pseudomonas She remained intubated 02/21, was extubated on 02/22 and she did well until that evening of 02/22 when she deteriorated again and she was re-intubated. Today she was extubated Plan: She is now on heated high flow O2, at 40% FIO2, and maintaining O2 sat of 90-92% With her advanced age, and with a chronic lung condition she has poor prognosis with this current hospitalization. (2) Pseudomonas pneumonia Impression: Sputum cx obtained has come back growing Pseudomonas aeruginosa Sens show that it is resistant to Cefazolin but sens to everything else tested Plan: Continue with iv antibiotic Zosyn (and Vancomycin, see #4) (3) Human metapneumovirus (hMPV) pneumonia Conclusion/Plan: She has chronic lung disease with interstitial lung disease and previous Mycobacterium Avium Complex infection. There is always the possibility of secondary bacterial infection. She lives in [place] [facility] facility and has lung structural damage. Therefore antibiotic coverage was broadened with Zosyn and vancomycin added 02/21 due to the (+) blood cultures. White cell count was high on admission. Infectious Disease MD that takes care of her was called and left a message, no retur call yet. Plan: Continue Zosyn (and Vancomycin, see #4) (4) Staph epidermidis bacteremia Conclusion/Plan: Blood cultures became positive at less than 24 hours from blood draw. Both sets. She is on vancomycin with several antibx resistances but sens to Vanco Repeat blood cultures have been done on February 22 and are neg to date. Echocardiogram was done and did not report vegetations Plan: Cont vanco, a 10 day course is planned (5) Cor pulmonale Conclusion/Plan: Very dilated right heart seen on Echo with severely depressed RV function. Flattened septum consistent with pressure overload from the right heart as well. This is from her underlying lung disease which has been longstanding and must be severe Plan: As above in #1 (6) Dementia Conclusion/Plan: With her previous stay [place] [facility] her slums score was calculated at 12 out of 30, with this judgment was impaired, memory loss was evident, and anxiety was manifested. She was on Risperdal, Klonezepam and Prozac at the [place] [facility]. Plan: The son is planning to visit tomorrow and I will speak with him about goals (7) Generalized weakness Conclusion/Plan: This was noted when she was first extubated and was interacting. CT of the head was negative for acute stroke. Today the ST from [facility] saw her and spome to me about her poor recent nutrition as she got weaker. Plan: Will start PT and OT Will order a swallow eval by RN, and pt may need a ST consult, now that she is extubated and has no ng tube feeds (8) Essential thrombocytosis Conclusion/Plan: Well-controlled with hydroxyurea 500 mg p.o. twice daily. Plan: Will restart meds po (9) Hypertension At her residential facility blood pressure medicine was hydralazine 10 mg daily as needed, and atenolol 50 mg daily. After re-intubation she was hypertensive at 200/100, and tachycardic at 200. She received 1 dose of Lopressor 5 mg IV push andthen amiodarone. Within 15 minutes blood pressure was normal, heart rate was normal. (10) VTach Conclusion/Plan: RESOLVED On court recording monitor the patient had multifocal V. tach, 5 beats, rate 150. Her Cor Pulmonale may be the cause of this Plan: Continue to follow her electrolytes and ensure they are normal (11) Atrial tachycardia Unable to get an EKG when it was happening. It was presumed to be SVT at rate of 200. Responded well to Lopressor and Amiodarone push then drip. The Amiodarone drip gave her full loading. RESOLVED Plan: Since the EKG showed right axis deviation, consistent with Pulm disease, and Am io has also of pulm toxicity, I did not continue her on Amiodarone Cont B-kelli dosing (12) On mechanically assisted ventilation Impression: RESOLVED She was extubated successfully on 02/28/23
[2023-03-01] MEDS: hydrALAZINE INJ 20 MG/ML VIAL IVP PRN (17:27)
[2023-03-01 19:12] LABS: CALCIUM, IONIZED 1.11 mmol/L (1.15-1.33); VBG PH 7.471 (7.31-7.41)
[2023-03-01 19:27] LABS: MAGNESIUM 1.9 mg/dL (1.7-2.3); PHOSPHORUS 2.6 mg/dL (2.5-5.0); POTASSIUM 3.5 mmol/L (3.5-4.5)
[2023-03-01] MEDS: GABAPENTIN 300 MG CAPSULE PO SCH (20:30)
[2023-03-01] MEDS: clonazePAM 0.5 MG TABLET PO PRN (20:36)
[2023-03-02] MEDS: PIPERACILLIN/TAZOBACTAM 3.375 GM in SODIUM CHLORIDE 0.9% MINIBAG 100 ML IV SCH ×3 (00:01→15:54)
[2023-03-02] MEDS: SODIUM CHLORIDE FLUSH 0.9% 10 ML SYRINGE IVP SCH ×3 (04:26→15:54)
[2023-03-02] MEDS: SODIUM CHLORIDE FLUSH 0.9% 10 ML SYRINGE IVP PRN (04:26)
[2023-03-02 04:57] LABS: BASOPHILS % (AUTO) 0.4 %; EOSINOPHILS # (AUTO) 0.2 10^3/uL (0.0-0.7); EOSINOPHILS % (AUTO) 3.1 %; HCT - HEMATOCRIT 29.7 % (37.0-47.0); HGB - HEMOGLOBIN 9.5 g/dL (12.0-16.0); LYMPHOCYTES # (AUTO) 0.7 10^3/uL (1.5-3.5); LYMPHOCYTES % (AUTO) 10.3 %; MEAN CORPUSCULAR HEMOGLOBIN 36.7 pg (27.0-31.0); MEAN CORPUSCULAR VOLUME 114.7 fL (81.0-99.0); MEAN PLATELET VOLUME 9.3 fL (7.9-10.8); MONOCYTES # (AUTO) 0.7 10^3/uL (0.0-1.0); MONOCYTES % (AUTO) 9.5 %; NEUTROPHILS # (AUTO) 5.3 10^3/uL (1.5-6.6); NEUTROPHILS % (AUTO) 74.4 %; PLT - PLATELET COUNT 356 10^3/uL (130-450); RED BLOOD COUNT 2.59 10^6/uL (4.20-5.40); RED CELL DISTRIBUTION WIDTH 17.2 % (12.0-15.0); WHITE BLOOD COUNT 7.1 x10^3/uL (4.8-10.8)
[2023-03-02 05:13] LABS: CALCIUM 8.6 mg/dL (8.5-10.3); CREATININE 0.5 mg/dL (0.6-1.3); MAGNESIUM 1.8 mg/dL (1.7-2.3); POTASSIUM 3.9 mmol/L (3.5-4.5)
[2023-03-02 05:23] LABS: CALCIUM, IONIZED 1.14 mmol/L (1.15-1.33); VBG PH 7.369 (7.31-7.41)
[2023-03-02] MEDS: LEVOTHYROXINE 100 MCG TABLET PO SCH (06:08)
[2023-03-02] MEDS: PANTOPRAZOLE 40 MG VIAL IVP SCH (06:08)
[2023-03-02] MEDS ORDERED: POTASSIUM CHLOR 20 MEQ/100 ML 20 MEQ/100 ML BAG IV ONE (06:15)
[2023-03-02] MEDS ORDERED: MAGNESIUM SULFATE 2 GRAM 2 GM/50 ML BAG IV ONE (06:15)
[2023-03-02] MEDS: atenoloL 25 MG TABLET PO SCH (08:31)
[2023-03-02] MEDS: lamoTRIgine 25 MG TABLET PO SCH (08:31)
[2023-03-02] MEDS: ASPIRIN EC 81 MG TABLET PO SCH (08:31)
[2023-03-02] MEDS: risperiDONE 0.25 MG TABLET PO SCH (08:31)
[2023-03-02] MEDS: FLUoxetine 10 MG CAPSULE PO SCH ×2 (08:31→21:55)
[2023-03-02] MEDS: HYDROXYUREA 500 MG CAPSULE PO SCH ×2 (08:31→21:55)
[2023-03-02] MEDS: NYSTATIN POWDER 15 GM TOP SCH ×2 (08:32→20:31)
[2023-03-02] MEDS: ENOXAPARIN 40 MG/0.4 ML SYRINGE SUBQ SCH (08:38)
[2023-03-02 10:47] LABS: MAGNESIUM 2.3 mg/dL (1.7-2.3); POTASSIUM 4.2 mmol/L (3.5-4.5)
[2023-03-02] MEDS: IPRATROPIUM/ALBUTEROL 3 ML NEB INH SCH ×3 (13:45→21:38)
--- NOTE | 2023-03-02 18:03 | PROVIDER PROGRESS NOTE ---
Assessment/Plan - Problem List (1) Acute on chronic hypoxic respiratory failure Assessment/Plan: She has chronic interstitial lung disease and previous infection with Mycobacterium Avium Complex infection, with chronic hypoxic respiratory failure on 5 to 6 L of O2 constantly. This current resp episode started 2 weeks ago at [facility]. She then was brought to our emergency room from [facility] 02/21 with shortness of breath and altered mental status and was intubated for respiratory failure. CT scan shows bilateral chronic nodular, interstitial, airspace infiltrates involving both upper and lower lobes with bronchiectasis in the right upper lobe, right middle lobe, lingula and both lobes. She has increased consolidation or atelectasis in both lower lobes in comparison to the previous CT. She was (+) for human metapneumovirus and spt cx grew Pseudomonas She deteriorated and she was re-intubated this admission. On 03/01, she was extubated and kept on heated high flow O2, at ~40% FIO2, and maintaining O2 sat of 90-100% Plan: Will put on nasal cabnnula and FIO2 can be weaned down from 5L giveibg her 100% sat this morning With her advanced age, and with a chronic lung condition she has poor prognosis with this current hospitalization. [facility] (2) Pseudomonas pneumonia Impression: Sputum cx obtained has come back growing Pseudomonas aeruginosa Sens show that it is resistant to Cefazolin but sens to everything else tested Plan: Continue with iv antibiotic Zosyn (and Vancomycin, see #4) (3) Human metapneumovirus (hMPV) pneumonia Conclusion/Plan: She has chronic lung disease with interstitial lung disease and previous Mycobacterium Avium Complex infection. There is always the possibility of secondary bacterial infection. She lives in a custodial facility and has lung structural damage. Therefore antibiotic coverage was broadened with Zosyn and vancomycin added 02/21 due to the (+) blood cultures. White cell count was high on admission. Infectious Disease MD that takes care of her was called and left a message, no retur call yet. Plan: Continue Zosyn (and Vancomycin, see #4) (4) Staph epidermidis bacteremia Conclusion/Plan: Blood cultures became positive at less than 24 hours from blood draw. Both sets. She is on vancomycin with several antibx resistances but sens to Vanco Repeat blood cultures have been done on February 22 and are neg to date. Echocardiogram was done and did not report vegetations Plan: Cont vanco, a 10 day course is planned (5) Cor pulmonale Conclusion/Plan: Very dilated right heart seen on Echo with severely depressed RV function. Flattened septum consistent with pressure overload from the right heart as well. This is from her underlying lung disease which has been longstanding and must be severe Plan: As above in #1 (6) Dementia Conclusion/Plan: With her previous stay at a custodial facility her slums score was calculated at 12 out of 30, with this judgment was impaired, memory loss was evident, and anxiety was manifested. She was on Risperdal, Klonezepam and Prozac at the custodial facility. Plan: She will need PT and OT rehab (7) Generalized weakness Conclusion/Plan: This was noted when she was first extubated and was interacting. CT of the head was negative for acute stroke. Today the from [facility] saw her and spome to me about her poor recent nutrition as she got weaker. Plan: Will start PT and OT (8) Essential thrombocytosis Conclusion/Plan: Well-controlled with hydroxyurea 500 mg p.o. twice daily. Plan: Will resume meds orally (9) Hypertension At her residential facility blood pressure medicine was hydralazine 10 mg daily as needed, and atenolol 50 mg daily. After re-intubation she was hypertensive at 200/100, and tachycardic at 200. She received 1 dose of Lopressor 5 mg IV push andthen amiodarone. Within 15 minutes blood pressure was normal, heart rate was normal. Plan: Will adjust meds as needed (10) VTach Conclusion/Plan: RESOLVED On cardiac monitor while intubated, the patient had multifocal V. tach, 5 beats, rate 150. Her Cor Pulmonale may be the cause of this Plan: Continue to follow her electrolytes and ensure they are normal (11) Atrial tachycardia Unable to get an EKG when it was happening. It was presumed to be SVT at rate of 200. Responded well to Lopressor and Amiodarone push then drip. The Amiodarone drip gave her full loading. RESOLVED Plan: Since the EKG showed right axis deviation, consistent with Pulm disease, and Amio has also of pulm toxicity, I did not continue her on Amiodarone Cont B-kelli dosing (12) On mechanically assisted ventilation Impression: RESOLVED She was extubated successfully on 02/28/23 - Current Meds Current Meds: Current Medications Generic Name Dose Route Start Last Admin Trade Name Freq PRN Reason Stop Dose Admin Acetaminophen 650 mg 02/24/23 10:20 02/27/23 10:22 Acetaminophen 325 Mg Tablet PO 650 mg Q4HR PRN Administration Pain 1-4 or Fever > 38C Albuterol/Ipratropium 3 ml 02/28/23 19:00 03/02/23 13:58 Ipratropium/Albuterol 3 Ml Neb INH 3 ml RTTID YANNI Administration Aspirin 81 mg 02/23/23 09:00 03/02/23 08:31 Aspirin Ec 81 Mg Tablet PO 81 mg DAILY YANNI Administration Atenolol 50 mg 02/22/23 14:20 03/02/23 08:31 Atenolol 25 Mg Tablet PO 50 mg DAILY YANNI Administration Clonazepam 1 mg 02/22/23 13:35 03/01/23 20:36 Clonazepam 0.5 Mg Tablet PO 1 mg DAILY PRN Administration Anxiety Enoxaparin Sodium 40 mg 02/21/23 12:00 03/02/23 08:38 Enoxaparin 40 Mg/0.4 Ml Syringe SUBQ 40 mg DAILY YANNI Administration Fluoxetine HCl 20 mg 02/22/23 21:00 03/02/23 08:31 Fluoxetine 10 Mg Capsule PO 20 mg BID YANNI Administration Gabapentin 300 mg 02/22/23 21:00 03/01/23 20:30 Gabapentin 300 Mg Capsule PO 300 mg HS YANNI Administration Hydralazine HCl 10 mg 02/22/23 15:46 03/01/23 17:27 Hydralazine Inj 20 Mg/Ml Vial IVP 10 mg TID PRN Administration systolic >180, diastolic >100 Hydroxyurea 500 mg 02/28/23 21:00 03/02/23 08:31 Hydroxyurea 500 Mg Capsule PO 500 mg BID YANNI Administration Piperacillin Sod/Tazobactam 100 mls @ 25 mls/hr 02/21/23 16:00 03/02/23 15:54 Sod 3.375 gm/ Sodium Chloride IV 03/02/23 23:59 25 mls/hr Q8H YANNI Administration Acetaminophen 1,000 mg in 100 mls @ 400 mls/hr 02/21/23 20:26 03/01/23 17:22 Acetaminophen IV Infused Q6HR PRN Infusion FEVER > 100.5 F Lamotrigine 25 mg 02/23/23 09:00 03/02/23 08:31 Lamotrigine 25 Mg Tablet PO 25 mg DAILY YANNI Administration Levothyroxine Sodium 100 mcg 02/23/23 07:00 03/02/23 06:08 Levothyroxine 100 Mcg Tablet PO 100 mcg QDAC YANNI Administration Multi-Ingredient Ointment 1 applic 02/22/23 03:48 03/01/23 20:30 Zinc Oxide 20% Oint 30 Gm Tube TOP 1 applic PRN PRN Administration Skin Care Nystatin 1 applic 02/28/23 14:27 03/02/23 08:32 Nystatin Powder 15 Gm TOP 1 applic BID YANNI Administration Pantoprazole Sodium 40 mg 02/21/23 12:00 03/02/23 06:08 Pantoprazole 40 Mg Vial IVP 40 mg QDAC YANNI Administration Risperidone 0.25 mg 02/23/23 09:00 03/02/23 08:31 Risperidone 0.25 Mg Tablet PO 0.25 mg DAILY YANNI Administration Sodium Chloride 10 ml 02/21/23 17:00 03/02/23 15:54 Sodium Chloride Flush 0.9% 10 Ml Syringe IVP 10 ml 0100,0900,1700 YANNI Administration Sodium Chloride 10 ml 02/21/23 11:41 03/02/23 04:26 Sodium Chloride Flush 0.9% 10 Ml Syringe IVP 20 ml PRN PRN Administration NEEDED PER PROVIDER ORDERS - Lab Result Fish Bone Diagrams: 03/02/23 04:15 03/02/23 10:10 - Additional Planning My Orders: My Active Orders 03/02/23 Evaluate and Treat OT [OT] Routine Evaluate and Treat PT [PT] Routine 03/02/23 08:02 Miscellaenous Nursing Order [RC] QSHIFT 03/02/23 10:30 Telemetry- [RC] Q4HR 03/03/23 05:00 CALCIUM, IONIZED ([facility]) [BG] DAILYLAB MAGNESIUM [CHEM] DAILYLAB PHOSPHORUS [CHEM] DAILYLAB 03/04/23 05:00 CALCIUM, IONIZED ([facility]) [BG] DAILYLAB MAGNESIUM [CHEM] DAILYLAB PHOSPHORUS [CHEM] DAILYLAB Subjective - Subjective Patient Reports: Resting Comfortably Objective Vital Signs: Vital Signs - 24 hr 03/01/23 03/01/23 03/01/23 18:30 19:00 20:00 Temperature 37.4 C 37.4 C Heart Rate 78 Heart Rate [ 81 79 75 Monitoring electrodes] Respiratory 19 21 18 Rate Blood Pressure 133/64 H 163/68 H 145/69 H [Left Brachial artery] O2 Saturation 100 100 100 If not protocol 5 5 5 : Oxygen Flow, liters/minute 03/01/23 03/01/23 03/01/23 21:00 22:00 23:00 Temperature 37.1 C 36.8 C 36.8 C Heart Rate Heart Rate [ 70 66 63 Monitoring electrodes] Respiratory 19 16 16 Rate Blood Pressure 145/95 H 112/67 110/71 [Left Brachial artery] O2 Saturation 99 100 100 If not protocol 5 5 5 : Oxygen Flow, liters/minute 03/02/23 03/02/23 03/02/23 00:00 01:00 02:00 Temperature 36.7 C 36.7 C 36.8 C Heart Rate Heart Rate [ 69 66 67 Monitoring electrodes] Respiratory 21 17 19 Rate Blood Pressure 128/84 H 141/88 H 157/77 H [Left Brachial artery] O2 Saturation 100 100 100 If not protocol 5 5 5 : Oxygen Flow, liters/minute 03/02/23 03/02/23 03/02/23 03:00 04:00 05:00 Temperature 36.9 C 36.9 C 36.9 C Heart Rate Heart Rate [ 71 71 59 L Monitoring electrodes] Respiratory 18 18 16 Rate Blood Pressure 159/74 H 148/91 H 162/103 H [Left Brachial artery] O2 Saturation 100 100 100 If not protocol 5 5 5 : Oxygen Flow, liters/minute 03/02/23 03/02/23 03/02/23 06:00 06:57 08:00 Temperature 37.1 C 37.2 C 37.1 C Heart Rate Heart Rate [ 61 59 L 60 Monitoring electrodes] Respiratory 16 17 19 Rate Blood Pressure 122/68 125/73 128/76 [Left Brachial artery] O2 Saturation 100 100 100 If not protocol 5 5 5 : Oxygen Flow, liters/minute 03/02/23 03/02/23 03/02/23 09:00 10:00 13:00 Temperature 37.1 C Heart Rate Heart Rate [ 72 76 70 Monitoring electrodes] Respiratory 18 22 24 Rate Blood Pressure 139/74 H 113/69 107/62 [Left Brachial artery] O2 Saturation 97 95 93 If not protocol 5 5 5 : Oxygen Flow, liters/minute 03/02/23 03/02/23 14:00 17:00 Temperature Heart Rate 71 Heart Rate [ 78 Monitoring electrodes] Respiratory 17 24 Rate Blood Pressure 177/95 H [Left Brachial artery] O2 Saturation 98 If not protocol 5 5 : Oxygen Flow, liters/minute Oxygen O2 Source Nasal cannula I&O (Last 24 Hrs): Intake and Output Totals x24h 02/28/23 03/01/23 03/02/23 23:59 23:59 23:59 Intake Total 2104.971 1480 670 Output Total 2941 2034 619 Balance -836.029 -554 51 General: Alert, Other (Sitting in chair with head bent down) HEENT: EOMI Neck: Supple Neuro: Alert, Other (Generalized weakness, [place], poor memory, speaks very little) Cardiovascular: Regular rate, Other (Distant heart sounds due to COPD) Respiratory: No respiratory distress, Other (Poor air mvm) Abdomen: Soft, No tenderness Extremities: No clubbing, No edema, No tenderness/swelling - Results Results: Laboratory Results WBC 7.1 x10^3/uL (4.8-10.8) 03/02/23 04:15 RBC 2.59 10^6/uL (4.20-5.40) L 03/02/23 04:15 Hgb 9.5 g/dL (12.0-16.0) L 03/02/23 04:15 Hct 29.7 % (37.0-47.0) L 03/02/23 04:15 MCV 114.7 fL (81.0-99.0) H 03/02/23 04:15 MCH 36.7 pg (27.0-31.0) H 03/02/23 04:15 MCHC 32.0 g/dL (32.0-36.0) 03/02/23 04:15 RDW 17.2 % (12.0-15.0) H 03/02/23 04:15 Plt Count 356 10^3/uL (130-450) 03/02/23 04:15 MPV 9.3 fL (7.9-10.8) 03/02/23 04:15 Neut # (Auto) 5.3 10^3/uL (1.5-6.6) 03/02/23 04:15 Lymph # (Auto) 0.7 10^3/uL (1.5-3.5) L 03/02/23 04:15 [place] # (Auto) 0.7 10^3/uL (0.0-1.0) 03/02/23 04:15 Eos # (Auto) 0.2 10^3/uL (0.0-0.7) 03/02/23 04:15 Baso # (Auto) 0.0 10^3/uL (0.0-0.1) 03/02/23 04:15 Absolute Nucleated RBC 0.00 x10^3/uL 03/02/23 04:15 Total Counted 100 02/25/23 04:25 Band Neuts % (Manual) 0 % (0-10) 02/25/23 04:25 Abnorm Lymph % (Manual) 0 % 02/25/23 04:25 Metamyelocytes % 1 % (-0) H 02/25/23 04:25 Myelocytes % 1 % (-0) H 02/25/23 04:25 Nucleated RBC % 0.0 /100WBC 03/02/23 04:15 Neutrophils # (Manual) 5.3 10^3/uL (1.5-6.6) 02/25/23 04:25 Lymphocytes # (Manual) 1.2 10^3/uL (1.5-3.5) L 02/25/23 04:25 Monocytes # (Manual) 0.6 10^3/uL (0.0-1.0) 02/25/23 04:25 Eosinophils # (Manual) 0.1 10^3/uL (0-0.7) 02/25/23 04:25 Basophils # (Manual) 0.0 10^3/uL (0-0.1) 02/25/23 04:25 Differential Comment MANUAL DIFFERENTIAL 02/25/23 04:25 Manual Slide Review Indicated 03/01/23 08:06 Platelet Estimate NORMAL (130-450,000) (NORMAL) 03/01/23 08:06 Platelet Morphology NORMAL APPEARANCE (NORMAL) 03/01/23 08:06 RBC Morph Micro Appear 2+ MACROCYTOSIS (NORMAL) 03/01/23 08:06 PT 15.3 secs (9.9-12.6) H 02/21/23 00:34 INR 1.4 (0.8-1.2) H 02/21/23 00:34 Bld Gas Analysis Time 0547 02/24/23 05:41 Sample Site RIGHT RADIAL 02/24/23 05:41 ABG pH 7.46 (7.35-7.45) H 02/24/23 05:41 ABG pCO2 34 mmHg (34-45) 02/24/23 05:41 ABG pO2 83 mmHg (80-100) 02/24/23 05:41 ABG HCO3 23.2 mmol/L (22.0-26.0) 02/24/23 05:41 ABG Total CO2 24.2 MMOL/L (21.0-29.0) 02/24/23 05:41 ABG O2 Saturation 97 % (94-98) 02/24/23 05:41 ABG Base Excess -0.2 mmol/L (-2.0-3.0) 02/24/23 05:41 [place] Test POSITIVE 02/24/23 05:41 VBG pH 7.369 (7.31-7.41) 03/02/23 04:15 Ionized Calcium 1.14 mmol/L (1.15-1.33) L 03/02/23 04:15 Respiration Rate 12 b/min 02/24/23 05:41 O2 Delivery Device VENTILATOR 02/24/23 05:41 O2 Liters/Min 35.00 LPM 02/23/23 06:20 Vent Mode ASSIST/CONTROL 02/24/23 05:41 FiO2 40.00 02/24/23 05:41 Tidal Volume 400 mL 02/24/23 05:41 PEEP 7 cmH2O 02/24/23 05:41 Sodium 138 mmol/L (135-145) 03/02/23 04:15 Potassium 4.2 mmol/L (3.5-4.5) 03/02/23 10:10 Chloride 102 mmol/L (101-111) 03/02/23 04:15 Carbon Dioxide 33 mmol/L (21-32) H 03/02/23 04:15 Anion Gap 3.0 (6-13) L 03/02/23 04:15 BUN 12 mg/dL (6-20) 03/02/23 04:15 Creatinine 0.5 mg/dL (0.6-1.3) L 03/02/23 04:15 Estimated GFR (MDRD) 117 (>89) 03/02/23 04:15 Glucose 91 mg/dL (74-104) 03/02/23 04:15 POC Whole Bld Glucose 155 mg/dL (70 - 100) H 03/01/23 08:01 Lactic Acid 1.3 mmol/L (0.5-2.2) 02/21/23 01:11 Calcium 8.6 mg/dL (8.5-10.3) 03/02/23 04:15 Phosphorus 3.4 mg/dL (2.5-5.0) 03/02/23 04:15 Magnesium 2.3 mg/dL (1.7-2.3) 03/02/23 10:10 Total Bilirubin 0.3 mg/dL (0.2-1.0) 02/24/23 04:34 AST 21 IU/L (10-42) 02/24/23 04:34 ALT 16 IU/L (10-60) 02/24/23 04:34 Alkaline Phosphatase 74 IU/L (42-121) 02/24/23 04:34 Troponin I High Sens 46.1 ng/L (2.3-14.8) H* 02/23/23 08:29 B-Natriuretic Peptide 351 pg/mL (5-100) H 02/21/23 00:34 Total Protein 4.8 g/dL (6.4-8.9) L 02/24/23 04:34 Albumin 2.3 g/dL (3.2-5.5) L 02/24/23 04:34 Globulin 2.5 g/dL (2.1-4.2) 02/24/23 04:34 Albumin/Globulin Ratio 0.9 (1.0-2.2) L 02/24/23 04:34 Prealbumin 9 mg/dL (17-34) L 02/26/23 04:34 Triglycerides 111 mg/dL (48-352) 02/26/23 06:11 Vitamin B12 960 pg/mL (180-914) H 02/23/23 08:31 Folate 8.8 ng/mL (5.90 - >24.8) 02/23/23 08:31 Urine Color YELLOW 02/21/23 01:45 Urine Clarity CLEAR (CLEAR) 02/21/23 01:45 Urine pH 6.0 PH (5.0-7.5) 02/21/23 01:45 Ur Specific [place] 1.025 (1.002-1.030) 02/21/23 01:45 Urine Protein >=300 mg/dL (NEGATIVE) H 02/21/23 01:45 Urine Glucose (UA) NEGATIVE mg/dL (NEGATIVE) 02/21/23 01:45 Urine Ketones TRACE mg/dL (NEGATIVE) 02/21/23 01:45 Urine Occult Blood MODERATE (NEGATIVE) H 02/21/23 01:45 Urine Nitrite NEGATIVE (NEGATIVE) 02/21/23 01:45 Urine Bilirubin NEGATIVE (NEGATIVE) 02/21/23 01:45 Urine Urobilinogen 0.2 (NORMAL) E.U./dL (NORMAL) 02/21/23 01:45 Ur Leukocyte Esterase NEGATIVE (NEGATIVE) 02/21/23 01:45 Urine RBC 6-10 /HPF (0-5) H 02/21/23 01:45 Urine WBC 0-3 /HPF (0-5) 02/21/23 01:45 Ur Squamous Epith Cells MANY Squamous (<= Few) H 02/21/23 01:45 Urine Bacteria Rare /HPF (None Seen) 02/21/23 01:45 Urine Casts 3-5 Hyaline Casts /LPF 02/21/23 01:45 Urine Mucus Moderate Strands 02/21/23 01:45 Ur Microscopic Review INDICATED 02/21/23 01:45 Urine Culture Comments NOT INDICATED 02/21/23 01:45 Nasal Adenovirus (PCR) NOT DETECTED 02/21/23 00:33 Nasal B. parapertussis DNA (PCR) NOT DETECTED 02/21/23 00:33 Nasal Coronavir 229E PCR NOT DETECTED 02/21/23 00:33 Nasal Coronavir HKU1 PCR NOT DETECTED 02/21/23 00:33 Nasal Coronavir NL63 PCR NOT DETECTED 02/21/23 00:33 Nasal Coronavir OC43 PCR NOT DETECTED 02/21/23 00:33 Nasal Enterovir/Rhinovir PCR NOT DETECTED 02/21/23 00:33 Nasal Influenza B PCR NOT DETECTED 02/21/23 00:33 Nasal Influenza A PCR NOT DETECTED 02/21/23 00:33 Nasal Parainfluen 1 PCR NOT DETECTED 02/21/23 00:33 Nasal Parainfluen 2 PCR NOT DETECTED 02/21/23 00:33 Nasal Parainfluen 3 PCR NOT DETECTED 02/21/23 00:33 Nasal Parainfluen 4 PCR NOT DETECTED 12 00:33 Nasal RSV (PCR) NOT DETECTED 02/21/23 00:33 Nasal Screen MRSA (PCR) NEGATIVE (NEGATIVE) 02/21/23 12:40 Nasal B.pertussis DNA PCR NOT DETECTED 02/21/23 00:33 Nasal C.pneumoniae (PCR) NOT DETECTED 02/21/23 00:33 Keith Human Metapneumo PCR DETECTED A 02/21/23 00:33 Nasal M.pneumoniae (PCR) NOT DETECTED 02/21/23 00:33 Nasal SARS-CoV-2 (PCR) NOT DETECTED 02/21/23 00:33 Last Dose Date UNK 02/26/23 08:02 Last Dose Time K 02/26/23 08:02 Vancomycin Trough 14.0 ug/mL 02/26/23 08:02 - Procedures Procedures: Procedures CATARAC PHACOEMULS/ASPIR (07/27/13) INSERT LENS AT CATAR EXT (07/27/13)
[2023-03-02] MEDS: ZINC OXIDE 20% OINT 30 GM TUBE TOP PRN (20:31)
[2023-03-02] MEDS: GABAPENTIN 300 MG CAPSULE PO SCH (21:55)
[2023-03-02] MEDS: clonazePAM 0.5 MG TABLET PO PRN (21:58)
[2023-03-03] MEDS: SODIUM CHLORIDE FLUSH 0.9% 10 ML SYRINGE IVP SCH ×3 (01:08→21:04)
[2023-03-03 06:23] LABS: BASOPHILS % (AUTO) 0.5 %; EOSINOPHILS # (AUTO) 0.2 10^3/uL (0.0-0.7); HCT - HEMATOCRIT 28.4 % (37.0-47.0); HGB - HEMOGLOBIN 9.6 g/dL (12.0-16.0); LYMPHOCYTES # (AUTO) 0.8 10^3/uL (1.5-3.5); LYMPHOCYTES % (AUTO) 10.1 %; MEAN CORPUSCULAR HEMOGLOBIN 37.4 pg (27.0-31.0); MEAN CORPUSCULAR HGB CONC 33.8 g/dL (32.0-36.0); MEAN CORPUSCULAR VOLUME 110.5 fL (81.0-99.0); MEAN PLATELET VOLUME 9.3 fL (7.9-10.8); MONOCYTES # (AUTO) 0.6 10^3/uL (0.0-1.0); NEUTROPHILS # (AUTO) 6.2 10^3/uL (1.5-6.6); NEUTROPHILS % (AUTO) 79.4 %; PLT - PLATELET COUNT 429 10^3/uL (130-450); RED BLOOD COUNT 2.57 10^6/uL (4.20-5.40); RED CELL DISTRIBUTION WIDTH 16.4 % (12.0-15.0); WHITE BLOOD COUNT 7.9 x10^3/uL (4.8-10.8)
[2023-03-03 06:24] LABS: CALCIUM, IONIZED 1.11 mmol/L (1.15-1.33); VBG PH 7.438 (7.31-7.41)
[2023-03-03 06:28] LABS: SLIDE REVIEW? Indicated
[2023-03-03] MEDS: LEVOTHYROXINE 100 MCG TABLET PO SCH (06:30)
[2023-03-03] MEDS: PANTOPRAZOLE 40 MG VIAL IVP SCH (06:30)
[2023-03-03 06:51] LABS: CALCIUM 8.5 mg/dL (8.5-10.3); CREATININE 0.5 mg/dL (0.6-1.3); MAGNESIUM 1.8 mg/dL (1.7-2.3); PHOSPHORUS 3.2 mg/dL (2.5-5.0); POTASSIUM 3.9 mmol/L (3.5-4.5)
[2023-03-03 07:11] LABS: RBC MORPHOLOGY (MULTIPLE) 2+ MACROCYTOSIS (NORMAL)
[2023-03-03] MEDS: IPRATROPIUM/ALBUTEROL 3 ML NEB INH SCH ×4 (07:17→20:08)
[2023-03-03] MEDS: risperiDONE 0.25 MG TABLET PO SCH (08:59)
[2023-03-03] MEDS: lamoTRIgine 25 MG TABLET PO SCH (08:59)
[2023-03-03] MEDS: atenoloL 25 MG TABLET PO SCH (09:00)
[2023-03-03] MEDS: FLUoxetine 10 MG CAPSULE PO SCH ×2 (09:00→21:04)
[2023-03-03] MEDS: HYDROXYUREA 500 MG CAPSULE PO SCH ×2 (09:00→21:04)
[2023-03-03] MEDS: NYSTATIN POWDER 15 GM TOP SCH ×2 (09:00→21:04)
[2023-03-03] MEDS: ASPIRIN EC 81 MG TABLET PO SCH (09:00)
[2023-03-03] MEDS: ENOXAPARIN 40 MG/0.4 ML SYRINGE SUBQ SCH (09:00)
--- NOTE | 2023-03-03 15:10 | PROVIDER PROGRESS NOTE ---
Assessment/Plan - Problem List (1) Acute hypoxemic respiratory failure Assessment/Plan: (1) Acute on chronic hypoxic respiratory failure Assessment/Plan: -- On her baseline 5 L of oxygen. --Patient was initially requiring mechanical ventilation for human metapneumovirus and Pseudomonas pneumonia. She was most recently extubated on 03/01 and kept on high flow nasal cannula and then weaned to nasal cannula. (2) Pseudomonas pneumonia Impression: -- Sputum culture positive for Pseudomonas. Completed course of IV Zosyn and vancomycin. (3) Human metapneumovirus (hMPV) pneumonia Conclusion/Plan: --Resolved. On 5L via NC. (4) Staph epidermidis bacteremia Conclusion/Plan: Blood cultures became positive at less than 24 hours from blood draw. Both sets. She is on vancomycin with several antibx resistances but sens to Vanco Repeat blood cultures have been done on February 22 and are neg to date. Echocardiogram was done and did not report vegetations Plan: Completed 10 day course of Vancomycin IV. (5) Cor pulmonale Conclusion/Plan: Very dilated right heart seen on Echo with severely depressed RV function. Flattened septum consistent with pressure overload from the right heart as well. This is from her underlying lung disease which has been longstanding and must be severe (6) Dementia Conclusion/Plan: With her previous stay at a custodial facility her slums score was calculated at 12 out of 30, with this judgment was impaired, memory loss was e vident, and anxiety was manifested. She was on Risperdal, Klonezepam and Prozac at the custodial facility. Plan: She will need PT and OT rehab (7) Generalized weakness Conclusion/Plan: This was noted when she was first extubated and was interacting. CT of the head was negative for acute stroke. Today the ST from [facility] saw her and spome to me about her poor recent nutrition as she got weaker. Plan: Will start PT and OT (8) Essential thrombocytosis Conclusion/Plan: Well-controlled with hydroxyurea 500 mg p.o. twice daily. Plan: Will resume meds orally (9) Hypertension At her residential facility blood pressure medicine was hydralazine 10 mg daily as needed, and atenolol 50 mg daily. After re-intubation she was hypertensive at 200/100, and tachycardic at 200. She received 1 dose of Lopressor 5 mg IV push andthen amiodarone. Within 15 minutes blood pressure was normal, heart rate was normal. Plan: Will adjust meds as needed (10) VTach Conclusion/Plan: RESOLVED On [employer] while intubated, the patient had multifocal V. tach, 5 beats, rate 150. Her Cor Pulmonale may be the cause of this Plan: Continue to follow her electrolytes and ensure they are normal (11) Atrial tachycardia --Continue metoprolol. No giving amiodarone due to lung toxicity. (12) On mechanically assisted ventilation Impression: RESOLVED She was extubated successfully on 02/28/23 - Current Meds Current Meds: Current Medications Generic Name Dose Route Start Last Admin Trade Name Freq PRN Reason Stop Dose Admin Acetaminophen 650 mg 02/24/23 10:20 02/27/23 10:22 Acetaminophen 325 Mg Tablet PO 650 mg Q4HR PRN Administration Pain 1-4 or Fever > 38C Albuterol/Ipratropium 3 ml 03/03/23 11:00 03/03/23 11:07 Ipratropium/Albuterol 3 Ml Neb INH 3 ml RTQID YANNI Administration Aspirin 81 mg 02/23/23 09:00 03/03/23 09:00 Aspirin Ec 81 Mg Tablet PO 81 mg DAILY YANNI Administration Atenolol 50 mg 02/22/23 14:20 03/03/23 09:00 Atenolol 25 Mg Tablet PO 50 mg DAILY YANNI Administration Clonazepam 1 mg 02/22/23 13:35 03/02/23 21:58 Clonazepam 0.5 Mg Tablet PO 1 mg DAILY PRN Administration Anxiety Enoxaparin Sodium 40 mg 02/21/23 12:00 03/03/23 09:00 Enoxaparin 40 Mg/0.4 Ml Syringe SUBQ 40 mg DAILY YANNI Administration Fluoxetine HCl 20 mg 02/22/23 21:00 03/03/23 09:00 Fluoxetine 10 Mg Capsule PO 20 mg BID YANNI Administration Gabapentin 300 mg 02/22/23 21:00 03/02/23 21:55 Gabapentin 300 Mg Capsule PO 300 mg HS YANNI Administration Hydralazine HCl 10 mg 02/22/23 15:46 03/01/23 17:27 Hydralazine Inj 20 Mg/Ml Vial IVP 10 mg TID PRN Administration systolic >180, diastolic >100 Hydroxyurea 500 mg 02/28/23 21:00 03/03/23 09:00 Hydroxyurea 500 Mg Capsule PO 500 mg BID YANNI Administration Acetaminophen 1,000 mg in 100 mls @ 400 mls/hr 02/21/23 20:26 03/01/23 17:22 Acetaminophen IV Infused Q6HR PRN Infusion FEVER > 100.5 F Lamotrigine 25 mg 02/23/23 09:00 03/03/23 08:59 Lamotrigine 25 Mg Tablet PO 25 mg DAILY YANNI Administration Levothyroxine Sodium 100 mcg 02/23/23 07:00 03/03/23 06:30 Levothyroxine 100 Mcg Tablet PO 100 mcg QDAC YANNI Administration Multi-Ingredient Ointment 1 applic 02/22/23 03:48 03/02/23 20:31 Zinc Oxide 20% Oint 30 Gm Tube TOP 1 applic PRN PRN Administration Skin Care Nystatin 1 applic 02/28/23 14:27 03/03/23 09:00 Nystatin Powder 15 Gm TOP 1 applic BID YANNI Administration Risperidone 0.25 mg 02/23/23 09:00 03/03/23 08:59 Risperidone 0.25 Mg Tablet PO 0.25 mg DAILY YANNI Administration Sodium Chloride 10 ml 02/21/23 17:00 03/03/23 09:01 Sodium Chloride Flush 0.9% 10 Ml Syringe IVP 10 ml 0100,0900,1700 YANNI Administration Sodium Chloride 10 ml 02/21/23 11:41 03/02/23 04:26 Sodium Chloride Flush 0.9% 10 Ml Syringe IVP 20 ml PRN PRN Administration NEEDED PER PROVIDER ORDERS - Lab Result Fish Bone Diagrams: 03/03/23 05:50 03/03/23 05:50 - Additional Planning My Orders: My Active Orders 03/03/23 08:41 Nebulizer/MDI Tx. [RC] QID Resp Teach Nebulizer/MDI [RC] .ONCE 03/03/23 11:00 Ipratropium/Albuterol [Duoneb] 3 ml INH RTQID 03/04/23 05:00 BMP - BASIC METABOLIC PANEL [CHEM] DAILYLAB CBC [CBC - COMP BLD CT W/AUTO DIFF] [HEME] DAILYLAB 03/05/23 05:00 BMP - BASIC METABOLIC PANEL [CHEM] DAILYLAB CBC [CBC - COMP BLD CT W/AUTO DIFF] [HEME] DAILYLAB 03/06/23 05:00 BMP - BASIC METABOLIC PANEL [CHEM] DAILYLAB CBC [CBC - COMP BLD CT W/AUTO DIFF] [HEME] DAILYLAB 03/07/23 05:00 BMP - BASIC METABOLIC PANEL [CHEM] DAILYLAB CBC [CBC - COMP BLD CT W/AUTO DIFF] [HEME] DAILYLAB Subjective - Subjective Patient Reports: Resting Comfortably (Started on DuoNeb for her cough. On 5L via NC.) Objective Vital Signs: Vital Signs - 24 hr 03/02/23 03/02/23 03/02/23 17:00 21:00 23:50 Temperature 36.5 C 36.8 C Heart Rate Heart Rate [ Brachial] Heart Rate [ 78 76 76 Monitoring electrodes] Heart Rate [ Sitting] Heart Rate [ Supine] Respiratory 24 22 20 Rate Blood Pressure 177/95 H 174/99 H 157/93 H [Left Brachial artery] Blood Pressure [Sitting] Blood Pressure [Supine] O2 Saturation 98 94 92 If not protocol 5 5 5 : Oxygen Flow, liters/minute 03/03/23 03/03/23 03/03/23 06:30 07:18 07:20 Temperature 36.9 C Heart Rate 84 Heart Rate [ Brachial] Heart Rate [ 82 Monitoring electrodes] Heart Rate [ Sitting] Heart Rate [ Supine] Respiratory 16 18 Rate Blood Pressure 151/92 H [Left Brachial artery] Blood Pressure [Sitting] Blood Pressure [Supine] O2 Saturation 92 If not protocol 5 5 5 : Oxygen Flow, liters/minute 03/03/23 03/03/23 03/03/23 08:39 09:00 11:08 Temperature 37.1 C Heart Rate 88 Heart Rate [ 73 Brachial] Heart Rate [ Monitoring electrodes] Heart Rate [ 89 Sitting] Heart Rate [ 84 Supine] Respiratory 18 20 Rate Blood Pressure 157/86 H [Left Brachial artery] Blood Pressure 157/100 H [Sitting] Blood Pressure 156/86 H [Supine] O2 Saturation 93 If not protocol 5 5 : Oxygen Flow, liters/minute Oxygen O2 Source Nasal cannula I&O (Last 24 Hrs): Intake and Output Totals x24h 03/01/23 03/02/23 03/03/23 23:59 23:59 23:59 Intake Total 1480 770 360 Output Total 0805 819 350 Balance -554 -49 10 General: Alert, Oriented x3 Neuro: Alert Cardiovascular: Regular rate, Normal S1, Normal S2 Respiratory: Chest non-tender Abdomen: Normal bowel sounds - Results Results: Laboratory Results WBC 7.9 x10^3/uL (4.8-10.8) 03/03/23 05:50 RBC 2.57 10^6/uL (4.20-5.40) L 03/03/23 05:50 Hgb 9.6 g/dL (12.0-16.0) L 03/03/23 05:50 Hct 28.4 % (37.0-47.0) L 03/03/23 05:50 MCV 110.5 fL (81.0-99.0) H 03/03/23 05:50 MCH 37.4 pg (27.0-31.0) H 03/03/23 05:50 MCHC 33.8 g/dL (32.0-36.0) 03/03/23 05:50 RDW 16.4 % (12.0-15.0) H 03/03/23 05:50 Plt Count 429 10^3/uL (130-450) 03/03/23 05:50 MPV 9.3 fL (7.9-10.8) 03/03/23 05:50 Neut # (Auto) 6.2 10^3/uL (1.5-6.6) 03/03/23 05:50 Lymph # (Auto) 0.8 10^3/uL (1.5-3.5) L 03/03/23 05:50 [place] # (Auto) 0.6 10^3/uL (0.0-1.0) 03/03/23 05:50 Eos # (Auto) 0.2 10^3/uL (0.0-0.7) 03/03/23 05:50 Baso # (Auto) 0.0 10^3/uL (0.0-0.1) 03/03/23 05:50 Absolute Nucleated RBC 0.00 x10^3/uL 03/03/23 05:50 Total Counted 100 02/25/23 04:25 Band Neuts % (Manual) 0 % (0-10) 02/25/23 04:25 Abnorm Lymph % (Manual) 0 % 02/25/23 04:25 Metamyelocytes % 1 % (-0) H 02/25/23 04:25 Myelocytes % 1 % (-0) H 02/25/23 04:25 Nucleated RBC % 0.0 /100WBC 03/03/23 05:50 Neutrophils # (Manual) 5.3 10^3/uL (1.5-6.6) 02/25/23 04:25 Lymphocytes # (Manual) 1.2 10^3/uL (1.5-3.5) L 02/25/23 04:25 Monocytes # (Manual) 0.6 10^3/uL (0.0-1.0) 02/25/23 04:25 Eosinophils # (Manual) 0.1 10^3/uL (0-0.7) 02/25/23 04:25 Basophils # (Manual) 0.0 10^3/uL (0-0.1) 02/25/23 04:25 Differential Comment MANUAL DIFFERENTIAL 02/25/23 04:25 Manual Slide Review Indicated 03/03/23 05:50 Platelet Estimate NORMAL (130-450,000) (NORMAL) 03/01/23 08:06 Platelet Morphology NORMAL APPEARANCE (NORMAL) 03/01/23 08:06 RBC Morph Micro Appear 2+ MACROCYTOSIS (NORMAL) 03/03/23 05:50 PT 15.3 secs (9.9-12.6) H 02/21/23 00:34 INR 1.4 (0.8-1.2) H 02/21/23 00:34 Bld Gas Analysis Time 0547 02/24/23 05:41 Sample Site RIGHT RADIAL 02/24/23 05:41 ABG pH 7.46 (7.35-7.45) H 02/24/23 05:41 ABG pCO2 34 mmHg (34-45) 02/24/23 05:41 ABG pO2 83 mmHg (80-100) 02/24/23 05:41 ABG HCO3 23.2 mmol/L (22.0-26.0) 02/24/23 05:41 ABG Total CO2 24.2 MMOL/L (21.0-29.0) 02/24/23 05:41 ABG O2 Saturation 97 % (94-98) 02/24/23 05:41 ABG Base Excess -0.2 mmol/L (-2.0-3.0) 02/24/23 05:41 [place] Test POSITIVE 02/24/23 05:41 VBG pH 7.438 (7.31-7.41) H 03/03/23 05:50 Ionized Calcium 1.11 mmol/L (1.15-1.33) L 03/03/23 05:50 Respiration Rate 12 b/min 02/24/23 05:41 O2 Delivery Device VENTILATOR 02/24/23 05:41 O2 Liters/Min 35.00 LPM 02/23/23 06:20 Vent Mode ASSIST/CONTROL 02/24/23 05:41 FiO2 40.00 02/24/23 05:41 Tidal Volume 400 mL 02/24/23 05:41 PEEP 7 cmH2O 02/24/23 05:41 Sodium 137 mmol/L (135-145) 03/03/23 05:50 Potassium 3.9 mmol/L (3.5-4.5) 03/03/23 05:50 Chloride 101 mmol/L (101-111) 03/03/23 05:50 Carbon Dioxide 31 mmol/L (21-32) 03/03/23 05:50 Anion Gap 5.0 (6-13) L 03/03/23 05:50 BUN 12 mg/dL (6-20) 03/03/23 05:50 Creatinine 0.5 mg/dL (0.6-1.3) L 03/03/23 05:50 Estimated GFR (MDRD) 117 (>89) 03/03/23 05:50 Glucose 96 mg/dL (74-104) 03/03/23 05:50 POC Whole Bld Glucose 99 mg/dL (70 - 100) 03/02/23 17:25 Lactic Acid 1.3 mmol/L (0.5-2.2) 02/21/23 01:11 Calcium 8.5 mg/dL (8.5-10.3) 03/03/23 05:50 Phosphorus 3.2 mg/dL (2.5-5.0) 03/03/23 05:50 Magnesium 1.8 mg/dL (1.7-2.3) 03/03/23 05:50 Total Bilirubin 0.3 mg/dL (0.2-1.0) 02/24/23 04:34 AST 21 IU/L (10-42) 02/24/23 04:34 ALT 16 IU/L (10-60) 02/24/23 04:34 Alkaline Phosphatase 74 IU/L (42-121) 02/24/23 04:34 Troponin I High Sens 46.1 ng/L (2.3-14.8) H* 02/23/23 08:29 B-Natriuretic Peptide 351 pg/mL (5-100) H 02/21/23 00:34 Total Protein 4.8 g/dL (6.4-8.9) L 02/24/23 04:34 Albumin 2.3 g/dL (3.2-5.5) L 02/24/23 04:34 Globulin 2.5 g/dL (2.1-4.2) 02/24/23 04:34 Albumin/Globulin Ratio 0.9 (1.0-2.2) L 02/24/23 04:34 Prealbumin 9 mg/dL (17-34) L 02/26/23 04:34 Triglycerides 111 mg/dL (48-352) 02/26/23 06:11 Vitamin B12 960 pg/mL (180-914) H 02/23/23 08:31 Folate 8.8 ng/mL (5.90 - >24.8) 02/23/23 08:31 Urine Color YELLOW 02/21/23 01:45 Urine Clarity CLEAR (CLEAR) 02/21/23 01:45 Urine pH 6.0 PH (5.0-7.5) 02/21/23 01:45 Ur Specific [place] 1.025 (1.002-1.030) 02/21/23 01:45 Urine Protein >=300 mg/dL (NEGATIVE) H 02/21/23 01:45 Urine Glucose (UA) NEGATIVE mg/dL (NEGATIVE) 02/21/23 01:45 Urine Ketones TRACE mg/dL (NEGATIVE) 02/21/23 01:45 Urine Occult Blood MODERATE (NEGATIVE) H 02/21/23 01:45 Urine Nitrite NEGATIVE (NEGATIVE) 02/21/23 01:45 Urine Bilirubin NEGATIVE (NEGATIVE) 02/21/23 01:45 Urine Urobilinogen 0.2 (NORMAL) E.U./dL (NORMAL) 02/21/23 01:45 Ur Leukocyte Esterase NEGATIVE (NEGATIVE) 02/21/23 01:45 Urine RBC 6-10 /HPF (0-5) H 02/21/23 01:45 Urine WBC 0-3 /HPF (0-5) 02/21/23 01:45 Ur Squamous Epith Cells MANY Squamous (<= Few) H 02/21/23 01:45 Urine Bacteria Rare /HPF (None Seen) 02/21/23 01:45 Urine Casts 3-5 Hyaline Casts /LPF 02/21/23 01:45 Urine Mucus Moderate Strands 02/21/23 01:45 Ur Microscopic Review INDICATED 02/21/23 01:45 Urine Culture Comments NOT INDICATED 02/21/23 01:45 Nasal Adenovirus (PCR) NOT DETECTED 02/21/23 00:33 Nasal B. parapertussis DNA (PCR) NOT DETECTED 02/21/23 00:33 Nasal Coronavir 229E PCR NOT DETECTED 02/21/23 00:33 Nasal Coronavir HKU1 PCR NOT DETECTED 02/21/23 00:33 Nasal Coronavir NL63 PCR NOT DETECTED 02/21/23 00:33 Nasal Coronavir OC43 PCR NOT DETECTED 02/21/23 00:33 Nasal Enterovir/Rhinovir PCR NOT DETECTED 02/21/23 00:33 Nasal Influenza B PCR NOT DETECTED 02/21/23 00:33 Nasal Influenza A PCR NOT DETECTED 02/21/23 00:33 Nasal Parainfluen 1 PCR NOT DETECTED 02/21/23 00:33 Nasal Parainfluen 2 PCR NOT DETECTED 02/21/23 00:33 Nasal Parainfluen 3 PCR NOT DETECTED 02/21/23 00:33 Nasal Parainfluen 4 PCR NOT DETECTED 02/21/23 00:33 Nasal RSV (PCR) NOT DETECTED 02/21/23 00:33 Nasal Screen MRSA (PCR) NEGATIVE (NEGATIVE) 02/21/23 12:40 Nasal B.pertussis DNA PCR NOT DETECTED 02/21/23 00:33 Nasal C.pneumoniae (PCR) NOT DETECTED 02/21/23 00:33 Keith Human Metapneumo PCR DETECTED A 02/21/23 00:33 Nasal M.pneumoniae (PCR) NOT DETECTED 02/21/23 00:33 Nasal SARS-CoV-2 (PCR) NOT DETECTED 02/21/23 00:33 Last Dose Date UNK 02/26/23 08:02 Last Dose Time UNK 02/26/23 08:02 Vancomycin Trough 14.0 ug/mL 02/26/23 08:02 - Procedures Procedures: Procedures CATARAC PHACOEMULS/ASPIR (07/27/13) INSERT LENS AT CATAR EXT (07/27/13) Current Medications - Current Medications Current Medications: Active Medications Generic Name Dose Route Start Last Admin Trade Name Freq PRN Reason Stop Dose Admin Acetaminophen 650 mg 02/24/23 10:20 02/27/23 10:22 Acetaminophen 325 Mg Tablet PO 650 mg Q4HR PRN Administration Pain 1-4 or Fever > 38C Albuterol/Ipratropium 3 ml 02/21/23 12:19 Ipratropium/Albuterol 3 Ml Neb INH RTQID PRN Shortness of Air/Wheezing Albuterol/Ipratropium 3 ml 03/03/23 11:00 03/03/23 11:07 Ipratropium/Albuterol 3 Ml Neb INH 3 ml RTQID YANNI Administration Aspirin 81 mg 02/23/23 09:00 03/03/23 09:00 Aspirin Ec 81 Mg Tablet PO 81 mg DAILY YANNI Administration Atenolol 50 mg 02/22/23 14:20 03/03/23 09:00 Atenolol 25 Mg Tablet PO 50 mg DAILY YANNI Administration Clonazepam 1 mg 02/22/23 13:35 03/02/23 21:58 Clonazepam 0.5 Mg Tablet PO 1 mg DAILY PRN Administration Anxiety Enoxaparin Sodium 40 mg 02/21/23 12:00 03/03/23 09:00 Enoxaparin 40 Mg/0.4 Ml Syringe SUBQ 40 mg DAILY YANNI Administration Fluoxetine HCl 20 mg 02/22/23 21:00 03/03/23 09:00 Fluoxetine 10 Mg Capsule PO 20 mg BID YANNI Administration Gabapentin 300 mg 02/22/23 21:00 03/02/23 21:55 Gabapentin 300 Mg Capsule PO 300 mg HS YANNI Administration Hydralazine HCl 10 mg 02/22/23 15:46 03/01/23 17:27 Hydralazine Inj 20 Mg/Ml Vial IVP 10 mg TID PRN Administration systolic >180, diastolic >100 Hydroxyurea 500 mg 02/28/23 21:00 03/03/23 09:00 Hydroxyurea 500 Mg Capsule PO 500 mg BID YANNI Administration Acetaminophen 1,000 mg in 100 mls @ 400 mls/hr 02/21/23 20:26 03/01/23 17:22 Acetaminophen IV Infused Q6HR PRN Infusion FEVER > 100.5 F Lamotrigine 25 mg 02/23/23 09:00 03/03/23 08:59 Lamotrigine 25 Mg Tablet PO 25 mg DAILY YANNI Administration Levothyroxine Sodium 100 mcg 02/23/23 07:00 03/03/23 06:30 Levothyroxine 100 Mcg Tablet PO 100 mcg QDAC YANNI Administration Multi-Ingredient Ointment 1 applic 02/22/23 03:48 03/02/23 20:31 Zinc Oxide 20% Oint 30 Gm Tube TOP 1 applic PRN PRN Administration Skin Care Nystatin 1 applic 02/28/23 14:27 03/03/23 09:00 Nystatin Powder 15 Gm TOP 1 applic BID YANNI Administration Ondansetron HCl 4 mg 02/21/23 11:41 Ondansetron Odt 4 Mg Tablet TL Q6HR PRN Nausea / Vomiting Ondansetron HCl 4 mg 02/21/23 11:41 Ondansetron 4 Mg/2 Ml Vial IVP Q6HR PRN Nausea / Vomiting Pantoprazole Sodium 40 mg 03/04/23 07:00 Pantoprazole 40 Mg Tablet PO QDAC YANNI Risperidone 0.25 mg 02/23/23 09:00 03/03/23 08:59 Risperidone 0.25 Mg Tablet PO 0.25 mg DAILY YANNI Administration Sodium Chloride 10 ml 02/21/23 17:00 03/03/23 09:01 Sodium Chloride Flush 0.9% 10 Ml Syringe IVP 10 ml 0100,0900,1700 YANNI Administration Sodium Chloride 10 ml 02/21/23 11:41 03/02/23 04:26 Sodium Chloride Flush 0.9% 10 Ml Syringe IVP 20 ml PRN PRN Administration NEEDED PER PROVIDER ORDERS FLUoxetine [PROzac] 20 mg ORAL BID 07/20/12 lamoTRIgine [LaMICtal] 25 mg ORAL DAILY 07/20/12 risperiDONE [RisperDAL] 0.25 mg ORAL DAILY 07/20/12 Gabapentin 300 mg PO HS 04/07/14 Hydroxyurea [Hydrea] 500 mg PO BID 12/02/21 Atenolol [Tenormin] 50 mg PO DAILY 12/01/22 Levothyroxine [Synthroid] 100 mcg PO QDAC 12/01/22 Aspirin EC [Ecotrin] 81 mg PO DAILY 01/07/23 clonazePAM [Clonazepam] 1 mg PO DAILY PRN 01/07/23 hydrALAZINE [Apresoline] 10 mg PO DAILY PRN 02/21/23
[2023-03-03] MEDS: clonazePAM 0.5 MG TABLET PO PRN (21:03)
[2023-03-03] MEDS: GABAPENTIN 300 MG CAPSULE PO SCH (21:04)
[2023-03-04] MEDS: SODIUM CHLORIDE FLUSH 0.9% 10 ML SYRINGE IVP SCH ×2 (00:44→08:28)
[2023-03-04] MEDS: SODIUM CHLORIDE FLUSH 0.9% 10 ML SYRINGE IVP PRN (00:44)
[2023-03-04] MEDS: LEVOTHYROXINE 100 MCG TABLET PO SCH (06:49)
[2023-03-04] MEDS ORDERED: PANTOPRAZOLE 40 MG TABLET PO SCH (07:00)
[2023-03-04] MEDS: IPRATROPIUM/ALBUTEROL 3 ML NEB INH SCH ×2 (07:11→12:06)
[2023-03-04 07:18] LABS: BASOPHILS % (AUTO) 0.5 %; EOSINOPHILS # (AUTO) 0.1 10^3/uL (0.0-0.7); EOSINOPHILS % (AUTO) 1.5 %; HCT - HEMATOCRIT 28.3 % (37.0-47.0); HGB - HEMOGLOBIN 9.4 g/dL (12.0-16.0); LYMPHOCYTES % (AUTO) 11.9 %; MEAN CORPUSCULAR HEMOGLOBIN 37.5 pg (27.0-31.0); MEAN CORPUSCULAR HGB CONC 33.2 g/dL (32.0-36.0); MEAN CORPUSCULAR VOLUME 112.7 fL (81.0-99.0); MEAN PLATELET VOLUME 9.1 fL (7.9-10.8); MONOCYTES # (AUTO) 0.6 10^3/uL (0.0-1.0); MONOCYTES % (AUTO) 7.1 %; NEUTROPHILS # (AUTO) 6.5 10^3/uL (1.5-6.6); NEUTROPHILS % (AUTO) 76.9 %; PLT - PLATELET COUNT 413 10^3/uL (130-450); RED BLOOD COUNT 2.51 10^6/uL (4.20-5.40); RED CELL DISTRIBUTION WIDTH 16.4 % (12.0-15.0); WHITE BLOOD COUNT 8.4 x10^3/uL (4.8-10.8)
[2023-03-04 07:22] LABS: CALCIUM, IONIZED 1.13 mmol/L (1.15-1.33); VBG PH 7.41 (7.31-7.41)
[2023-03-04 07:33] LABS: CALCIUM 8.7 mg/dL (8.5-10.3); CREATININE 0.5 mg/dL (0.6-1.3); MAGNESIUM 1.6 mg/dL (1.7-2.3); PHOSPHORUS 3.7 mg/dL (2.5-5.0); POTASSIUM 3.7 mmol/L (3.5-4.5)
[2023-03-04] MEDS: lamoTRIgine 25 MG TABLET PO SCH (08:27)
[2023-03-04] MEDS: atenoloL 25 MG TABLET PO SCH (08:27)
[2023-03-04] MEDS: ASPIRIN EC 81 MG TABLET PO SCH (08:27)
[2023-03-04] MEDS: risperiDONE 0.25 MG TABLET PO SCH (08:27)
[2023-03-04] MEDS: HYDROXYUREA 500 MG CAPSULE PO SCH (08:27)
[2023-03-04] MEDS: FLUoxetine 10 MG CAPSULE PO SCH (08:27)
[2023-03-04] MEDS: NYSTATIN POWDER 15 GM TOP SCH (08:28)
[2023-03-04] MEDS: ENOXAPARIN 40 MG/0.4 ML SYRINGE SUBQ SCH (08:28)
--- NOTE | 2023-03-04 12:11 | Discharge Plan ---
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 Notify PCP of admission and forward orders to primary provider for signature. Weight on admission and: Daily Call PCP immediately if weight increases by: 5 kg Other Notification Orders: Call PCP immediately if patient develops dyspnea, chest pain/tightness or edema. House Bowel Program: Yes Additional Bowel Program Orders: If no BM after 2 days, nurse may give M.O.M. 30ml PO PRN and/or ducolax Supp 1 NH and/or ANTONIO 250mg P.O., and/or senna 1-2 tabs PO. On day 3 nurse may give repeat above order until residents constipation is resolved. Annual Influenza Vaccine (between Nov 14 and June 13): Yes Two-step PPD per [facility] [phone] or approved exception documents: Yes Oxygen Orders: Maintain oxygen above 88%. Medication Orders: PLEASE REFER TO THE DISCHARGE MEDICATION LIST. - Diet Type: Geriatric Texture: Puree Liquids: Thin May have monthly special meal: Yes - Therapies | Activity Therapy: Evaluation | Treat if indicated: PT, OT, Swallowing / ST Rehabilitation Potential: Maximize functional status Activity: Activity as Tolerated Assistance Devices: Wheelchair, Walker Follow Up: Follow-up with Trey Pearl in 3-5 days."
--- NOTE | 2023-03-04 13:11 | DISCHARGE SUMMARY ---
Discharge Summary Discharge Date: 03/04/23 Discharging Provider: [place] Code Status: Attempt Resuscitation Condition at Discharge: Good Discharge Disposition: [facility] DC/Xfer - DIAGNOSES Discharge Diagnoses with Status of Each Condition: (1) Acute on chronic hypoxic respiratory failure Assessment/Plan: -- On her baseline 5 L of oxygen. --Patient was initially requiring mechanical ventilation for human metapneumovirus and Pseudomonas pneumonia. She was most recently extubated on 03/01 and kept on high flow nasal cannula and then weaned to nasal cannula. (2) Pseudomonas pneumonia Impression: -- Sputum culture positive for Pseudomonas. Completed course of IV Zosyn and vancomycin. (3) Human metapneumovirus (hMPV) pneumonia Conclusion/Plan: --Resolved. On 5L via NC. (4) Staph epidermidis bacteremia Conclusion/Plan: Blood cultures became positive at less than 24 hours from blood draw. Both sets. She is on vancomycin with several antibx resistances but sens to Vanco Repeat blood cultures have been done on February 22 and are neg to date. Echocardiogram was done and did not report vegetations Plan: Completed 10 day course of Vancomycin IV. (5) Cor pulmonale Conclusion/Plan: Very dilated right heart seen on Echo with severely depressed RV function. Flattened septum consistent with pressure overload from the right heart as well. This is from her underlying lung disease which has been longstanding and must be severe (6) Dementia Conclusion/Plan: With her [facility] her slums score was calculated at 12 out of 30, with this judgment was impaired, memory loss was evident, and anxiety was manifested. She was on Risperdal, Klonezepam and Prozac at the [facility] facility. Plan: She will need PT and OT rehab (7) Generalized weakness Conclusion/Plan: This was noted when she was first extubated and was interacting. CT of the head was negative for acute stroke. Today the ST from [facility] saw her and spome to me about her poor recent nutrition as she got weaker. Plan: Will start PT and OT (8) Essential thrombocytosis Conclusion/Plan: Well-controlled with hydroxyurea 500 mg p.o. twice daily. Plan: Will resume meds orally (9) Hypertension At her residential facility blood pressure medicine was hydralazine 10 mg daily as needed, and atenolol 50 mg daily. After re-intubation she was hypertensive at 200/100, and tachycardic at 200. She received 1 dose of Lopressor 5 mg IV push andthen amiodarone. Within 15 minutes blood pressure was normal, heart rate was normal. Plan: Will adjust meds as needed (10) VTach Conclusion/Plan: RESOLVED On property assessment monitor while intubated, the patient had multifocal V. tach, 5 beats, rate 150. Her Cor Pulmonale may be the cause of this Plan: Continue to follow her electrolytes and ensure they are normal (11) Atrial tachycardia --Continue metoprolol. No giving amiodarone due to lung toxicity. (12) On mechanically assisted ventilation Impression: RESOLVED She was extubated successfully on 02/28/23 - HOSPITAL COURSE Hospital Course: Patient is an 87-year-old female who presented to the ED with sudden shortness of breath and altered mental status. Decision was made to intubate the patient due to hypoxemia. She was given diagnosis of acute metapneumovirus which was believed to be the cause of her acute on chronic hypoxia. Patient was using 5 L of oxygen at home. Antibiotic coverage was started with Zosyn due to concern for superimposed bacterial infection. Her ICU course was complicated by Pseudomonas pneumonia on her sputum culture for which she completed a course of Zosyn. Patient also grew gram positive bacteremia which ended up being Staph epidermidis and received a 10-day course of IV vancomycin. Repeat blood cultures were negative and a TTE did not show any evidence of vegetations. Patient was extubated on 02/28 onto high flow nasal cannula. She was eventually weaned to her 5 L of nasal cannula. Patient was noted to have significant critical illness myopathy requiring intensive PT/OT. She was deemed medically stable and completed her antibiotics, she was transferred back to [facility] for SNF. - ALLERGIES Allergies/Adverse Reactions: Allergies Allergy/AdvReac Type Severity Reaction Status Date / Time No Known Drug Allergies Allergy Verified 02/19/23 09:54 - MEDICATIONS Home Medications: Ambulatory Orders Medication Instructions Recorded Confirmed FLUoxetine [PROzac] 20 mg ORAL BID 07/20/12 02/21/23 lamoTRIgine [LaMICtal] 25 mg ORAL DAILY 07/20/12 02/21/23 risperiDONE [RisperDAL] 0.25 mg ORAL DAILY 07/20/12 02/21/23 Gabapentin 300 mg PO HS 04/07/14 02/21/23 Hydroxyurea [Hydrea] 500 mg PO BID 12/02/21 02/21/23 Atenolol [Tenormin] 50 mg PO DAILY 12/01/22 02/21/23 Levothyroxine [Synthroid] 100 mcg PO QDAC 12/01/22 02/21/23 Aspirin EC [Ecotrin] 81 mg PO DAILY 01/07/23 02/21/23 clonazePAM [Clonazepam] 1 mg PO DAILY PRN 01/07/23 02/21/23 - PHYSICAL EXAM AT DISCHARGE General Appearance: positive: No acute distress, Alert Respiratory: positive: Chest non-tender, No respiratory distress, Breath sounds nml Cardiovascular: positive: Regular rate & rhythm, No murmur, No gallop Abdomen: positive: Non-tender, No organomegaly, Nml bowel sounds Skin: positive: Color nml Neurologic/Psychiatric: positive: Oriented x3, CN's nml (2-12) - LABS Result Diagrams: 03/04/23 06:58 03/04/23 06:58 - FOLLOW UP Follow Up: Follow up with Trey Pearl in 3-5 days. - TIME SPENT Time Spent in Discharge (Minutes): 35
[2023-03-04 14:10] VITALS: BP 152/97; O2SAT 99
== END 2023-03-04 14:39 | DRG 207 ==
LOC: EDUNIT# → ED 00:25 → ICU 11:41 → MS2 03-02 19:02
PROVIDERS: ADMIT Specialist; ATTEND Family Medicine
PROC: 5A1945Z Respiratory Ventilation, 24-96 Consecutive Hours (ICD-10-PCS; principal; 2023-02-21)
PROC: 5A1955Z Respiratory Ventilation, Greater than 96 Consecutive Hours (ICD-10-PCS; 2023-02-23)
PROC: 0BH17EZ Insertion of Endotracheal Airway into Trachea, Via Natural or Artificial Opening (ICD-10-PCS; 2023-02-23)
PROC: 02HV33Z Insertion of Infusion Device into Superior Vena Cava, Percutaneous Approach (ICD-10-PCS; 2023-02-26)
DX: J96.01 Acute respiratory failure with hypoxia (principal); J96.21 Acute and chronic respiratory failure with hypoxia; J12.3 Human metapneumovirus pneumonia; J84.9 Interstitial pulmonary disease, unspecified; J15.1 Pneumonia due to Pseudomonas; J15.29 Pneumonia due to other staphylococcus; G72.81 Critical illness myopathy; Z16.24 Resistance to multiple antibiotics; I47.20 Ventricular tachycardia, unspecified; Z99.81 Dependence on supplemental oxygen; I27.81 Cor pulmonale (chronic); Z78.1 Physical restraint status; F03.90 Unspecified dementia, unspecified severity, without behavioral disturbance, psychotic disturbance, mood disturbance, and anxiety; R53.1 Weakness; D75.839 Thrombocytosis, unspecified; I10 Essential (primary) hypertension; R41.82 Altered mental status, unspecified; D47.3 Essential (hemorrhagic) thrombocythemia; R29.810 Facial weakness; Z86.16 Personal history of COVID-19; J44.9 Chronic obstructive pulmonary disease, unspecified
CPT/HCPCS: 31500; 36415; 36600; 70450; 71045; 71260; 74018; 80048; 80053; 80202; 81001; 82310; 82330; 82607; 82746; 82803; 83605; 83735; 83880; 84100; 84132; 84134; 84478; 84484; 85025; 85610; 87040; 87070; 87077; 87150; 87181; 87205; 87633; 92610; 93005; 93306; 94002; 94003; 94640; 94660; 96365; 96375; 97163; 99291; A9270; J0131; J0282; J0330; J1650; J3370; J7040; Q9967; 81003; 87086

== ENCOUNTER 2023-03-04 14:41 | Outpatient (CLI) | payer MEDICARE, OTHER | END 2023-03-04 14:42 | LOC: EMS 14:41 | PROVIDERS: ATTEND Family Medicine | DX: J18.9 Pneumonia, unspecified organism (principal); Z99.81 Dependence on supplemental oxygen; Z74.01 Bed confinement status | CPT/HCPCS: A0425; A0428 ==

== ENCOUNTER 2023-03-08 07:26 | Outpatient (CLI) | payer MEDICARE, OTHER | END 2023-03-08 23:59 | disposition critical access hospital (66) | LOC: EMS 07:26 | DX: R06.00 Dyspnea, unspecified (principal); R09.89 Other specified symptoms and signs involving the circulatory and respiratory systems; R53.1 Weakness | CPT/HCPCS: A0425; A0429 ==

== ENCOUNTER 2023-03-08 07:34 | Inpatient (IN) | payer MEDICARE, OTHER ==
[2023-03-08] MEDS ORDERED: IPRATROPIUM/ALBUTEROL 3 ML NEB INH STA (07:41)
--- NOTE | 2023-03-08 08:11 | ED Physician Documentation ---
History of Present Illness - Stated complaint Stated Complaint: SOA - Chief complaint Chief Complaint: Resp - Additonal information Additional information: Patient 87-year-old female presenting to the emergency department with report of respiratory failure and shortness of breath. Comes from [facility]. Recent hospitalization with discharge 03/04/2023 for acute on chronic hypoxic respiratory failure se condary to Pseudomonas and metapneumovirus pneumonia. Patient has past medical significant for interstitial lung disease with baseline oxygen demand 5 L. Per EMS patient was found to be satting in the 70s at [facility] last night. The facility increased her oxygen from 5 to 10 L. EMS reported that they were able to titrate her back down to 2 L prior to transport. They report that she has seemed altered per the facility. Ordinarily she is ANO x 4 and fully conversant and ambulatory with minimal support. She is full code. Review of Systems Unable to obtain: Confused PD PAST MEDICAL HISTORY - Past Medical History Cardiovascular: Hypertension, High cholesterol Respiratory: COPD, Pneumonia Neuro: None Endocrine/Autoimmune: HyPOthyroidism GI: None CNC GRINDER: None : None HEENT: None Psych: Depression, Anxiety, Other Musculoskeletal: Osteoarthritis Derm: None - Past Surgical History Past Surgical History: Yes Ortho: Hip replacement, Spine surgery - Present Medications Home Medications: Ambulatory Orders Medication Instructions Recorded Confirmed FLUoxetine [PROzac] 20 mg ORAL BID 07/20/12 03/08/23 lamoTRIgine [LaMICtal] 25 mg ORAL DAILY 07/20/12 03/08/23 risperiDONE [RisperDAL] 0.25 mg ORAL DAILY 07/20/12 03/08/23 Gabapentin 300 mg PO HS 04/07/14 03/08/23 Hydroxyurea [Hydrea] 500 mg PO BID 12/02/21 03/08/23 Levothyroxine [Synthroid] 100 mcg PO QDAC 12/01/22 03/08/23 clonazePAM [Clonazepam] 1 mg PO DAILY PRN 01/07/23 03/08/23 - Allergies Allergies/Adverse Reactions: Allergies Allergy/AdvReac Type Severity Reaction Status Date / Time No Known Drug Allergies Allergy Verified 02/19/23 09:54 - Social History Does the pt smoke?: No Smoking Status: Never smoker Does the pt drink ETOH?: No Does the pt have substance abuse?: No - Immunizations Immunizations are current?: Yes - POLST Patient has POLST: No PD ED PE NORMAL - Vitals Vital signs reviewed: Yes (Tachypneic, oxygen saturation 72% on room air.) - General General: No acute distress, Other (Elderly, frail.) - HEENT HEENT: Atraumatic, PERRL, EOMI, Ears normal - Neck Neck: Supple, no meningeal sign, No bony TTP - Cardiac Cardiac: RRR, No murmur - Respiratory Respiratory: Clear bilaterally - Abdomen Abdomen: Normal bowel sounds, Non tender - Female Female : Deferred - Rectal Rectal: Deferred - Derm Derm: Normal color - Neuro Neuro: typing section chief 2-12 intact, No motor deficit, Other (Patient able to give me thumbs up, squeeze my hands and wiggle toes to command. Is not communicating verbally. Generally nonfocal nonlateralizing neurologic exam.) Results - Vitals Vitals: Vital Signs - 24 hr 03/08/23 03/08/23 03/08/23 07:36 07:57 08:09 Temperature 36.3 C L Heart Rate 92 89 30 L Respiratory 38 H 18 30 H Rate Blood Pressure 156/97 H 145/90 H O2 Saturation 72 L 93 If not protocol 7 5 : Oxygen Flow, liters/minute 03/08/23 03/08/23 03/08/23 08:52 09:10 10:31 Temperature Heart Rate 92 93 90 Respiratory 30 H 22 18 Rate Blood Pressure 153/97 H 151/97 H 150/94 H O2 Saturation 95 95 95 If not protocol 5 5 5 : Oxygen Flow, liters/minute 03/08/23 10:54 Temperature Heart Rate 84 Respiratory 18 Rate Blood Pressure 149/92 H O2 Saturation 94 If not protocol 5 : Oxygen Flow, liters/minute Oxygen O2 Source Simple Mask Oxygen Flow Rate 5 - EKG (time done) 0800 EKG releavant findings:: EKG personally interpreted by author of this note. Relevant findings are: Sinus rhythm with rate 87 bpm. Normal axis. Normal [place], QRS, QTc intervals. No ST segment elevations.Nonspecific ST-T wave abnormalities noted in the later precordial leads. - Labs Labs: Laboratory Tests 03/08/23 03/08/23 03/08/23 07:53 07:53 07:53 WBC 10.7 RBC 2.84 L Hgb 10.7 L Hct 31.8 L MCV 112.0 H MCH 37.7 H MCHC 33.6 RDW 16.6 H Plt Count 467 H MPV 9.3 Neut # (Auto) SAP BI DEVELOPER Lymph # (Auto) SAP BI DEVELOPER [place] # (Auto) SAP BI DEVELOPER Eos # (Auto) SAP BI DEVELOPER Baso # (Auto) SAP BI DEVELOPER Absolute Nucleated RBC SAP BI DEVELOPER Total Counted 100 Band Neuts % (Manual) 2 Abnorm Lymph % (Manual) 0 Nucleated RBC % SAP BI DEVELOPER Neutrophils # (Manual) 9.8 H Lymphocytes # (Manual) 0.7 L Monocytes # (Manual) 0.0 Eosinophils # (Manual) 0.0 Basophils # (Manual) 0.1 Differential Comment MANUAL DIFFERENTIAL Manual Slide Review Indicated WBC Morphology 1+ HYPERSEG NEUT Platelet Estimate INCREASED (>450,000) Platelet Morphology NORMAL APPEARANCE RBC Morph Micro Appear 1+ TEARDROP CELLS PT 17.9 H INR 1.7 H VBG pH VBG pCO2 VBG pO2 VBG HCO3 VBG Total CO2 VBG O2 Saturation VBG Base Excess Sodium 134 L Potassium 3.7 Chloride 98 L Carbon Dioxide 28 Anion Gap 8.0 BUN 26 H Creatinine 0.5 L Estimated GFR (MDRD) 117 Glucose 111 H Lactic Acid Calcium 8.7 Magnesium 1.6 L Total Bilirubin 0.7 AST 14 ALT 17 Alkaline Phosphatase 68 Troponin I High Sens B-Natriuretic Peptide Total Protein 6.3 L Albumin 2.9 L Globulin 3.4 Albumin/Globulin Ratio 0.9 L Lipase < 10 L Nasal Adenovirus (PCR) Nasal B. parapertussis DNA (PCR) Nasal Coronavir 229E PCR Nasal Coronavir HKU1 PCR Nasal Coronavir NL63 PCR Nasal Coronavir OC43 PCR Nasal Enterovir/Rhinovir PCR Nasal Influenza B PCR Nasal Influenza A PCR Nasal Parainfluen 1 PCR Nasal Parainfluen 2 PCR Nasal Parainfluen 3 PCR Nasal Parainfluen 4 PCR Nasal RSV (PCR) Nasal B.pertussis DNA PCR Nasal C.pneumoniae (PCR) Keith Human Metapneumo PCR Nasal M.pneumoniae (PCR) Nasal SARS-CoV-2 (PCR) Ethyl Alcohol < 10.0 03/08/23 03/08/23 03/08/23 07:53 07:53 07:53 WBC RBC Hgb Hct MCV MCH MCHC RDW Plt Count MPV Neut # (Auto) Lymph # (Auto) [place] # (Auto) Eos # (Auto) Baso # (Auto) Absolute Nucleated RBC Total Counted Band Neuts % (Manual) Abnorm Lymph % (Manual) Nucleated RBC % Neutrophils # (Manual) Lymphocytes # (Manual) Monocytes # (Manual) Eosinophils # (Manual) Basophils # (Manual) Differential Comment Manual Slide Review WBC Morphology Platelet Estimate Platelet Morphology RBC Morph Micro Appear PT INR VBG pH VBG pCO2 VBG pO2 VBG HCO3 VBG Total CO2 VBG O2 Saturation VBG Base Excess Sodium Potassium Chloride Carbon Dioxide Anion Gap BUN Creatinine Estimated GFR (MDRD) Glucose Lactic Acid 1.1 Calcium Magnesium Total Bilirubin AST ALT Alkaline Phosphatase Troponin I High Sens 30.1 H* B-Natriuretic Peptide Total Protein Albumin Globulin Albumin/Globulin Ratio Lipase Nasal Adenovirus (PCR) NOT DETECTED Nasal B. parapertussis DNA (PCR) NOT DETECTED Nasal Coronavir 229E PCR NOT DETECTED Nasal Coronavir HKU1 PCR NOT DETECTED Nasal Coronavir NL63 PCR NOT DETECTED Nasal Coronavir OC43 PCR NOT DETECTED Nasal Enterovir/Rhinovir PCR NOT DETECTED Nasal Influenza B PCR NOT DETECTED Nasal Influenza A PCR NOT DETECTED Nasal Parainfluen 1 PCR NOT DETECTED Nasal Parainfluen 2 PCR NOT DETECTED Nasal Parainfluen 3 PCR NOT DETECTED Nasal Parainfluen 4 PCR NOT DETECTED Nasal RSV (PCR) NOT DETECTED Nasal B.pertussis DNA PCR NOT DETECTED Nasal C.pneumoniae (PCR) NOT DETECTED Keith Human Metapneumo PCR NOT DETECTED Nasal M.pneumoniae (PCR) NOT DETECTED Nasal SARS-CoV-2 (PCR) NOT DETECTED Ethyl Alcohol 03/08/23 03/08/23 03/08/23 08:21 08:21 10:03 WBC RBC Hgb Hct MCV MCH MCHC RDW Plt Count MPV Neut # (Auto) Lymph # (Auto) [place] # (Auto) Eos # (Auto) Baso # (Auto) Absolute Nucleated RBC Total Counted Band Neuts % (Manual) Abnorm Lymph % (Manual) Nucleated RBC % Neutrophils # (Manual) Lymphocytes # (Manual) Monocytes # (Manual) Eosinophils # (Manual) Basophils # (Manual) Differential Comment Manual Slide Review WBC Morphology Platelet Estimate Platelet Morphology RBC Morph Micro Appear PT INR VBG pH 7.439 H VBG pCO2 38.8 L VBG pO2 72.3 H VBG HCO3 25.7 VBG Total CO2 26.9 VBG O2 Saturation 94.1 H VBG Base Excess 1.6 Sodium Potassium Chloride Carbon Dioxide Anion Gap BUN Creatinine Estimated GFR (MDRD) Glucose Lactic Acid Calcium Magnesium Total Bilirubin AST ALT Alkaline Phosphatase Troponin I High Sens 31.7 H* B-Natriuretic Peptide 1783 H Total Protein Albumin Globulin Albumin/Globulin Ratio Lipase Nasal Adenovirus (PCR) Nasal B. parapertussis DNA (PCR) Nasal Coronavir 229E PCR Nasal Coronavir HKU1 PCR Nasal Coronavir NL63 PCR Nasal Coronavir OC43 PCR Nasal Enterovir/Rhinovir PCR Nasal Influenza B PCR Nasal Influenza A PCR Nasal Parainfluen 1 PCR Nasal Parainfluen 2 PCR Nasal Parainfluen 3 PCR Nasal Parainfluen 4 PCR Nasal RSV (PCR) Nasal B.pertussis DNA PCR Nasal C.pneumoniae (PCR) Keith Human Metapneumo PCR Nasal M.pneumoniae (PCR) Nasal SARS-CoV-2 (PCR) Ethyl Alcohol PD Medical Decision Making - ED course Complexity details: reviewed results, re-evaluated patient, considered differential ED course: Patient 87-year-old female presenting to the emergency department with acute altered mentation and reported acute on chronic hypoxic respiratory failure. Past medical significant for interstitial lung disease with chronic hypoxic respiratory failure with baseline oxygen demand 5 L. Additionally patient recently hospitalized for Pseudomonas and metapneumovirus pneumonia requiring intubation. Patient moderately obtunded but responsive and able to move all extremities to command on arrival. Initially found to have oxygen saturations in the 70s on room air. Titrated back down to her 5 L and given breathing treatment. Comprehensive labs obtained demonstrate mild hypomagnesemia and magnesium repletion initiated. Initial chest x-ray positive for signs of interstitial disease. A CTA chest demonstrates worsening airspace lung disease possibly infectious in origin as well as an acute on chronic pulmonary emboli. Blood cultures obtained. Comprehensive antibiotics initiated. In consultation with the hospitalist service patient given dose Lovenox. Graciously accepted by the hospitalist service for further evaluation and treatment. Departure - Departure Disposition: [facility] DC/Xfer Clinical Impression: Encephalopathy, Acute and chronic respiratory failure ([id number]), Interstitial lung disease, Hypomagnesemia Discharge Date/Time: 03/08/23 14:03
[2023-03-08 08:19] LABS: BASOPHILS % (AUTO) 0.3 %; HCT - HEMATOCRIT 31.8 % (37.0-47.0); HGB - HEMOGLOBIN 10.7 g/dL (12.0-16.0); LYMPHOCYTES % (AUTO) 6.9 %; MEAN CORPUSCULAR HEMOGLOBIN 37.7 pg (27.0-31.0); MEAN CORPUSCULAR HGB CONC 33.6 g/dL (32.0-36.0); MEAN PLATELET VOLUME 9.3 fL (7.9-10.8); MONOCYTES % (AUTO) 2.8 %; NEUTROPHILS % (AUTO) 88.8 %; PLT - PLATELET COUNT 467 10^3/uL (130-450); RED BLOOD COUNT 2.84 10^6/uL (4.20-5.40); RED CELL DISTRIBUTION WIDTH 16.6 % (12.0-15.0); WHITE BLOOD COUNT 10.7 x10^3/uL (4.8-10.8)
[2023-03-08 08:28] LABS: ALBUMIN 2.9 g/dL (3.2-5.5); ALBUMIN/GLOBULIN RATIO 0.9 (1.0-2.2); ALKALINE PHOSPHATASE 68 IU/L (42-121); ALT ALANINE AMINOTRANSFERASE 17 IU/L (10-60); AST ASPARTATE AMINOTRANSFERASE 14 IU/L (10-42); BILIRUBIN,TOTAL 0.7 mg/dL (0.2-1.0); BUN - BLOOD UREA NITROGEN 26 mg/dL (6-20); CALCIUM 8.7 mg/dL (8.5-10.3); CARBON DIOXIDE - CO2 28 mmol/L (21-32); CHLORIDE 98 mmol/L (101-111); CREATININE 0.5 mg/dL (0.6-1.3); ETOH - ETHANOL < 10.0 mg/dL; GFR - MDRD 117 (>89); GLUCOSE 111 mg/dL (74-104); LIPASE < 10 U/L (11-82); MAGNESIUM 1.6 mg/dL (1.7-2.3); POTASSIUM 3.7 mmol/L (3.5-4.5); SLIDE REVIEW? Indicated; SODIUM 134 mmol/L (135-145); TOTAL PROTEIN 6.3 g/dL (6.4-8.9)
[2023-03-08 08:29] LABS: INR 1.7 (0.8-1.2); PT - PROTHROMBIN TIME 17.9 secs (9.9-12.6)
[2023-03-08 08:47] LABS: VBG PCO2 38.8 mmHg (41-51); VBG PH 7.439 (7.31-7.41)
[2023-03-08 08:48] LABS: VBG BASE EXCESS 1.6 mmol/L (-2 - +2); VBG HCO3 25.7 mmol/L (23-28); VBG OXYGEN SATURATION 94.1 % (60-80); VBG PO2 72.3 mmHg (25-47); VBG TOTAL CO2 26.9 mmol/L (24-29)
[2023-03-08] MEDS ORDERED: MAGNESIUM SULFATE 2 GRAM 2 GM/50 ML BAG IV ONE (09:08)
[2023-03-08 09:13] LABS: ABNORMAL LYMPHS % (MANUAL) 0 %
[2023-03-08 09:18] LABS: BAND NEUTROPHILS % (MANUAL) 2 %; BASOPHILS # (MANUAL) 0.1 10^3/uL (0-0.1); BASOPHILS % (MANUAL) 1 %; LYMPHOCYTES # (MANUAL) 0.7 10^3/uL (1.5-3.5); LYMPHOCYTES % (MANUAL) 7 %; NEUTROPHILS # (MANUAL) 9.8 10^3/uL (1.5-6.6)
[2023-03-08 09:25] LABS: PLATELET ESTIMATE, MANUAL INCREASED (>450,000) (NORMAL); PLATELET MORPHOLOGY NORMAL APPEARANCE (NORMAL)
[2023-03-08 09:28] LABS: WBC MORPHOLOGY (MULTIPLE) 1+ HYPERSEG NEUT (NORMAL)
--- NOTE | 2023-03-08 09:31 | XRAY Report ---
PROCEDURE: Chest 1V INDICATIONS: chest pain TECHNIQUE: One view of the chest was acquired. COMPARISON: 02/27/2023 FINDINGS: Surgical changes and devices: None. Lungs and pleura: Moderate diffuse lung disease again seen. Suspected small effusions. Mediastinum: Heart size is at the upper limit of normal. Bones and chest wall: Degenerative changes, suspected intra-articular loose body at the left axillar y pouch. IMPRESSION: Moderate persistent diffuse lung disease (likely edema and/or infection) and possible trace effusions . Consider future imaging surveillance to assess for resolution. Reviewed by: Garcia Myers MD on 03/08/2023 9:29 AM PST Approved by: Garcia Myers MD on 03/08/2023 9:29 AM PST Station ID: [id number]
[2023-03-08 09:33] LABS: DIFFERENTIAL COMMENT MANUAL DIFFERENTIAL
[2023-03-08 09:35] LABS: B. PARAPERTUSSIS- RESP PCR PAN NOT DETECTED; B. PERTUSSIS- RESP PCR PANEL NOT DETECTED; C. PNEUMONIAE- RESP PCR PANEL NOT DETECTED; CORONAVIRUS 229E-RESP PCR NOT DETECTED; CORONAVIRUS HKU1-RESP PCR NOT DETECTED; CORONAVIRUS NL63-RESP PCR NOT DETECTED; CORONAVIRUS OC43-RESP PCR NOT DETECTED; HUMAN METAPNEUMOVIRUS NOT DETECTED; INFLUENZA A- RESP PCR PANEL NOT DETECTED; INFLUENZA B - RESP PCR PANEL NOT DETECTED; M. PNEUMONIAE- RESP PCR PANEL NOT DETECTED; PARAINFLUENZA VIRUS 1 NOT DETECTED; PARAINFLUENZA VIRUS 2 NOT DETECTED; PARAINFLUENZA VIRUS 3 NOT DETECTED; PARAINFLUENZA VIRUS 4 NOT DETECTED; RHINOVIRUS/ENTEROVIRUS NOT DETECTED; RSV- RESP PCR PANEL NOT DETECTED; SARS-CoV-2 -RESP PCR PANEL NOT DETECTED
--- NOTE | 2023-03-08 12:36 | CT Report ---
PROCEDURE: ANGIO CHEST W/WO INDICATIONS: Rule out PE CONTRAST: Omni 300 80ml TECHNIQUE: After the administration of intravenous contrast, 2 mm axial images were acquired from the pulmonary apices to the posterior costophrenic angles during the arterial phase. In addition, 1 mm lung kernel and 5 mm soft tissue kernel reconstructions were performed. 3-dimensional coronal oblique maximum int ensity projection (MIP) reformats, 8 mm axial MIP, and 5 mm coronal and sagittal MPR reformats were t hen performed through the thorax. For radiation dose reduction, the following was used: automated exp osure control, adjustment of mA and/or kV according to patient size. COMPARISON: Same-day radiograph, 02/21/2023 CT FINDINGS: Image quality: Diagnostic Lungs and pleura:There is moderate diffuse lung disease, increased compared to 02/21/2023. Reticulonod ular consolidations are seen in the right lower lobe. Geographic large consolidation is seen in the l eft lower lobe.. Small left pleural effusion. Trace right pleural effusion. Mediastinum, heart, and esophagus: Mildly dilated pulmonary artery indicating chronically high pulmon pennie pressures. There is no central pulmonary embolism. Some of the distal arteries are scattered by m otion artifact. A subsegmental branch of the left lower lobe artery appears cut off (CT image , 8 9). Cardiomegaly and biatrial enlargement. Coronary calcifications. No pathologic lymph nodes by size cri teria. Prominent lymph nodes can be reactive in this clinical setting. Chest wall and thyroid: No actionable thyroid nodule identified. Chest wall is unremarkable. Upper abdomen: No gross abnormality on these arterial phase images. There is reflux of contrast into hepatic veins. Bones: There are degenerative changes. No acute or suspicious osseous finding. L1 height loss again s een. IMPRESSION: Moderate diffuse lung disease is increased, likely infectious/inflammatory, particularly confluent in the lower lobes. Consider future imaging surveillance to assess for resolution. Small left effusion. Questionable occlusion of the left lower lobe pulmonary artery subsegmental branch, probably present on prior study, likely chronic or acute on chronic embolism. The distal arteries on this study are no t well evaluated due to motion artifact. No central acute embolism. Mildly dilated pulmonary artery and reflux of contrast into the hepatic veins. Cardiomegaly. Findings likely represent heart failure and chronically high pulmonary pressures. Other findings as above. Reviewed by: Garcia Myers MD on 03/08/2023 12:35 PM PST Approved by: Garcia Myers MD on 03/08/2023 12:35 PM PST Station ID: [id number]
[2023-03-08] MEDS ORDERED: AZITHROMYCIN INJ 500 MG in SODIUM CHLORIDE 0.9% 250 ML IV STA (12:43)
[2023-03-08] MEDS ORDERED: iohexoL-300 100 ML VIAL IVP ONE (12:43)
[2023-03-08] MEDS ORDERED: CEFEPIME 2 GM in SODIUM CHLORIDE 0.9% MINIBAG 100 ML IV STA (12:43)
[2023-03-08] MEDS ORDERED: ENOXAPARIN 60 MG/0.6 ML SYRINGE SUBQ STA (12:48)
[2023-03-08] MEDS ORDERED: ACETAMINOPHEN 325 MG TABLET PO PRN (12:51)
[2023-03-08] MEDS ORDERED: ONDANSETRON 4 MG/2 ML VIAL IVP PRN (12:51)
[2023-03-08] MEDS ORDERED: HYDROcod/ACETAM 5/325 MG TABLET PO PRN (12:51)
[2023-03-08] MEDS ORDERED: SODIUM CHLORIDE FLUSH 0.9% 10 ML SYRINGE IVP PRN (12:51)
[2023-03-08] MEDS ORDERED: CLONAZEPAM 1 MG PO PRN (12:56)
[2023-03-08] MEDS ORDERED: clonazePAM 0.5 MG TABLET PO PRN (13:07)
[2023-03-08 13:32] LABS: ABG HCO3 28.4 mmol/L (22.0-26.0); ABG PCO2 38 mmHg (34-45); ABG PH 7.49 (7.35-7.45); ABG PO2 114 mmHg (80-100)
[2023-03-08 13:33] LABS: ABG BASE EXCESS 4.9 mmol/L (-2.0-3.0); ABG OXYGEN SATURATION 98 % (94-98); ABG TCO2 29.6 MMOL/L (21.0-29.0); ALLEN TEST POSITIVE
--- NOTE | 2023-03-08 13:33 | PHARMACY PROGRESS NOTE ---
- Best Possible Medication History Admit Date and Time: 03/08/23 1251 Processed by: Pharmacy Medication History completed: Yes Patient Interview: Pt unable to participate Secondary Source(s): Facility MAR as ONLY source As the person ultimately responsible for medication therapy, providers are able to order a medication from an existing home medication list in [facility] via the "Reconcile Routine" prior to Confirmation of that medication by direct support worker. Such practice is discouraged except when the physician, in their clinical judgment, deems that a medical need exists for a medication without regard to previous use.
[2023-03-08 13:57] LABS: BILIRUBIN,URINE NEGATIVE (NEGATIVE); GLUCOSE, URINE (UA) NEGATIVE (NEGATIVE); KETONES,URINE (UA) NEGATIVE (NEGATIVE); LEUKOCYTE ESTERASE, URINE NEGATIVE (NEGATIVE); NITRITE,URINE NEGATIVE (NEGATIVE); OCCULT BLOOD,URINE TRACE-INTA (NEGATIVE); PROTEIN,URINE 100 mg/dL (NEGATIVE); UROBILINOGEN,URINE 0.2 (NORMAL) E.U./dL (NORMAL)
[2023-03-08 14:02] LABS: CLARITY,URINE CLEAR (CLEAR)
[2023-03-08 14:13] LABS: BACTERIA,URINE Rare /HPF (None Seen); RBC,URINE 0-5 /HPF (0-5); SQUAMOUS EPITHELIAL CELL,UR RARE Squamous (<= Few)
[2023-03-08 14:15] LABS: AMPHETAMINE SCREEN,URINE NEGATIVE (NEGATIVE); BENZODIAZEPINES SCREEN, URINE POSITIVE (NEGATIVE); COCAINE SCREEN URINE NEGATIVE (NEGATIVE); METHAMPHETAMINES SCREEN, URINE NEGATIVE (NEGATIVE); OPIATE SCREEN, URINE NEGATIVE (NEGATIVE); THC CANNABINOID SCREEN, URINE NEGATIVE (NEGATIVE); TRICYCLIC ANTIDEPRESSANT,URINE NEGATIVE (NEGATIVE)
[2023-03-08 14:16] LABS: BARBITURATE SCREEN,UR NEGATIVE (NEGATIVE); BUPRENORPHINE SCREEN, URINE NEGATIVE (NEGATIVE); METHADONE SCREEN, URINE NEGATIVE (NEGATIVE); OXYCODONE SCREEN, URINE NEGATIVE (NEGATIVE)
[2023-03-08] MEDS: IPRATROPIUM/ALBUTEROL 3 ML NEB INH SCH ×2 (14:51→19:20)
[2023-03-08] MEDS: FUROSEMIDE 40 MG/4 ML VIAL IVP SCH (15:39)
[2023-03-08] MEDS: VANCOMYCIN INJ 1 GM in SODIUM CHLORIDE 0.9% 250 ML IV SCH (15:39)
--- NOTE | 2023-03-08 16:14 | HISTORY & PHYSICAL EXAMINATION ---
Chief Complaint - Chief Complaint Chief Complaint: Shortness of breath History of Present Illness - Admitted From Admitted From:: ED - History Obtained From Records Reviewed: Yes History obtained from: Chart, Friend, Family, ED - History of Present Illness HPI Comment/Other: Patient is an 87-year-old female the past medical history of chronic hypoxic respiratory failure requiring 5 L of oxygen secondary to interstitial lung disease and MAC infection, severe pulmonary hypertension, hypothyroidism, hypertension, hyperlipidemia, MDD, dementia, thrombocytosis who presented to the ED due to progressively worsening shortness of breath after being discharged on 03/04. Patient was previously admitted for acute hypoxic respiratory failure requiring mechanical ventilation secondary to human metapneumovirus. During her hospitalization she did develop Pseudomonas pneumonia which was adequately treated. Patient was successfully liberated from the ventilator and was discharged to [facility] for physical and Occupational Therapy for her critical illness myopathy. Per EMS, patient was found to be saturating in the 70s at [facility] last night and the facility increased her oxygen from 5 L to 10 L. EMS reported that they were able to titrate her down to 2 L prior to transport. In the ED a CT chest was performed which revealed moderate to diffuse lung disease which was increased secondary to infectious/inflammatory process. There is also a questionable left lower lobe subsegmental branch chronic or acute on chronic embolism. There is also evidence of chronically high pulmonary pressures. During my evaluation patient appeared euvolemic. She was requiring 5 L of oxygen via OxyMask but was quickly transitioned to nasal cannula. During my discussion with the patient she wished to be DNR. This discussion was held in the presence of her close friend who stated that she had communicated this to a speech therapist at [facility] as well. An extensive discussion was had with her son Lázaro. He was also in agreement with making her DNR. History - Past Medical History Cardiovascular: reports: Hypertension, High cholesterol Respiratory: reports: COPD, Pneumonia Neuro: reports: None Endocrine/Autoimmune: reports: HyPOthyroidism GI: reports: None BUILDING COORDINATOR: reports: None : reports: None HEENT: reports: None Psych: reports: Depression, Anxiety, Other Musculoskeletal: reports: Osteoarthritis Derm: reports: None MRSA Hx?: No - Past Surgical History Ortho: reports: Hip replacement, Spine surgery - POLST Patient has POLST: No Meds/Allgy - Home Medications Home Medications: Ambulatory Orders Medication Instructions Recorded Confirmed FLUoxetine [PROzac] 20 mg ORAL BID 07/20/12 03/08/23 lamoTRIgine [LaMICtal] 25 mg ORAL DAILY 07/20/12 03/08/23 risperiDONE [RisperDAL] 0.25 mg ORAL DAILY 07/20/12 03/08/23 Gabapentin 300 mg PO HS 04/07/14 03/08/23 Hydroxyurea [Hydrea] 500 mg PO BID 12/02/21 03/08/23 Levothyroxine [Synthroid] 100 mcg PO QDAC 12/01/22 03/08/23 clonazePAM [Clonazepam] 1 mg PO DAILY PRN 01/07/23 03/08/23 - Allergies Allergies/Adverse Reactions: Allergies Allergy/AdvReac Type Severity Reaction Status Date / Time No Known Drug Allergies Allergy Verified 02/19/23 09:54 Review of Systems - Cardiovascular Cariovascular: denies: Chest pain - Respiratory Respiratory: reports: SOB at rest - Gastrointestinal Gastrointestinal: denies: Abdominal pain Prior Level of Functionality: Resided at [facility]. Exam - Vital Signs Reviewed Vital Signs: Yes Vital Signs: Vital Signs x48h Temp Pulse Pulse Resp BP BP Pulse Ox 03/08/23 15:28 37.4 C 91 24 123/80 92 03/08/23 14:57 93 17 03/08/23 14:32 03/08/23 14:08 37.1 C 89 24 149/86 H 99 03/08/23 10:54 84 18 149/92 H 94 03/08/23 10:31 90 18 150/94 H 95 03/08/23 09:10 93 22 151/97 H 95 03/08/23 08:52 92 30 H 153/97 H 95 O2 Flow Rate 03/08/23 15:28 6 03/08/23 14:57 6 03/08/23 14:32 15 03/08/23 14:08 15 03/08/23 10:54 5 03/08/23 10:31 5 03/08/23 09:10 5 03/08/23 08:52 5 - Physical Exam General Appearance: positive: Alert, Moderate distress Eyes Bilateral: positive: PERRL, EOMI Neck: positive: No JVD Cardiovascular: positive: Regular rate & rhythm, No murmur, No gallop Abdomen: positive: Non-tender, Nml bowel sounds, No distention Extremities: positive: No pedal edema Conclusion/Plan - Problem List (1) Acute on chronic hypoxic respiratory failure Conclusion/Plan: --Likely multifactorial however 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 --Continue scheduled DuoNeb. --Oral prednisone 40 mg for 5 days. --Given antibiotics in the ED. Will continue her on vancomycin and cefepime given her recent hospitalization and findings of pneumonia on CT. Unclear if this is from previous infection. However will treat empirically. --Blood and sputum culture is currently pending. -- Remains on her 5 L of nasal cannula. -- Extensive discussion with her son regarding aggressiveness and goals of care. I have made her DNR per patient request. This was communicated with the son a nd he is respectful of patient's decision. (2) Pulmonary embolus Conclusion/Plan: --Chronic or acute on chronic PE seen on CT scan. I have started her on ther apeutic Lovenox. (3) Pulmonary hypertension Conclusion/Plan: --History of pulmonary hypertension. Unclear if she has had a right heart cath recently. --Will give a dose of IV Lasix today and assess. She does not appear clinically fluid overloaded however CT scan does show some evidence of an effusion. She also has elevated pressures on CT scan. --TTE from 02/24 showing LVEF of greater than 55% with moderate to severe right ventricular enlargement. (4) Thrombocytosis Conclusion/Plan: --Continue hydroxyurea and ASA. (5) Interstitial lung disease Conclusion/Plan: --On her chronic 5L oxygen. (6) HCAP (healthcare-associated pneumonia) Conclusion/Plan: --Continue antibiotics as above. --Cultures pending. - Lab Results Lab results reviewed: Yes Fish Bones: 03/08/23 07:53 03/08/23 07:53 - Diagnostic Imaging Results Diagnostic Imaging Results: positive: Final report reviewed
--- NOTE | 2023-03-08 16:44 | PHARMACY PROGRESS NOTE ---
- Therapy Status Vancomycin regimen day #: 1 Therapy status: Awaiting steady state Basis for treatment: Empirical Treatment indication: HCAP, CULTURES PENDING Trough goal: AUC 400-600 Concurrent antibiotics: 1 DOSE AZITHROMYCIN 500MG IN ED, CEFEPIME 2G Q12H - JOSE Risk Risk level for Acute Kidney Injury: Moderate Acute Kidney Injury risk factors: Baseline CrCl <50 - Monitoring and Recommendation Clinical response to treatment: I&O Previous 24 hours 03/06/23 03/07/23 03/08/23 23:59 23:59 23:59 Intake Total 150 Output Total 300 Balance -150 Lab Results 03/08/23 07:53 BUN 26 H Creatinine 0.5 L Estimated GFR (MDRD) 117 Monitoring plan: Daily serum creatinine, Draw trough early Next trough due prior to maintenance dose #: 3 Next trough due (date/time): 03/09/23 1230 Areas for additional monitoring: Therapy de-escalation based on culture results
[2023-03-08] MEDS: SODIUM CHLORIDE FLUSH 0.9% 10 ML SYRINGE IVP SCH ×2 (19:53→23:00)
[2023-03-08] MEDS: CEFEPIME 2 GM in SODIUM CHLORIDE 0.9% MINIBAG 100 ML IV SCH (22:41)
[2023-03-08] MEDS: ENOXAPARIN 60 MG/0.6 ML SYRINGE SUBQ SCH (22:52)
[2023-03-08] MEDS: GABAPENTIN 300 MG CAPSULE PO SCH (22:54)
[2023-03-08] MEDS: HYDROXYUREA 500 MG CAPSULE PO SCH (22:55)
[2023-03-08] MEDS: FLUoxetine 10 MG CAPSULE PO SCH (22:56)
[2023-03-09] MEDS: VANCOMYCIN INJ 1 GM in SODIUM CHLORIDE 0.9% 250 ML IV SCH ×2 (01:11→14:26)
[2023-03-09 05:39] LABS: BASOPHILS # (AUTO) 0.1 10^3/uL (0.0-0.1); BASOPHILS % (AUTO) 0.4 %; HCT - HEMATOCRIT 31.2 % (37.0-47.0); HGB - HEMOGLOBIN 10.4 g/dL (12.0-16.0); LYMPHOCYTES # (AUTO) 0.5 10^3/uL (1.5-3.5); LYMPHOCYTES % (AUTO) 3.8 %; MEAN CORPUSCULAR HEMOGLOBIN 37.4 pg (27.0-31.0); MEAN CORPUSCULAR HGB CONC 33.3 g/dL (32.0-36.0); MEAN CORPUSCULAR VOLUME 112.2 fL (81.0-99.0); MEAN PLATELET VOLUME 9.1 fL (7.9-10.8); MONOCYTES # (AUTO) 0.6 10^3/uL (0.0-1.0); MONOCYTES % (AUTO) 5.1 %; NEUTROPHILS # (AUTO) 11.3 10^3/uL (1.5-6.6); NEUTROPHILS % (AUTO) 89.9 %; PLT - PLATELET COUNT 390 10^3/uL (130-450); RED BLOOD COUNT 2.78 10^6/uL (4.20-5.40); RED CELL DISTRIBUTION WIDTH 16.5 % (12.0-15.0); WHITE BLOOD COUNT 12.6 x10^3/uL (4.8-10.8)
[2023-03-09 06:05] LABS: CALCIUM 8.6 mg/dL (8.5-10.3); CREATININE 0.5 mg/dL (0.6-1.3); POTASSIUM 3.4 mmol/L (3.5-4.5)
[2023-03-09 06:23] LABS: SLIDE REVIEW? Indicated
[2023-03-09] MEDS: LEVOTHYROXINE 100 MCG TABLET PO SCH (06:38)
[2023-03-09] MEDS: IPRATROPIUM/ALBUTEROL 3 ML NEB INH SCH ×4 (07:08→23:00)
[2023-03-09 07:41] LABS: PLATELET ESTIMATE, MANUAL NORMAL (130-450,000) (NORMAL); PLATELET MORPHOLOGY NORMAL APPEARANCE (NORMAL); WBC MORPHOLOGY (MULTIPLE) NORMAL APPEARANCE (NORMAL)
[2023-03-09] MEDS ORDERED: ATENOLOL 50 MG PO SCH (09:00)
[2023-03-09] MEDS: risperiDONE 0.25 MG TABLET PO SCH (09:18)
[2023-03-09] MEDS: amLODIPine 5 MG TABLET PO SCH (09:18)
[2023-03-09] MEDS: predniSONE 20 MG TABLET PO SCH (09:18)
[2023-03-09] MEDS: ENOXAPARIN 60 MG/0.6 ML SYRINGE SUBQ SCH ×2 (09:19→21:22)
[2023-03-09] MEDS: HYDROXYUREA 500 MG CAPSULE PO SCH ×2 (09:19→21:22)
[2023-03-09] MEDS: lamoTRIgine 25 MG TABLET PO SCH (09:19)
[2023-03-09] MEDS: FLUoxetine 10 MG CAPSULE PO SCH ×2 (09:19→21:22)
[2023-03-09] MEDS: ASPIRIN EC 81 MG TABLET PO SCH (09:19)
[2023-03-09] MEDS: FUROSEMIDE 40 MG/4 ML VIAL IVP SCH (09:19)
[2023-03-09] MEDS: CEFEPIME 2 GM in SODIUM CHLORIDE 0.9% MINIBAG 100 ML IV SCH ×2 (09:20→21:23)
[2023-03-09] MEDS: SODIUM CHLORIDE FLUSH 0.9% 10 ML SYRINGE IVP SCH ×2 (09:23→17:24)
--- NOTE | 2023-03-09 11:40 | PROVIDER PROGRESS NOTE ---
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 --Continue scheduled DuoNeb. --Oral prednisone 40 mg for 5 days. --Given antibiotics in the ED. Will continue her on vancomycin and cefepime given her recent hospitalization and findings of pneumonia on CT. Unclear if this is from previous infection. However will treat empirically. --Blood and sputum culture is currently pending. Blood showing NGTD. -- Today on 6L via oxymask. -- Extensive discussion with her son regarding aggressiveness and goals of care. I have made her DNR per patient request. This was communicated with the son and he is respectful of patient's decision on 03/08. I again asked her about her code status on 03/09 and she would like to remain DNR. (2) Pulmonary embolus Conclusion/Plan: --Chronic or acute on chronic PE seen on CT scan. I have started her on therapeutic Lovenox. (3) Pulmonary hypertension Conclusion/Plan: --History of pulmonary hypertension. Unclear if she has had a right heart cath recently. --Will give a dose of IV Lasix x5 days. She does not appear clinically fluid overloaded however CT scan does show some evidence of an effusion. She also has elevated pressures on CT scan. --Monitor renal function. --TTE from 02/24 showing LVEF of greater than 55% with moderate to severe right ventricular enlargement. (4) Thrombocytosis Conclusion/Plan: --Continue hydroxyurea and ASA. (5) Interstitial lung disease Conclusion/Plan: --On chronic 5L oxygen. (6) HCAP (healthcare-associated pneumonia) Conclusion/Plan: --Continue antibiotics as above. --Cultures pending. --Procalc mildly elevated. - Current Meds Current Meds: Current Medications Generic Name Dose Route Start Last Admin Trade Name Freq PRN Reason Stop Dose Admin Albuterol/Ipratropium 3 ml 03/08/23 15:00 03/09/23 11:08 Ipratropium/Albuterol 3 Ml Neb INH 3 ml RTQID YANNI Administration Amlodipine Besylate 5 mg 03/09/23 09:00 03/09/23 09:18 Amlodipine 5 Mg Tablet PO 5 mg DAILY YANNI Administration Aspirin 81 mg 03/09/23 09:00 03/09/23 09:19 Aspirin Ec 81 Mg Tablet PO 81 mg DAILY YANNI Administration Enoxaparin Sodium 60 mg 03/08/23 21:00 03/09/23 09:19 Enoxaparin 60 Mg/0.6 Ml Syringe SUBQ 60 mg BID YANNI Administration Fluoxetine HCl 20 mg 03/08/23 21:00 03/09/23 09:19 Fluoxetine 10 Mg Capsule PO 20 mg BID YANNI Administration Furosemide 40 mg 03/08/23 13:00 03/09/23 09:19 Furosemide 40 Mg/4 Ml Vial IVP 03/10/23 09:01 40 mg DAILY YANNI Administration Gabapentin 300 mg 03/08/23 21:00 03/08/23 22:54 Gabapentin 300 Mg Capsule PO 300 mg HS YANNI Administration Hydroxyurea 500 mg 03/08/23 21:00 03/09/23 09:19 Hydroxyurea 500 Mg Capsule PO 500 mg BID YANNI Administration Vancomycin HCl 1 gm/ Sodium 250 mls @ 166.667 mls/hr 03/08/23 13:00 03/09/23 02:41 Chloride IV Infused Q12H YANNI Infusion Cefepime HCl 2 gm/ Sodium 100 mls @ 200 mls/hr 03/08/23 21:00 03/09/23 09:20 Chloride IV 200 mls/hr BID YANNI Administration Lamotrigine 25 mg 03/09/23 09:00 03/09/23 09:19 Lamotrigine 25 Mg Tablet PO 25 mg DAILY YANNI Administration Levothyroxine Sodium 100 mcg 03/09/23 07:00 03/09/23 06:38 Levothyroxine 100 Mcg Tablet PO Not Given QDAC YANNI Prednisone 40 mg 03/09/23 08:00 03/09/23 09:18 Prednisone 20 Mg Tablet PO 03/14/23 07:59 40 mg DAILYWM YANNI Administration Risperidone 0.25 mg 03/09/23 09:00 03/09/23 09:18 Risperidone 0.25 Mg Tablet PO 0.25 mg DAILY YANNI Administration Sodium Chloride 10 ml 03/08/23 17:00 03/09/23 09:23 Sodium Chloride Flush 0.9% 10 Ml Syringe IVP 10 ml 0100,0900,1700 YANNI Administration - Lab Result Fish Bone Diagrams: 03/09/23 05:34 03/09/23 05:34 - Additional Planning My Orders: My Active Orders 03/08/23 12:51 Activity Orders [RC] Q2HR IO [RC] IOSHIFT Incentive Spirometry - RT [RC] TID Initiate Bowel Care Protocol [RC] .protocol Initiate Bronchodialator Linda [RC] .PROTOCOL Initiate Line Care Protocol [RC] QSHIFT Initiate Lung Inflation Protoc [RC] .PROTOCOL Initiate Personal Care Protoco [RC] .protocol Initiate Secretion Clearance P [RC] .PROTOCOL Oxygen Therapy [RC] .PRN Vital Signs [RC] 0800,1600,0000 Acetaminophen [Tylenol] 650 mg PO Q4HR PRN HYDROcod/ACETAM 5/325 [[place] 5/325] 1 tab PO Q4HR PRN Ondansetron Inj [Zofran Inj] 4 mg IVP Q6HR PRN Sodium Chloride Flush 0.9% [Normal Saline Flush 0.9%] 10 ml IVP PRN PRN Code Status [OTHERS] Routine Condition of Patient [OTHERS] Routine DVT Prophylaxis [OTHERS] Routine 03/08/23 13:00 FUROSEMIDE INJ 40mg VIAL [LASIX INJ 40 mg VIAL] 40 mg IVP DAILY Vancomycin Inj [Vancomycin] 1 gm Sodium Chloride 0.9% [Normal Saline 0.9%] 250 ml IV Q12H 03/08/23 13:07 clonazePAM [KlonoPIN] 1 mg PO DAILY PRN 03/08/23 14:57 Nebulizer/MDI Tx. [RC] QID 03/08/23 15:00 Ipratropium/Albuterol [Duoneb] 3 ml INH RTQID 03/08/23 15:59 Code Status [OTHERS] Routine 03/08/23 17:00 Sodium Chloride Flush 0.9% [Normal Saline Flush 0.9%] 10 ml IVP 0100,0900,1700 03/08/23 21:00 Cefepime 2 gm Sodium Chloride 0.9% Minibag [Normal Saline 0.9% Minibag] 100 ml IV BID Enoxaparin [Lovenox] 60 mg SUBQ BID FLUoxetine [PROzac] 20 mg PO BID Gabapentin [Neurontin] 300 mg PO HS Hydroxyurea [Hydrea] 500 mg PO BID 03/09/23 Swallow [Clinical Swallow Eval w/Modified ST] [ST] Routine 03/09/23 07:00 Levothyroxine [Synthroid] 100 mcg PO QDAC 03/09/23 08:00 predniSONE [Deltasone] 40 mg PO DAILYWM 03/09/23 09:00 Aspirin EC [Ecotrin] 81 mg PO DAILY amLODIPine [Norvasc] 5 mg PO DAILY lamoTRIgine [LaMICtal] 25 mg PO DAILY risperiDONE [RisperDAL] 0.25 mg PO DAILY 03/09/23 Lunch Dysphagia - Puree [DIET] 03/10/23 05:00 BMP - BASIC METABOLIC PANEL [CHEM] DAILYLAB CBC [CBC - COMP BLD CT W/AUTO DIFF] [HEME] DAILYLAB 03/11/23 05:00 BMP - BASIC METABOLIC PANEL [CHEM] DAILYLAB CBC [CBC - COMP BLD CT W/AUTO DIFF] [HEME] DAILYLAB 03/12/23 05:00 BMP - BASIC METABOLIC PANEL [CHEM] DAILYLAB CBC [CBC - COMP BLD CT W/AUTO DIFF] [HEME] DAILYLAB 03/13/23 05:00 BMP - BASIC METABOLIC PANEL [CHEM] DAILYLAB CBC [CBC - COMP BLD CT W/AUTO DIFF] [HEME] DAILYLAB Subjective - Subjective Patient Reports: Resting Comfortably, No Complaints (On 6L via oxymask.) Objective Vital Signs: Vital Signs - 24 hr 03/08/23 03/08/23 03/08/23 14:08 14:32 14:57 Temperature 37.1 C Heart Rate 93 Heart Rate [ 89 Brachial] Respiratory 24 17 Rate Blood Pressure 149/86 H [Right Brachial artery] O2 Saturation 99 If not protocol 15 15 6 : Oxygen Flow, liters/minute 03/08/23 03/08/23 03/08/23 15:28 19:20 19:48 Temperature 37.4 C 37 C Heart Rate Heart Rate [ 91 95 Brachial] Respiratory 24 20 32 H Rate Blood Pressure 123/80 145/92 H [Right Brachial artery] O2 Saturation 92 97 If not protocol 6 15 15 : Oxygen Flow, liters/minute 03/08/23 03/09/23 03/09/23 23:30 00:44 07:10 Temperature 37 C Heart Rate 94 Heart Rate [ 91 Brachial] Respiratory 32 H 24 Rate Blood Pressure 165/103 H [Right Brachial artery] O2 Saturation 93 If not protocol 15 7 8 : Oxygen Flow, liters/minute 03/09/23 03/09/23 08:11 11:09 Temperature 36.6 C Heart Rate 110 H Heart Rate [ 112 H Brachial] Respiratory 32 H 24 Rate Blood Pressure 181/103 H [Right Brachial artery] O2 Saturation 90 L If not protocol 7 7 : Oxygen Flow, liters/minute Oxygen O2 Source Oxymask Oxygen Flow Rate 5 I&O (Last 24 Hrs): Intake and Output Totals x24h 03/07/23 03/08/23 03/09/23 23:59 23:59 23:59 Intake Total 750 490 Output Total 1525 450 Balance -775 40 General: Alert, Oriented x3 Neuro: Alert Cardiovascular: Regular rate, Normal S1 Respiratory: No respiratory distress, Breath sounds nml Abdomen: Normal bowel sounds, Soft, No tenderness - Results Results: Laboratory Results WBC 12.6 x10^3/uL (4.8-10.8) H 03/09/23 05:34 RBC 2.78 10^6/uL (4.20-5.40) L 03/09/23 05:34 Hgb 10.4 g/dL (12.0-16.0) L 03/09/23 05:34 Hct 31.2 % (37.0-47.0) L 03/09/23 05:34 MCV 112.2 fL (81.0-99.0) H 03/09/23 05:34 MCH 37.4 pg (27.0-31.0) H 03/09/23 05:34 MCHC 33.3 g/dL (32.0-36.0) 03/09/23 05:34 RDW 16.5 % (12.0-15.0) H 03/09/23 05:34 Plt Count 390 10^3/uL (130-450) 03/09/23 05:34 MPV 9.1 fL (7.9-10.8) 03/09/23 05:34 Neut # (Auto) 11.3 10^3/uL (1.5-6.6) H 03/09/23 05:34 Lymph # (Auto) 0.5 10^3/uL (1.5-3.5) L 03/09/23 05:34 [place] # (Auto) 0.6 10^3/uL (0.0-1.0) 03/09/23 05:34 Eos # (Auto) 0.0 10^3/uL (0.0-0.7) 03/09/23 05:34 Baso # (Auto) 0.1 10^3/uL (0.0-0.1) 03/09/23 05:34 Absolute Nucleated RBC 0.00 x10^3/uL 03/09/23 05:34 Total Counted 100 03/08/23 07:53 Band Neuts % (Manual) 2 % (0-10) 03/08/23 07:53 Abnorm Lymph % (Manual) 0 % 03/08/23 07:53 Nucleated RBC % 0.0 /100WBC 03/09/23 05:34 Neutrophils # (Manual) 9.8 10^3/uL (1.5-6.6) H 03/08/23 07:53 Lymphocytes # (Manual) 0.7 10^3/uL (1.5-3.5) L 03/08/23 07:53 Monocytes # (Manual) 0.0 10^3/uL (0.0-1.0) 03/08/23 07:53 Eosinophils # (Manual) 0.0 10^3/uL (0-0.7) 03/08/23 07:53 Basophils # (Manual) 0.1 10^3/uL (0-0.1) 03/08/23 07:53 Differential Comment MANUAL DIFFERENTIAL 03/08/23 07:53 Manual Slide Review Indicated 03/09/23 05:34 WBC Morphology NORMAL APPEARANCE (NORMAL) 03/09/23 05:34 Platelet Estimate NORMAL (130-450,000) (NORMAL) 03/09/23 05:34 Platelet Morphology NORMAL APPEARANCE (NORMAL) 03/09/23 05:34 RBC Morph Micro Appear 3+ ANISOCYTOSIS (NORMAL) 2+ MACROCYTOSIS (NORMAL) 1+ HYPOCHROMASIA (NORMAL) 1+ TEARDROP CELLS (NORMAL) 03/09/23 05:34 RBC Morph Micro Appear 3+ ANISOCYTOSIS (NORMAL) 2+ MACROCYTOSIS (NORMAL) 1+ HYPOCHROMASIA (NORMAL) 1+ TEARDROP CELLS (NORMAL) 03/09/23 05:34 RBC Morph Micro Appear 3+ ANISOCYTOSIS (NORMAL) 2+ MACROCYTOSIS (NORMAL) 1+ HYPOCHROMASIA (NORMAL) 1+ TEARDROP CELLS (NORMAL) 03/09/23 05:34 RBC Morph Micro Appear 3+ ANISOCYTOSIS (NORMAL) 2+ MACROCYTOSIS (NORMAL) 1+ HYPOCHROMASIA (NORMAL) 1+ TEARDROP CELLS (NORMAL) 03/09/23 05:34 PT 17.9 secs (9.9-12.6) H 03/08/23 07:53 INR 1.7 (0.8-1.2) H 03/08/23 07:53 Bld Gas Analysis Time 1330 03/08/23 13:20 Sample Site RIGHT RADIAL 03/08/23 13:20 ABG pH 7.49 (7.35-7.45) H 03/08/23 13:20 ABG pCO2 38 mmHg (34-45) 03/08/23 13:20 ABG pO2 114 mmHg (80-100) H 03/08/23 13:20 ABG HCO3 28.4 mmol/L (22.0-26.0) H 03/08/23 13:20 ABG Total CO2 29.6 MMOL/L (21.0-29.0) H 03/08/23 13:20 ABG O2 Saturation 98 % (94-98) 03/08/23 13:20 ABG Base Excess 4.9 mmol/L (-2.0-3.0) H 03/08/23 13:20 [place] Test POSITIVE 03/08/23 13:20 VBG pH 7.439 (7.31-7.41) H 03/08/23 08:21 VBG pCO2 38.8 mmHg (41-51) L 03/08/23 08:21 VBG pO2 72.3 mmHg (25-47) H 03/08/23 08:21 VBG HCO3 25.7 mmol/L (23-28) 03/08/23 08:21 VBG Total CO2 26.9 mmol/L (24-29) 03/08/23 08:21 VBG O2 Saturation 94.1 % (60-80) H 03/08/23 08:21 VBG Base Excess 1.6 mmol/L (-2 - +2) 03/08/23 08:21 O2 Delivery Device NON REBREATHER MASK 03/08/23 13:20 O2 Liters/Min 15.00 LPM 12/24/23 13:20 FiO2 100.00 03/08/23 13:20 Sodium 138 mmol/L (135-145) 03/09/23 05:34 Potassium 3.4 mmol/L (3.5-4.5) L 03/09/23 05:34 Chloride 101 mmol/L (101-111) 03/09/23 05:34 Carbon Dioxide 27 mmol/L (21-32) 03/09/23 05:34 Anion Gap 10.0 (6-13) 03/09/23 05:34 BUN 23 mg/dL (6-20) H 03/09/23 05:34 Creatinine 0.5 mg/dL (0.6-1.3) L 03/09/23 05:34 Estimated GFR (MDRD) 117 (>89) 03/09/23 05:34 Glucose 121 mg/dL (74-104) H 03/09/23 05:34 Lactic Acid 1.1 mmol/L (0.5-2.2) 03/08/23 07:53 Calcium 8.6 mg/dL (8.5-10.3) 03/09/23 05:34 Magnesium 1.6 mg/dL (1.7-2.3) L 03/08/23 07:53 Total Bilirubin 0.7 mg/dL (0.2-1.0) 03/08/23 07:53 AST 14 IU/L (10-42) 03/08/23 07:53 ALT 17 IU/L (10-60) 03/08/23 07:53 Alkaline Phosphatase 68 IU/L (42-121) 03/08/23 07:53 Troponin I High Sens 31.7 ng/L (2.3-14.8) H* 03/08/23 10:03 B-Natriuretic Peptide 1783 pg/mL (5-100) H 03/08/23 08:21 Total Protein 6.3 g/dL (6.4-8.9) L 03/08/23 07:53 Albumin 2.9 g/dL (3.2-5.5) L 03/08/23 07:53 Globulin 3.4 g/dL (2.1-4.2) 03/08/23 07:53 Albumin/Globulin Ratio 0.9 (1.0-2.2) L 03/08/23 07:53 Lipase < 10 U/L (11-82) L 03/08/23 07:53 Procalcitonin Immunoas 1.77 ng/mL (<0.5) H 03/09/23 09:03 Urine Color DARK YELLOW 03/08/23 13:51 Urine Clarity CLEAR (CLEAR) 03/08/23 13:51 Urine pH 6.0 PH (5.0-7.5) 03/08/23 13:51 Ur Specific [place] >=1.030 (1.002-1.030) H 03/08/23 13:51 Urine Protein 100 mg/dL (NEGATIVE) H 03/08/23 13:51 Urine Glucose (UA) NEGATIVE mg/dL (NEGATIVE) 03/08/23 13:51 Urine Ketones NEGATIVE mg/dL (NEGATIVE) 03/08/23 13:51 Urine Occult Blood TRACE-INTA (NEGATIVE) 03/08/23 13:51 Urine Nitrite NEGATIVE (NEGATIVE) 03/08/23 13:51 Urine Bilirubin NEGATIVE (NEGATIVE) 03/08/23 13:51 Urine Urobilinogen 0.2 (NORMAL) E.U./dL (NORMAL) 03/08/23 13:51 Ur Leukocyte Esterase NEGATIVE (NEGATIVE) 03/08/23 13:51 Urine RBC 0-5 /HPF (0-5) 03/08/23 13:51 Urine WBC 6-10 /HPF (0-5) H 03/08/23 13:51 Ur Squamous Epith Cells RARE Squamous (<= Few) 03/08/23 13:51 Urine Bacteria Rare /HPF (None Seen) 03/08/23 13:51 Ur Microscopic Review INDICATED 03/08/23 13:51 Urine Culture Comments INDICATED 03/08/23 13:51 Nasal Adenovirus (PCR) NOT DETECTED 03/08/23 07:53 Nasal B. parapertussis DNA (PCR) NOT DETECTED 03/08/23 07:53 Nasal Coronavir 229E PCR NOT DETECTED 03/08/23 07:53 Nasal Coronavir HKU1 PCR NOT DETECTED 03/08/23 07:53 Nasal Coronavir NL63 PCR NOT DETECTED 03/08/23 07:53 Nasal Coronavir OC43 PCR NOT DETECTED 03/08/23 07:53 Nasal Enterovir/Rhinovir PCR NOT DETECTED 03/08/23 07:53 Nasal Influenza B PCR NOT DETECTED 03/08/23 07:53 Nasal Influenza A PCR NOT DETECTED 03/08/23 07:53 Nasal Parainfluen 1 PCR NOT DETECTED 03/08/23 07:53 Nasal Parainfluen 2 PCR NOT DETECTED 03/08/23 07:53 Nasal Parainfluen 3 PCR NOT DETECTED 03/08/23 07:53 Nasal Parainfluen 4 PCR NOT DETECTED 03/08/23 07:53 Nasal RSV (PCR) NOT DETECTED 03/08/23 07:53 Nasal B.pertussis DNA PCR NOT DETECTED 03/08/23 07:53 Nasal C.pneumoniae (PCR) NOT DETECTED 03/08/23 07:53 Keith Human Metapneumo PCR NOT DETECTED 03/08/23 07:53 Nasal M.pneumoniae (PCR) NOT DETECTED 03/08/23 07:53 Nasal SARS-CoV-2 (PCR) NOT DETECTED 03/08/23 07:53 Urine Opiates Screen NEGATIVE (NEGATIVE) 03/08/23 13:51 Ur Buprenorphine Scrn NEGATIVE (NEGATIVE) 03/08/23 13:51 Ur Oxycodone Screen NEGATIVE (NEGATIVE) 03/08/23 13:51 Urine Methadone Screen NEGATIVE (NEGATIVE) 03/08/23 13:51 Ur Barbiturates Screen NEGATIVE (NEGATIVE) 03/08/23 13:51 Ur Tricyclics Screen NEGATIVE (NEGATIVE) 03/08/23 13:51 Ur Phencyclidine Scrn NEGATIVE (NEGATIVE) 03/08/23 13:51 Ur Amphetamine Screen NEGATIVE (NEGATIVE) 03/08/23 13:51 U Methamphetamines Scrn NEGATIVE (NEGATIVE) 03/08/23 13:51 U Benzodiazepines Scrn POSITIVE (NEGATIVE) H 03/08/23 13:51 Urine Cocaine Screen NEGATIVE (NEGATIVE) 03/08/23 13:51 U Cannabinoids Screen NEGATIVE (NEGATIVE) 03/08/23 13:51 Ur Drug Screen Comment CUTOFF CONC BELOW: 03/08/23 13:51 Ethyl Alcohol < 10.0 mg/dL 03/08/23 07:53 - Procedures Procedures: Procedures CATARAC PHACOEMULS/ASPIR (07/27/13) INSERT LENS AT CATAR EXT (07/27/13)
[2023-03-09] MEDS ORDERED: ALBUTEROL NEB 2.5 MG/3 ML INH PRN (12:00)
--- NOTE | 2023-03-09 14:51 | XRAY Report ---
PROCEDURE: Chest 1V INDICATIONS: Worsening hypoxia TECHNIQUE: One view of the chest was acquired. COMPARISON: None. FINDINGS: Surgical changes and devices: None. Lungs and pleura: Peribronchial and smooth interstitial thickening. Extensive perihilar airspace opac ities. Mediastinum: Mediastinal contours appear normal. Heart size is normal. Bones and chest wall: No suspicious bony lesions. Overlying soft tissues appear unremarkable. IMPRESSION: Severe pulmonary edema. Superimposed atypical infection or aspiration are considerations. Reviewed by: Matthias Sheehan MD on 03/09/2023 2:50 PM PST Approved by: Matthias Sheehan MD on 03/09/2023 2:50 PM PST Station ID: [id number]
[2023-03-09] MEDS: GABAPENTIN 300 MG CAPSULE PO SCH (21:22)
[2023-03-10] MEDS: VANCOMYCIN INJ 1 GM in SODIUM CHLORIDE 0.9% 250 ML IV SCH ×2 (00:50→16:50)
[2023-03-10] MEDS: SODIUM CHLORIDE FLUSH 0.9% 10 ML SYRINGE IVP SCH ×3 (00:50→16:53)
[2023-03-10] MEDS: LEVOTHYROXINE 100 MCG TABLET PO SCH (07:05)
[2023-03-10 07:28] LABS: BASOPHILS % (AUTO) 0.4 %; HCT - HEMATOCRIT 34.5 % (37.0-47.0); LYMPHOCYTES % (AUTO) 2.6 %; MEAN CORPUSCULAR HEMOGLOBIN 36.5 pg (27.0-31.0); MEAN CORPUSCULAR HGB CONC 31.9 g/dL (32.0-36.0); MEAN CORPUSCULAR VOLUME 114.6 fL (81.0-99.0); MEAN PLATELET VOLUME 9.7 fL (7.9-10.8); MONOCYTES % (AUTO) 4.5 %; NEUTROPHILS % (AUTO) 92.1 %; PLT - PLATELET COUNT 404 10^3/uL (130-450); RED BLOOD COUNT 3.01 10^6/uL (4.20-5.40); RED CELL DISTRIBUTION WIDTH 16.5 % (12.0-15.0); WHITE BLOOD COUNT 13.9 x10^3/uL (4.8-10.8)
[2023-03-10 07:40] LABS: CALCIUM 9.1 mg/dL (8.5-10.3); CREATININE 0.7 mg/dL (0.6-1.3); POTASSIUM 2.9 mmol/L (3.5-4.5)
[2023-03-10 07:51] LABS: ABNORMAL LYMPHS % (MANUAL) 0 %
[2023-03-10 08:00] LABS: BAND NEUTROPHILS % (MANUAL) 2 %; LYMPHOCYTES # (MANUAL) 0.1 10^3/uL (1.5-3.5); LYMPHOCYTES % (MANUAL) 1 %; MONOCYTES # (MANUAL) 0.7 10^3/uL (0.0-1.0); NEUTROPHILS # (MANUAL) 13.1 10^3/uL (1.5-6.6)
[2023-03-10 08:02] LABS: DIFFERENTIAL COMMENT MANUAL DIFFERENTIAL; PLATELET ESTIMATE, MANUAL NORMAL (130-450,000) (NORMAL); PLATELET MORPHOLOGY NORMAL APPEARANCE (NORMAL)
[2023-03-10] MEDS: IPRATROPIUM/ALBUTEROL 3 ML NEB INH SCH ×2 (10:01→16:46)
[2023-03-10] MEDS: CEFEPIME 2 GM in SODIUM CHLORIDE 0.9% MINIBAG 100 ML IV SCH (10:27)
[2023-03-10] MEDS: FUROSEMIDE 40 MG/4 ML VIAL IVP SCH (10:27)
[2023-03-10] MEDS: ENOXAPARIN 60 MG/0.6 ML SYRINGE SUBQ SCH ×2 (10:28→20:31)
[2023-03-10] MEDS: predniSONE 20 MG TABLET PO SCH (10:31)
[2023-03-10] MEDS: ASPIRIN EC 81 MG TABLET PO SCH (10:31)
[2023-03-10] MEDS: amLODIPine 5 MG TABLET PO SCH (10:31)
[2023-03-10] MEDS: FLUoxetine 10 MG CAPSULE PO SCH (10:31)
[2023-03-10] MEDS: lamoTRIgine 25 MG TABLET PO SCH (10:32)
[2023-03-10] MEDS: HYDROXYUREA 500 MG CAPSULE PO SCH (10:32)
[2023-03-10] MEDS: risperiDONE 0.25 MG TABLET PO SCH (10:32)
[2023-03-10] MEDS ORDERED: IPRATROPIUM/ALBUTEROL 3 ML NEB INH PRN (11:32)
[2023-03-10] MEDS ORDERED: ACETAMINOPHEN 1,000 MG/100 ML 1,000 MG/100 ML BAG IV PRN (11:37)
[2023-03-10] MEDS ORDERED: HYDROmorphone 1 MG/ML CARPUJECT IVP PRN (11:39)
[2023-03-10] MEDS ORDERED: LORazepam 2 MG/ML VIAL IVP PRN (11:40)
[2023-03-10] MEDS ORDERED: DEXAMETHASONE 4 MG/ML VIAL IVP SCH (12:00)
[2023-03-10 12:28] LABS: VANCOMYCIN,TROUGH 24.5 ug/mL
--- NOTE | 2023-03-10 13:19 | PROVIDER PROGRESS NOTE ---
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 Blood and sputum culture is currently pending. Blood showing NGTD. Today on 6L via oxymask>> worsened to needing High Flow at 100% 40 L/min, when she was witnessed to aspirate pureed food today and then started to desaturate to 82% despite HHF I had an extensive discussion today with her son and DPWOOD Lázaro regarding aggressiveness and goals of care. I repeated that we have made her DNR per patient request on admission and re-checked yesterday 03/[address] Chowdhury. This was communicated with the son by the last provider as well. Plan: Cont plan for DNR/DNI, so would not intubate, but I will move her to ICU for BIPAP support, since she is desaturating as low as 82% despite High Flow at 100% 40 L/min Check ABG on BIPAP Will add iv Morphine prn dyspnea Critical care time spent: 50 min (Reviewing chart, ordering meds, evaluating labs and imaging, reevaluating patient, speaking to son and repeat visit with son and family) (2) MAT (Multifocal Atrial tach) Her HR was as high as 171 briefly, when she was desaturating today. I obtained an EKG today at that time and I interpreted EKG, it shows: MAT, a ventricular couplet, poor R wave progression, right atrial enlargement, vertical axis. The Multifocal Atrial Tachycardia and her vertical axis and RA enlargement are consistent with pulmonary disease. Since EKG from 03/08/2023, MAT is new. Plan: Cont B-blockers, will schedule iv doses (3) Pulmonary embolus Conclusion/Plan: Acute PE or acute on chronic PE, as per report on CT scan. Plan: Cont her on therapeutic Lovenox. If she becomes able to swallow (see #4) , will change her to a DOAC (4) Aspiration Conclusion/Plan: Her diet was to be pured. While being fed lunch, she aspirated today. Today I explained to son what aspiration does to lungs and that we handle it like a pneumonia Plan: Will order n.p.o. except sips and chips to moisten her mouth. Will change all necessary p.o. meds to IV form. By virtue of her aspirating the pure, she failed a nursing bedside swallow screen Palliative care consult requested since she is worsening rapidly, to determine goals of what the family would want going forward. She is already a DNR/DNI, so would not intubate, like she was a few weeks ago I asked DPOA to discuss with his siblings and tell me if he wants her to get ng tube feeds and I explained what PEG tube is (5) HCAP (healthcare-associated pneumonia) Conclusion/Plan: CXR was read as having either pulm edema or aspiration pneumonia. She has been hospitalized and in a Facility just this month. She has been started on empiric Vancomycin and cefepime Plan: Will change her empiric antibx to vancomycin and Zosyn given her repeat aspiration. Await culture results Procalcitonin mildly elevated, will follow (6) Interstitial lung disease Conclusion/Plan: On chronic 5L oxygen. Today I explained to son Lázaro what this Dx is and her poor prognosis, given the finding of Cor Pulmonale Plan: DuoNedanna will be prn for wheezing Oral prednisone 40 mg for 5 days with be changed to iv Solumedrol 80 TID (7) Pulmonary hypertension Conclusion/Plan: History of pulmonary hypertension. Unclear if she has had a right heart cath. She has elevated press pressures on CT scan and was seen on recent Echo from 02/24, which showed normal LVEF but moderate to severe right ventricular enlargement and depressed RV function She completed IV Lasix x3 days, since CT scan did show some effusion and possible pulmonary edema. all labs were reviewed and she has pre-renal azotemia yesterday and today Plan: Monitor renal function Will order D5NS at 50 cc/hr (8) Cor pulmonale Conclusion/Plan: As per Echo done this month, during last admission, she has a dilated and weak Right ventricle. This gives her a poor prognosis. I discussed this w/ son Lázaro and [id number]. Lázaro wanted to know how pt said no vent to last doctor, and I read the notes Dr Chowdhury wrote. Plan: Palliative Care consult ordered (9) Thrombocytosis Conclusion/Plan: Her po meds will be stopped today due to recurrent aspiration (10) Genertalized weakness Conclusion/Plan: Partly this is from poor nutrition, partly from deconditioning, partly from hypoxia and also from cachexia Plan: No PT or OT yet, due to severe resp distress I asked DPWOOD to discuss with his siblings and tell me if he wants ng tube feeds started and explained what PEG tube is - Current Meds Current Meds: Current Medications Generic Name Dose Route Start Last Admin Trade Name Freq PRN Reason Stop Dose Admin Enoxaparin Sodium 60 mg 03/08/23 21:00 03/10/23 10:28 Enoxaparin 60 Mg/0.6 Ml Syringe SUBQ 60 mg BID YANNI Administration Vancomycin HCl 1 gm/ Sodium 250 mls @ 166.667 mls/hr 03/08/23 13:00 03/10/23 02:20 Chloride IV Infused Q12H YANNI Infusion Cefepime HCl 2 gm/ Sodium 100 mls @ 200 mls/hr 03/08/23 21:00 03/10/23 10:27 Chloride IV 200 mls/hr BID YANNI Administration Sodium Chloride 10 ml 03/08/23 17:00 03/10/23 10:32 Sodium Chloride Flush 0.9% 10 Ml Syringe IVP 10 ml 0100,0900,1700 YANNI Administration - Lab Result Fish Bone Diagrams: 03/10/23 07:07 03/10/23 07:07 - Additional Planning My Orders: My Active Orders 03/10/23 Palliative Care Consult [CONS] Routine 03/10/23 11:32 Ipratropium/Albuterol [Duoneb] 3 ml INH RTQID PRN 03/10/23 11:37 Acetaminophen 1,000 mg/100 ml [Acetaminophen] 1,000 mg in 100 ml IV Q6HR 03/10/23 11:39 HYDROmorphone 1MG CARP [Dilaudid 1Mg Carp] 1 mg IVP Q8HR PRN 03/10/23 11:40 LORazepam INJ [Ativan Inj (Vial)] 0.5 mg IVP Q6H PRN 03/10/23 12:00 Potassium Chlor 10 Meq/100 ml [Potassium Chloride] 10 meq in 100 ml IV Q1H dexAMETHasone [Decadron] 6 mg IVP DAILY 03/10/23 13:13 DIET [NPO] [DIET] 03/11/23 09:00 Aspirin Supp [Aspirin] 300 mg NM DAILY 03/15/23 07:00 Levothyroxine Inj [Synthroid Inj] 175 mcg IVP MoTh Subjective - Subjective Patient Reports: Shortness of Breath, Other (In marked distress, RR 30-40, is diaphoretic. Is too weak to answer, just nods.) Objective Vital Signs: Vital Signs - 24 hr 03/09/23 03/09/23 03/09/23 13:34 15:12 16:00 Temperature 36.0 C L Heart Rate 94 Heart Rate [ 98 Brachial] Respiratory 22 30 H Rate Blood Pressure 189/92 H [Right Brachial artery] O2 Saturation 94 If not protocol 30 30 15 : Oxygen Flow, liters/minute 03/09/23 03/09/23 03/09/23 19:50 19:53 23:00 Temperature Heart Rate Heart Rate [ 110 H Brachial] Respiratory Rate Blood Pressure 163/114 H [Right Brachial artery] O2 Saturation 98 98 If not protocol 15 40 40 : Oxygen Flow, liters/minute 03/10/23 03/10/23 03/10/23 00:29 08:00 09:30 Temperature 36.6 C 36.8 C Heart Rate Heart Rate [ 119 H 107 H Brachial] Respiratory 34 H 24 Rate Blood Pressure 151/101 H 153/93 H [Right Brachial artery] O2 Saturation 100 96 If not protocol 40 40 40 : Oxygen Flow, liters/minute Oxygen O2 Source HHFNC Oxygen Flow Rate 5 I&O (Last 24 Hrs): Intake and Output Totals x24h 03/08/23 03/09/23 03/10/23 23:59 23:59 23:59 Intake Total 750 1005 350 Output Total 1525 3675 150 Balance -775 -2670 200 General: Alert, Severe distress HEENT: EOMI, Other (Cachectic. Wearing rebreather mask) Neck: Supple Neuro: Alert, Other (generalized weakness) Cardiovascular: Other (Tachy, distant heart sounds due to lung disease) Respiratory: Rales Abdomen: Soft, No tenderness Extremities: Other (1+ edema) Skin: No significant lesion ((+) skin tenting present on arms) - Results Results: Laboratory Results WBC 13.9 x10^3/uL (4.8-10.8) H 03/10/23 07:07 RBC 3.01 10^6/uL (4.20-5.40) L 03/10/23 07:07 Hgb 11.0 g/dL (12.0-16.0) L 03/10/23 07:07 Hct 34.5 % (37.0-47.0) L 03/10/23 07:07 MCV 114.6 fL (81.0-99.0) H 03/10/23 07:07 MCH 36.5 pg (27.0-31.0) H 03/10/23 07:07 MCHC 31.9 g/dL (32.0-36.0) L 03/10/23 07:07 RDW 16.5 % (12.0-15.0) H 03/10/23 07:07 Plt Count 404 10^3/uL (130-450) 03/10/23 07:07 MPV 9.7 fL (7.9-10.8) 03/10/23 07:07 Neut # (Auto) Not Reportable 03/10/23 07:07 Lymph # (Auto) Not Reportable 03/10/23 07:07 [place] # (Auto) Not Reportable 03/10/23 07:07 Eos # (Auto) Not Reportable 03/10/23 07:07 Baso # (Auto) Not Reportable 03/10/23 07:07 Absolute Nucleated RBC Not Reportable 03/10/23 07:07 Total Counted 100 03/10/23 07:07 Band Neuts % (Manual) 2 % (0-10) 03/10/23 07:07 Abnorm Lymph % (Manual) 0 % 03/10/23 07:07 Nucleated RBC % Not Reportable 03/10/23 07:07 Neutrophils # (Manual) 13.1 10^3/uL (1.5-6.6) H 03/10/23 07:07 Lymphocytes # (Manual) 0.1 10^3/uL (1.5-3.5) L 03/10/23 07:07 Monocytes # (Manual) 0.7 10^3/uL (0.0-1.0) 03/10/23 07:07 Eosinophils # (Manual) 0.0 10^3/uL (0-0.7) 03/10/23 07:07 Basophils # (Manual) 0.0 10^3/uL (0-0.1) 03/10/23 07:07 Differential Comment MANUAL DIFFERENTIAL 03/10/23 07:07 Manual Slide Review Indicated 03/09/23 05:34 WBC Morphology NORMAL APPEARANCE (NORMAL) 03/09/23 05:34 Platelet Estimate NORMAL (130-450,000) (NORMAL) 03/10/23 07:07 Platelet Morphology NORMAL APPEARANCE (NORMAL) 03/10/23 07:07 RBC Morph Micro Appear 1+ HYPOCHROMASIA (NORMAL) 1+ TEARDROP CELLS (NORMAL) 1+ ANISOCYTOSIS (NORMAL) 2+ MACROCYTOSIS (NORMAL) 03/10/23 07:07 RBC Morph Micro Appear 1+ HYPOCHROMASIA (NORMAL) 1+ TEARDROP CELLS (NORMAL) 1+ ANISOCYTOSIS (NORMAL) 2+ MACROCYTOSIS (NORMAL) 03/10/23 07:07 RBC Morph Micro Appear 1+ HYPOCHROMASIA (NORMAL) 1+ TEARDROP CELLS (NORMAL) 1+ ANISOCYTOSIS (NORMAL) 2+ MACROCYTOSIS (NORMAL) 03/10/23 07:07 RBC Morph Micro Appear 1+ HYPOCHROMASIA (NORMAL) 1+ TEARDROP CELLS (NORMAL) 1+ ANISOCYTOSIS (NORMAL) 2+ MACROCYTOSIS (NORMAL) 03/10/23 07:07 PT 17.9 secs (9.9-12.6) H 03/08/23 07:53 INR 1.7 (0.8-1.2) H 03/08/23 07:53 Bld Gas Analysis Time 1330 03/08/23 13:20 Sample Site RIGHT RADIAL 03/08/23 13:20 ABG pH 7.49 (7.35-7.45) H 03/08/23 13:20 ABG pCO2 38 mmHg (34-45) 03/08/23 13:20 ABG pO2 114 mmHg (80-100) H 03/08/23 13:20 ABG HCO3 28.4 mmol/L (22.0-26.0) H 03/08/23 13:20 ABG Total CO2 29.6 MMOL/L (21.0-29.0) H 03/08/23 13:20 ABG O2 Saturation 98 % (94-98) 03/08/23 13:20 ABG Base Excess 4.9 mmol/L (-2.0-3.0) H 03/08/23 13:20 [place] Test POSITIVE 03/08/23 13:20 VBG pH 7.439 (7.31-7.41) H 03/08/23 08:21 VBG pCO2 38.8 mmHg (41-51) L 03/08/23 08:21 VBG pO2 72.3 mmHg (25-47) H 03/08/23 08:21 VBG HCO3 25.7 mmol/L (23-28) 03/08/23 08:21 VBG Total CO2 26.9 mmol/L (24-29) 03/08/23 08:21 VBG O2 Saturation 94.1 % (60-80) H 03/08/23 08:21 VBG Base Excess 1.6 mmol/L (-2 - +2) 03/08/23 08:21 O2 Delivery Device NON REBREATHER MASK 03/08/23 13:20 O2 Liters/Min 15.00 LPM 03/08/23 13:20 FiO2 100.00 03/08/23 13:20 Sodium 143 mmol/L (135-145) 03/10/23 07:07 Potassium 2.9 mmol/L (3.5-4.5) L 03/10/23 07:07 Chloride 104 mmol/L (101-111) 03/10/23 07:07 Carbon Dioxide 25 mmol/L (21-32) 03/10/23 07:07 Anion Gap 14.0 (6-13) H 03/10/23 07:07 BUN 34 mg/dL (6-20) H 03/10/23 07:07 Creatinine 0.7 mg/dL (0.6-1.3) 03/10/23 07:07 Estimated GFR (MDRD) 80 (>89) L 03/10/23 07:07 Glucose 171 mg/dL (74-104) H 03/10/23 07:07 Lactic Acid 1.1 mmol/L (0.5-2.2) 03/08/23 07:53 Calcium 9.1 mg/dL (8.5-10.3) 03/10/23 07:07 Magnesium 1.6 mg/dL (1.7-2.3) L 03/08/23 07:53 Total Bilirubin 0.7 mg/dL (0.2-1.0) 03/08/23 07:53 AST 14 IU/L (10-42) 03/08/23 07:53 ALT 17 IU/L (10-60) 03/08/23 07:53 Alkaline Phosphatase 68 IU/L (42-121) 03/08/23 07:53 Troponin I High Sens 31.7 ng/L (2.3-14.8) H* 03/08/23 10:03 B-Natriuretic Peptide 1783 pg/mL (5-100) H 03/08/23 08:21 Total Protein 6.3 g/dL (6.4-8.9) L 03/08/23 07:53 Albumin 2.9 g/dL (3.2-5.5) L 03/08/23 07:53 Globulin 3.4 g/dL (2.1-4.2) 03/08/23 07:53 Albumin/Globulin Ratio 0.9 (1.0-2.2) L 03/08/23 07:53 Lipase < 10 U/L (11-82) L 03/08/23 07:53 Procalcitonin Immunoas 1.77 ng/mL (<0.5) H 03/09/23 09:03 Urine Color DARK YELLOW 03/08/23 13:51 Urine Clarity CLEAR (CLEAR) 03/08/23 13:51 Urine pH 6.0 PH (5.0-7.5) 03/08/23 13:51 Ur Specific [place] >=1.030 (1.002-1.030) H 03/08/23 13:51 Urine Protein 100 mg/dL (NEGATIVE) H 03/08/23 13:51 Urine Glucose (UA) NEGATIVE mg/dL (NEGATIVE) 03/08/23 13:51 Urine Ketones NEGATIVE mg/dL (NEGATIVE) 03/08/23 13:51 Urine Occult Blood TRACE-INTA (NEGATIVE) 03/08/23 13:51 Urine Nitrite NEGATIVE (NEGATIVE) 03/08/23 13:51 Urine Bilirubin NEGATIVE (NEGATIVE) 03/08/23 13:51 Urine Urobilinogen 0.2 (NORMAL) E.U./dL (NORMAL) 03/08/23 13:51 Ur Leukocyte Esterase NEGATIVE (NEGATIVE) 03/08/23 13:51 Urine RBC 0-5 /HPF (0-5) 03/08/23 13:51 Urine WBC 6-10 /HPF (0-5) H 03/08/23 13:51 Ur Squamous Epith Cells RARE Squamous (<= Few) 03/08/23 13:51 Urine Bacteria Rare /HPF (None Seen) 03/08/23 13:51 Ur Microscopic Review INDICATED 03/08/23 13:51 Urine Culture Comments INDICATED 03/08/23 13:51 Nasal Adenovirus (PCR) NOT DETECTED 03/08/23 07:53 Nasal B. parapertussis DNA (PCR) NOT DETECTED 03/08/23 07:53 Nasal Coronavir 229E PCR NOT DETECTED 03/08/23 07:53 Nasal Coronavir HKU1 PCR NOT DETECTED 03/08/23 07:53 Nasal Coronavir NL63 PCR NOT DETECTED 03/08/23 07:53 Nasal Coronavir OC43 PCR NOT DETECTED 03/08/23 07:53 Nasal Enterovir/Rhinovir PCR NOT DETECTED 03/08/23 07:53 Nasal Influenza B PCR NOT DETECTED 03/08/23 07:53 Nasal Influenza A PCR NOT DETECTED 03/08/23 07:53 Nasal Parainfluen 1 PCR NOT DETECTED 03/08/23 07:53 Nasal Parainfluen 2 PCR NOT DETECTED 03/08/23 07:53 Nasal Parainfluen 3 PCR NOT DETECTED 03/08/23 07:53 Nasal Parainfluen 4 PCR NOT DETECTED 03/08/23 07:53 Nasal RSV (PCR) NOT DETECTED 03/08/23 07:53 Nasal B.pertussis DNA PCR NOT DETECTED 03/08/23 07:53 Nasal C.pneumoniae (PCR) NOT DETECTED 03/08/23 07:53 Keith Human Metapneumo PCR NOT DETECTED 03/08/23 07:53 Nasal M.pneumoniae (PCR) NOT DETECTED 03/08/23 07:53 Nasal SARS-CoV-2 (PCR) NOT DETECTED 03/08/23 07:53 Last Dose Date 03/10/23 03/10/23 12:12 Last Dose Time 0220 03/10/23 12:12 Vancomycin Trough 24.5 ug/mL 03/10/23 12:12 Urine Opiates Screen NEGATIVE (NEGATIVE) 03/08/23 13:51 Ur Buprenorphine Scrn NEGATIVE (NEGATIVE) 03/08/23 13:51 Ur Oxycodone Screen NEGATIVE (NEGATIVE) 03/08/23 13:51 Urine Methadone Screen NEGATIVE (NEGATIVE) 03/08/23 13:51 Ur Barbiturates Screen NEGATIVE (NEGATIVE) 03/08/23 13:51 Ur Tricyclics Screen NEGATIVE (NEGATIVE) 03/08/23 13:51 Ur Phencyclidine Scrn NEGATIVE (NEGATIVE) 03/08/23 13:51 Ur Amphetamine Screen NEGATIVE (NEGATIVE) 03/08/23 13:51 U Methamphetamines Scrn NEGATIVE (NEGATIVE) 03/08/23 13:51 U Benzodiazepines Scrn POSITIVE (NEGATIVE) H 03/08/23 13:51 Urine Cocaine Screen NEGATIVE (NEGATIVE) 03/08/23 13:51 U Cannabinoids Screen NEGATIVE (NEGATIVE) 03/08/23 13:51 Ur Drug Screen Comment CUTOFF CONC BELOW: 03/08/23 13:51 Ethyl Alcohol < 10.0 mg/dL 03/08/23 07:53 - Procedures Procedures: Procedures CATARAC PHACOEMULS/ASPIR (07/27/13) INSERT LENS AT CATAR EXT (07/27/13)
--- NOTE | 2023-03-10 13:59 | PHARMACY PROGRESS NOTE ---
- Therapy Status Therapy status: Trough supratherapeutic Basis for treatment: Empirical Treatment indication: Pneuomina with recent hospitalization Trough goal: AUC 400-600 Concurrent antibiotics: Cefepime - JOSE Risk Risk level for Acute Kidney Injury: Moderate Acute Kidney Injury risk factors: Baseline CrCl <50 - Monitoring and Recommendation Clinical response to treatment: I&O Previous 24 hours 03/08/23 03/09/23 03/10/23 23:59 23:59 23:59 Intake Total 750 1005 350 Output Total 1525 2005 150 Balance -411 -2228 200 Lab Results 03/10/23 03/09/23 03/08/23 07:07 05:34 07:53 BUN 34 H 23 H 26 H Creatinine 0.7 0.5 L 0.5 L Estimated GFR (MDRD) 80 L 117 117 Vancomycin Monitoring 03/10/23 12:12 Vancomycin Trough 24.5 Cultures 03/08/23 08:22 Blood - Right Hand Blood Culture - Preliminary NO GROWTH AFTER 2 DAYS 03/08/23 07:53 Blood - Right Iv-Start Blood Culture - Preliminary NO GROWTH AFTER 2 DAYS Monitoring plan: Daily serum creatinine Areas for additional monitoring: Therapy de-escalation based on culture results Pharmacy recommendation: Decrease dose (Decrease maintenance dose to 0.75 g IV q12h for estimated AUC/GANGA of 561. She received that dosing during her last admission as well and it led to therapeutic levels. Will hold next maintenance dose since trough came back elevated.)
[2023-03-10] MEDS: POTASSIUM CHLOR 10 MEQ/100 ML 10 MEQ/100 ML BAG IV SCH ×4 (15:19→18:22)
[2023-03-10] MEDS: METOPROLOL 5 MG/5 ML VIAL IVP SCH ×2 (15:41→18:03)
[2023-03-10 16:36] LABS: ABG PCO2 46 mmHg (34-45); ABG PH 7.43 (7.35-7.45); ABG PO2 86 mmHg (80-100)
[2023-03-10 16:37] LABS: ABG OXYGEN SATURATION 96 % (94-98); ABG TCO2 31.4 MMOL/L (21.0-29.0); ALLEN TEST POSITIVE
[2023-03-10] MEDS ORDERED: MORPHINE 2 MG/ML CARPUJECT IVP PRN (17:39)
[2023-03-10] MEDS ORDERED: PIPERACILLIN/TAZOBACTAM 3.375 GM in SODIUM CHLORIDE 0.9% MINIBAG 100 ML IV ONE (18:00)
[2023-03-10] MEDS ORDERED: DEXTROSE 5%-0.9% NACL 1,000 ML IV SCH (19:00)
[2023-03-10] MEDS: methylPREDNISolone SUCCINATE 40 MG/ML VIAL IVP SCH (21:46)
[2023-03-10] MEDS: PIPERACILLIN/TAZOBACTAM 3.375 GM in SODIUM CHLORIDE 0.9% MINIBAG 100 ML IV SCH (21:46)
[2023-03-11] MEDS: METOPROLOL 5 MG/5 ML VIAL IVP SCH ×2 (00:10→06:16)
[2023-03-11] MEDS ORDERED: VANCOMYCIN INJ 0.75 GM in SODIUM CHLORIDE 0.9% 250 ML IV SCH (01:00)
[2023-03-11 01:19] VITALS: O2SAT 100
[2023-03-11] MEDS: SODIUM CHLORIDE FLUSH 0.9% 10 ML SYRINGE IVP SCH (01:21)
[2023-03-11 02:00] LABS: MAGNESIUM 1.9 mg/dL (1.7-2.3); POTASSIUM 4.2 mmol/L (3.5-4.5)
[2023-03-11 05:07] LABS: BASOPHILS # (AUTO) 0.1 10^3/uL (0.0-0.1); BASOPHILS % (AUTO) 0.3 %; HGB - HEMOGLOBIN 11.3 g/dL (12.0-16.0); LYMPHOCYTES # (AUTO) 0.6 10^3/uL (1.5-3.5); LYMPHOCYTES % (AUTO) 3.7 %; MEAN CORPUSCULAR HEMOGLOBIN 36.6 pg (27.0-31.0); MEAN CORPUSCULAR HGB CONC 30.5 g/dL (32.0-36.0); MEAN CORPUSCULAR VOLUME 119.7 fL (81.0-99.0); MEAN PLATELET VOLUME 10.3 fL (7.9-10.8); NEUTROPHILS # (AUTO) 14.4 10^3/uL (1.5-6.6); NEUTROPHILS % (AUTO) 89.1 %; NRBC ABSOLUTE COUNT (AUTO) 0.02 x10^3/uL; NUCLEATED RED BLOOD CELLS AUTO 0.1 /100WBC; PLT - PLATELET COUNT 418 10^3/uL (130-450); RED BLOOD COUNT 3.09 10^6/uL (4.20-5.40); WHITE BLOOD COUNT 16.2 x10^3/uL (4.8-10.8)
[2023-03-11 05:22] LABS: SLIDE REVIEW? Indicated
[2023-03-11 05:36] LABS: CALCIUM 9.4 mg/dL (8.5-10.3); CREATININE 1.5 mg/dL (0.6-1.3); MAGNESIUM 1.9 mg/dL (1.7-2.3)
[2023-03-11 06:12] LABS: PLATELET ESTIMATE, MANUAL NORMAL (130-450,000) (NORMAL)
[2023-03-11] MEDS: methylPREDNISolone SUCCINATE 40 MG/ML VIAL IVP SCH (06:16)
[2023-03-11] MEDS: PIPERACILLIN/TAZOBACTAM 3.375 GM in SODIUM CHLORIDE 0.9% MINIBAG 100 ML IV SCH (06:17)
[2023-03-11 06:30] VITALS: BP 106/82
--- NOTE | 2023-03-11 07:22 | Discharge Plan ---
Discharge Plan Problem Reviewed?: Yes Disposition: 20 No Smoking: If you smoke, Please STOP! Call for help.
--- NOTE | 2023-03-11 07:26 | DISCHARGE SUMMARY ---
Discharge Summary Admit Date: 03/08/23 Discharge Date: 03/11/23 Discharging Provider: Kareen Raygoza MD Primary Care Provider: Alison Philip NP Discharge Disposition: 20 - HPI History of Present Illness: Patient is an 87-year-old female the past medical history of chronic hypoxic respiratory failure requiring 5 L of oxygen secondary to interstitial lung disease and Mycobacterium Avium Complex infection , severe pulmonary hypertension, hypothyroidism, hypertension, hyperlipidemia, MDD, dementia, thrombocytosis who presented to the ED due to progressively worsening shortness of breath after being discharged on 03/04. Patient was previously admitted for acute hypoxic respiratory failure requiring mechanical ventilation secondary to human metapneumovirus. During her hospitalization she did develop Pseudomonas pneumonia which was adequately treated. 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 Per EMS, patient was found to be saturating in the 70s at [facility] last night and the facility increased her oxygen from 5 L to 10 L. EMS reported that they were able to titrate her down to 2 L prior to transport. In the ED a CT chest was performed which revealed moderate to diffuse lung disease which was increased secondary to infectious/inflammatory process. There is also a questionable left lower lobe subsegmental branch chronic or acute on chronic embolism. There is also evidence of chronically high pulmonary pressures. During my evaluation patient appeared euvolemic. She was requiring 5 L of oxygen via OxyMask but was quickly transitioned to nasal cannula. During my discussion with the patient she wished to be DNR. This discussion was held in the presence of her close friend who stated that she had communicated this to a speech therapist at [facility] as well. An extensive discussion was had with her son Lázaro. He was also in agreement with making her DNR. - HOSPITAL COURSE Hospital Course: (1) Acute and chronic respiratory failure ([id number]) This was multifactorial: from interstitial lung disease and severe pulmonary hypertension, new pulmonary embolism and a pneumonia. The admitting provider learned from the patient that she wanted to not be re-intubated (since she had just been hospitalized and was on a ventilator then), and she also wanted to be a DNR. The DPOA was told her wishes several times, and he wanted to respect them. Her oxygen desaturation worsened and she needed escalating FIO2, then was moved to ICU to be on BIPAP. On 03/11/23, she became apneic however, and was not resuscitated. (2) Pulmonary embolus CT imaging showed an acute PE or acute on chronic PE. She was put on therapeutic Lovenox, with plan that if she became able to swallow, she would go on a DOAC (3) Aspiration into airway While being fed pureed food, she aspirated. All necessary p.o. meds were changed to to IV form. I asked DPOA to decide if he wanted her to get ng tube or PEG tube feeds, which he wanted to discuss with family. Palliative care consult was requested since she was worsening rapidly, to determine goals of what the family would want, however the consult did not take place, since she . (4) HCAP (healthcare-associated pneumonia) CXR showed pulmonary edema vs aspiration pneumonia. She was treated with broad spectrum empiric IV antibiotics Vancomycin and Zosyn, given her repeat aspiration. (5) Interstitial lung disease This was caused by the Mycobacterium avium Complex infection about a year ago. She was now on continuous suppl oxygen. (6) Pulmonary hypertension As per Echo done Feb 2023, she had severely elevated PA pressure (7) Cor pulmonale As per Echo done Feb 2023, she had a dilated and weak Right ventricle. (8) MAT (Multifocal Atrial tach) Her HR was as high as 171 in MAT, when she was in respiratory distress and desaturating (9) Thrombocytosis She had been on meds and followed at [facility] clinic here for this (10) Genertalized weakness She was too weak to change position in bed herself. This was multifactorial: from poor nutrition, cachexia (BMI 20), severe deconditioning, and from hypoxia and respiratory distress from severe lung disease. - ALLERGIES Allergies/Adverse Reactions: Allergies Allergy/AdvReac Type Severity Reaction Status Date / Time No Known Drug Allergies Allergy Verified 02/19/23 09:54 - MEDICATIONS Home Medications: Ambulatory Orders Medication Instructions Recorded Confirmed FLUoxetine [PROzac] 20 mg ORAL BID 07/20/12 03/08/23 lamoTRIgine [LaMICtal] 25 mg ORAL DAILY 07/20/12 03/08/23 risperiDONE [RisperDAL] 0.25 mg ORAL DAILY 07/20/12 03/08/23 Gabapentin 300 mg PO HS 04/07/14 03/08/23 Hydroxyurea [Hydrea] 500 mg PO BID 12/02/21 03/08/23 Levothyroxine [Synthroid] 100 mcg PO QDAC 12/01/22 03/08/23 clonazePAM [Clonazepam] 1 mg PO DAILY PRN 01/07/23 03/08/23 - LABS Result Diagrams: 03/11/23 04:55 03/11/23 04:55
[2023-03-11] MEDS ORDERED: CEFEPIME 2 GM in SODIUM CHLORIDE 0.9% MINIBAG 100 ML IV SCH (09:00)
[2023-03-11] MEDS ORDERED: ASPIRIN 300 MG SUPP PR SCH (09:00)
[2023-03-15] MEDS ORDERED: LEVOTHYROXINE 100 MCG VIAL IVP SCH (07:00)
== END 2023-03-11 07:00 | disposition expired | DRG 189 ==
LOC: EDUNIT# → ED 07:34 → MS2 12:51 → ICU 03-10 15:01
PROVIDERS: ADMIT Family Medicine; ATTEND Internal Medicine
DX: J96.21 Acute and chronic respiratory failure with hypoxia (principal); G93.40 Encephalopathy, unspecified; I26.99 Other pulmonary embolism without acute cor pulmonale; J18.9 Pneumonia, unspecified organism; E83.42 Hypomagnesemia; J84.9 Interstitial pulmonary disease, unspecified; I27.82 Chronic pulmonary embolism; R64 Cachexia; I47.19 Other supraventricular tachycardia; Z99.81 Dependence on supplemental oxygen; I27.20 Pulmonary hypertension, unspecified; F32.A Depression, unspecified; Z87.01 Personal history of pneumonia (recurrent); D75.839 Thrombocytosis, unspecified; Z66 Do not resuscitate; R13.10 Dysphagia, unspecified; T17.928A Food in respiratory tract, part unspecified causing other injury, initial encounter; W44.F3XA Food entering into or through a natural orifice, initial encounter; Y93.89 Activity, other specified; Y92.230 Patient room in hospital as the place of occurrence of the external cause; I27.81 Cor pulmonale (chronic); R53.1 Weakness; E03.9 Hypothyroidism, unspecified; I10 Essential (primary) hypertension; E78.5 Hyperlipidemia, unspecified; F03.90 Unspecified dementia, unspecified severity, without behavioral disturbance, psychotic disturbance, mood disturbance, and anxiety; F32.9 Major depressive disorder, single episode, unspecified; Z68.20 Body mass index [BMI] 20.0-20.9, adult; J44.9 Chronic obstructive pulmonary disease, unspecified; F41.9 Anxiety disorder, unspecified
CPT/HCPCS: 36415; 36600; 71045; 71275; 80048; 80053; 80202; 80306; 81001; 82803; 83605; 83690; 83735; 83880; 84132; 84145; 84484; 85025; 85610; 87040; 87086; 87150; 87633; 93005; 94640; 94660; 96365; 99285; A9270; G0480; J1650; J3370; J7512; Q9967; 80320; 81003